=== PATIENT | female | born 1950 | race Caucasian/White ===

== ENCOUNTER → 2017-03-25 16:40 | Outpatient (CLI) | payer MEDICARE, SELFPAY ==
--- NOTE | 2017-03-25 16:47 | RAD_ITS ---
XR Spine Lumbar Min 4 Views INDICATION: degenerative lumbar disc COMPARISON: None TECHNIQUE: 5 views of the lumbar spine FINDINGS: There are 5 lumbar type nonrib-bearing vertebral bodies. There is normal lumbar lordosis and no evidence of scoliosis. Facet arthritic changes are noted at the mid and lower lumbar levels. There is degenerative disc disease suggested at L5-S1 with decrease in disc space and endplate sclerotic changes. RAD/L/S Spine Min 4 Views IMPRESSION: Multilevel facet arthritic changes and L5-S1 degenerative disc disease. at 1704 Reported and signed by: Leny Schafer MD Electronically Signed: Leny Schafer MD at 16:03 EST Tel , Service support ,
== END ==
PROVIDERS: Family Provider Family Medicine; PCP Family Medicine; Visit Provider Family Medicine
DX: M51.36 Other intervertebral disc degeneration, lumbar region (principal)
CPT/HCPCS: 72110

== ENCOUNTER → 2017-04-23 14:14 | Outpatient (CLI) | payer MEDICARE, SELFPAY | PROVIDERS: Visit Provider Dermatology | DX: L60.9 Nail disorder, unspecified (principal) | CPT/HCPCS: 87077; 87101; 87106 ==

== ENCOUNTER → 2017-05-17 09:56 | Outpatient (CLI) | payer MEDICARE, SELFPAY ==
[2017-05-17 10:35] LABS: AST(SGOT) 24 U/L (15-37); Alanine Aminotransfer ALT/SGPT 32 U/L (13-56); Albumin, Serum 3.7 g/dL (3.2-5.0); Alkaline Phosphatase 60 U/L (45-117); Bilirubin, Direct 0.11 mg/dL (0.00-0.30); Creatinine, Serum 0.68 mg/dL (0.55-1.02); EST Glomerular Filtration Rate 92 mL/min (>60); Est Glom Filt Rate - Afr Amer 111 mL/min (>60); Globulin 2.8 g/dL (2.2-4.2); Protein, Total 6.5 g/dL (6.4-8.2)
== END ==
PROVIDERS: Family Provider Family Medicine; PCP Family Medicine; Visit Provider Dermatology
DX: Z51.81 Encounter for therapeutic drug level monitoring (principal); Z79.899 Other long term (current) drug therapy
CPT/HCPCS: 36415; 80076; 82565

== ENCOUNTER → 2017-07-12 10:29 | Outpatient (CLI) | payer MEDICARE, SELFPAY ==
[2017-07-12 11:20] LABS: Hematocrit 38.9 % (37-47); Hemoglobin 13.2 g/dl (12.0-15.0); Mean Corp Hgb Conc 33.9 g/gl (32-36); Mean Corpuscular Hgb 31.1 pg (27.0-32.0); Mean Corpuscular Volume 91.7 fL (81-99); Mean Platelet Vol. 10.2 fl (6.2-12.0); Platelet Count 189 K/mm3 (150-450); RBC Distribution Width CV 12.3 % (11.6-14.6); RBC Distribution Width SD 40.5 fl (35.1-43.9); Red Blood Count 4.24 M/mm3 (4.2-5.4); White Blood Count 4.1 K/mm3 (4.4-11.0)
[2017-07-12 11:21] LABS: Scan Indicated on CBC? Y/N NO
[2017-07-12 11:59] LABS: Anion Gap 6 (5-15); BUN 17 mg/dL (7-18); BUN/Creat Ratio 24.2 RATIO (10-20); Chloride 108 mmol/L (98-107); Cholesterol 211 mg/dL (200); EST Glomerular Filtration Rate 88 mL/min (>60); Est Glom Filt Rate - Afr Amer 107 mL/min (>60); Glucose 73 mg/dL (74-106); High Density Lipoprotein 76 mg/dL; Potassium 4.4 mmol/L (3.5-5.1); Sodium Level 141 mmol/L (136-145); Thyroid Stim Hormone (TSH) 1.55 uIU/mL (0.358-3.74); Triglycerides 64 mg/dL; Very Low Density Lipoprotein 13 mg/dL (5-40)
== END ==
PROVIDERS: Family Provider Family Medicine; PCP Family Medicine; Visit Provider Family Medicine
DX: M81.0 Age-related osteoporosis without current pathological fracture (principal); E78.5 Hyperlipidemia, unspecified; K22.70 Barrett's esophagus without dysplasia
CPT/HCPCS: 80048; 80061; 82306; 84443; 85027

== ENCOUNTER → 2018-07-15 10:15 | Outpatient (CLI) | payer MEDICARE, SELFPAY ==
[2018-07-15 12:52] LABS: Hematocrit 41.6 % (37-47); Hemoglobin 13.9 g/dl (12.0-15.0); Mean Corp Hgb Conc 33.4 g/gl (32-36); Mean Corpuscular Hgb 30.5 pg (27.0-32.0); Mean Corpuscular Volume 91.2 fL (81-99); Mean Platelet Vol. 10.1 fl (6.2-12.0); Platelet Count 200 K/mm3 (150-450); RBC Distribution Width CV 12.7 % (11.6-14.6); RBC Distribution Width SD 42.3 fl (35.1-43.9); Red Blood Count 4.56 M/mm3 (4.2-5.4); White Blood Count 4.1 K/mm3 (4.4-11.0)
[2018-07-15 12:53] LABS: Scan Indicated on CBC? Y/N NO
[2018-07-15 13:22] LABS: Vitamin D,25 Hydroxy 61.1 ng/mL (29.95-100.01)
[2018-07-15 13:38] LABS: ALB/GLOB Ratio 1.2 RATIO (0.9-2.4); AST(SGOT) 24 U/L (15-37); Alanine Aminotransfer ALT/SGPT 34 U/L (13-56); Albumin, Serum 3.9 g/dL (3.2-5.0); Alkaline Phosphatase 62 U/L (45-117); Anion Gap 7 (5-15); BUN 14 mg/dL (7-18); BUN/Creat Ratio 21.4 RATIO (10-20); Calcium,Total 8.8 mg/dL (8.5-10.1); Chloride 105 mmol/L (98-107); Creatinine, Serum 0.65 mg/dL (0.55-1.02); EST Glomerular Filtration Rate 96 mL/min (>60); Est Glom Filt Rate - Afr Amer 116 mL/min (>60); Globulin 3.2 g/dL (2.2-4.2); Glucose 82 mg/dL (74-106); Potassium 4.1 mmol/L (3.5-5.1); Protein, Total 7.1 g/dL (6.4-8.2); Sodium Level 139 mmol/L (136-145); Thyroid Stim Hormone (TSH) 1.67 uIU/mL (0.358-3.74)
[2018-07-15 13:39] LABS: PTHIN 49.5 pg/mL (18.4-80.1)
[2018-07-16 16:51] LABS: Hep C Antibodies <0.1 s/co ratio (0.0-0.9)
== END ==
PROVIDERS: Family Provider Family Medicine; PCP Family Medicine; Referring Provider Family Medicine; Visit Provider Family Medicine
DX: K22.70 Barrett's esophagus without dysplasia (principal); M81.0 Age-related osteoporosis without current pathological fracture; Z11.59 Encounter for screening for other viral diseases
CPT/HCPCS: 36415; 80053; 82306; 83970; 84443; 85027; 86803

== ENCOUNTER → 2018-07-28 10:50 | Outpatient (CLI) | payer MEDICARE, SELFPAY ==
--- NOTE | 2018-07-28 10:56 | BD_ITS ---
STUDY: DUAL ENERGY X-RAY ABSORPTIOMETRY / DXA REASON FOR EXAM: Female, 67 years old. Patient is postmenopausal. Loss on right. TECHNIQUE: Bone Mineral Density (BMD) measurements of lumbar spine and bilateral hips were obtained. COMPARISON: Comparison is made with prior study dated July 23, 2016. FINDINGS: Lumbar Spine (L1-L4): g/cm2 (1.139) / T-score (-0.3) / Z-score (1.4) Findings are suggestive of normal bone density with a low fracture risk. Left Femur Total: g/cm2 (0.862) / T-score (-1.2) / Z-score (0.2) Left Femoral Neck: g/cm2 (0.788) / T-score (-1.8) / Z-score (-0.2) Right Femur Total: g/cm2 (0.898) / T-score (-0.9) / Z-score (0.5) Right Femoral Neck: g/cm2 (0.771) / T-score (-1.9) / Z-score (-0.3) The T-Scores on the most recent prior examination were: Lumbar Spine (L1-L4): There has been improvement of bone density since the previous examination. Left Femur Total: which represents an improvement of 2.5%. Right Femur Total: which represents an improvement of 2.7%. BD/Dexa Bone Density Study IMPRESSION: The patient is considered osteopenic as outlined below according to World [place] Organization (WHO) criteria with a moderate fracture risk. There has been improvement of bone density since the previous examination. Reference Information: The T-score is the number of standard deviations above or below the standard which is normal for young adults at their peak bone mineral density. The World Health Organization (WHO) interprets the T-scores as follows: Above -1 Normal bone density Between -1 and -2.5 Osteopenia Equal to / or below -2.5 Osteoporosis As a practical clinical guideline, osteopenia may be graded as follows: Mild -1 through -1.5 Moderate -1.6 through -2.0 Severe -2.1 through -2.4 The Z-score is the number of standard deviations above or below age-matched controls. A Z-score of less than -1.5 would be considered abnormal. References: 1. NIH Osteoporosis and Related Bone Diseases http://www.osteo.org 2. International Society for Clinical Densitometry http://www.iscd.org 3. National Osteoporosis Foundation http://www.nof.org Electronically Signed: Charles Edmond, at 8:47 EDT , Service support ,
== END ==
PROVIDERS: Family Provider Family Medicine; PCP Family Medicine; Referring Provider Family Medicine; Visit Provider Family Medicine
DX: Z78.0 Asymptomatic menopausal state (principal); M81.0 Age-related osteoporosis without current pathological fracture
CPT/HCPCS: 77080

== ENCOUNTER 2018-09-03 10:00 | Outpatient (RCR) | payer MEDICARE, SELFPAY ==
--- NOTE | 2018-07-24 10:29 | HP.PTEVAL ---
Patient's Visit Information JOSEFA CHE is a 67 year old F referred to Physical Therapy by Matt Hadley MD with a diagnosis of RIGHT BICEP TENDONITIS. Date of Evaluation: 07/24/18 Physical Therapist: Luke Koroma PT, Cert MDT, OCS - Visit Plan Frequency: 2x /Week Duration: 4 Weeks Plan: MODALTIES US/ESTIM CP TO LONG HEAD BICEP,RTC/SCAPULAR STRENGTHENING,ECCENTRICS - Subjective Findings: This 67 y/o female presents to physical therapy with right biceps tendonitis. Patient has had pain in right shoulder for 3 months possible walking dog . Location anterior biceps. Aggravating factors housework tasks uch as running vacumming ,walking dog,lifting. Symptoms worse with sleeping on rigt side . Alleviating factors heat/ice. No h/o shoulder pain or trauma. Denies paratehsia/tingling. SOCIAL: . VOCATION: retired - Pain Left Shoulder Pain Intensity (Out of 10): 4 Pain Intensity Range: 10 - Objective POSTURE: mild foward posture. PALAPTION: tender long head bicep ,groove. NEURO: intact. AROM: flexion 160,abduction 155 degrees ,ER 90 DEGREES,IR 80 degrees,. MMT: RTC 4/5,deltoid 4-/5 lateral/anterior ,biceps 4/5. CERVICAL ROM: WFL - Special Tests C/S Radiculapathy - Left Upper limb tension test: Negative C/S Radiculapathy - Right Upper limb tension test: Negative C/S Radiculapathy - Left Spurlings: Negative C/S Radiculapathy - Right Spurlings: Negative R Shoulder External Rotation Lag Test - RC Tear: Negative R Shoulder Supine Impingement Test - RC Tear: Negative R Shoulder Lift Off Test - Subscapular Tear: Negative R Shoulder Drop Sign - IS Test: Negative R Shoulder Empty Can - SS: Negative R Shoulder Neer - Impingement: Negative R Shoulder Cardoso Eder - Impingement: Positive R Shoulder Biceps Load Test - Labrum: Negative R Shoulder O'Briens - SLAP/A-C: Negative - Goals Goal 1:: Independant with HEP Goal Time Frame: 4-6 Weeks Goal 2:: Decrease pain in right shoulder by 50% or greater to improve function Goal Time Frame: 4-6 Weeks Goal 3:: Patient to improve ablity to perform ADL's and housework chores without limitations Goal Time Frame: 4-6 Weeks Goal 4:: Patient to improve quick dash shoulder by 5 ponts to improve QOL Goal Time Frame: 4-6 Weeks - Rehabilitation Potential Physical Therapy Diagnosis: This patient appears to have bicepital tendonesis with pain with palpation and certain movemnt affects housework such as vacumming Rehabilitation Potential: Good - Anticipated Interventions Patient/Client Instruction: Educate patient on: Condition, Plan of Care For the Purpose of:: To decrease pain, To increase ROM, To improve muscle performance and motor function, To increase tolerance to activity/condition/position, To improve ability of physical actions for home/community/work/leisure, To improve health of tissue, To decrease soft tissue restriction, To increase flexibility/ROM, To improve ability to perform tasks related to life management Therapeutic Exercise to Include: Strength training, Postural training, Flexibilty training, Active ROM Comment: RTC For the Purpose of:: To decrease pain, To decrease swelling/inflammation, To increase ROM, To improve health of tissue, To decrease soft tissue restriction TENS: Yes IF ES: Yes Cryotherapy (ice pack, ice massage): Yes Thermo therapy (hot pack): Yes Ultrasound (thermal/non thermal): Yes For the Purpose of:: To decrease pain, To improve nutrient delivery to tissue, To increase oxygenation perfusion, To improve health of tissue, To decrease soft tissue restriction Thank you for the opportunity to evaluate your patient. For Medicare and Medicare HMO plans, please review the plan of care and approve it. It will need to be FAXED BACK to us at [phone] for Medicare purposes. For Medicare only, by signing this I certify the plan of care. Please let me know if there are questions or concerns regarding this plan of care. Physician Signature: Date:
--- NOTE | 2018-09-03 10:26 | HP.PTDCSUM ---
HP - PT D/C Summary It has been my pleasure to treat JOSEFA CHE under orders from Matt Hadley MD, for the diagnosis of RIGHT BICEP TENDONITIS for a total of 9 visit(s). Discharge Date: 09/03/18 Please see the following information for a summary of their discharge status. - Subjective Subjective: Doing good .. Able to do all ADL'S/housework tasks - Pain Left Shoulder Pain Intensity (Out of 10): 0 - Overall Improvement % Improvement: 99 - Objective Objective/Function: POSTURE: mild foward posture. PALAPTION: unremarkable. AROM SHOULDER: flexions 160,abd 160,ER 90. MMT: RTC 4/5,DELTOID 4/5 - Goals Goal 1:: Independant with HEP Goal Progress: Goal Met Goal 2:: Decrease pain in right shoulder by 50% or greater to improve function Goal Progress: Goal Met Goal 3:: Patient to improve ablity to perform ADL's and housework chores without limitations Goal Progress: Goal Met Goal 4:: Patient to improve quick dash shoulder by 5 ponts to improve QOL Goal Progress: Goal Met Goal Progress: Goal Met - Plan Plan: D/C TO HEP - D/C Information Discharge Comments: HEP If there are questions or concerns regarding this patient's physical therapy, please feel free to call me at [phone]. Thank you for the referral of this patient. Sincerely, Luke Koroma, PT, Cert MDT, OCS
== END 2018-09-03 19:00 | disposition home or self-care (01) ==
LOC: PT 10:00
PROVIDERS: Family Provider Family Medicine; PCP Family Medicine; Referring Provider Family Medicine; Visit Provider Family Medicine
DX: M75.21 Bicipital tendinitis, right shoulder (principal)
CPT/HCPCS: 97014; 97035; 97110; 97162; G0283

== ENCOUNTER → 2019-01-07 09:17 | Outpatient (CLI) | payer MEDICARE, SELFPAY ==
[2018-10-14 09:20] VITALS: BMI 22.0
== END ==
PROVIDERS: Family Provider Family Medicine; PCP Family Medicine; Referring Provider Nurse Practitioner Family; Visit Provider Nurse Practitioner Family
DX: I49.9 Cardiac arrhythmia, unspecified (principal); R53.83 Other fatigue
CPT/HCPCS: 93225; 93226

== ENCOUNTER → 2019-08-05 11:22 | Outpatient (CLI) | payer MEDICARE, SELFPAY ==
[2018-10-14 09:20] VITALS: BMI 22.0
[2019-08-05 16:12] LABS: Anion Gap 7 (5-15); BUN 12 mg/dL (7-18); BUN/Creat Ratio 17.5 RATIO (10-20); Calcium,Total 8.9 mg/dL (8.5-10.1); Chloride 105 mmol/L (98-107); Cholesterol 237 mg/dL (200); Creatinine, Serum 0.68 mg/dL (0.55-1.02); EST Glomerular Filtration Rate 90 mL/min (>60); Est Glom Filt Rate - Afr Amer 109 mL/min (>60); Glucose 77 mg/dL (74-106); High Density Lipoprotein 79 mg/dL; Potassium 3.9 mmol/L (3.5-5.1); Sodium Level 139 mmol/L (136-145); Thyroid Stim Hormone (TSH) 2.05 uIU/mL (0.358-3.74); Triglycerides 79 mg/dL; Very Low Density Lipoprotein 16 mg/dL (5-40)
[2019-08-06 09:10] LABS: PTHIN 50.1 pg/mL (18.4-80.1)
== END ==
PROVIDERS: PCP Family Medicine; Referring Provider Family Medicine; Visit Provider Family Medicine
DX: M81.0 Age-related osteoporosis without current pathological fracture (principal); E78.5 Hyperlipidemia, unspecified
CPT/HCPCS: 36415; 80048; 80061; 82306; 83970; 84443

== ENCOUNTER → 2019-11-04 10:53 | Outpatient (CLI) | payer MEDICARE, SELFPAY ==
[2019-10-19 09:50] VITALS: BMI 22.2
--- NOTE | 2019-11-04 10:53 | ECHOD_ITS ---
Version 2 Reason For Study: MITRAL VALVE PROLAPSE Procedure This was a 2D Doppler, Color Flow transthoracic echocardiogram. Exam performed in department. Left Ventricle Normal LV size. Left ventricular systolic function is normal. The estimated ejection fraction is 60 %. Stage 2 diastolic dysfunction. No regional wall motion abnormalities noted. Right Ventricle Normal RV size. Normal systolic function. Atria Normal left atrium. Normal right atrium. Mitral Valve Bileaflet diffuse mitral valve thickening. Equivocal mitral valve prolapse. Mild (1+) eccentric mitral valve insufficiency. Tricuspid Valve Normal tricuspid valve. Mild (1+) tricuspid valve insufficiency. Pulmonary artery systolic pressure is 26 mmHg. Aortic Valve Trisinus/trileaflet aortic valve. Pulmonic Valve Normal pulmonic valve. Great Vessels Normal aortic root. The pulmonary artery is normal size. Normal inferior vena cava. Pericardium/Pleural No pericardial effusion. MMode/2D Measurements & Calculations LVIDd: 3.7 cm IVSd: 0.79 cm Ao root diam: 2.9 cm LVIDs: 2.6 cm LVPWd: 0.81 cm RVDd: 2.7 cm FS: 30.5 % LAV(MOD-bp): 42.1 ml LVAd ap4: 19.2 cm2 SV(MOD-sp4): 30.1 ml LAV(MOD-bp) Indexed: 29.1 ml/m2 EDV(MOD-sp4): 47.6 ml LAV(MOD-sp2): 38.4 ml EDV(sp4-el): 48.9 ml LAV(MOD-sp4): 38.6 ml LVAs ap4: 10.3 cm2 ESV(MOD-sp4): 17.5 ml ESV(sp4-el): 16.4 ml EF(MOD-sp4): 63.2 % EF(sp4-el): 66.5 % SV(sp4-el): 32.5 ml LA A4 area: 15.2 cm2 LA dimension(2D): 3.5 cm RA A4 area: 9.0 cm2 Time Measurements MV dec time: 0.25 sec Doppler Measurements & Calculations MV E max emilio: 80.1 cm/sec Lat Peak E' Emilio: 5.6 cm/sec Med Peak E' Emilio: 7.4 cm/sec MV A max emilio: 64.6 cm/sec E/E' lat: 14.4 E/E' med: 10.9 MV E/A: 1.2 Ao V2 max: 122.4 cm/sec LV V1 max: 98.6 cm/sec PA V2 max: 85.1 cm/sec Ao max P.0 mmHg LV V1 max P.9 mmHg PI end-d emilio: 70.9 cm/sec TR max emilio: 234.1 cm/sec TR max P.0 mmHg Interpretation Summary Normal LV size. Left ventricular systolic function is normal. The estimated ejection fraction is 60 %. Stage 2 diastolic dysfunction. Mild (1+) eccentric mitral valve insufficiency. Pulmonary artery systolic pressure is 26 mmHg. Bileaflet diffuse mitral valve thickening. Equivocal mitral valve prolapse. Ordering Physician: Brent Falk Referring Physician: MARIANNE BEE Performed By: Emma Roman RDCS
== END ==
PROVIDERS: PCP Family Medicine; Referring Provider Internal Medicine Cardiovascular Disease; Visit Provider Internal Medicine Cardiovascular Disease
DX: I47.1 Supraventricular tachycardia (principal); I34.1 Nonrheumatic mitral (valve) prolapse
CPT/HCPCS: 93306

== ENCOUNTER → 2020-01-07 13:48 | Outpatient (CLI) | payer MEDICARE, SELFPAY ==
[2019-10-19 09:50] VITALS: BMI 22.2
--- NOTE | 2020-01-07 13:51 | CT_ITS ---
STUDY: CT FACIAL BONES WITHOUT CONTRAST REASON FOR EXAM: Female, 69 years old. SINUSITIS RADIATION DOSAGE (If Supplied By Facility): CTDIvol = ( 33.06 ) mGy, DLP = ( 2029.46 ) mGycm TECHNIQUE: The patient was scanned in a multi detector CT scanner. Sagittal and coronal images were reconstructed. Individualized dose optimization techniques were used for this CT. COMPARISON: None. FINDINGS: Normal soft tissue structures. Normal orbital hua and orbital contents. Normal nasal bones and anterior nasal spine. Normal facial bones. There is no demonstrated fracture. Focal mucosal thickening along the inferior medial wall of the left maxillary sinus suggestive of either small retention cyst or polyp. There is hypertrophy of the inferior turbinates left nasal fossa. CT/Sinus/Facial Bone IMPRESSION: Focal mucosal thickening in the inferior medial aspect of the left maxillary sinus. Hypertrophy of the inferior turbinate in the left nasal fossa. Electronically Signed: Charles Edmond, at 14:40 EST , Service support ,
== END ==
PROVIDERS: PCP Family Medicine; Referring Provider Otolaryngology; Visit Provider Otolaryngology
DX: J32.9 Chronic sinusitis, unspecified (principal)
CPT/HCPCS: 70486

== ENCOUNTER → 2020-01-19 10:16 | Outpatient (CLI) | payer MEDICARE, SELFPAY ==
[2019-10-19 09:50] VITALS: BMI 22.2
== END ==
PROVIDERS: PCP Family Medicine; Referring Provider Otolaryngology; Visit Provider Otolaryngology
DX: Z20.828 Contact with and (suspected) exposure to other viral communicable diseases (principal)
CPT/HCPCS: 87635; C9803; U0003

== ENCOUNTER → 2020-07-13 11:21 | Outpatient (CLI) | payer MEDICARE, SELFPAY ==
[2019-10-19 09:50] VITALS: BMI 22.2
[2020-07-13 12:25] LABS: Absolute Lymphocyte Count 1.82 X10^3/uL (0.83-4.51); Absolute Neutrophil Count 2.3 X10^3/uL (2.0-7.7); Basophil# 0.03 X10^3/uL; Basophil% 0.7 % (0-1); Eosinophil# 0.07 X10^3/uL; Eosinophils% 1.5 % (0-5); Hematocrit 40.8 % (37-47); Hemoglobin 13.6 g/dL (12.0-15.0); Lymphocyte # 1.82 X10^3/ul (0.83-4.51); Mean Corp Hgb Conc 33.3 g/dL (32-36); Mean Corpuscular Hgb 30.2 pg (27.0-32.0); Mean Corpuscular Volume 90.5 fL (81-99); Monocyte# 0.34 X10^3/uL; Monocyte% 7.5 % (0-10); NRBC Flagged by Analyzer 0 % (0-5); Neutrophil # 2.27 X10^3/uL (2.7-7.7); Neutrophil % 49.9 % (47-70); Platelet Count 203 K/mm3 (150-450); RBC Distribution Width CV 12.2 % (11.6-14.6); RBC Distribution Width SD 40.6 fl (35.1-43.9); Red Blood Count 4.51 M/mm3 (4.2-5.4); White Blood Count 4.6 K/mm3 (4.4-11.0)
[2020-07-13 13:07] LABS: AST(SGOT) 19 U/L (15-37); Alanine Aminotransfer ALT/SGPT 29 U/L (13-56); Albumin, Serum 3.9 g/dL (3.2-5.0); Alkaline Phosphatase 59 U/L (45-117); Bilirubin, Direct 0.14 mg/dL (0.00-0.30); Globulin 2.6 g/dL (2.2-4.2); Protein, Total 6.5 g/dL (6.4-8.2)
== END ==
PROVIDERS: PCP Family Medicine
DX: B35.1 Tinea unguium (principal)
CPT/HCPCS: 36415; 80076; 85025

== ENCOUNTER → 2020-08-15 11:46 | Outpatient (CLI) | payer MEDICARE, SELFPAY ==
[2019-10-19 09:50] VITALS: BMI 22.2
[2020-08-15 15:47] LABS: Vitamin D,25 Hydroxy 52.9 ng/mL
[2020-08-15 15:54] LABS: PTHIN 42.5 pg/mL (18.4-80.1)
[2020-08-15 15:55] LABS: Anion Gap 5 (5-15); BUN 11 mg/dL (7-18); Chloride 105 mmol/L (98-107); Cholesterol 271 mg/dL (200); Creatinine, Serum 0.65 mg/dL (0.55-1.02); EST Glomerular Filtration Rate 96 mL/min (>60); Est Glom Filt Rate - Afr Amer 116 mL/min (>60); Glucose 84 mg/dL (74-106); High Density Lipoprotein 82 mg/dL; Magnesium 2.3 mg/dL (1.6-2.6); Phosphorus 3.1 mg/dL (2.5-4.9); Potassium 4.3 mmol/L (3.5-5.1); Sodium Level 139 mmol/L (136-145); Thyroid Stim Hormone (TSH) 2.85 uIU/mL (0.358-3.74); Triglycerides 104 mg/dL; Very Low Density Lipoprotein 21 mg/dL (5-40)
== END ==
PROVIDERS: PCP Family Medicine; Visit Provider Family Medicine
DX: M81.0 Age-related osteoporosis without current pathological fracture (principal); E78.5 Hyperlipidemia, unspecified
CPT/HCPCS: 36415; 80048; 80061; 82306; 82330; 83735; 83970; 84100; 84443

== ENCOUNTER → 2020-08-21 10:45 | Outpatient (CLI) | payer MEDICARE, SELFPAY ==
[2019-10-19 09:50] VITALS: BMI 22.2
== END ==
PROVIDERS: PCP Family Medicine; Referring Provider Family Medicine; Visit Provider Family Medicine
DX: M81.0 Age-related osteoporosis without current pathological fracture (principal)
CPT/HCPCS: 82330

== ENCOUNTER → 2020-09-11 08:38 | Outpatient (CLI) | payer MEDICARE, SELFPAY ==
[2019-10-19 09:50] VITALS: BMI 22.2
[2020-09-11 09:14] LABS: Absolute Lymphocyte Count 2.04 X10^3/uL (0.83-4.51); Absolute Neutrophil Count 3.3 X10^3/uL (2.0-7.7); Basophil# 0.03 X10^3/uL; Basophil% 0.5 % (0-1); Eosinophil# 0.11 X10^3/uL; Eosinophils% 1.8 % (0-5); Hematocrit 42.6 % (37-47); Lymphocyte # 2.04 X10^3/ul (0.83-4.51); Lymphocyte % 34.2 % (19-41); Mean Corp Hgb Conc 32.9 g/dL (32-36); Mean Corpuscular Hgb 30.2 pg (27.0-32.0); Mean Platelet Vol. 9.4 fl (6.2-12.0); Monocyte# 0.42 X10^3/uL; NRBC Flagged by Analyzer 0 % (0-5); Neutrophil # 3.32 X10^3/uL (2.7-7.7); Neutrophil % 55.8 % (47-70); Platelet Count 207 K/mm3 (150-450); RBC Distribution Width CV 12.7 % (11.6-14.6); RBC Distribution Width SD 43.1 fl (35.1-43.9); Red Blood Count 4.63 M/mm3 (4.2-5.4)
[2020-09-11 09:43] LABS: AST(SGOT) 17 U/L (15-37); Alanine Aminotransfer ALT/SGPT 29 U/L (13-56); Albumin, Serum 3.7 g/dL (3.2-5.0); Alkaline Phosphatase 52 U/L (45-117); Bilirubin, Direct 0.07 mg/dL (0.00-0.30); Globulin 2.9 g/dL (2.2-4.2); Protein, Total 6.6 g/dL (6.4-8.2)
== END ==
PROVIDERS: PCP Family Medicine
DX: B35.1 Tinea unguium (principal); L21.8 Other seborrheic dermatitis; D22.5 Melanocytic nevi of trunk; D48.5 Neoplasm of uncertain behavior of skin; L30.9 Dermatitis, unspecified; L82.1 Other seborrheic keratosis
CPT/HCPCS: 36415; 80076; 85025

== ENCOUNTER → 2020-09-13 09:26 | Outpatient (CLI) | payer MEDICARE, SELFPAY ==
[2019-10-19 09:50] VITALS: BMI 22.2
--- NOTE | 2020-09-13 09:30 | BD_ITS ---
STUDY: DUAL ENERGY X-RAY ABSORPTIOMETRY / DXA REASON FOR EXAM: Female, 69 years old. [id number]. The patient is postmenopausal. TECHNIQUE: Bone Mineral Density (BMD) measurements of lumbar spine and bilateral hips were obtained. COMPARISON: Comparison is made with prior study dated 07/28/2018. FINDINGS: Lumbar Spine (L1-L4): g/cm2 (1.065) / T-score (0.2) / Z-score (2.3) Findings are suggestive of normal bone density with a low fracture risk. Left Femur Total: g/cm2 (0.788) / T-score (-1.3) / Z-score (0.3) Left Femoral Neck: g/cm2 (0.608) / T-score (-2.2) / Z-score (-0.3) Right Femur Total: g/cm2 (0.822) / T-score (-1.0) / Z-score (0.6) Right Femoral Neck: g/cm2 (0.606) / T-score (-2.2) / Z-score (-0.3) The T-Scores on the most recent prior examination were: Lumbar Spine (L1-L4): There has been improvement of bone density since the previous examination. Left Femur Total: which represents a worsening of 1.5%. Right Femur Total: which represents a worsening of 1.6%. BD/Dexa Bone Density Study IMPRESSION: The patient is considered osteopenic as outlined below according to World [place] Organization (WHO) criteria with a high fracture risk. There has been worsening of bone density since the previous examination. Reference Information: The T-score is the number of standard deviations above or below the standard which is normal for young adults at their peak bone mineral density. The World Health Organization (WHO) interprets the T-scores as follows: Above -1 Normal bone density Between -1 and -2.5 Osteopenia Equal to / or below -2.5 Osteoporosis As a practical clinical guideline, osteopenia may be graded as follows: Mild -1 through -1.5 Moderate -1.6 through -2.0 Severe -2.1 through -2.4 The Z-score is the number of standard deviations above or below age-matched controls. A Z-score of less than -1.5 would be considered abnormal. References: 1. NIH Osteoporosis and Related Bone Diseases www osteo.org 2. International Society for Clinical Densitometry www iscd.org 3. National Osteoporosis Foundation www nof.org Electronically Signed: Charles Edmond MD at 20:32 EDT , Service support ,
== END ==
PROVIDERS: PCP Family Medicine; Referring Provider Family Medicine; Visit Provider Family Medicine
DX: Z78.0 Asymptomatic menopausal state (principal)
CPT/HCPCS: 77080

== ENCOUNTER → 2020-10-30 08:28 | Outpatient (CLI) | payer MEDICARE, SELFPAY ==
[2020-10-30 10:51] LABS: Cholesterol 213 mg/dL (200); High Density Lipoprotein 88 mg/dL; Triglycerides 95 mg/dL; Very Low Density Lipoprotein 19 mg/dL (5-40)
== END ==
PROVIDERS: PCP Family Medicine; Referring Provider Family Medicine; Visit Provider Family Medicine
DX: E78.5 Hyperlipidemia, unspecified (principal)
CPT/HCPCS: 36415; 80061

== ENCOUNTER → 2020-12-05 09:51 | Outpatient (CLI) | payer MEDICARE, SELFPAY ==
--- NOTE | 2020-12-05 09:55 | RAD_ITS ---
STUDY: X-RAY - LUMBOSACRAL SPINE REASON FOR EXAM: Female, 70 years old. Lumbago with sciatica, left side TECHNIQUE: 7 view(s) of the lumbosacral spine were obtained. COMPARISON: None FINDINGS: Normal lumbar lordosis. There is no substantial scoliosis. There is grade 1 anterolisthesis of L4 on L5. No change in flexion or extension. There is multilevel endplate spondylosis of the lumbar vertebrae. Disc space loss at L5-S1. Facet arthrosis increases from superior to inferior. Normal bilateral sacral ala, sacroiliac joints, and visualized sacrum. There is atherosclerotic calcification of the abdominal aorta without a demonstrated aneurysm. RAD/L/S Spine w Bend Min 6 Vw IMPRESSION: Multilevel degenerative change, most prominent at L5-S1. Lower lumbar facet arthrosis. Electronically Signed: Claude Jarrell MD at 5:29 EDT Tel , Service support ,
== END ==
PROVIDERS: PCP Family Medicine; Referring Provider Family Medicine; Visit Provider Family Medicine
DX: M54.42 Lumbago with sciatica, left side (principal); M47.816 Spondylosis without myelopathy or radiculopathy, lumbar region
CPT/HCPCS: 72114

== ENCOUNTER → 2021-09-25 | Outpatient (CLI) | payer MEDICARE, SELFPAY ==
[2021-09-25 09:48] LABS: Absolute Lymphocyte Count 1.57 X10^3/uL (0.83-4.51); Absolute Neutrophil Count 2.2 X10^3/uL (2.0-7.7); Basophil# 0.02 X10^3/uL; Basophil% 0.5 % (0-1); Eosinophil# 0.24 X10^3/uL; Eosinophils% 5.6 % (0-5); Hemoglobin 13.5 g/dL (12.0-15.0); Lymphocyte # 1.57 X10^3/ul (0.83-4.51); Lymphocyte % 36.9 % (19-41); Mean Corp Hgb Conc 33.8 g/dL (32-36); Mean Corpuscular Hgb 30.9 pg (27.0-32.0); Mean Corpuscular Volume 91.5 fL (81-99); Mean Platelet Vol. 9.8 fl (6.2-12.0); Monocyte# 0.26 X10^3/uL; Monocyte% 6.1 % (0-10); NRBC Flagged by Analyzer 0 % (0-5); Neutrophil # 2.15 X10^3/uL (2.7-7.7); Neutrophil % 50.7 % (47-70); Platelet Count 204 K/mm3 (150-450); RBC Distribution Width CV 12.5 % (11.6-14.6); RBC Distribution Width SD 41.7 fl (35.1-43.9); Red Blood Count 4.37 M/mm3 (4.2-5.4); White Blood Count 4.3 K/mm3 (4.4-11.0)
[2021-09-25 10:15] LABS: PTHIN 50.2 pg/mL (18.4-80.1)
[2021-09-25 10:32] LABS: ALB/GLOB Ratio 1.2 RATIO (0.9-2.4); AST(SGOT) 17 U/L (15-37); Alanine Aminotransfer ALT/SGPT 23 U/L (13-56); Albumin, Serum 3.6 g/dL (3.2-5.0); Alkaline Phosphatase 57 U/L (45-117); Anion Gap 5 (5-15); BUN 9 mg/dL (7-18); BUN/Creat Ratio 13.4 RATIO (10-20); Calcium,Total 8.4 mg/dL (8.5-10.1); Chloride 104 mmol/L (98-107); Cholesterol 232 mg/dL (200); Creatinine, Serum 0.67 mg/dL (0.55-1.02); EST Glomerular Filtration Rate 92 mL/min (>60); Est Glom Filt Rate - Afr Amer 111 mL/min (>60); Globulin 2.9 g/dL (2.2-4.2); Glucose 85 mg/dL (74-106); High Density Lipoprotein 71 mg/dL; Potassium 3.9 mmol/L (3.5-5.1); Protein, Total 6.5 g/dL (6.4-8.2); Sodium Level 138 mmol/L (136-145); Thyroid Stim Hormone (TSH) 2.81 uIU/mL (0.358-3.74); Triglycerides 159 mg/dL; Very Low Density Lipoprotein 32 mg/dL (5-40)
== END | disposition home or self-care (01) ==
LOC: LAB 08:58
PROVIDERS: PCP Family Medicine; Referring Provider Family Medicine; Visit Provider Family Medicine
DX: I47.1 Supraventricular tachycardia (principal)
CPT/HCPCS: 36415; 80053; 80061; 82330; 83735; 83970; 84443; 85025

== ENCOUNTER → 2021-11-07 | Outpatient (CLI) | payer MEDICARE, SELFPAY ==
--- NOTE | 2021-11-07 10:23 | NM_ITS ---
CLINICAL: 71-year-old female with history of clinical gastroparesis. SEMI-SOLID PHASE 99m Tc SULFUR COLLOID GASTRIC EMPTYING STUDY COMPARISON: None available FINDINGS: The patient was administered 1.1 mCi of 99m Tc sulfur colloid mixed with oatmeal and consumed per os. Image acquisitions in the anterior-posterior projections were obtained for 60 minutes. There is prompt visualization of the stomach. There is no gastroesophageal reflux identified. The T ? emptying was calculated to be 15.01 minutes, (Normal: 12-56 minutes). NM/Gastric Emptying Study IMPRESSION: 1. NORMAL 99m Tc sulfur colloid semi-solid phase (oatmeal) gastric emptying imaging examination. A. There is normal and preserved semi-solid phase gastric emptying compared to normal controls. (Brittanie et al, J Nucl Med Tech 38: 186, 2010). Electronically Signed: Bc Lewis, at 15:07 EDT ,
== END | disposition home or self-care (01) ==
PROVIDERS: PCP Family Medicine; Referring Provider Internal Medicine Gastroenterology; Visit Provider Internal Medicine Gastroenterology
DX: K31.84 Gastroparesis (principal)
CPT/HCPCS: 78264; A9541

== ENCOUNTER → 2021-11-14 | Outpatient (CLI) | payer MEDICARE, SELFPAY ==
[2021-11-22 00:07] LABS: Chicken <0.10 kU/L (Class 0); Chocolate <0.10 kU/L (Class 0); Clam <0.10 kU/L (Class 0); Codfish <0.10 kU/L (Class 0); Corn <0.10 kU/L (Class 0); Egg, White <0.10 kU/L (Class 0); Gluten <0.10 kU/L (Class 0); Milk (Cow) <0.10 kU/L (Class 0); Peanut <0.10 kU/L (Class 0); SCALLOP <0.10 kU/L (Class 0); SESAME SEED <0.10 kU/L (Class 0); Shrimp <0.10 kU/L (Class 0); Soybean <0.10 kU/L (Class 0); Walnut, (Food) <0.10 kU/L (Class 0); Wheat <0.10 kU/L (Class 0)
[2021-11-22 10:36] LABS: Egg, Whole <0.10 kU/L (Class 0)
== END | disposition home or self-care (01) ==
LOC: LAB 14:54
PROVIDERS: PCP Family Medicine; Visit Provider Otolaryngology
DX: T78.40XA Allergy, unspecified, initial encounter (principal); X58.XXXA Exposure to other specified factors, initial encounter
CPT/HCPCS: 36415; 86003

== ENCOUNTER → 2022-01-02 | Outpatient (CLI) | payer MEDICARE, SELFPAY ==
--- NOTE | 2022-01-02 17:30 | RAD_ITS ---
STUDY: X-RAY - LUMBAR SPINE REASON FOR EXAM: Female, 71 years old. Pain radiating down both legs. History of spinal surgery. TECHNIQUE: 2 view(s) of the lumbar spine were obtained. COMPARISON: December 05, 2020. FINDINGS: Normal lumbar lordosis. Minimal dextroscoliosis. There is a stable mild anterolisthesis of L4 and L5. The alignment is otherwise preserved. Mild multilevel endplate spondylosis. Disc space loss at L5-S1. Facet joint arthrosis. There is no evidence of acute fracture or loss of vertebral axial height. There is atherosclerotic calcification of the abdominal aorta without a demonstrated aneurysm. RAD/Lumbar Spine 2 or 3 Views IMPRESSION: No acute abnormality or major interval change when compared to the previous examination Electronically Signed: Savage Saenz DO at 19:42 EST ,
== END | disposition home or self-care (01) ==
LOC: RAD 17:23
PROVIDERS: PCP Family Medicine; Visit Provider Anesthesiology Pain Medicine
DX: M51.36 Other intervertebral disc degeneration, lumbar region (principal); M51.26 Other intervertebral disc displacement, lumbar region
CPT/HCPCS: 72100

== ENCOUNTER → 2022-01-21 | Outpatient (CLI) | payer MEDICARE, SELFPAY ==
--- NOTE | 2022-01-21 14:05 | ECHOD_ITS ---
Reason For Study: MVP Procedure This was a 2D Doppler, Color Flow transthoracic echocardiogram. Exam performed in department. Left Ventricle Normal LV size. Left ventricular systolic function is normal. The estimated ejection fraction is 60 %. No regional wall motion abnormalities noted. Right Ventricle Normal RV size. Normal systolic function. Atria Normal left atrium. Normal right atrium. Mitral Valve Mild mitral valve prolapse. Mild mitral valve prolapse, posterior leaflet. Mild-Moderate (1-2+) anteriorly directed mitral valve insufficiency. Tricuspid Valve Normal tricuspid valve. Mild (1+) tricuspid valve insufficiency. Pulmonary artery systolic pressure is 28 mmHg. Aortic Valve Normal aortic valve. Trisinus/trileaflet aortic valve. Pulmonic Valve Normal pulmonic valve. Mild (1+) pulmonic valve insufficiency. Great Vessels Normal aortic root. The pulmonary artery is normal size. Normal inferior vena cava. Pericardium/Pleural No pericardial effusion. MMode/2D Measurements & Calculations LVIDd: 4.1 cm IVSd: 1.3 cm Ao root diam: 2.7 cm LVIDs: 2.5 cm LVPWd: 1.1 cm RVDd: 2.9 cm FS: 39.0 % LAV(MOD-bp): 66.2 ml LVAd ap4: 22.0 cm2 SV(MOD-sp4): 43.2 ml LAV(MOD-bp) Indexed: 45.6 ml/m2 LVLd ap4: 6.2 cm LAV(MOD-sp2): 67.4 ml EDV(MOD-sp4): 63.5 ml LAV(MOD-sp4): 55.5 ml EDV(sp4-el): 66.0 ml LVAs ap4: 11.3 cm2 LVLs ap4: 5.1 cm ESV(MOD-sp4): 20.2 ml ESV(sp4-el): 21.2 ml EF(MOD-sp4): 68.1 % EF(sp4-el): 68.0 % SV(sp4-el): 44.9 ml LA A4 area: 19.3 cm2 LA dimension(2D): 3.7 cm RA A4 area: 11.1 cm2 Doppler Measurements & Calculations MV E max emilio: 76.5 cm/sec Lat Peak E' Emilio: 7.0 cm/sec Med Peak E' Emilio: 7.7 cm/sec MV A max emilio: 84.8 cm/sec E/E' lat: 10.9 E/E' med: 9.9 MV E/A: 0.90 Ao V2 max: 109.4 cm/sec LV V1 max: 85.3 cm/sec PA V2 max: 87.7 cm/sec Ao max P.8 mmHg LV V1 max P.9 mmHg Ao V2 mean: 70.4 cm/sec Ao mean P.2 mmHg Ao V2 VTI: 17.6 cm PI end-d emilio: 116.3 cm/sec TR max emilio: 252.2 cm/sec TR max P.4 mmHg ECHO/Echo Complete Interpretation Summary Normal LV size. Left ventricular systolic function is normal. The estimated ejection fraction is 60 %. Mild mitral valve prolapse. Mild mitral valve prolapse, posterior leaflet Mild-Moderate (1-2+) anteriorly directed mitral valve insufficiency. Pulmonary artery systolic pressure is 28 mmHg. Compared to the previous echo of the extent of the mitral regurgitation is mild ly worse. Ordering Physician: Mai Eller Referring Physician: Santy Hadley Performed By: Monica Hammond, PETER, RVT
== END | disposition home or self-care (01) ==
PROVIDERS: PCP Family Medicine; Visit Provider Nurse Practitioner Gerontology
DX: I34.1 Nonrheumatic mitral (valve) prolapse (principal)
CPT/HCPCS: 93306

== ENCOUNTER → 2022-01-31 | Outpatient (CLI) | payer MEDICARE, SELFPAY | END | disposition home or self-care (01) | PROVIDERS: PCP Family Medicine; Visit Provider Otolaryngology | DX: J32.9 Chronic sinusitis, unspecified (principal) | CPT/HCPCS: 87070; 87186; 87205 ==

== ENCOUNTER → 2022-02-04 | Outpatient (CLI) | payer MEDICARE, SELFPAY ==
--- NOTE | 2022-02-04 14:40 | MRI_ITS ---
STUDY: MRI LUMBAR SPINE WITHOUT CONTRAST REASON FOR EXAM: Female, 71 years old. STENOSIS TECHNIQUE: Standardized fat and water weighted pulse sequences were obtained in the sagittal and axial planes. COMPARISON: 01/02/2022 FINDINGS: T12-L1: Normal endplates. Normal disc height, hydration and morphology. Normal bilateral facet joints. Normal central canal and bilateral lateral recesses. Normal bilateral intervertebral neural foramina. Normal lumbar lordosis. There is no substantial scoliosis. Normal conus medullaris that terminates at the L1-2: Normal endplates. Normal disc height, hydration and morphology. Normal bilateral facet joints. Normal central canal and bilateral lateral recesses. Normal bilateral intervertebral neural foramina. L2-3: Normal endplates. Normal disc height, hydration and morphology. Normal bilateral facet joints. Normal central canal and bilateral lateral recesses. Normal bilateral intervertebral neural foramina. L3-4: Endplate spondylosis. Decreased disc height and small circumferential disc bulge. Degenerative changes of the bilateral facet joints. Mild narrowing of the bilateral intervertebral neural foramina. L4-5: Endplate spondylosis. Decreased disc height and small circumferential disc bulge. Advanced changes of the bilateral facet joints more prominent on the left side. There are bilateral synovial cysts originating from the facet joints measuring approximately 8mm and an 18 mm respectively. Severe narrowing of the central canal and bilateral intervertebral neural foramina. L5-S1: Endplate spondylosis. Decreased disc height and small circumferential disc bulge. Degenerative changes of the bilateral facet joints. Mild narrowing of the bilateral intervertebral neural foramina. Normal visualized sacral ala. Normal visualized paraspinous soft tissue structures. MRI/Spine Lumbar (Routine) IMPRESSION: Multilevel degenerative changes, as described above. Severe spinal canal stenosis at L4-5. Electronically Signed: Talisha Mahajan MD at 4:41 EST ,
== END | disposition home or self-care (01) ==
LOC: MRI 14:06
PROVIDERS: PCP Family Medicine; Referring Provider Anesthesiology Pain Medicine; Visit Provider Anesthesiology Pain Medicine
DX: M51.16 Intervertebral disc disorders with radiculopathy, lumbar region (principal); M48.061 Spinal stenosis, lumbar region without neurogenic claudication
CPT/HCPCS: 72148

== ENCOUNTER 2022-02-12 12:03 | Day surgery (SDC) | payer MEDICARE, SELFPAY ==
[2022-02-12] VITALS (10 sets, daily range): BP systolic 102–149; BP diastolic 53–78; PULSE 67–81; RESP 16–18; TEMP 36.3–36.5; O2SAT 97–100; BMI 21.7
[2022-02-12] MEDS: Lactated Ringers 1,000 ML 15 ML IV (13:04)
--- NOTE | 2022-02-12 13:15 | EGD_PTH ---
PATIENT: JOSEFA CHE LOC: EN U#:[id number] AGE/SX: 71/F ROOM: RE02/12/[address]: Dr. Ko Tilley DO : 1950 BED: DIS: 02/12/2022 SPEC #: [id number] RECD: 02/12/22 16:18 STATUS: JACI GOLDEN #: [id number] RENEE: 02/12/22 13:[address]: Ko Tilley DEPT: SURGICAL PATHOLOGY RECD BY: Elver Woo ENTERED: 02/13/22 08:10 SP TYPE: EGD BIOPSY JANETH DR: Dr. Santy Hadley MD Tissues: Esophagus, NOS Procedures: Special Stain Group II Surgery Specimen Level IV Alcian Blue/PAS (control) HEADER OPERATION: EGD ? PH probe ([facility]) PRE-OP DIAGNOSIS: Matute?s esophagus, GERD TISSUE SUBMITTED: Distal esophagus biopsy MICROSCOPIC DIAGNOSIS Distal esophagus, biopsy: Fragments of gastroesophageal mucosa with focal ulceration, moderate to marked chronic inflammation and mild acute inflammation. Focal changes consistent with gastroesophageal reflux disease. Intestinal metaplasia (goblet cell metaplasia) not identified. See comment. ALEYDA:moy 02/14/2022 COMMENT Alcian blue/PAS stain with matched control is used in the evaluation of the specimen. MICROSCOPIC DESCRIPTION Slides are reviewed. GROSS DESCRIPTION Received in fixative is one container labeled with the patient's name and designated distal esophagus biopsy. The specimen consists of multiple irregular fragments of light lee soft tissue that in aggregate measure 1.2 x 0.3 x 0.1 cm. The specimen is totally submitted in one cassette. / ALEYDA:moy 02/13/2022 TC:2 CPT: 04895, 97964
--- NOTE | 2022-02-12 13:44 | PCM.HP.BLA ---
History and Physical Date of Admission: 02/12/22 YULISA CHE, is a 71 F who presents to the office today for Follow up. Yulisa established with this clinic 10.11.21 with referral from PCP for evaluation of Matute?s esophagus and GERD. Wing Fundoplication performed in 2006 Recently began having a return of reflux symptoms to include esophageal burning, chest discomfort and bloating. PeptoBismol mildly effective. Previously attempted reflux medications, protonix, aciphex all of which caused increased GERD or other SE. Particularly during the night she will have chest pain; not currently taking medications d/t worsening with medications historically. Reports increased sinus drainage with ENT determining it is GI related. Feels she also has spasms of her esophagus that cause dense foods (salmon/chicken) to swallow abnormally. Feels Frisian food particularly triggers this. 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 Blood in stool historically without change in bowel habits. FH mother colon cancer late ?s. EGD and colonoscopy 10.15.19 at [facility] with pathology changes of gastric reactive changes; gastritis; inflamed gastric cardia-type mucosa. Hepatic flexure colonic polyp. Gastric emptying study 11.07.21 time at the lower side of normal at 15.01 minutes (normal 12-56). Call [phone] to report that since start of alkaline water and bicarbonate she has been having increased symptoms and diarrhea. Recommended colestipol 1g QD for two weeks to start after her vacation. Continues to have food sticking in her esophagus; increased epigastric discomfort; continued nausea. Feels everything has gotten somewhat worse as she is taking increased pepto-bismol than previously, particularly with trigger foods. ROS Const Constitutional: No anorexia, fatigue, fever(s), weight change or sleep problems Eyes Eyes: No change in vision ENT ENT: No abnormal hearing, difficulty swallowing, mouth lesions, tongue swelling or throat swelling Resp Respiratory: No cough or shortness of breath Cardio Cardiology: No chest pain at rest, chest pain with exertion, shortness of breath or dyspnea on exertion Gastro GI: No difficulty swallowing Genitourinary-Female: No difficulty urinating or burning urination Musc Musculoskeletal: No joint pain, joint swelling, muscle weakness or decreased muscle mass Skin Skin: No hair loss in leg, yellowing of the eye, itchy eyes, rash, skin ulcer or skin swelling Neuro Neurology: No abnormal hearing, abnormal movements, confusion, unsteady gait/balance or memory loss Psych Psychiatric: No anxiety, No confusion and No memory loss Endo Endocrine: No fatigue or weight change Aller/Imm Allergy/Immunologic: No itchy eyes, throat swelling or tongue swelling Shaji/Lymp Hematologic/Lymphatic: No easy bleeding, easy bruising or enlarged lymph nodes Exam Const General: cooperative and comfortable Nutritional Appearance: average body habitus and well nourished HENMS Head: normal to inspection Ears: hearing grossly normal bilaterally Nose: external nose normal Face and sinus: normal facial exam Mouth: oral mucosae normal Throat: posterior oropharynx normal Eyes General: appearance normal, both eyes and all related structures Neck Neck: normal visual inspection Chest Chest palpation & inspection: normal inspection of the chest and normal palpation of entire chest wall Resp Effort & Inspection: normal respiratory effort Auscultation: Bilateral: Clear to Auscultation Cardio Palpation: normal PMI Rate: regular rate Rhythm: regular rhythm GI Inspection: normal to inspection Auscultation: normal bowel sounds Percussion: normal to percussion Palpation: no hepatosplenomegaly Skin General: no rashes or lesions noted Neuro General: patient alert Extrem General: normal to inspection Psych Affect: normal affect Quality Reporting Tobacco Screening ([facility] 138) Smoking Status: Never smoker Assessment and Plan Assessment and Plan (1) Barretts esophagus: ?Status:?Chronic ?Plan: She was identified as having short segment Matute's esophagus on previous endoscopy.? She will undergo an upper endoscopy so we can evaluate her previous hiatal hernia surgery and to see if she still has short segment Matute's esophagus. (2) GERD (gastroesophageal reflux disease): ?Status:?Chronic ?Plan: She is still having symptoms of gastroesophageal reflux disease which she is not responsive to typical therapy.? Therefore she may have nonerosive reflux disease.? We will do a Benitez pH monitoring to see what type of disease in her esophagus she may be experiencing.? Differential diagnosis does include eosinophilic esophagitis, esophageal dysmotility disorder, atypical reflux disease such as bile acid reflux. (3) Personal history of colonic polyps: ?Status:?Acute ?Plan: She also has a history of adenomatous polyps and need to schedule a surveillance ? Colonoscopy she was explained alternatives, risks, benefits including not withstanding bleeding, infection, sepsis, perforation, need for emergent turn to .? She will have an ASA of 1.. I have examined the patient and the H&P has been reviewed. There are no clinical changes since date of exam.
--- NOTE | 2022-02-12 14:14 | OP.EGD_ITS ---
Patient Name: Yulisa Shepard Procedure Date: 02/12/2022 1:37 PM Date of : 1950 Age: 71 Procedure: Upper GI endoscopy Indications: Heartburn, Failure to respond to medical treatment, Matute's esophagus Providers: Ko Tilley DO Referring MD: Matt Hadley Medicines: Propofol per Anesthesia Patient Profile: This is a 71 year old female. Refer to note in patient chart for documentation of history and physical. Patient has symptoms of chronic heartburn. Complications: No immediate complications. Procedure: Pre-Anesthesia Assessment: - Prior to the procedure, a History and Physical was performed, and patient medications and allergies were reviewed. The patient is competent. The risks and benefits of the procedure and the sedation options and risks were discussed with the patient. All questions were answered and informed consent was obtained. Patient identification and proposed procedure were verified by the physician. Mental Status Examination: alert and oriented. Airway Examination: normal oropharyngeal airway and neck mobility. Respiratory Examination: clear to auscultation. CV Examination: normal. Prophylactic Antibiotics: The patient does not require prophylactic antibiotics. Prior Anticoagulants: The patient has taken no previous anticoagulant or antiplatelet agents. ASA Grade Assessment: II - A patient with mild systemic disease. After reviewing the risks and benefits, the patient was deemed in satisfactory condition to undergo the procedure. The anesthesia plan was to use monitored anesthesia care (MAC). Immediately prior to administration of medications, the patient was re-assessed for adequacy to receive sedatives. The heart rate, respiratory rate, oxygen saturations, blood pressure, adequacy of pulmonary ventilation, and response to care were monitored throughout the procedure. The physical status of the patient was re-assessed after the procedure. After obtaining informed consent, the endoscope was passed under direct vision. Throughout the procedure, the patient's blood pressure, pulse, and oxygen saturations were monitored continuously. The gastroscope was introduced through the mouth, and advanced to the second part of duodenum. The upper GI endoscopy was accomplished without difficulty. The patient tolerated the procedure well. Scope In: 1:49:19 PM Scope Out: 2:04:07 PM Total Procedure Duration Time 0 hours 14 minutes 48 seconds Findings: There were esophageal mucosal changes secondary to established short-segment Matute's disease present in the lower third of the esophagus. The maximum longitudinal extent of these mucosal changes was 1 cm in length. Mucosa was biopsied with a cold forceps for histology in 4 quadrants at intervals of 1 cm in the lower third of the esophagus. One specimen bottle was sent to pathology. Verification of patient identification for the specimen was done. Estimated blood loss was minimal. LA Grade B (one or more mucosal breaks greater than 5 mm, not extending between the tops of two mucosal folds) esophagitis with no bleeding was found 35 to 37 cm from the incisors. The BURLESON capsule with delivery system was introduced through the mouth and advanced into the esophagus, such that the BURLESON pH capsule was positioned 35 cm from the incisors, which was 6 cm proximal to the GE junction. Suction was applied to the well of the BURLESON pH capsule to suck in the adjacent mucosa of the esophagus using the external vacuum pump set at a minimum vacuum pressure of 550 mmHg for 30 seconds. The BURLESON pH capsule was then deployed by depressing the plunger on top of the handle to advance the locking pin into the mucosa, thereby attaching the capsule to the esophagus. The plunger was then rotated a quarter turn clockwise to release the capsule from the delivery system. The delivery system was then withdrawn. Endoscopy was utilized for probe placement and diagnostic evaluation. Evidence of a Toupet fundoplication was found in the cardia. The wrap appeared loose. This was traversed. The first portion of the duodenum was normal. Impression: - Esophageal mucosal changes secondary to established short-segment Matute's disease. Biopsied. - LA Grade B reflux esophagitis. - A Toupet fundoplication was found. The wrap appears loose. - Normal first portion of the duodenum. - The BURLESON pH capsule was positioned 35 cm from the incisors, which was 6 cm proximal to the GE junction. Recommendation: - Discharge patient to home. - Resume previous diet. - Continue present medications. - Await pathology results. - Repeat upper endoscopy in 1 year for surveillance. Procedure Code(s): --- Professional --- 67989, Esophagogastroduodenoscopy, flexible, transoral; with biopsy, single or multiple CPT copyright 2017 [place] [employer] [employer]. All rights reserved. The codes documented in this report are preliminary and upon oceanology teacher review may be revised to meet current compliance requirements. Ko Tilley DO 02/12/2022 2:14:34 PM This report has been signed electronically. Number of Addenda: 0 Note Initiated On: 02/12/2022 1:37 PM
--- NOTE | 2022-02-12 14:15 | OP.CCLET_ITS ---
02/12/2022 Matt Hadley [address] [place] [address] Re : Upper GI endoscopy procedure for Yulisa Shepard Dear Dr. Hadley This procedure was performed on Saturday, February 12, 2022. My impressions and recommendations are as follows: Impressions : - Esophageal mucosal changes secondary to established short-segment Matute's disease. Biopsied. - LA Grade B reflux esophagitis. - A Toupet fundoplication was found. The wrap appears loose. - Normal first portion of the duodenum. - The BURLESON pH capsule was positioned 35 cm from the incisors, which was 6 cm proximal to the GE junction. Recommendations : - Discharge patient to home. - Resume previous diet. - Continue present medications. - Await pathology results. - Repeat upper endoscopy in 1 year for surveillance. My findings are described in the full procedure note, which is enclosed. If I can be of further assistance, please feel free to contact me at . Sincerely, Ko Tilley, 02/12/2022 2:14:34 PM This report has been signed electronically.
[2022-02-12] MEDS: Ipratropium/Albuterol Sulfate 3 ML AMPUL.NEB INHALATION (14:38)
== END 2022-02-12 15:53 | disposition home or self-care (01) ==
LOC: EN 12:09 → AC 12:10
PROVIDERS: PCP Family Medicine; Referring Provider Family Medicine; Visit Provider Internal Medicine Gastroenterology
PROC: (CPT 43239; principal; 2022-02-12 13:10)
DX: K22.70 Barrett's esophagus without dysplasia (principal); K21.00 Gastro-esophageal reflux disease with esophagitis, without bleeding; F41.9 Anxiety disorder, unspecified; Z86.010 Personal history of colon polyps; Z79.899 Other long term (current) drug therapy
CPT/HCPCS: 43239; 88305; 88313; 93005; 94640; J7120; J2405

== ENCOUNTER → 2022-09-17 | Outpatient (CLI) | payer MEDICARE, SELFPAY ==
--- NOTE | 2022-09-17 10:32 | BD_ITS ---
STUDY: DUAL ENERGY X-RAY ABSORPTIOMETRY / DXA REASON FOR EXAM: Female, 71 years old. 733.00OsteoporosisBONE DENSITY REASON FOR EXAM TECHNIQUE: Bone Mineral Density (BMD) measurements of lumbar spine and bilateral hips were obtained. COMPARISON: Comparison is made with prior study dated September 13, 2020. FINDINGS: Lumbar Spine (L1-L4): g/cm2 (1.074) / T-score (0.2) / Z-score (2.5) Findings are suggestive of normal bone density with a low fracture risk. Left Femur Total: g/cm2 (0.785) / T-score (-1.3) / Z-score (0.4) Left Femoral Neck: g/cm2 (0.581) / T-score (-2.4) / Z-score (-0.4) Right Femur Total: g/cm2 (0.843) / T-score (-0.8) / Z-score (0.9) Right Femoral Neck: g/cm2 (0.625) / T-score (-2.0) / Z-score (-0.1) The T-Scores on the most recent prior examination were: Lumbar Spine (L1-L4): There has been improvement of bone density since the previous examination. Left Femur Total: which represents a worsening of 0.4%. Right Femur Total: which represents an improvement of 2.6%. BD/Dexa Bone Density Study IMPRESSION: The patient is considered osteopenic as outlined below according to [employer] [place] Organization (WHO) criteria with a high fracture risk. There has been improvement of bone density since the previous examination. Reference Information: The T-score is the number of standard deviations above or below the standard which is normal for young adults at their peak bone mineral density. The World Health Organization (WHO) interprets the T-scores as follows: Above -1 Normal bone density Between -1 and -2.5 Osteopenia Equal to / or below -2.5 Osteoporosis As a practical clinical guideline, osteopenia may be graded as follows: Mild -1 through -1.5 Moderate -1.6 through -2.0 Severe -2.1 through -2.4 The Z-score is the number of standard deviations above or below age-matched controls. A Z-score of less than -1.5 would be considered abnormal. References: 1. NIH Osteoporosis and Related Bone Diseases www osteo.org 2. International Society for Clinical Densitometry www iscd.org 3. National Osteoporosis Foundation www nof.org Electronically Signed: Charles Edmond MD at 7:39 EDT ,
== END | disposition home or self-care (01) ==
PROVIDERS: PCP Family Medicine; Referring Provider Family Medicine; Visit Provider Family Medicine
DX: M81.0 Age-related osteoporosis without current pathological fracture (principal); Z78.0 Asymptomatic menopausal state
CPT/HCPCS: 77080

== ENCOUNTER → 2022-09-30 | Outpatient (CLI) | payer MEDICARE, SELFPAY ==
[2022-09-30 10:14] LABS: Hematocrit 39.9 % (37-47); Hemoglobin 12.8 g/dL (12.0-15.0); Mean Corp Hgb Conc 32.1 g/dL (32-36); Mean Corpuscular Hgb 30.9 pg (27.0-32.0); Mean Corpuscular Volume 96.4 fL (81-99); Mean Platelet Vol. 9.8 fl (6.2-12.0); Platelet Count 206 K/mm3 (150-450); RBC Distribution Width CV 12.8 % (11.6-14.6); RBC Distribution Width SD 45.5 fl (35.1-43.9); Red Blood Count 4.14 M/mm3 (4.2-5.4); White Blood Count 4.8 K/mm3 (4.4-11.0)
[2022-09-30 10:37] LABS: Vitamin D,25 Hydroxy 52.9 ng/mL
[2022-09-30 10:46] LABS: ALB/GLOB Ratio 1.3 RATIO (0.9-2.4); AST(SGOT) 19 U/L (15-37); Alanine Aminotransfer ALT/SGPT 26 U/L (13-56); Albumin, Serum 3.4 g/dL (3.2-5.0); Alkaline Phosphatase 52 U/L (45-117); Anion Gap 3 (5-15); BUN 13 mg/dL (7-18); BUN/Creat Ratio 18.7 RATIO (10-20); Calcium,Total 8.4 mg/dL (8.5-10.1); Chloride 108 mmol/L (98-107); Cholesterol 226 mg/dL (200); Creatinine, Serum 0.69 mg/dL (0.55-1.02); EST Glomerular Filtration Rate 88 mL/min (>60); Est Glom Filt Rate - Afr Amer 107 mL/min (>60); Globulin 2.7 g/dL (2.2-4.2); Glucose 85 mg/dL (74-106); High Density Lipoprotein 78 mg/dL; Protein, Total 6.1 g/dL (6.4-8.2); Sodium Level 140 mmol/L (136-145); Thyroid Stim Hormone (TSH) 2.74 uIU/mL (0.358-3.74); Triglycerides 92 mg/dL; Very Low Density Lipoprotein 18 mg/dL (5-40)
== END | disposition home or self-care (01) ==
LOC: LAB 09:24
PROVIDERS: PCP Family Medicine; Referring Provider Family Medicine; Visit Provider Family Medicine
DX: K22.70 Barrett's esophagus without dysplasia (principal); E78.5 Hyperlipidemia, unspecified; E55.9 Vitamin D deficiency, unspecified; M81.0 Age-related osteoporosis without current pathological fracture
CPT/HCPCS: 36415; 80053; 80061; 82306; 83970; 84443; 85027

== ENCOUNTER → 2023-01-07 | Outpatient (CLI) | payer MEDICARE, SELFPAY ==
--- NOTE | 2023-01-07 15:01 | CT_ITS ---
HISTORY: CHRONIC SINUSITIS TECHNIQUE: Helically acquired images were obtained of the paranasal sinuses without contrast. A radiation dose optimization technique was used for this scan. 616 images. COMPARISON: 01/07/2020. FINDINGS: FRONTAL SINUSES AND ETHMOID AIR CELLS: Clear. Underpneumatized frontal sinus. MAXILLARY SINUSES: Small left maxillary sinus mucous retention cyst. Clear right maxillary sinus. OSTIOMEATAL COMPLEXES: Patent bilaterally. SPHENOID SINUSES: Clear. NASAL CAVITY: Clear. No significant nasal septal deviation or obstructing spur. ORBITS: Symmetric contents. Bilateral lens resections. MASTOID AIR CELLS: Well aerated bilaterally. CT/Sinus/Facial Bone IMPRESSION: Chronic left maxillary sinus mucous retention cyst. Otherwise clear paranasal sinuses. Electronically Signed: Jana Chaudhry MD at 15:34 EST ,
== END | disposition home or self-care (01) ==
PROVIDERS: PCP Family Medicine; Referring Provider Otolaryngology; Visit Provider Otolaryngology
DX: J32.9 Chronic sinusitis, unspecified (principal)
CPT/HCPCS: 70486

== ENCOUNTER 2023-04-18 06:54 | Day surgery (SDC) | payer MEDICARE, SELFPAY ==
[2023-04-17 11:20] VITALS: BMI 22.8
--- OUTSIDE RECORDS SUMMARY | 2023-04-18 07:04 | XMS RPT_ITS | CCD ---
Author Name Unknown Address [address] [place] [address] Organization [facility] Care Team Providers Care Pantograph Machine Set Up Operator Name Role Phone Henok Ana Noriega Unavailable Randal Perry Unavailable Unavailable Ana Whiting Unavailable Marianne Hadley MD Primary Care Provider Marianne Hadley MD Primary Care Provider Marianne Hadley MD Primary Care Provider Marianne Hadley MD Primary Care Provider Marianne Hadley MD Primary Care Provider Marianne Hadley MD Primary Care Provider Cathy DELUNA, Kala Dobson Unavailable ADONIS EDWARDS Consulting Unavailable LAZ VALENTIN Attending Unavailable LAZ VALENTIN Admitting Unavailable MARIANNE HADLEY Primary Care Unavailabl juan jose Herrmann MD, Nay Unavailable Mar Farfan MD, Marika Unavailable ANGELA LINK Attending Unavailable MYRON HUANG Referring Unavailable MARIANNE HADLEY Primary Care Unavailabl MYRON William Attending Unavailable MARIANNE HADLEY Primary Care Unavailabl e ANGELA LINK Attending Unavailable MARIANNE HADLEY Primary Care Unavailabl MYRON William Attending Unavailable MYRON HUANG Referring Unavailable MARIANNE HADLEY Primary Care Unavailabl e MARIANNE HADLEY Primary Care Unavailabl e ANGELA LINK Attending Unavailable ANGELA LINK Referring Unavailable MARIANNE HADLEY Primary Care Unavailabl e BRYAN AWAD Attending Unavailable BRYAN AWAD Referring Unavailable MARIANNE HADLEY Primary Care Unavailabl e SLIM, PUMA JOSEPH Referring Unavailable SELF Referring Unavailable MARIANNE HADLEY Primary Care Unavailabl e ANGELA LINK Attending Unavailable MARIANNE HADLEY Primary Care Unavailabl e ANGELA LINK Attending Unavailable MYRON HUANG Attending Unavailable MYRON HUANG Referring Unavailable MARIANNE HADLEY Primary Care Unavailabl e Allergies Allergy Classification Reported Allergen(s) Allergy Type Date of Onset Reaction(s) Facility (3 sources) Contrast media drug allergy 6 VOMITING [facility] Work Phone: (3 sources) fish, unspecified; Translations: [SEAFOOD] food allergy 6 VOMITING [facility] Work Phone: (20 sources) sorbitol; Translations: [SORBITOL] drug allergy 6 Unknown [facility] Work Phone: (3 sources) ALL PPI'S drug allergy 6 Paradoxical increase in stomach acid [facility] Work Phone: (20 sources) HYDROmorphone; Translations: [HYDROMORPHONE] Drug Allergy 2 Intolerance [facility] (20 sources) Iodine; Translations: [IODINE] Drug Allergy 2 Unknown [facility] (20 sources) lansoprazole; Translations: [LANSOPRAZOLE] Drug Allergy 6 GI Upset [facility] Work Phone: (20 sources) levoFLOXacin; Translations: [LEVOFLOXACIN] Drug Allergy 1 Other: See Comments [facility] (20 sources) Omeprazole; Translations: [OMEPRAZOLE] Drug Allergy 6 GI Upset [facility] Work Phone: (20 sources) pantoprazole; Translations: [PANTOPRAZOLE SODIUM] Drug Allergy 6 GI Upset [facility] Work Phone: (20 sources) RABEprazole; Translations: [RABEPRAZOLE SODIUM] Drug Allergy 6 [facility] Work Phone: (20 sources) raNITIdine; Translations: [RANITIDINE] Drug Allergy 6 [facility] Work Phone: (20 sources) Seasonal allergy; Translations: [SEASONAL ALLERGIES] Allergy to substance 1 Other: See Comments [facility] (20 sources) Shellfish; Translations: [SHELLFISH DERIVED] Drug Allergy 6 Unknown [facility] (20 sources) Iodinated Contrast Media; Translations: [IODINATED CONTRAST MEDIA] Drug Allergy 1 GI Upset [facility] (20 sources) No Latex Allergy [Other] Propensity to adverse reactions 3 [facility] Work Phone: (20 sources) Amoxicillin; Translations: [AMOXICILLIN] Drug Allergy 2 Hives [facility] (20 sources) Clavulanate; Translations: [CLAVULANIC ACID] Drug Allergy 2 Other: See Comments [facility] (20 sources) cyclobenzaprine ; Translations: [CYCLOBENZAPRIN E] Drug Allergy 2 Intolerance [facility] (20 sources) gabapentin; Translations: [GABAPENTIN] Drug Allergy 2 Mental Status Change [facility] (20 sources) tiZANidine; Translations: [TIZANIDINE] Drug Allergy 2 GI Upset [facility] (1 source) OTHER; Translations: [OTHER] Propensity to adverse reactions (disorder) 3 [facility] Repository Medications Current Medications Medication Drug Class(es) Dates Sig (Normalized) Sig (Original) benoxinate hydrochloride 4 mg/ml / fluorescein sodium 3 mg/ml ophthalmic solution (14 sources) Diagnostic Dye Start: 04-09-2023 End: 04-10-2023 fluorescein-benoxi austin 0.3-0.4 % 1 Drop (FLURESS) Completed/Discontinued Medications Medication Drug Class(es) Dates Sig (Normalized) Sig (Original) acetaminophen 325 mg oral tablet (20 sources) Start: 05-10-2021 End: 05-09-2022 take 2 tablets by mouth every four hours as needed acetaminophen (TYLENOL) 325 mg tablet Take 2 tablets by mouth every 4 hours as needed (Mild Pain (1-3)). 24 tablet 0 05/10/2021 05/09/2022 Discontinued Problems Active Problems Problem Classification Problem Date Documented Da te Episodic/Chronic Blindness and vision defects (1 source) Unspecified visual disturbance; Translations: [Visual changes] Onset: 4 Episodic Cardiac dysrhythmias (20 sources) Supraventricular tachycardia; Translations: [Paroxysmal supraventricular tachycardia] Onset: 6 06-27-2015 Chronic Cataract (20 sources) Nuclear sclerotic cataract; Translations: [Age-related nuclear cataract, bilateral] Onset: 9 10-20-2018 Chronic Coronary atherosclerosis and other heart disease (20 sources) Coronary arteriosclerosis; Translations: [Atherosclerotic heart disease of [place] coronary artery without angina pectoris] 03-20-2020 Chronic Disorders of lipid metabolism (20 sources) Hyperlipidemia; Translations: [Mixed hyperlipidemia] Onset: 6 06-27-2015 Chronic Esophageal disorders (20 sources) Gastroesophageal reflux disease; Translations: [Gastro-esophageal reflux disease without esophagitis] Onset: 5 02-22-2019 Chronic Genitourinary symptoms and ill-defined conditions (20 sources) Female stress incontinence; Translations: [Stress incontinence (female) (male)] 03-20-2020 Chronic Headache; including migraine (20 sources) Ophthalmic migraine; Translations: [Migraine with aura, not intractable, without status migrainosus] Onset: 9 10-20-2018 Chronic Heart valve disorders (20 sources) Nonrheumatic mitral (valve) prolapse; Translations: [Rheumatic mitral valve disease, unspecified] Onset: 2 06-27-2015 Chronic Heart valve disorders (1 source) Cardiac murmur, unspecified; Translations: [Murmur] Onset: 4 Episodic Inflammation; infection of eye (except that caused by tuberculosis or sexually transmitteddisease) (1 source) Blepharitis of left upper eyelid; Translations: [Unspecified blepharitis left upper eyelid] Episodic Osteoporosis (20 sources) Osteoporosis; Translations: [Age-related osteoporosis without current pathological fracture] 03-20-2020 Chronic Other aftercare (1 source) Surgical follow-up; Translations: [Encounter for follow-up examination after completed treatment for conditions other than malignant neoplasm] Episodic Other circulatory disease (1 source) Elevated blood-pressure reading, without diagnosis of hypertension; Translations: [Elevated blood pressure reading without diagnosis of hypertension] Onset: 4 Episodic Other connective tissue disease (7 sources) Neurological symptom; Translations: [Unspecified symptoms and signs involving the nervous system] Onset: 4 03-16-2023 Episodic Other endocrine disorders (20 sources) Hypoglycemia; Translations: [Hypoglycemia, unspecified] 03-20-2020 Chronic Other eye disorders (1 source) Inflammatory disorder of the eye; Translations: [Other specified disorders of eye and adnexa] Episodic Other eye disorders (6 sources) Disorder of lacrimal gland; Translations: [Dry eye syndrome of bilateral lacrimal glands] Episodic Other gastrointestinal disorders (20 sources) Irritable bowel syndrome; Translations: [Irritable bowel syndrome without diarrhea] 03-20-2020 Chronic Other upper respiratory disease (20 sources) Allergic rhinitis; Translations: [Other allergic rhinitis] Onset: 5 06-03-2006 Chronic Prolapse of female genital organs (20 sources) Cystocele; Translations: [Cystocele, unspecified] 03-20-2020 Chronic Residual codes; unclassified (3 sources) Postoperative state; Translations: [Other specified postprocedural states] Episodic Retinal detachments; defects; vascular occlusion; and retinopathy (20 sources) Epiretinal membrane of right eye; Translations: [Puckering of macula, right eye] Onset: 9 10-20-2018 Chronic Unclassified (2 sources) Radiofrequency ablation operation for arrhythmia ; Translations: [Other specified postprocedural states] Onset: 6 06-27-2015 Unclassified (1 source) Long-term drug therapy; Translations: [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] Onset: 6 06-27-2015 Past or Other Problems Problem Classification Problem Date Documented Da te Episodic/Chronic Abdominal hernia (20 sources) Diaphragmatic hernia; Translations: [Diaphragmatic hernia without obstruction or gangrene] Onset: 6 06-03-2006 Episodic Abdominal pain (20 sources) Epigastric pain; Translations: [Epigastric pain] Onset: 2 09-30-2011 Episodic Esophageal disorders (20 sources) Esophagitis; Translations: [Esophagitis] Onset: 6 03-20-2020 Episodic Hemorrhoids (20 sources) Internal hemorrhoids; Translations: [Other hemorrhoids] Onset: 2 09-30-2011 Episodic Other aftercare (2 sources) 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; Translations: [Other snf (current) drug therapy] Onset: 6 06-27-2015 Episodic Other and unspecified benign neoplasm (20 sources) Nevus of choroid of left eye; Translations: [Benign neoplasm of left choroid] Onset: 9 10-20-2018 Episodic Other and unspecified benign neoplasm (1 source) Benign neoplasm of left choroid; Translations: [Choroidal nevus, left] Onset: 9 Episodic Other bone disease and musculoskeletal deformities (20 sources) Osteopenia; Translations: [Other specified disorders of bone density and structure, multiple sites] Onset: 0 02-22-2019 Episodic Other eye disorders (20 sources) Ptosis of eyelid; Translations: [Unspecified ptosis of bilateral eyelids] Onset: 0 02-22-2019 Episodic Other eye disorders (14 sources) Excess skin of eyelid; Translations: [Dermatochalasis of right upper eyelid] Onset: 2 04-18-2021 Episodic Other eye disorders (20 sources) Dermatochalasis of right upper eyelid; Translations: [Dermatochalasis] Onset: 2 04-18-2021 Episodic Other eye disorders (1 source) Dermatochalasis of left upper eyelid; Translations: [Dermatochalasis of both upper eyelids] Onset: 2 Episodic Other gastrointestinal disorders (20 sources) Constipation; Translations: [Constipation, unspecified] Onset: 2 09-30-2011 Episodic Residual codes; unclassified (20 sources) Family history of malignant neoplasm of gastrointestinal tract; Translations: [Family history of malignant neoplasm of digestive organs] Onset: 2 09-30-2011 Episodic Spondylosis; intervertebral disc disorders; other back problems (20 sources) Low back pain; Translations: [Lumbago] Onset: 06-03-2006 Episodic Results Test Name Value Interpretation Reference Range Facil ity Vital Signs Date Time Vital Sign Value Performing Clinician Eduard dale 03-15-2022 09:08-0500 Diastolic blood pressure 70 mm[Hg] Bryan Awad MD Work Phone: [facility] 03-15-2022 09:08-0500 Heart rate 70 /min Bryan Awad MD Work Phone: [facility] 03-15-2022 09:08-0500 Respiratory rate 16 /min Bryan Awad MD Work Phone: [facility] 03-15-2022 09:08-0500 SaO2% (BldA) [Mass fraction] 95 % Bryan Awad MD Work Phone: [facility] 03-15-2022 09:08-0500 Systolic blood pressure 148 mm[Hg] Bryan Awad MD Work Phone: [facility] 03-15-2022 08:58-0500 Body temperature 98.2 [degF] Bryan Awad MD Work Phone: [facility] 03-01-2022 11:07-0500 Body height 152.4 cm Pacc 1 Work Phone: [facility] 03-01-2022 11:07-0500 Body temperature 97.7 [degF] Pacc 1 Work Phone: [facility] 03-01-2022 11:07-0500 Body weight 50.35 kg Pacc 1 Work Phone: [facility] 03-01-2022 11:07-0500 Diastolic blood pressure 72 mm[Hg] Pacc 1 Work Phone: [facility] 03-01-2022 11:07-0500 Heart rate 95 /min Pacc 1 Work Phone: [facility] 03-01-2022 11:07-0500 Respiratory rate 14 /min Pacc 1 Work Phone: [facility] 03-01-2022 11:07-0500 SaO2% (BldA) [Mass fraction] 99 % Pacc 1 Work Phone: [facility] 03-01-2022 11:07-0500 Systolic blood pressure 134 mm[Hg] Pacc 1 Work Phone: [facility] 07-23-2016 11:01-0400 BMI (Body Mass Index) 22.5 kg/m2 [facility] Work Phone: 07-23-2016 11:01-0400 Body weight 52.25 kg [facility] Work Phone: 07-23-2016 11:01-0400 BP Diastolic 64 mm[Hg] [facility] Work Phone: 07-23-2016 11:01-0400 BP Systolic 140 mm[Hg] Ana [facility] Work Phone: 07-23-2016 11:010400 Height 152.4 cm Ana [facility] Work Phone: 07-23-2016 11:01-0400 Pulse (Heart Rate) 60 /min Ana [facility] Work Phone: 07-23-2016 11:010400 Weight 52.25 kg Ana [facility] Work Phone: 07-28-2015 10:55-0400 BP Diastolic 70 mm[Hg] Harumi DeFinlaurita [facility] Work Phone: 07-28-2015 10:55-0400 BP Systolic 128 mm[Hg] Harumi DeFinlaurita [facility] Work Phone: 07-28-2015 10:55-0400 Height 152.4 cm Harumi DeFinlaurita [facility] Work Phone: 07-28-2015 10:55-0400 Pulse (Heart Rate) 62 /min Harumi DeFinis [facility] Work Phone: 07-28-2015 10:55-0400 Respiratory Rate 18 /min Harumi DeFinis [facility] Work Phone: 06-28-2015 16:13-0400 Heart rate 68 /min Ana Whiting [facility] Work Phone: 06-28-2015 15:51-0400 BMI (Body Mass Index) 22.07 kg/m2 Randal [facility] Work Phone: 06-28-2015 15:51-0400 BSA (Body Surface Area) 1.47 m2 Randal [facility] Work Phone: 06-28-2015 15:51-0400 Weight 51.26 kg Randal [facility] Work Phone: Encounters Encounter Date Encounter Type Care Provider Facility Start: 04-10-2023 Documentation procedure Mammog minerva Coordinator [facility] Start: 04-10-2023 Letter encounter Mammography Coordinator [facility] Department Start: 04-10-2023 Refill Jaciel wills MD Work Phone: [facility] Procedures Date Procedure Procedure Detail Performing Clinician Start: 04-10-2023 Screening digital breast tomosynthesis bi [facility] Provider Start: 04-09-2023 End: 04-09-2023 Computerized ophthalmic imaging retina Angela Link PA-C Work Phone: Start: 03-14-2023 Lipid 1996 panel - Serum or Plasma NA Cathy DELUNA Work Phone: Start: 10-22-2022 Computerized ophthalmic imaging retina Angela Link PA-C Work Phone: Start: 08-06-2022 End: 08-06-2022 Computerized ophthalmic imaging retina Myron Huang MD Work Phone: Start: 06-25-2022 Computerized ophthalmic imaging retina Angela Link PA-C Work Phone: Start: 05-13-2022 End: 05-13-2022 Computerized ophthalmic imaging retina Myron Huang MD Work Phone: Start: 04-08-2022 Mammography Mammography Coordinator Start: 04-05-2022 Computerized ophthalmic imaging retina Bryan Awad MD Work Phone: Start: 03-12-2022 Computerized ophthalmic imaging retina Angela Link PA-C Work Phone: Start: 03-12-2022 IOL BIOMETRY W/ IOL CALC OU (BOTH EYES) Bryan Awad MD Work Phone: Start: 11-05-2021 End: 11-05-2021 Computerized ophthalmic imaging retina Angela Link PA-C Work Phone: Start: 06-21-2021 Post-cataract laser surgery Bryan Awad MD Work Phone: Start: 03-05-2021 Mammography Ran Peacock SITE SURVEYOR.ARCH[employer]IST [employer] Work Phone: Start: 10-15-2019 Colonoscopy Ran Peacock SITE SURVEYOR.[employer] Work Phone: Start: 07-23-2016 End: 07-23-2016 Documentation of current medications Anaелена Whiting Start: 07-28-2015 End: 07-28-2015 GARRETT Falk MD Start: 07-28-2015 End: 07-28-2015 Follow Up Appt 1 year Brent Falk MD Start: 06-28-2015 End: 06-29-2015 GARRETT Falk MD Start: 06-28-2015 End: 07-26-2015 Echocardiography Brent Falk MD Start: 06-28-2015 End: 06-29-2015 Electrocardiogram, complete Brent Olson i, MD Start: 06-28-2015 End: 06-29-2015 Follow up Appt 3 weeks Brent Falk MD Start: 06-27-2015 Radiofrequency ablation operation for arrhythmia Hx of radiofreq ablation arrhythmia focus Ana Whiting Plan of Treatment Date Care Activity Detail Author Start: 03-14-2028 Lipid panel Lipid Screening [facility] Start: 03-17-2026 Diabetes Screening Diabetes Screening [facility] Start: 10-14-2024 Colonoscopy COLONOSCOPY [facility] Start: 10-14-2024 COLORECTAL CANCER SCREENING COLORECTAL CANCER SCREENING [facility] Start: 10-14-2024 Screening for malignant neoplasm of colon [facility] Start: 04-10-2024 Screening for malignant neoplasm of breast Mammogram Screening [facility] Start: 03-14-2024 Hepatitis B surface antibody level LDL Cholesterol [facility] Start: 08-21-2023 End: 01-28-2024 OCT MACULA CIRRUS OU (BOTH EYES) OCT MACULA CIRRUS OU (BOTH EYES) OPHT Imaging Routine Epiretinal membrane (ERM) of both eyes Retinal edema Pseudophakia of both eyes Dermatochalasis of both upper eyelids Choroidal nevus, left Nuclear sclerotic cataract of left eye Dry eye syndrome of bilateral lacrimal glands Nuclear sclerotic cataract, left Epiretinal membrane (ERM), bilateral Expected: 08/21/2023, Expires: 01/28/2024 [facility] Work Phone: Payers Date Payer Category Payer Medicare AETNA MEDICARE A ETNA MEDICARE PPO [id number] 2021-Present [phone] [address] [place] [address] [facility] [id number] 2021 Medicare AETNA MEDICARE A ETNA MEDICARE PPO [id number] 2021-Present [phone] [address] [place] [address] [facility] [id number] 2021 Medicare [id number] Social History Date Type Detail Facility Start: 12-08-2018 End: 03-01-2022 Tobacco smoking status NHIS Never smoked tobacco [facility] Work Phone: Start: 04-18-2021 End: 04-09-2023 Alcohol intake Current non-drinker of alcohol (finding) [facility] Start: 1950 Sex Assigned At Female [facility] Start: 04-30-2021 End: 01-04-2022 Exposure to SARS-CoV-2 (event) Not sure [facility] Start: 12-08-2018 End: 03-01-2022 Tobacco use and exposure Smokeless tobacco non-user [facility] Start: 06-25-2022 End: 10-22-2022 History of Social function [facility] Work Phone: Start: 06-25-2022 End: 10-22-2022 Tobacco use panel [facility] Work Phone: National Score (1-100), lower number is lower risk 41 [facility] Work Phone: Start: 09-28-2018 Gender identity Identifies as female gender (finding) [facility] (I/We) worried wheth er (my/our) food would run out before (I/we) got money to buy more. Never true [facility] Work Phone: Medical Equipment Procedure Code Equipment Code Equipment Origin al Text Equipment Identifier Dates Lens Iol 0d +20. 5 Hyacinth Uv Abs - [id number] Start: 03-22-2020 Lens Iol Acrysof Trc3 20.0 - [id number] Start: 03-15-2022 Goals Date Patient Goal Desired Activity /State Personal health goal Clinical Notes 05-11-2021 to 04-10-2023 Letter - Coordinator, Mammography - 04/10/2023 8:30 PM Serenity Langley RT(Chani) - 04/10/2023 11:30 AM Angela Negron PA-C - 04/09/2023 3:30 PM ESTPatient InstructionsPatient Instructions Note Date & Type Note Facility 04-10-2023 Miscellaneous Notes April 11, 2023 PID: [id number] Yulisa Shepard [address] [place] [id number] Dear Ms. Shepard, We are pleased to inform you that the results of your recent breast imaging exam on 04/10/2023 are normal. Your mammogram demonstrates that you have dense breast tissue, which could hide abnormalities. Dense breast tissue, in and of itself, is a relatively common condition. Therefore, this information is not provided to cause undue concern; rather, it is to raise your awareness and promote discussion with your health care provider regarding the presence of dense breast tissue in addition to other risk factors. Early detection of cancer is very important. We also understand recommendations regarding breast cancer screening are controversial. Please discuss with your primary care provider which strategy is best for you and whether a mammogram is right for you. Your imaging studies and report will be kept on file at [facility] as part of your permanent medical record and are available for your continuing care. Thank you for allowing us to help in meeting your health care needs. Sincerely, Dr. Ordaz Interpreting Radiologist [facility] (Normal over 40) documented in this encounter [facility] 04-10-2023 Note HNO ID: [id number] Author: SERENITY CUELLAR RT(R) Service: ? Author Type: Technologist Type: Progress Notes Filed: 04/10/2023 11:20 Note Text: Radiology Service Progress Note PATIENT NAME: Yulisa Shepard DATE OF SERVICE: April 10, 2023 TIME: 11:19 AM PATIENT IDENTITY VERIFICATION COMPLETED USING TWO (2) IDENTIFIERS: Name and Date of confirmed by patient verbally. FALL SCREENING: Has the patient had 2 falls in the last year or 1 fall with injury or currently using an Ambulatory Assistive Device (Walker, Cane, Wheelchair, Crutches, etc.)? No PATIENT GENDER DATA: Female. status: : No status: NO. PATIENT RELEVANT IMPLANT DATA REVIEWED: Not Applicable PATIENT PRESENTS WITH AN IMPLANTABLE OR ATTACHED EVS ATTENDANT: No RADIOLOGY DEPARTMENT: Mammography PERIPHERAL IV DATA: Not applicable SIGNED BY: RT Fabiola(R) April 10, 2023 11:19 AM [facility] 04-10-2023 History of Present illness Narrative Radiology Service Progress Note PATIENT NAME: Yulisa Shepard DATE OF SERVICE: April 10, 2023 TIME: 11:19 AM PATIENT IDENTITY VERIFICATION COMPLETED USING TWO (2) IDENTIFIERS: Name and Date of confirmed by patient verbally. FALL SCREENING: Has the patient had 2 falls in the last year or 1 fall with injury or currently using an Ambulatory Assistive Device (Walker, Cane, Wheelchair, Crutches, etc.)? No PATIENT GENDER DATA: Female. status: : No status: NO. PATIENT RELEVANT IMPLANT DATA REVIEWED: Not Applicable PATIENT PRESENTS WITH AN IMPLANTABLE OR ATTACHED EVS ATTENDANT: No RADIOLOGY DEPARTMENT: Mammography PERIPHERAL IV DATA: Not applicable SIGNED BY: RT Fabiola(R) April 10, 2023 11:19 AM documented in this encounter [facility] 04-09-2023 Note HNO ID: [id number] Author: ANGELA LINK PA-C Service: ? Author Type: Physician Photogeologist Type: Progress Notes Filed: 04/09/2023 16:24 Note Text: All problems with bold in text below addressed at this visit with patient 1. Acute BRAO OD - Noticed sudden onset purple vision OD 03/13/23 - Evaluated by Kim at that time, noted to have retinal whitening superior to macula on exam and OCT with increased hyperreflectivity - Diagnosed with acute BRAO and sent to ED - PMHx: hyperlipidemia and migraines - Started on ASA 81 mg, atorvastatin and plavix (for 21 days) after hospital admission - CT brain without acute intracranial abnormality - MRI brain without acute findings, no acute infarct - ECHO showed abnormal mitral regurgitation which was known to patient - Now planning for MV repair in May - CRP was normal, does not appear ESR was performed - VA stable 20/20 today, still notes purple spot in vision - OCT shows atrophy - DFE with improving retinal whitening, small spot of heme new on exam today - No signs of NVE or NVI - Will continue to monitor closely - Call office with changes - Follow up with me in 4-5 weeks 2. S/p PPV/MP/FAx for Epiretinal membrane, OD (08/11/19) - Stable on imaging and exam - Observe 3. Macular edema OD - Suspect post-surgical given CE/IOL 03/22/20 - Responded to drops previously - OCT remains stable with resolved edema - Observe 4. Macular edema OS - s/p CE/IOL and Dextenza OS 03/15/22 - Severe macular edema in 03/2022 - Underwent course of durezol QID and ketorolac QID - Completed last drop of durezol 10/22/22 - No IOP spike, but avoid intraocular steroids with presumed toxo scar OS ?unclear of prior ocular treatment - OCT remains stable with resolved edema - Continue to monitor 5. ERM left eye - Component to #3 - Patient does have slight metamorphopsia and blurriness - Considering PPV/MP vs observation - Doing well off all drops now - Remains stable on imaging and exam - Monitor 5. Chronic PVD OS - Onset 03/15/22 - RWS reviewed - No changes on DFE, observe 6. 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 Choroidal Nevus, left eye - Approximately 2 DD in size - Positive for: Drusen on nevus, Negative for: orange pigment, fluid - Stable exam and fundus photos - Monitor 8. Ocular Migraines, both eyes - No headaches during these episodes but has migraines separately - Flashing lights not proceed or follow her headaches, last 2-10 min 9. PCIOL OU - s/p CE/PCIOL OD (Dr. Awad, 03/22/2020) - s/p YAG OD with Dr. Awad - PCIOL 03/15/[address] Awad - Seeing Dr. Awad for yag cap OS 10. Previous conjunctivoplasty OS - 2004 11. Ptosis left eye s/p repair - s/p ZAIRA ptosis repair and exc lesion RUL margin 03/09/19 (with Dr Raymond) 12. Diplopia - Intermittent diplopia on upgaze only; sometimes horizontal, sometimes vertical - Unclear bionocular or monocular - No other neurologic deficits - Ocular alignment appears orthophoric, full EOMs 13. 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 Gutierrez and oculoplastics team - Notes she uses PF for maybe 5 days a month for rosacea of left eye I have seen and examined this patient. I have confirmed and edited as necessary the relevant ophthalmic history, medications, ROS, and the neuro and ophthalmic exam findings as obtained by others and myself. I have discussed the case and the management of this patient's care with the attending Physician, if applicable. I also have reviewed and agree with the assessment and plan as stated above and agree with all of its relevant components. I have discussed the treatment alternatives with the patient and the patient's family, if applicable. Follow-up as noted below, or sooner if new symptoms develop. [facility] 04-09-2023 History of Present illness Narrative All problems with bold in text below addressed at this visit with patient 1. Acute BRAO OD - Noticed sudden onset purple vision OD 03/13/23 - Evaluated by Kim at that time, noted to have retinal whitening superior to macula on exam and OCT with increased hyperreflectivity - Diagnosed with acute BRAO and sent to ED - PMHx: hyperlipidemia and migraines - Started on ASA 81 mg, atorvastatin and plavix (for 21 days) after hospital admission - CT brain without acute intracranial abnormality - MRI brain without acute findings, no acute infarct - ECHO showed abnormal mitral regurgitation which was known to patient - Now planning for MV repair in May - CRP was normal, does not appear ESR was performed - VA stable 20/20 today, still notes purple spot in vision - OCT shows atrophy - DFE with improving retinal whitening, small spot of heme new on exam today - No signs of NVE or NVI - Will continue to monitor closely - Call office with changes - Follow up with me in 4-5 weeks 2. S/p PPV/MP/FAx for Epiretinal membrane, OD (08/11/19) - Stable on imaging and exam - Observe 3. Macular edema OD - Suspect post-surgical given CE/IOL 03/22/20 - Responded to drops previously - OCT remains stable with resolved edema - Observe 4. Macular edema OS - s/p CE/IOL and Dextenza OS 03/15/22 - Severe macular edema in 03/2022 - Underwent course of durezol QID and ketorolac QID - Completed last drop of durezol 10/22/22 - No IOP spike, but avoid intraocular steroids with presumed toxo scar OS ?unclear of prior ocular treatment - OCT remains stable with resolved edema - Continue to monitor 5. ERM left eye - Component to #3 - Patient does have slight metamorphopsia and blurriness - Considering PPV/MP vs observation - Doing well off all drops now - Remains stable on imaging and exam - Monitor 5. Chronic PVD OS - Onset 03/15/22 - RWS reviewed - No changes on DFE, observe 6. 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 Choroidal Nevus, left eye - Approximately 2 DD in size - Positive for: Drusen on nevus, Negative for: orange pigment, fluid - Stable exam and fundus photos - Monitor 8. Ocular Migraines, both eyes - No headaches during these episodes but has migraines separately - Flashing lights not proceed or follow her headaches, last 2-10 min 9. PCIOL OU - s/p CE/PCIOL OD (Dr. Awad, 03/22/2020) - s/p YAG OD with Dr. Awad - PCIOL 03/15/[address] Awad - Seeing Dr. Awad for yag cap OS 10. Previous conjunctivoplasty OS - 2004 11. Ptosis left eye s/p repair - s/p ZAIRA ptosis repair and exc lesion RUL margin 03/09/19 (with Dr Raymond) 12. Diplopia - Intermittent diplopia on upgaze only; sometimes horizontal, sometimes vertical - Unclear bionocular or monocular - No other neurologic deficits - Ocular alignment appears orthophoric, full EOMs 13. 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 Gutierrez and oculoplastics team - Notes she uses PF for maybe 5 days a month for rosacea of left eye I have seen and examined this patient. I have confirmed and edited as necessary the relevant ophthalmic history, medications, ROS, and the neuro and ophthalmic exam findings as obtained by others and myself. I have discussed the case and the management of this patient's care with the attending Physician, if applicable. I also have reviewed and agree with the assessment and plan as stated above and agree with all of its relevant components. I have discussed the treatment alternatives with the patient and the patient's family, if applicable. Follow-up as noted below, or sooner if new symptoms develop. documented in this encounter [facility] 03-31-2023 Miscellaneous Notes OPD 3.28, Cath 3.29, Cathy held 4.1 @ 1200, OHS 4.2. Dental Form Please. MVr Sternotomy (1) Discussed with Yulisa the details regarding surgery scheduled with Dr. Morgan on 05.19. We reviewed the requirement for completion of Dental Clearance Form and provided instructions for the last dose date of any anti-coagulants, vitamins, supplements, minerals, herbal products or NSAID's should be on 05.13 and Prolia injection should not be administered within two weeks prior to her surgery date. Also informed Yulisa that she would need to be pre-medicated prior to her [facility]- iodine/shellfish/contrast media allergy and reviewed administration instructions. Prescription from Dr. Morgan's Office called into [facility]- [phone]. Tracie Rodriguez RN March 31, 2023 10:05 AM Cardiac Surgery PreOp Checklist Patient Name: Yulisa Shepard OR Surgery Date: 05.20.23 [facility] Appt. Date: 05.19.23 Primary Care Provider: Marianne Hadley MD Definition Comments Diabetes/Insulin Pump A1-c and Endo consult (need for pump pt) n/a Hypothyroid/thyroid nodules TSH/US of thyroid if new nodule n/a Stroke (CVA) Neurology consult n/a Dysphagia, stricture w/no recent dilation, Matute's Esophagus GI consult n/a Von Willebrand/thrombocytopenia/ Blood... Hematology consult n/a Abnormal labs from outside Place any necessary consults n/a Cardiac Cath Correct birthday/include all images/moving if outside cath ordered Redo OHS/Robotic surgery/radiation to chest CT or CTA/if outside CT will need in-house CXR, Cardiac MRI n/a Mechanical valve Admit for Heparin/Lovenox bridge n/a Female <50 y/o HCG n/a Heparin allergy hx of HIT Vascular Medicine consult n/a Nickel/Metal allergy Dermatology consult n/a Breast implants/Robotic candidates Plastic Surgery consult n/a Urinary strictures Urology consult/Urology consult to OR n/a All stimulators/spinal stimulator Type of stimulator n/a PPM/AICD Device check n/a Valve/TAVR/TEVAR/Myectomy/ascending aorta Dental clearance/Dental Consult at [facility] discussed CABG surgery with previous CABG/varicose vein/vein stripping Leg vein mapping n/a LMT disease > 30% or Carotid Bruits Carotid ultrasound n/a Descending Aneurysm/TEVAR/TAA Pre-admit/hydration/spinal drain to be placed: IR/OR/Not Needed n/a Dialysis patient IHD day prior to OHS n/a CABG with no ECHO results Discussion w/surgeon results for dental clearance: preop/postop n/a Advanced Directives Instructions given to patient n/a FMLA Forward to AA n/a Test/Consult not needed Communicate in Epic or Access n/a Record of decreased PFTs, known lung disease Any pulmonary consult n/a Pulmonary embolectomy Needs US/Duplex BLE, VQ scan RHC, possible LHC, Pulmonary and/or Vascular consult n/a Abnormal CT All>1cm if further workup/consult needed n/a [employer] Notification of packet and general knowledge given to pt n/a Surgeon Review Complete. NPM to contact to offer MVr Sternotomy with Cathy. To [facility] for review: severe MR/MVP, flail LOCAL PATIENT Patient self referred to Dr Morgan after undergoing a ANA MARÍA at [place] which indicated severe MVR. Records in [facility], Images on syngo. To NPM documented in this encounter [facility] 03-20-2023 Miscellaneous Notes Spoke with pt, will cancel 2-2- appt, will call to reschedule at a later date Left vm for pt with message to call back and reschedule her appointment for 03-21-23 Images from the original note were not included. Patient Question (Newest Message First) View All Conversations on this Encounter Bryan Awad MD You 2 days ago She can reschedule if there's too much going on. My visit is not urgent You routed conversation to Bryan Awad MD Update, pt is have ANA MARÍA for Cardiology, is now on Plavix. Right now she is admitted to [place], hoping to go home tonight Saw Dr. Link on 03-13-23 Retina occlusion. Should she still come on Friday - wanted to make sure you are up to date Fv 03-21-23 Assessment & Plan Bryan Awad MD filed at 04/25/2022 2:01 PM Status: Signed Pseudophakia, OS Pseudophakic CME, OS - S/p ce/iol + Dextenza OS 03/15/22 - VA 20/80 today from 20/50 on 03/24/22 - currently on durezol four times a day for 1 month (was on Predforte four times a day for 1 month prior 1 month), ketorolac QID left eye for 2 months - OCT macula today with improved but persistent cystoid macular edema under Epiretinal membrane - continue durezol and ketorolac four times a day - schedule back with Dr. Huang in 1 month Not specifically addressed today, copied from prior note: # Pseudophakia both eyes - s/p CEIOL right eye 03/22/20, s/p YAG - s/p CEIOL + Dextenza left eye 03/15/22, toric 106 degrees - Epiretinal membrane limiting vision, Dr. Huang to assess after phaco # Epiretinal membrane left eye - planned staged membrane peel after phaco # myopia both eyes # ocular migraines # Ptosis left eye s/p repair - s/p ZAIRA ptosis repair and exc lesion RUL margin 03/09/19 (with Dr Raymond) - s/p bleb both eyes (Dr. Gutierrez) 05/10/[address] 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 Please verify insurance. Thank you Scanned Documents documented in this encounter [facility] 03-18-2023 Note HNO ID: [id number] Author: LAZ VALENTIN MD Service: Hospital Medicine Author Type: Physician Type: Progress Notes Filed: 03/18/2023 17:46 Note Text: D/w Dr Drummond cleared for dc follow with CTS as outpt [facility] 03-17-2023 Note HNO ID: [id number] Author: LAZ VALENTIN MD Service: Hospital Medicine Author Type: Physician Type: Progress Notes Filed: 03/17/2023 18:53 Note Text: PROGRESS NOTE - INTERNAL MEDICINE PATIENT NAME: Yulisa Shepard SERVICE DATE: 03/17/2023 SERVICE TIME: 6:52 PM SUBJECTIVE INTERVAL HISTORY OF PRESENT ILLNESS: Cardiology following Severe mitral regurgitation demonstrated on surface echo Patient agreeable for transesophageal echo. Awake alert comfortable. Neurology workup complete. ROS: OBJECTIVE PHYSICAL EXAM: Patient Vitals for the past 24 hrs: BP Temp Temp src Pulse Resp SpO2 Weight 03/17/23 1542 130/53 36.6 ?C (97.9 ?F) Oral 65 20 100 % -- 03/17/23 1223 127/60 36.5 ?C (97.7 ?F) Oral 71 18 99 % -- 03/17/23 0844 127/59 36.5 ?C (97.7 ?F) Oral 64 16 100 % -- 03/17/23 0451 -- -- -- -- -- -- 52.5 kg (115 lb 11.9 oz) 03/17/23 0405 118/56 36.4 ?C (97.5 ?F) Oral (!) 59 16 100 % -- 03/16/23 2352 129/58 36.6 ?C (97.9 ?F) Oral 70 16 99 % -- Body mass index is 22.6 kg/m?. No intake or output data in the 24 hours ending 03/17/23 0659 GENERAL: healthy, alert, no distress, cooperative SKIN: NECK: no jugulovenous distention, no carotid bruits, carotid pulse normal contour, supple LUNGS: Lungs clear to auscultation. Good diaphragmatic excursion. CARDIAC: normal S1 and S2; no rubs, murmurs, or gallops ABDOMEN: Abdomen soft, non-tender. BS normal. No masses or organomegaly. EXTREMETIES: Extremities normal. No deformities, edema, clubbing or skin discoloration. NEURO: Alert, oriented X 3, Gait normal. Reflexes normal and symmetric. Sensation grossly intact., Cranial nerves II-XII intact PULSES: 2+ radial, 2+ carotid DATA: Diagnostic tests reviewed for today's visit: CBC: Recent Labs 03/17/23 0320 WBC 4.15 RBC 4.04 HB 12.2 HCT 36.4 PLT 177 MCV 90.1 MCH 30.2 MPV 10.2 Coags: No results for input(s): PT , INR , APTT in the last 24 hours. BMP: Recent Labs 03/17/23 0320 NA 138 K 4.1 CHLOR 104 CO2 21* BUN 13 CREAT 0.60 GLUC 88 Cardiac Enzymes: No results for input(s): CK , MB , CKMB , TROPT in the last 24 hours. Liver Function, Amylase, Lipase: Recent Labs 03/17/23 032 TPROT 5.7* ALB 3.9 ALT 18 AST 19 ALKPHOS 53 TBILI 0.2 MG/PHOS: No results for input(s): MG , P in the last 24 hours. ABG's: No results for input(s): PH , PCO2 , PO2 , BE , HCO3 , CO2CT , O2HB , COHB , MHGB , TEMP , PHTC , PCO2T , PO2T , O2AD in the last 24 hours. Recent diagnostic tests reviewed. ASSESSMENT AND PLAN Active Hospital Problems Stroke-like symptom [R29.90] Nonrheumatic mitral valve regurgitation [I34.0] Coronary artery disease [I25.10] Mixed hyperlipidemia [E78.2] Paroxysmal SVT (supraventricular tachycardia) [I47.10] Matute's esophagus [K22.70] SIGNATURE: Laz Valentin MD DATE: March 17, 2023 TIME: 6:52 PM [facility] 03-17-2023 Note HNO ID: [id number] Author: MICHELLE CH RN Service: Care Management Author Type: Registered Nurse Type: Care Mgt Progress Note Filed: 03/17/2023 15:21 Note Text: CARE MANAGEMENT PROGRESS NOTE SERVICE DATE: 03/17/2023 SERVICE TIME: 3:21 PM LOS: 0 days Post-Acute Discharge Planning Patient Goal(s): Be able to go home, General wellness Discharge Planning Participant(s): Patient Patient/Family Comments: Anticipated # of Days Until Discharge: 1 Transport at Discharge: Transportation Arrangements: Car Needs Prior to Discharge: Needs Prior to Discharge: Procedure Procedure Needed: possible ANA MARÍA Post-Acute Discharge Plan: Medical/Social barriers to discharge: cardiology following, pt to discuss with spouse re: ANA MARÍA Discharge plan: home, needs zio patch. Declined skilled needs, spouse to transport SIGNATURE: Michelle Ch RN PATIENT NAME: Yulisa Shepard DATE: March 17, 2023 TIME: 3:21 PM PAGER/CONTACT #: [phone] [facility] 03-16-2023 Note HNO ID: [id number] Author: LAZ VALENTIN MD Service: Hospital Medicine Author Type: Physician Type: Progress Notes Filed: 03/16/2023 18:58 Note Text: PROGRESS NOTE - INTERNAL MEDICINE PATIENT NAME: Yulisa Shepard SERVICE DATE: 03/16/2023 SERVICE TIME: 3:18 PM SUBJECTIVE INTERVAL HISTORY OF PRESENT ILLNESS: Echocardiogram completed. MRA ordered not done yet. Patient anxious. Aware that this is have to be completed. 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 Intake/Output Summary (Last 24 hours) at 03/16/2023 0659 Last data filed at 03/15/2023 1645 Gross per 24 hour Intake 1100 ml Output -- Net 1100 ml GENERAL: healthy, alert, no distress, cooperative SKIN: NECK: no jugulovenous distention, no carotid bruits, carotid pulse normal contour, supple LUNGS: Lungs clear to auscultation. Good diaphragmatic excursion. CARDIAC: normal S1 and S2; no rubs, murmurs, or gallops ABDOMEN: Abdomen soft, non-tender. BS normal. No masses or organomegaly. EXTREMETIES: Extremities normal. No deformities, edema, clubbing or skin discoloration. NEURO: Alert, oriented X 3, Gait normal. Reflexes normal and symmetric. Sensation grossly intact., Cranial nerves II-XII intact PULSES: 2+ radial, 2+ carotid DATA: Diagnostic tests reviewed for today's visit: CBC: No results for input(s): WBC , RBC , HB , HCT , PLT , MCV , MCH , MPV , RDW in the last 24 hours. Coags: No results for input(s): PT , INR , APTT in the last 24 hours. BMP: No results for input(s): NA , K , CHLOR , CO2 , BUN , CREAT , GLUC in the last 24 hours. Cardiac Enzymes: No results for input(s): CK , MB , CKMB , TROPT in the last 24 hours. Liver Function, Amylase, Lipase: No results for input(s): TPROT , ALB , ALT , AST , ALKPHOS , TBILI , AMYLASE , LIPASE , LACTATE in the last 24 hours. MG/PHOS: No results for input(s): MG , P in the last 24 hours. ABG's: No results for input(s): PH , PCO2 , PO2 , BE , HCO3 , CO2CT , O2HB , COHB , MHGB , TEMP , PHTC , PCO2T , PO2T , O2AD in the last 24 hours. Recent diagnostic tests reviewed. ASSESSMENT AND PLAN Active Hospital Problems Stroke-like symptom [R29.90] Coronary artery disease [I25.10] Mixed hyperlipidemia [E78.2] Paroxysmal SVT (supraventricular tachycardia) [I47.10] Matute's esophagus [K22.70] Addendum ECHO severe MR getting cardio SIGNATURE: Laz Valentin MD DATE: March 16, 2023 TIME: 3:18 PM [facility] 03-16-2023 Note HNO ID: [id number] Author: ANKIT VASQUEZ RN Service: ? Author Type: Registered Nurse Type: Nursing Progress Note Filed: 03/16/2023 09:34 Note Text: 0934 Echo completed [facility] 03-15-2023 Note HNO ID: [id number] Author: LAZ VALENTIN MD Service: Hospital Medicine Author Type: Physician Type: Progress Notes Filed: 03/15/2023 14:36 Note Text: PROGRESS NOTE - INTERNAL MEDICINE PATIENT NAME: Yulisa Shepard SERVICE DATE: 03/15/2023 SERVICE TIME: 2:36 PM SUBJECTIVE INTERVAL HISTORY OF PRESENT ILLNESS: Neurology following. MRA ordered to see if this can be expedited. Remains on dual antiplatelet agent, statins. Zio patch as outpatient. Likely discharge if this can be accomplished ROS: OBJECTIVE PHYSICAL EXAM: Patient Vitals for the past 24 hrs: BP Temp Temp src Pulse Resp SpO2 03/15/23 1200 151/64 36.5 ?C (97.7 ?F) Oral 69 19 98 % 03/15/23 0712 129/70 36.7 ?C (98.1 ?F) Oral 66 17 100 % 03/15/23 0335 131/66 36.5 ?C (97.7 ?F) Oral 65 18 100 % 03/15/23 0000 140/70 36.7 ?C (98 ?F) Oral 80 20 100 % 03/14/232012 135/61 36.5 ?C (97.7 ?F) Oral 71 18 96 % 03/14/23 1605 124/68 36.9 ?C (98.4 ?F) Oral 68 20 98 % Body mass index is 21.68 kg/m?. No intake or output data in the 24 hours ending 03/15/23 0659 GENERAL: healthy, alert, no distress, cooperative SKIN: NECK: no jugulovenous distention, no carotid bruits, carotid pulse normal contour, supple LUNGS: Lungs clear to auscultation. Good diaphragmatic excursion. CARDIAC: normal S1 and S2; no rubs, murmurs, or gallops ABDOMEN: Abdomen soft, non-tender. BS normal. No masses or organomegaly. EXTREMETIES: Extremities normal. No deformities, edema, clubbing or skin discoloration. NEURO: Alert, oriented X 3, Gait normal. Reflexes normal and symmetric. Sensation grossly intact., Cranial nerves II-XII intact PULSES: 2+ radial, 2+ carotid DATA: Diagnostic tests reviewed for today's visit: CBC: Recent Labs 03/15/23 0401 WBC 4.62 RBC 4.11 HB 12.5 HCT 37.1 PLT 174 MCV 90.3 MCH 30.4 MPV 9.9 Coags: No results for input(s): PT , INR , APTT in the last 24 hours. BMP: Recent Labs 03/15/23 0401 NA 140 K 3.8 CHLOR 105 CO2 21* BUN 12 CREAT 0.61 GLUC 93 Cardiac Enzymes: No results for input(s): CK , MB , CKMB , TROPT in the last 24 hours. Liver Function, Amylase, Lipase: Recent Labs 03/15/23 0401 TPROT 5.8* ALB 3.9 ALT 15 AST 16 ALKPHOS 50 TBILI 0.2 MG/PHOS: No results for input(s): MG , P in the last 24 hours. ABG's: No results for input(s): PH , PCO2 , PO2 , BE , HCO3 , CO2CT , O2HB , COHB , MHGB , TEMP , PHTC , PCO2T , PO2T , O2AD in the last 24 hours. Recent diagnostic tests reviewed. ASSESSMENT AND PLAN Active Hospital Problems Stroke-like symptom [R29.90] Coronary artery disease [I25.10] Mixed hyperlipidemia [E78.2] Paroxysmal SVT (supraventricular tachycardia) [I47.10] Matute's esophagus [K22.70] SIGNATURE: Laz Valentin MD DATE: March 15, 2023 TIME: 2:36 PM [facility] 03-14-2023 Note HNO ID: [id number] Author: MICHELLE CH RN Service: Care Management Author Type: Registered Nurse Type: Care Mgt Progress Note Filed: 03/14/2023 13:43 Note Text: CARE MANAGEMENT PROGRESS NOTE SERVICE DATE: 03/14/2023 SERVICE TIME: 1:42 PM LOS: 0 days Needs Prior to Discharge: None;Other: See Comment (medical clearance, US carotid) Medical/Social barriers to discharge: Optho, neuro following. US carotid ordered. PT/OT eval (pt is up ad binta) Discharge plan: home, needs zio patch. Declined skilled needs, spouse to transport SIGNATURE: Michelle Ch RN PATIENT NAME: Yulisa Shepard DATE: March 14, 2023 TIME: 1:42 PM PAGER/CONTACT #: [phone] [facility] 03-13-2023 Note HNO ID: [id number] Author: ANGELA LINK PA-C Service: ? Author Type: Physician Photogeologist Type: Progress Notes Filed: 03/13/2023 12:10 Note Text: Patient presents for acute visit for purple vision OD since this morning. All problems with bold in text below addressed at this visit with patient 1. Acute BRAO OD - Noticed sudden onset purple vision OD this morning upon wakening - VA today stable 20/20 - Retinal whitening superior to macula on exam - OCT with increased hyperreflectivity on OCT - Discussed case with Dr. Huang - Exam most consistent with acute BRAO - Patient with relatively limited health history: on sumatriptan for migraines but has not taken in about a month; currently on daily estradiol - Patient will need to go to ER for stroke workup - Consider GCA workup (less likely considering asymptomatic but could draw ESR, CRP) - Called ED at alerted them that patient was coming down to see them for stroke workup - Plan to follow up with me or Dr. Huang in 4-5 weeks for repeat exam for neovascularization 2. S/p PPV/MP/FAx for Epiretinal membrane, OD (08/11/19) - No changes on OCT or DFE - Call with vision changes - Monitor 3. Macular edema OD - Suspect post-surgical given CE/IOL 03/22/20 - Responded to drops previously - Resolved, monitor 4. Macular edema OS - s/p CE/IOL and Dextenza OS 03/15/22 - Severe macular edema in 03/2022 - Underwent course of durezol QID and ketorolac QID - Completed last drop of durezol 10/22/22 - OCT resolved - No IOP spike, but avoid intraocular steroids with presumed toxo scar OS ?unclear of prior ocular treatment 5. ERM left eye - Component to #3 - Patient does have slight metamorphopsia and blurriness - Considering PPV/MP vs observation - Doing well off all drops now 5. Chronic PVD OS - Onset 03/15/22 - Emphasized return to office precautions and patient will call with any changes in vision - Remains stable on exam, continue to monitor 6. 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 Choroidal Nevus, left eye - Approximately 2 DD in size - Positive for: Drusen on nevus, Negative for: orange pigment, fluid - No changes on exam, observe 8. Ocular Migraines, both eyes - No headaches during these episodes but has migraines separately - Flashing lights not proceed or follow her headaches, last 2-10 min 9. PCIOL OU - s/p CE/PCIOL OD (Dr. Awad, 03/22/2020) - s/p YAG OD with Dr. Awad - PCIOL 03/15/[address] Awad - Seeing Dr. Awad for yag cap OS 10. Previous conjunctivoplasty OS - 2004 11. Ptosis left eye s/p repair - s/p ZAIRA ptosis repair and exc lesion RUL margin 03/09/19 (with Dr Raymond) 12. Diplopia - Intermittent diplopia on upgaze only; sometimes horizontal, sometimes vertical - Unclear bionocular or monocular - No other neurologic deficits - Ocular alignment appears orthophoric, full EOMs 13. 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 Gutierrez and oculoplastics team - Notes she uses PF for maybe 5 days a month for rosacea of left eye I have seen and examined this patient. I have confirmed and edited as necessary the relevant ophthalmic history, medications, ROS, and the neuro and ophthalmic exam findings as obtained by others and myself. I have discussed the case and the management of this patient's care with the attending Physician, if applicable. I also have reviewed and agree with the assessment and plan as stated above and agree with all of its relevant components. I have discussed the treatment alternatives with the patient and the patient's family, if applicable. Follow-up as noted below, or sooner if new symptoms develop. [facility] 02-18-2023 Note HNO ID: [id number] Author: Myron Huang MD Service: ? Author Type: Physician Type: Progress Notes Filed: 02/18/2023 9:51 AM Note Text: The documentation for the note below was completed in part by Suzette Schwartz acting as a scribe for Myron Huang MD. 02/18/2023 9:12 AM. Scribe Attestation: By signing my name below, I, Suzette Radha Parsons, attest that the documentation in part for the note below and the encounter was completed in part by Suzette Schwartz acting as a scribe for Myron Huang MD. Electronically Signed: Roma Hudson. February 18, 2023 9:12 AM. All problems with bold in text below addressed at this visit with patient 1. S/p PPV/MP/FAx for Epiretinal membrane, OD (08/11/19) - Stable on imaging and exam - Patient promised to call with changes in vision - Continue to observe for major changes -Kim in 4 months, in 8 months 2. Macular edema OD - Suspect post-surgical given CE/IOL 03/22/20 - Responded to drops previously - Remains resolved on imaging and exam - Continue to observe for major changes 3. Macular edema OS - s/p CE/IOL and Dextenza OS 03/15/22 - Severe macular edema in 03/2022 - Underwent course of durezol QID and ketorolac QID - Completed last drop of durezol 10/22/22 - OCT remains resolved - VA stable at 20/30 with pinholes - Patient still notes distortion and blurriness, could be variety of factors including ERM and PCO - No IOP spike, but avoid intraocular steroids with presumed toxo scar OS ?unclear of prior ocular treatment 4. ERM left eye - 20/30 prior to phaco, now back to 20/30 with PH today - Component to #3 - Patient does have slight metamorphopsia and blurriness - Considering PPV/MP vs observation - Doing well off all drops now - Would recommend Yag OS first and then reconsider PPV/MP. - F/U STEPHEN Arnett 4 months; me in 8 months (sooner if leaning towards surgery) 5. Chronic PVD OS - Onset 03/15/22 - RWS reviewed with pt, as well as instructions on what to do should those symptoms appear - Stable on exam - Continue to monitor for any major changes 6. 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 Choroidal Nevus, left eye - Approximately 2 DD in size - Positive for: Drusen on nevus, Negative for: orange pigment, fluid - Remains stable - Continue to monitor for any major changes 8. Ocular Migraines, both eyes - No headaches during these episodes but has migraines separately - Flashing lights not proceed or follow her headaches, last 2-10 min - Cotninue to monitor for any major changes 9. PCIOL OU - s/p CE/PCIOL OD (Dr. Awad, 03/22/2020) - s/p YAG OD with Dr. Awad - PCIOL 03/15/[address] Awad - Consult Dr. Awad for yag OS 10. Previous conjunctivoplasty OS - 2004 11. Ptosis left eye s/p repair - s/p ZAIRA ptosis repair and exc lesion RUL margin 03/09/19 (with Dr Raymond) 12. Diplopia - Intermittent diplopia on upgaze only; sometimes horizontal, sometimes vertical - Unclear bionocular or monocular - No other neurologic deficits - Ocular alignment appears orthophoric, full EOMs 13. 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 Gutierrez and oculoplastics team - Notes she uses PF for maybe 5 days a month for rosacea of left eye I, Myron Huang MD, personally performed the services described in this documentation. All medical record entries made by the scribe were at my direction and in my presence. I have reviewed the chart and discharge instructions (if applicable) and agree that the record reflects my personal performance and is accurate and complete. I have confirmed and edited as necessary the relevant ophthalmic history, ROS, and the neuro exam findings as obtained by others. I have seen and examined Yulisa Shepard. I have discussed the case and the management of this patient's care with the Resident/Fellow, if applicable. I also have reviewed and agree with the assessment and plan as stated above and agree with all of its relevant components. Electronically Signed: Myron Huang MD, February 18, 2023 9:44 AM [facility] 10-22-2022 Note HNO ID: [id number] Author: Angela Link PA-C Service: ? Author Type: Physician Photogeologist Type: Progress Notes Filed: 10/22/2022 12:32 PM Note Text: All problems with bold in text below addressed at this visit with patient Dr. Gigi Gaines warehouse shipper [phone] [id number] 1. S/p PPV/MP/FAx for Epiretinal membrane, OD (08/11/19) - Remains unchanged on imaging and exam - Patient to call with changes in vision - Observe 2. Macular edema OD - Suspect post-surgical given CE/IOL 03/22/20 - Responded to drops previously - Now resolved on imaging and exam, stable - Observe 3. Macular edema OS - s/p CE/IOL and Dextenza OS 03/15/22 - Severe macular edema in 03/2022 - Underwent course of durezol QID and ketorolac QID - Completed last drop of durezol this morning - OCT without fluid today - VA improved to 20/30 with pinholes - Patient still notes distortion and blurriness, could be variety of factors including ERM and PCO - No IOP spike, but avoid intraocular steroids with presumed toxo scar OS ?unclear of prior ocular treatment - Follow up with Dr. Huang in 6 weeks 4. ERM left eye - 20/30 prior to phaco, now back to 20/30 with PH today - Component to #3 - Patient does have slight metamorphopsia and blurriness - Consider PPV/MP vs observation - Reevaluate with Dr. Huang in 6 weeks to see what he thinks about MP vs observation - Doing well off all drops now, no fluid returning on exam 5. Chronic PVD OS - Onset 03/15/22 - RWS reviewed - Remains stable on exam, continue to monitor 6. 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 Choroidal Nevus, left eye - Approximately 2 DD in size - Positive for: Drusen on nevus, Negative for: orange pigment, fluid - No changes, monitor 8. Ocular Migraines, both eyes - No headaches during these episodes but has migraines separately - Flashing lights not proceed or follow her headaches, last 2-10 min - Observe 9. PCIOL OU - s/p CE/PCIOL OD (Dr. Awad, 03/22/2020) - s/p YAG OD with Dr. Awad - PCIOL 03/15/[address] Awad - Consider referral to Dr. Awad for yag OS - Reevaluate with Dr. Huang 10. Previous conjunctivoplasty OS - 2004 11. Ptosis left eye s/p repair - s/p ZAIRA ptosis repair and exc lesion RUL margin 03/09/19 (with Dr Raymond) 12. Diplopia - Intermittent diplopia on upgaze only; sometimes horizontal, sometimes vertical - Unclear bionocular or monocular - No other neurologic deficits - Ocular alignment appears orthophoric, full EOMs 13. 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 Gutierrez and oculoplastics team - Notes she uses PF for maybe 5 days a month for rosacea of left eye I have seen and examined this patient. I have confirmed and edited as necessary the relevant ophthalmic history, medications, ROS, and the neuro and ophthalmic exam findings as obtained by others and myself. I have discussed the case and the management of this patient's care with the attending Physician, if applicable. I also have reviewed and agree with the assessment and plan as stated above and agree with all of its relevant components. I have discussed the treatment alternatives with the patient and the patient's family, if applicable. Follow-up as noted below, or sooner if new symptoms develop. [facility] 10-22-2022 History of Present illness Narrative All problems with bold in text below addressed at this visit with patient Dr. Gigi Gaines warehouse shipper [phone] [id number] 1. S/p PPV/MP/FAx for Epiretinal membrane, OD (08/11/19) - Remains unchanged on imaging and exam - Patient to call with changes in vision - Observe 2. Macular edema OD - Suspect post-surgical given CE/IOL 03/22/20 - Responded to drops previously - Now resolved on imaging and exam, stable - Observe 3. Macular edema OS - s/p CE/IOL and Dextenza OS 03/15/22 - Severe macular edema in 03/2022 - Underwent course of durezol QID and ketorolac QID - Completed last drop of durezol this morning - OCT without fluid today - VA improved to 20/30 with pinholes - Patient still notes distortion and blurriness, could be variety of factors including ERM and PCO - No IOP spike, but avoid intraocular steroids with presumed toxo scar OS ?unclear of prior ocular treatment - Follow up with Dr. Huang in 6 weeks 4. ERM left eye - 20/30 prior to phaco, now back to 20/30 with PH today - Component to #3 - Patient does have slight metamorphopsia and blurriness - Consider PPV/MP vs observation - Reevaluate with Dr. Huang in 6 weeks to see what he thinks about MP vs observation - Doing well off all drops now, no fluid returning on exam 5. Chronic PVD OS - Onset 03/15/22 - RWS reviewed - Remains stable on exam, continue to monitor 6. 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 Choroidal Nevus, left eye - Approximately 2 DD in size - Positive for: Drusen on nevus, Negative for: orange pigment, fluid - No changes, monitor 8. Ocular Migraines, both eyes - No headaches during these episodes but has migraines separately - Flashing lights not proceed or follow her headaches, last 2-10 min - Observe 9. PCIOL OU - s/p CE/PCIOL OD (Dr. Awad, 03/22/2020) - s/p YAG OD with Dr. Awad - PCIOL 03/15/[address] Awad - Consider referral to Dr. Awad for yag OS - Reevaluate with Dr. Huang 10. Previous conjunctivoplasty OS - 2004 11. Ptosis left eye s/p repair - s/p ZAIRA ptosis repair and exc lesion RUL margin 03/09/19 (with Dr Raymond) 12. Diplopia - Intermittent diplopia on upgaze only; sometimes horizontal, sometimes vertical - Unclear bionocular or monocular - No other neurologic deficits - Ocular alignment appears orthophoric, full EOMs 13. 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 Gutierrez and oculoplastics team - Notes she uses PF for maybe 5 days a month for rosacea of left eye I have seen and examined this patient. I have confirmed and edited as necessary the relevant ophthalmic history, medications, ROS, and the neuro and ophthalmic exam findings as obtained by others and myself. I have discussed the case and the management of this patient's care with the attending Physician, if applicable. I also have reviewed and agree with the assessment and plan as stated above and agree with all of its relevant components. I have discussed the treatment alternatives with the patient and the patient's family, if applicable. Follow-up as noted below, or sooner if new symptoms develop. documented in this encounter [facility] 09-10-2022 Note HNO ID: [id number] Author: Myron Huang MD Service: ? Author Type: Physician Type: Progress Notes Filed: 09/10/2022 1:03 PM Note Text: The documentation for the note below was completed in part by Suzette Schwartz acting as a scribe for Myron Huang MD. 09/10/2022 11:09 AM. Scribe Attestation: By signing my name below, I, Suzette Hernandezmilagro Parsons, attest that the documentation in part for the note below and the encounter was completed in part by Suzette Schwartz acting as a scribe for Myron Huang MD. Electronically Signed: Roam Hudson. September 10, 2022 11:09 AM. All problems with bold in text below addressed at this visit with patient 1. S/p PPV/MP/FAx for Epiretinal membrane, right eye (08/11/19) - OCT and DFE stable - Call office with vision changes - Continue to monitor 2. Macular edema OD - Suspect post-surgical given CE/IOL 03/22/20 - Off drops - OCT and DFE stable - Continue to monitor 3. Macular edema OS - s/p CE/IOL and Dextenza OS 03/15/22 - Severe macular edema in 03/2022 - Currently on durezol QID OS, stopped ketorolac QID on 08/06/22 (5w) - OCT stable and VA better today 20/30 - No IOP spike, but avoid intraocular steroids with presumed toxo scar OS ?unclear of prior ocular treatment - IOP 17 today - Taper Durezol TID for 2 weeks, then BID for 2 weeks, then qd for 2 weeks - F/u with Angela Link PA-C in 6 weeks to ensure stability on this taper schedule; if stable, taper to daily for 2 weeks and then stop - F/U with me in 12 weeks 4. ERM left eye - 20/30 prior to phaco, now back to 20/30 with PH today - Component to #3 - Patient does have slight metamorphopsia that she thinks may be subtly changing OS - Could consider PPV/MP based on clinical course. At this point, VA seems to be continuing to improve - Reassess at the next visit. 5. Chronic PVD OS - Onset 03/15/22 - Emphasized return to office precautions and patient will call with any changes in vision - Exam stable -Continue to monitor 6. 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 Choroidal Nevus, left eye - Approximately 2 DD in size - Positive for: Drusen on nevus, Negative for: orange pigment, fluid - Stable on exam, continue to observe 8. Ocular Migraines, both eyes - No headaches during these episodes but has migraines separately - Flashing lights not proceed or follow her headaches, last 2-10 min - Appears stable - Continue to monitor 9. PCIOL OU - s/p CE/PCIOL OD (Dr. Awad, 03/22/2020) - s/p YAG OD with Dr. Awad - PCIOL 03/15/[address] Awad - Worsening PCO OS, monitor for now 10. Previous conjunctivoplasty OS - 2004 11. Ptosis left eye s/p repair - s/p ZAIRA ptosis repair and exc lesion RUL margin 03/09/19 (with Dr Raymond) 12. Diplopia - Intermittent diplopia on upgaze only; sometimes horizontal, sometimes vertical - Unclear bionocular or monocular - No other neurologic deficits - Ocular alignment appears orthophoric, full EOMs 13. 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 Gutierrez and oculoplastics team - Notes she uses PF for maybe 5 days a month for rosacea of left eye I, Myron Huang MD, personally performed the services described in this documentation. All medical record entries made by the scribe were at my direction and in my presence. I have reviewed the chart and discharge instructions (if applicable) and agree that the record reflects my personal performance and is accurate and complete. I have confirmed and edited as necessary the relevant ophthalmic history, ROS, and the neuro exam findings as obtained by others. I have seen and examined Yulisa Shepard. I have discussed the case and the management of this patient's care with the Resident/Fellow, if applicable. I also have reviewed and agree with the assessment and plan as stated above and agree with all of its relevant components. Electronically Signed: Myron Huang MD, September 10, 2022 12:54 PM [facility] 08-06-2022 Note HNO ID: [id number] Author: Angela Link PA-C Service: ? Author Type: Physician Photogeologist Type: Progress Notes Filed: 08/06/2022 11:46 AM Note Text: All problems with bold in text below addressed at this visit with patient 1. S/p PPV/MP/FAx for Epiretinal membrane, right eye (08/11/19) - Remains unchanged on OCT and DFE - Call office with vision changes - Monitor 2. Macular edema OD - Suspect post-surgical given CE/IOL 03/22/20 - Off drops - No changes on DFE or OCT, no fluid - Monitor 3. Macular edema OS - s/p CE/IOL and Dextenza OS 03/15/22 - Severe macular edema in 03/2022 - Currently on ketorolac QID and durezol QID OS - IRF nearly gone today, ERM remains unchanged - VA better today 20/40 - No IOP spike, but avoid intraocular steroids with presumed toxo scar OS ?unclear of prior ocular treatment - IOP still stable today at 16 - Stop ketorolac today - Continue durezol QID OS - Consider taper at next visit with Dr. Huang if stable - Follow up with Dr. Huang in 6-8 weeks 4. ERM left eye - 20/30 prior to phaco - Component to #3 - Patient does not slight metamorphopsia that has remained stable OS - Could consider PPV/MP based on clinical course. - Will reassess for possible surgical intervention at next visit. 5. Chronic PVD OS - Onset 03/15/22 - Emphasized return to office precautions and patient will call with any changes in vision - Remains stable on exam, continue to monitor 6. 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 Choroidal Nevus, left eye - Approximately 2 DD in size - Positive for: Drusen on nevus, Negative for: orange pigment, fluid - Remains unchanged on exam, monitor 8. Ocular Migraines, both eyes - No headaches during these episodes but has migraines separately - Flashing lights not proceed or follow her headaches, last 2-10 min - Stable, monitor 9. PCIOL OU - s/p CE/PCIOL OD (Dr. Awad, 03/22/2020) - s/p YAG OD with Dr. Awad - PCIOL 03/15/[address] Awad - Worsening PCO OS, observe for now 10. Previous conjunctivoplasty OS - 2004 11. Ptosis left eye s/p repair - s/p ZAIRA ptosis repair and exc lesion RUL margin 03/09/19 (with Dr Raymond) 12. Diplopia - Intermittent diplopia on upgaze only; sometimes horizontal, sometimes vertical - Unclear bionocular or monocular - No other neurologic deficits - Ocular alignment appears orthophoric, full EOMs 13. 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 Gutierrez and oculoplastics team - Notes she uses PF for maybe 5 days a month for rosacea of left eye I have seen and examined this patient. I have confirmed and edited as necessary the relevant ophthalmic history, medications, ROS, and the neuro and ophthalmic exam findings as obtained by others and myself. I have discussed the case and the management of this patient's care with the attending Physician, if applicable. I also have reviewed and agree with the assessment and plan as stated above and agree with all of its relevant components. I have discussed the treatment alternatives with the patient and the patient's family, if applicable. Follow-up as noted below, or sooner if new symptoms develop. [facility] 08-06-2022 History of Present illness Narrative All problems with bold in text below addressed at this visit with patient 1. S/p PPV/MP/FAx for Epiretinal membrane, right eye (08/11/19) - Remains unchanged on OCT and DFE - Call office with vision changes - Monitor 2. Macular edema OD - Suspect post-surgical given CE/IOL 03/22/20 - Off drops - No changes on DFE or OCT, no fluid - Monitor 3. Macular edema OS - s/p CE/IOL and Dextenza OS 03/15/22 - Severe macular edema in 03/2022 - Currently on ketorolac QID and durezol QID OS - IRF nearly gone today, ERM remains unchanged - VA better today 20/40 - No IOP spike, but avoid intraocular steroids with presumed toxo scar OS ?unclear of prior ocular treatment - IOP still stable today at 16 - Stop ketorolac today - Continue durezol QID OS - Consider taper at next visit with Dr. Huang if stable - Follow up with Dr. Huang in 6-8 weeks 4. ERM left eye - 20/30 prior to phaco - Component to #3 - Patient does not slight metamorphopsia that has remained stable OS - Could consider PPV/MP based on clinical course. - Will reassess for possible surgical intervention at next visit. 5. Chronic PVD OS - Onset 03/15/22 - Emphasized return to office precautions and patient will call with any changes in vision - Remains stable on exam, continue to monitor 6. 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 Choroidal Nevus, left eye - Approximately 2 DD in size - Positive for: Drusen on nevus, Negative for: orange pigment, fluid - Remains unchanged on exam, monitor 8. Ocular Migraines, both eyes - No headaches during these episodes but has migraines separately - Flashing lights not proceed or follow her headaches, last 2-10 min - Stable, monitor 9. PCIOL OU - s/p CE/PCIOL OD (Dr. Awad, 03/22/2020) - s/p YAG OD with Dr. Awad - PCIOL 03/15/[address] Awad - Worsening PCO OS, observe for now 10. Previous conjunctivoplasty OS - 2004 11. Ptosis left eye s/p repair - s/p ZAIRA ptosis repair and exc lesion RUL margin 03/09/19 (with Dr Raymond) 12. Diplopia - Intermittent diplopia on upgaze only; sometimes horizontal, sometimes vertical - Unclear bionocular or monocular - No other neurologic deficits - Ocular alignment appears orthophoric, full EOMs 13. 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 Gutierrez and oculoplastics team - Notes she uses PF for maybe 5 days a month for rosacea of left eye I have seen and examined this patient. I have confirmed and edited as necessary the relevant ophthalmic history, medications, ROS, and the neuro and ophthalmic exam findings as obtained by others and myself. I have discussed the case and the management of this patient's care with the attending Physician, if applicable. I also have reviewed and agree with the assessment and plan as stated above and agree with all of its relevant components. I have discussed the treatment alternatives with the patient and the patient's family, if applicable. Follow-up as noted below, or sooner if new symptoms develop. documented in this encounter [facility] 08-02-2022 Miscellaneous Notes Yulisa Drea CC [id number] Patient's request for medication is as follows: Requested Prescriptions Pending Prescriptions Disp Refills keTORolac (ACULAR) 0.5 % ophthalmic solution Sig: Use 1 Drop in the left eye four times daily. Prescription(s) as above. Please process accordingly. [facility] 08/06/22 Myron Huang MD filed at 06/25/2022 12:37 PM Status: Signed The documentation for the note below was completed in part by Albert Nath acting as a scribe for Myron Huang MD. 06/25/2022 11:35 AM. Scribe Attestation: By signing my name below, I, Albert Nath, attest that the documentation in part for the note below and the encounter was completed in part by Albert Nath acting as a scribe for Myron Huang MD. Electronically Signed: Roma Head. June 25, 2022 11:35 AM. All problems with bold in text below addressed at this visit with patient Since last visit: acute PVD OS and CME s/p phaco OS. 1. S/p PPV/MP/FAx for Epiretinal membrane, right eye (08/11/19) - Stable on OCT and dilated fundus exam - Continue to observe 2. Macular edema OD - Suspect post-surgical given CE/IOL 03/22/20 - Off drops - Stable on OCT and dilated fundus exam 3. Macular edema OS - s/p CE/IOL and Dextenza OS 03/15/22 - Severe macular edema in 03/2022 - Currently on ketorolac QID and durezol QID OS - OCT looks to have improving IRF, stable ERM - VA fluctuates, near baseline 20/50 today - she thinks slightly improved from prior - No IOP spike, but avoid intraocular steroids with presumed toxo scar OS ?unclear of prior ocular treatment - Continue drops - If stable at that point, suspect some underlying IRF is ERM related and would stop ketorolac at that point. - F/U STEPHEN Arnett in 6 weeks; me in 3 months. 4. ERM left eye - 20/30 prior to phaco. - ERM appear fairly stable on exam - Component to #3. - Could consider PPV/MP based on clinical course. - Will reassess for possible surgical intervention at next visit. 5. Chronic PVD OS - Onset 03/15/22 - Dilated fundus exam show no tears and no detachments - Stressed return to office precautions and reminded patient to call with any visual changes 6. 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 Choroidal Nevus, left eye - Approximately 2 DD in size - Positive for: Drusen on nevus, Negative for: orange pigment, fluid - Stable on exam, follow 8. Ocular Migraines, both eyes - No headaches during these episodes but has migraines separately - Flashing lights not proceed or follow her headaches, last 2-10 min - Observe 9. PCIOL OU - s/p CE/PCIOL OD (Dr. Awad, 03/22/2020) - s/p YAG OD with Dr. Awad - PCIOL 03/15/[address] Awad - Worsening PCO OS, observe for now 10. Previous conjunctivoplasty OS - 2004 11. Ptosis left eye s/p repair - s/p ZAIRA ptosis repair and exc lesion RUL margin 03/09/19 (with Dr Raymond) 12. Diplopia - Intermittent diplopia on upgaze only; sometimes horizontal, sometimes vertical - Unclear bionocular or monocular - No other neurologic deficits - Ocular alignment appears orthophoric, full EOMs 13. 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 Gutierrez and oculoplastics team - Notes she uses PF for maybe 5 days a month for rosacea of left eye Electronically signed by Esmer Faria [facility] [place]02[place]2022 3:23 PM EDT documented in this encounter [facility] 06-25-2022 Note HNO ID: [id number] Author: Myron Huang MD Service: ? Author Type: Physician Type: Progress Notes Filed: 06/25/2022 12:37 PM Note Text: The documentation for the note below was completed in part by Albert Nath acting as a scribe for Myron Huang MD. 06/25/2022 11:35 AM. Scribe Attestation: By signing my name below, I, Albert Nath, attest that the documentation in part for the note below and the encounter was completed in part by Albert Nath acting as a scribe for Myron Huang MD. Electronically Signed: Roma Head. June 25, 2022 11:35 AM. All problems with bold in text below addressed at this visit with patient Since last visit: acute PVD OS and CME s/p phaco OS. 1. S/p PPV/MP/FAx for Epiretinal membrane, right eye (08/11/19) - Stable on OCT and dilated fundus exam - Continue to observe 2. Macular edema OD - Suspect post-surgical given CE/IOL 03/22/20 - Off drops - Stable on OCT and dilated fundus exam 3. Macular edema OS - s/p CE/IOL and Dextenza OS 03/15/22 - Severe macular edema in 03/2022 - Currently on ketorolac QID and durezol QID OS - OCT looks to have improving IRF, stable ERM - VA fluctuates, near baseline 20/50 today - she thinks slightly improved from prior - No IOP spike, but avoid intraocular steroids with presumed toxo scar OS ?unclear of prior ocular treatment - Continue drops - If stable at that point, suspect some underlying IRF is ERM related and would stop ketorolac at that point. - F/U STEPHEN Arnett in 6 weeks; me in 3 months. 4. ERM left eye - 20/30 prior to phaco. - ERM appear fairly stable on exam - Component to #3. - Could consider PPV/MP based on clinical course. - Will reassess for possible surgical intervention at next visit. 5. Chronic PVD OS - Onset 03/15/22 - Dilated fundus exam show no tears and no detachments - Stressed return to office precautions and reminded patient to call with any visual changes 6. 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 Choroidal Nevus, left eye - Approximately 2 DD in size - Positive for: Drusen on nevus, Negative for: orange pigment, fluid - Stable on exam, follow 8. Ocular Migraines, both eyes - No headaches during these episodes but has migraines separately - Flashing lights not proceed or follow her headaches, last 2-10 min - Observe 9. PCIOL OU - s/p CE/PCIOL OD (Dr. Awad, 03/22/2020) - s/p YAG OD with Dr. Awad - PCIOL 03/15/[address] Awad - Worsening PCO OS, observe for now 10. Previous conjunctivoplasty OS - 2004 11. Ptosis left eye s/p repair - s/p ZAIRA ptosis repair and exc lesion RUL margin 03/09/19 (with Dr Raymond) 12. Diplopia - Intermittent diplopia on upgaze only; sometimes horizontal, sometimes vertical - Unclear bionocular or monocular - No other neurologic deficits - Ocular alignment appears orthophoric, full EOMs 13. 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 Gutierrez and oculoplastics team - Notes she uses PF for maybe 5 days a month for rosacea of left eye I, Myron Huang MD, personally performed the services described in this documentation. All medical record entries made by the scribe were at my direction and in my presence. I have reviewed the chart and discharge instructions (if applicable) and agree that the record reflects my personal performance and is accurate and complete. I have confirmed and edited as necessary the relevant ophthalmic history, ROS, and the neuro exam findings as obtained by others. I have seen and examined Yulisa Shepard. I have discussed the case and the management of this patient's care with the Resident/Fellow, if applicable. I also have reviewed and agree with the assessment and plan as stated above and agree with all of its relevant components. Electronically Signed: Myron Huang MD, June 25, 2022 12:35 PM [facility] 06-25-2022 History of Present illness Narrative The documentation for the note below was completed in part by Albert Nath acting as a scribe for Myron Huang MD. 06/25/2022 11:35 AM. Scribe Attestation: By signing my name below, I, Albert Nath, attest that the documentation in part for the note below and the encounter was completed in part by Albert aNth acting as a scribe for Myron Huang MD. Electronically Signed: Roma Head. June 25, 2022 11:35 AM. All problems with bold in text below addressed at this visit with patient Since last visit: acute PVD OS and CME s/p phaco OS. 1. S/p PPV/MP/FAx for Epiretinal membrane, right eye (08/11/19) - Stable on OCT and dilated fundus exam - Continue to observe 2. Macular edema OD - Suspect post-surgical given CE/IOL 03/22/20 - Off drops - Stable on OCT and dilated fundus exam 3. Macular edema OS - s/p CE/IOL and Dextenza OS 03/15/22 - Severe macular edema in 03/2022 - Currently on ketorolac QID and durezol QID OS - OCT looks to have improving IRF, stable ERM - VA fluctuates, near baseline 20/50 today - she thinks slightly improved from prior - No IOP spike, but avoid intraocular steroids with presumed toxo scar OS ?unclear of prior ocular treatment - Continue drops - If stable at that point, suspect some underlying IRF is ERM related and would stop ketorolac at that point. - F/U STEPHEN Arnett in 6 weeks; me in 3 months. 4. ERM left eye - 20/30 prior to phaco. - ERM appear fairly stable on exam - Component to #3. - Could consider PPV/MP based on clinical course. - Will reassess for possible surgical intervention at next visit. 5. Chronic PVD OS - Onset 03/15/22 - Dilated fundus exam show no tears and no detachments - Stressed return to office precautions and reminded patient to call with any visual changes 6. 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 Choroidal Nevus, left eye - Approximately 2 DD in size - Positive for: Drusen on nevus, Negative for: orange pigment, fluid - Stable on exam, follow 8. Ocular Migraines, both eyes - No headaches during these episodes but has migraines separately - Flashing lights not proceed or follow her headaches, last 2-10 min - Observe 9. PCIOL OU - s/p CE/PCIOL OD (Dr. Awad, 03/22/2020) - s/p YAG OD with Dr. Awad - PCIOL 03/15/[address] Awad - Worsening PCO OS, observe for now 10. Previous conjunctivoplasty OS - 2004 11. Ptosis left eye s/p repair - s/p ZAIRA ptosis repair and exc lesion RUL margin 03/09/19 (with Dr Raymond) 12. Diplopia - Intermittent diplopia on upgaze only; sometimes horizontal, sometimes vertical - Unclear bionocular or monocular - No other neurologic deficits - Ocular alignment appears orthophoric, full EOMs 13. 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 Gutierrez and oculoplastics team - Notes she uses PF for maybe 5 days a month for rosacea of left eye I, Myron Huang MD, personally performed the services described in this documentation. All medical record entries made by the scribe were at my direction and in my presence. I have reviewed the chart and discharge instructions (if applicable) and agree that the record reflects my personal performance and is accurate and complete. I have confirmed and edited as necessary the relevant ophthalmic history, ROS, and the neuro exam findings as obtained by others. I have seen and examined Yulisa Shepard. I have discussed the case and the management of this patient's care with the Resident/Fellow, if applicable. I also have reviewed and agree with the assessment and plan as stated above and agree with all of its relevant components. Electronically Signed: Myron Huang MD, June 25, 2022 12:35 PM documented in this encounter [facility] 05-28-2022 Miscellaneous Notes Patient requesting refills as follows: Requested Prescriptions Pending Prescriptions Disp Refills keTORolac (ACULAR) 0.5 % ophthalmic solution 10 mL 0 Sig: Use 1 Drop in the left eye four times daily. Patient calling requesting refills. Told patient that Dr. Awad is the prescriber, but patient asked if Dr. Huang would refill. Please advise. Pharmacy verified in [employer] as accurate. Yulisa Shepard [phone] F[facility]-06/25/22 Assessment & Plan Angela Link PA-C filed at 05/13/2022 1:31 PM Status: Signed Since last visit: acute PVD OS and CME s/p phaco OS. All problems with bold in text below addressed at this visit with patient 1. S/p PPV/MP/FAx for Epiretinal membrane, right eye (08/11/19) - No changes on OCT and DFE - Continue to monitor 2. Macular edema OD - Suspect post-surgical given CE/IOL 03/22/20 - No changes on OCT or DFE - Off drops without recurrent edema 3. Macular edema OS - s/p CE/IOL and Dextenza OS 03/15/22 - Currently on ketorolac QID and durzeol QID - Likely [place] gas - Has been improving with drops - VA improved today - Continue drops and follow up with Dr. Huang in 1 month 4. ERM left eye - Notes metamorphopsia likely related to #3 - ERM fairly stable 5. Acute PVD OS - - No tears/detachments noted on exam - Emphasized return to office precautions and patient will call with any changes in vision 6. 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 Choroidal Nevus, left eye - Approximately 2 DD in size - Positive for: Drusen on nevus, Negative for: orange pigment, fluid - Remains unchanged on exam, monitor 8. Ocular Migraines, both eyes - No headaches during these episodes but has migraines separately - Flashing lights not proceed or follow her headaches, last 2-10 min 9. PCIOL OU - s/p CE/PCIOL OD (Dr. Awad, 03/22/2020) - s/p YAG OD with Dr. Awad - PCIOL 03/15/[address] Awad 10. Previous conjunctivoplasty OS - 2004 11. Ptosis left eye s/p repair - s/p ZAIRA ptosis repair and exc lesion RUL margin 03/09/19 (with Dr Raymond) 12. Diplopia - Intermittent diplopia on upgaze only; sometimes horizontal, sometimes vertical - Unclear bionocular or monocular - No other neurologic deficits - Ocular alignment appears orthophoric, full EOMs 13. 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 Gutierrez and oculoplastics team - Notes she uses PF for maybe 5 days a month for rosacea of left eye documented in this encounter [facility] 05-13-2022 Note HNO ID: [id number] Author: Angela Link PA-C Service: ? Author Type: Physician Photogeologist Type: Progress Notes Filed: 05/13/2022 1:31 PM Note Text: Since last visit: acute PVD OS and CME s/p phaco OS. All problems with bold in text below addressed at this visit with patient 1. S/p PPV/MP/FAx for Epiretinal membrane, right eye (08/11/19) - No changes on OCT and DFE - Continue to monitor 2. Macular edema OD - Suspect post-surgical given CE/IOL 03/22/20 - No changes on OCT or DFE - Off drops without recurrent edema 3. Macular edema OS - s/p CE/IOL and Dextenza OS 03/15/22 - Currently on ketorolac QID and durzeol QID - Likely [place] gas - Has been improving with drops - VA improved today - Continue drops and follow up with Dr. Huang in 1 month 4. ERM left eye - Notes metamorphopsia likely related to #3 - ERM fairly stable 5. Acute PVD OS - Onset - No tears/detachments noted on exam - Emphasized return to office precautions and patient will call with any changes in vision 6. 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 Choroidal Nevus, left eye - Approximately 2 DD in size - Positive for: Drusen on nevus, Negative for: orange pigment, fluid - Remains unchanged on exam, monitor 8. Ocular Migraines, both eyes - No headaches during these episodes but has migraines separately - Flashing lights not proceed or follow her headaches, last 2-10 min 9. PCIOL OU - s/p CE/PCIOL OD (Dr. Awad, 03/22/2020) - s/p YAG OD with Dr. Awad - PCIOL 03/15/[address] Awad 10. Previous conjunctivoplasty OS - 2004 11. Ptosis left eye s/p repair - s/p ZAIRA ptosis repair and exc lesion RUL margin 03/09/19 (with Dr Raymond) 12. Diplopia - Intermittent diplopia on upgaze only; sometimes horizontal, sometimes vertical - Unclear bionocular or monocular - No other neurologic deficits - Ocular alignment appears orthophoric, full EOMs 13. 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 Gutierrez and oculoplastics team - Notes she uses PF for maybe 5 days a month for rosacea of left eye I have seen and examined this patient. I have confirmed and edited as necessary the relevant ophthalmic history, medications, ROS, and the neuro and ophthalmic exam findings as obtained by others and myself. I have discussed the case and the management of this patient's care with the attending Physician, if applicable. I also have reviewed and agree with the assessment and plan as stated above and agree with all of its relevant components. I have discussed the treatment alternatives with the patient and the patient's family, if applicable. Follow-up as noted below, or sooner if new symptoms develop. [facility] 05-13-2022 History of Present illness Narrative Since last visit: acute PVD OS and CME s/p phaco OS. All problems with bold in text below addressed at this visit with patient 1. S/p PPV/MP/FAx for Epiretinal membrane, right eye (08/11/19) - No changes on OCT and DFE - Continue to monitor 2. Macular edema OD - Suspect post-surgical given CE/IOL 03/22/20 - No changes on OCT or DFE - Off drops without recurrent edema 3. Macular edema OS - s/p CE/IOL and Dextenza OS 03/15/22 - Currently on ketorolac QID and durzeol QID - Likely [place] gas - Has been improving with drops - VA improved today - Continue drops and follow up with Dr. Huang in 1 month 4. ERM left eye - Notes metamorphopsia likely related to #3 - ERM fairly stable 5. Acute PVD OS - - No tears/detachments noted on exam - Emphasized return to office precautions and patient will call with any changes in vision 6. 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 Choroidal Nevus, left eye - Approximately 2 DD in size - Positive for: Drusen on nevus, Negative for: orange pigment, fluid - Remains unchanged on exam, monitor 8. Ocular Migraines, both eyes - No headaches during these episodes but has migraines separately - Flashing lights not proceed or follow her headaches, last 2-10 min 9. PCIOL OU - s/p CE/PCIOL OD (Dr. Awad, 03/22/2020) - s/p YAG OD with Dr. Awad - PCIOL 03/15/[address] Awad 10. Previous conjunctivoplasty OS - 2004 11. Ptosis left eye s/p repair - s/p ZAIRA ptosis repair and exc lesion RUL margin 03/09/19 (with Dr Raymond) 12. Diplopia - Intermittent diplopia on upgaze only; sometimes horizontal, sometimes vertical - Unclear bionocular or monocular - No other neurologic deficits - Ocular alignment appears orthophoric, full EOMs 13. 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 Gutierrez and oculoplastics team - Notes she uses PF for maybe 5 days a month for rosacea of left eye I have seen and examined this patient. I have confirmed and edited as necessary the relevant ophthalmic history, medications, ROS, and the neuro and ophthalmic exam findings as obtained by others and myself. I have discussed the case and the management of this patient's care with the attending Physician, if applicable. I also have reviewed and agree with the assessment and plan as stated above and agree with all of its relevant components. I have discussed the treatment alternatives with the patient and the patient's family, if applicable. Follow-up as noted below, or sooner if new symptoms develop. documented in this encounter [facility] 04-25-2022 Note HNO ID: [id number] Author: Bryan Awad MD Service: ? Author Type: Physician Type: Progress Notes Filed: 04/25/2022 2:01 PM Note Text: Pseudophakia, OS Pseudophakic CME, OS - S/p ce/iol + Dextenza OS 03/15/22 - VA 20/80 today from 20/50 on 03/24/22 - currently on durezol four times a day for 1 month (was on Predforte four times a day for 1 month prior 1 month), ketorolac QID left eye for 2 months - OCT macula today with improved but persistent cystoid macular edema under Epiretinal membrane - continue durezol and ketorolac four times a day - schedule back with Dr. Huang in 1 month Not specifically addressed today, copied from prior note: # Pseudophakia both eyes - s/p CEIOL right eye 03/22/20, s/p YAG - s/p CEIOL + Dextenza left eye 03/15/22, toric 106 degrees - Epiretinal membrane limiting vision, Dr. Huang to assess after phaco # Epiretinal membrane left eye - planned staged membrane peel after phaco # myopia both eyes # ocular migraines # Ptosis left eye s/p repair - s/p ZAIRA ptosis repair and exc lesion RUL margin 03/09/19 (with Dr Raymond) - s/p bleb both eyes (Dr. Gutierrez) 05/10/[address] 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 I have seen and examined Yulisa Shepard. I have discussed the case and the management of this patient's care with the Resident/Fellow, if applicable. I also have reviewed and agree with the assessment and plan as stated above and agree with all of its relevant components. Bryan Awad MD [facility] 04-09-2022 Miscellaneous Notes April 10, 2022 PID: [id number] Yulisa SPhilippe Shepard [address] [place] [address] Dear Philippe Drea, We are pleased to inform you that the results of your recent breast imaging exam on 04/08/2022 are normal. Your mammogram demonstrates that you have dense breast tissue, which could hide abnormalities. Dense breast tissue, in and of itself, is a relatively common condition. Therefore, this information is not provided to cause undue concern; rather, it is to raise your awareness and promote discussion with your health care provider regarding the presence of dense breast tissue in addition to other risk factors. Early detection of cancer is very important. We also understand recommendations regarding breast cancer screening are controversial. Please discuss with your primary care provider which strategy is best for you and whether a mammogram is right for you. Your imaging studies and report will be kept on file at [facility] as part of your permanent medical record and are available for your continuing care. Thank you for allowing us to help in meeting your health care needs. Sincerely, Dr. Johnson Interpreting Radiologist [facility] (Normal over 40) documented in this encounter [facility] 04-05-2022 Instructions Bryan Awad MD - 04/05/2022 12:21 PM EST RECCOMMENDED ARTIFICIAL TEARS Preservative-Free Artificial Tears (in single-dose droperettes): Systane (preservative-free vials) Systane Ultra Preservative-Free Refresh Optive Sensitive Refresh Optive Advanced Preservative-Free Refresh Plus TheraTears Preservative-Free Soothe Preservative-Free Tears Naturale Free TheraTears Liquid Gel (thicker) Refresh Celluvisc (thicker) Preserved Artificial Tears (in bottles): Refresh Optive Advanced Refresh Optive Refresh Tears Systane Ultra Systane Balance Tears Naturale II Tears Naturale Forte Soothe Hydration Genteal Refresh Liquigel (thicker) Ointments and gels (in tubes): Genteal Gel Severe Dry Eye Relief Genteal PM Ointment Refresh PM Ointment Systane Nightime Refresh Lacrilube Thinner drops blur vision less but do not last as long. Thicker drops, ointments and gels last longer, but will blur vision more. documented in this encounter [facility] 04-05-2022 History of Present illness Narrative Pseudophakia, OS Pseudophakic CME, OS - S/p ce/iol + Dextenza OS 03/15/22 - VA 20/80 today from 20/50 on 03/24/22 - currently on PF QID, ketorolac QID OS - OCT macula today with ERM, large IRF, SRF - recommend continue ketorolac QID OS, switch to durezole four times a day, if unable to obtain then Predforte q1-2 hr left eye - RTC in 3 weeks Not specifically addressed today, copied from prior note: # Pseudophakia both eyes - s/p CEIOL right eye 03/22/20, s/p YAG - s/p CEIOL + Dextenza left eye 03/15/22, toric 106 degrees - POD0 doing well, 2/2 is optional, schedule 1 month - Epiretinal membrane may be limiting vision, Dr. Huang to assess after phaco # Epiretinal membrane left eye - planned staged membrane peel after phaco # myopia both eyes # ocular migraines # Ptosis left eye s/p repair - s/p ZAIRA ptosis repair and exc lesion RUL margin 03/09/19 (with Dr Raymond) - s/p bleb both eyes (Dr. Gutierrez) 05/10/[address] 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 I have seen and examined Yulisa Shepard. I have discussed the case and the management of this patient's care with the Resident/Fellow, if applicable. I also have reviewed and agree with the assessment and plan as stated above and agree with all of its relevant components. Bryan Awad MD documented in this encounter [facility] 03-29-2022 Instructions Tiera Cavazos MD - 03/29/2022 2:21 PM EST WATCH OUT FOR FLASHES OF LIGHT AND INCREASED FLOATERS OR DECREASE IN PERIPHERAL VISION START DIAL CAP 4X A DAY IN THE LEFT EYE documented in this encounter [facility] 03-29-2022 History of Present illness Narrative Urgent visit due worsening blurred vision and sudden onset red floater in center vision of left eye starting yesterday after waking up - new since 03/24/[address] Mcclendon --> diagnosed with iritis and started on PF - denies recent trauma, no use of blood thinners, no prior similar episode Pseudophakia, OS Posterior vitreous detachment, acute, OS - S/p ce/iol + Dextenza OS 03/15/22 - VA 20/100 today from 20/50 on 03/24/22 - currently on PF QID OS - today, PVD noted with pigmented cells in ant vitreous although not jamila Jose sign - macular edema noted today with ERM - no signs of endophthalmitis - no tears, break, RD on WATER TREATMENT SPECIALIST today - recommend start ketorolac QID OS, continue PF QID OS - RD precautions - RTC in [address] Awad - recommend get OCT macula OS at next visit with Dr. Awad Not specifically addressed today, copied from prior note: # Pseudophakia both eyes - s/p CEIOL right eye 03/22/20, s/p YAG - s/p CEIOL + Dextenza left eye 03/15/22, toric 106 degrees - POD0 doing well, 2/2 is optional, schedule 1 month - Epiretinal membrane may be limiting vision, Dr. Huang to assess after phaco # Epiretinal membrane left eye - planned staged membrane peel after phaco # myopia both eyes # ocular migraines # Ptosis left eye s/p repair - s/p ZAIRA ptosis repair and exc lesion RUL margin 03/09/19 (with Dr Raymond) - s/p bleb both eyes (Dr. Gutierrez) 05/10/[address] 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 Mehran DELUNA documented in this encounter [facility] 03-24-2022 Instructions lAlison Mcclendon MD - 03/24/2022 5:39 PM EST Start pred forte eye drop: 1 drop, 4 times per day, in the left eye documented in this encounter [facility] 03-24-2022 History of Present illness Narrative Urgent visit due to 2 days of vision like looking through translucent cloud/fog #Pseudophakic iritis OS - S/p ce/iol + Dextenza 03/15/22 - Dextenza appears to have fallen out- not visit in puncta today - Vision stable - IOP good - No pain - 1+ fine AC cell on exam - No synechiae - No vit cell, no retinitis Plan: Start PF QID OD F/u Dr. Awad 1 week Not specifically addressed today, copied from prior note: # Pseudophakia both eyes - s/p CEIOL right eye 03/22/20, s/p YAG - s/p CEIOL + Dextenza left eye 03/15/22, toric 106 degrees - POD0 doing well, 2/2 is optional, schedule 1 month - Epiretinal membrane may be limiting vision, Dr. Huang to assess after phaco # Epiretinal membrane left eye - planned staged membrane peel after phaco # myopia both eyes # ocular migraines # Ptosis left eye s/p repair - s/p ZAIRA ptosis repair and exc lesion RUL margin 03/09/19 (with Dr Raymond) - s/p bleb both eyes (Dr. Gutierrez) 05/10/[address] 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 Awad) Yesterday, started noticing vision like looking through raindrops OS No pain, a little photophobia but not worse than usual She was told by a friend to consider starting steroid drops I will see patient today around 4pm at [facility] Allison Mcclendon MD Ophthalmology Resident documented in this encounter [facility] 03-15-2022 History of Present illness Narrative # Pseudophakia both eyes - s/p CEIOL right eye 03/22/20, s/p YAG - s/p CEIOL + Dextenza left eye 03/15/22, toric 106 degrees - POD0 doing well, 2/2 is optional, schedule 1 month - Epiretinal membrane may be limiting vision, Dr. Huang to assess after phaco # Epiretinal membrane left eye - planned staged membrane peel after phaco # myopia both eyes # ocular migraines # Ptosis left eye s/p repair - s/p AZIRA ptosis repair and exc lesion RUL margin 03/09/19 (with Dr Raymond) - s/p bleb both eyes (Dr. Gutierrez) 05/10/[address] 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 I have seen and examined Yulisa Shepard. I have discussed the case and the management of this patient's care with the Resident/Fellow, if applicable. I also have reviewed and agree with the assessment and plan as stated above and agree with all of its relevant components. Bryan Awad MD documented in this encounter [facility] 03-15-2022 Hospital Discharge instructions Bryan Awad MD - 03/15/2022 8:55 AM EST INSTRUCTIONS AFTER EYE SURGERY FOLLOW UP IS 11AM TODAY A responsible adult must drive you home after the surgery. You might feel well, but the medicines given during the surgery might affect you for several hours. Do not drive or operate machinery for the rest of the day. For the first week: Please be careful when bending down or lifting more than 20 lbs. Avoid strenuous activity. Please do not push on or rub your eye. Don't let water run directly into your eye for the first 3 days. Simply close the eye if the water is running directly over your face. Please do not swim for 2 weeks Wear your eye shield at night (tape to face) for the first week. Do not place make-up near the edges of your eyelids (ie eyeliner, mascara) for the first week. Daily hygiene - You may shower and wash your hair and face as usual, but DO NOT rub your operated eye. Try to avoid getting soap or water in your eyes. Pain management - Mild pain after eye surgery is common. Most people do not need oral pain medicine. If you do have some eye pain or a headache, you may take acetaminophen, ibuprofen, naproxyn Alleve) or similar medications you have at home (unless there is some reason you cannot these this medication such liver disease, allergies, etc.). Follow the instructions on the bottle. You may resume aspirin products the day after surgery. Diet - If you feel sick to your stomach, drink only clear liquids. Clear liquids include clear broth, tea, strained fruit juices, strained vegetable soup, black coffee, plain gelatin, and karlee hunter. Eat a regular meal when you do not feel sick. Do not drink alcoholic beverages for 24 hours after the surgery. Eye medications -You will be given a home-going kit with eye patch. Please bring that kit, this handout and any previous eye drops you have to your follow up appointment. Your eye medications will be explained during your follow up appointment. Call your surgeon immediately if you experience: Increased or severe eye pain Sudden decrease in vision Severe nausea or vomiting Go to the nearest emergency room if you experience: Chest pain A temperature above 101 F or 38.3 C Trouble breathing If you have questions, Dr. Bryan Awad's phone number is [phone] After hours, and on weekends or holidays, please call the [facility] coach operator at [phone] or [phone] and ask for the eye doctor aws consultant. documented in this encounter [facility] 03-15-2022 Surgical operation note OPERATIVE REPORT NAME: Yulisa Shepard LOG ID: [id number] SURGERY DATE: 03/15/2022 INCISION/PROCEDURE START TIME: 8:43 AM INCISION CLOSE/PROCEDURE END TIME: 8:53 AM Surgeon(s) and Role: * Bryan Awad MD - Primary * Jonatan Acosta MD - Fellow OPERATION: 1) Phacoemulsification and intraocular lens implantation, left eye. 2) Dextenza, left eye ANESTHESIA: Monitored anesthesia care, topical, and intracameral filtered lidocaine PREOPERATIVE DIAGNOSIS: 1) Age related nuclear sclerotic cataract, left eye 1) corneal astigmatism, left eye POSTOPERATIVE DIAGNOSIS: Same. OPERATIVE INDICATIONS: The patient has a visually significant cataract. OPERATIVE FINDINGS: visually significant cataract in the left eye. OPERATIVE PROCEDURE: The eye was marked at 106 degrees with the robomarker in the PACU. The patient was taken to the operating room where intravenous sedation was administered. The operative eye was then prepped with povidone-iodine and sterilely draped. The inferior punctum was dilated and dextenza inserted. Under the operating microscope, an inferior paracentesis was created and the anterior chamber was injected with intracameral filtered lidocaine, then deepened with Viscoat. A temporal biplanar clear corneal incision was created with a 2.4mm keratome. Additional viscoelastic was placed into the anterior chamber. A cystitome and Utrata forceps were used to fashion a continuous curvilinear capsulorrhexis. Balanced salt solution was used to hydrodissect and hydrodelineate the nucleus. Phacoemulsification was performed in a modified stop and chop fashion with the Mic wand as the second instrument. Irrigation and aspiration was used to remove residual cortex. The capsular bag was noted to be intact. The anterior chamber was deepened with Provisc, and the lens was injected into the capsular bag. Care was taken to rotate the intraocular lens so the axis markings are aligned to the premarked axis on the cornea. IA was used to carefully evacuate OVD without rotating the intraocular lens. Cefuroxime 1mg in 0.1ml was instilled into the anterior chamber, and the incision was re-examined to ensure it was water-tight. The drapes were removed, and the patient was taken to the recovery area in stable condition. IMPLANTABLE DEVICES: Implant Name Type Inv. Item Serial No. Client Services Manager Lot No. LRB No. Used Action Model No. LENS IOL ACRYSOF TRC3 20.0 - [id number] Intraocular Lens LENS IOL ACRYSOF TRC3 20.0 [id number] [employer] Left 1 Implanted [id number] 20.0 ESTIMATED BLOOD LOSS: Minimal COMPLICATIONS: None DRAINS: None SPECIMENS: None I/primary surgeon/proceduralist performed the procedure with assistance. Bryan Awad M.D. documented in this encounter [facility] 03-12-2022 History of Present illness Narrative The documentation for the note below was completed in part by Albert Nath acting as a scribe for Myron Huang MD. 03/12/2022 1:33 PM. Scribe Attestation: By signing my name below, I, Albert Nath, attest that the documentation in part for the note below and the encounter was completed in part by Albert Nath acting as a scribe for Myron Huang MD. Electronically Signed: Roma Head. March 12, 2022 1:33 PM. All problems with bold in text below addressed at this visit with patient 1. S/p PPV/MP/FAx for Epiretinal membrane, right eye (08/11/19) - Stable on exam 2. Macular edema OD - Suspect post-surgical given CE/IOL 03/22/20 - OCT and VA stable - Off drops without recurrent edema 3. ERM left eye - Mild, with some foveal blunting - Stable on exam, some metamorphopsia, vision also likely impacted by cataract - Observe for now - Will reassess in 2 months after CE/IOL with STEPHEN Arnett; 4 months with me. 4. 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 Choroidal Nevus, left eye - Approximately 2 DD in size - Positive for: Drusen on nevus, Negative for: orange pigment, fluid - stable 6. 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 Cataracts OS (left) -Follows with Dr. Awad, discussed potential combined ERM peel and phaco, patient would like to proceed with phaco at this time. Scheduled for this Friday03/15/21 8. PCIOL OD - s/p CE/PCIOL Right Eye (Dr. Awad, 03/22/2020) - s/p YAG OD with Dr. Awad 9. Previous conjunctivoplasty OS - 2004 10. Ptosis left eye s/p repair - s/p ZAIRA ptosis repair and exc lesion RUL margin 03/09/19 (with Dr Raymond) - Previously reported monocular diplopia OS since surgery - resolved now 11. Dry eye OU - AT prn - Ointment QHS OU 12. Diplopia - Intermittent diplopia on upgaze only; sometimes horizontal, sometimes vertical - Unclear bionocular or monocular - No other neurologic deficits - Ocular alignment appears orthophoric, full EOMs 13. 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 Gutierrez and oculoplastics team - Notes she uses PF for maybe 5 days a month for rosacea of left eye I, Myron Huang MD, personally performed the services described in this documentation. All medical record entries made by the scribe were at my direction and in my presence. I have reviewed the chart and discharge instructions (if applicable) and agree that the record reflects my personal performance and is accurate and complete. I have confirmed and edited as necessary the relevant ophthalmic history, ROS, and the neuro exam findings as obtained by others. I have seen and examined Yulisa Shepard. I have discussed the case and the management of this patient's care with the Resident/Fellow, if applicable. I also have reviewed and agree with the assessment and plan as stated above and agree with all of its relevant components. Electronically Signed: Myron Huang MD, March 12, 2022 1:38 PM documented in this encounter [facility] 03-01-2022 Miscellaneous Notes Received Echo and EKG from [facility] medical records. Copy made for Essence Pace CNP and original sent to coach operator to scan. Mary Varela LPN Fax request sent requesting most recent Echo and EKG to be faxed. Mary Varela LPN documented in this encounter [facility] 03-01-2022 History and physical note Images from the original note were not included. HISTORY AND PHYSICAL EXAMINATION SERVICE DATE: 03/01/2022 SERVICE TIME: 11:27 AM PRIMARY CARE PHYSICIAN: Marianne Hadley MD REASON FOR VISIT: Yulisa Shepard is a 71 year old female who is scheduled for Procedure(s): PHACOEMULSIFICATION CATARACT IMPLANT INTRAOCULAR LENS W/O ENDOSCOPIC CYCLOPHOTOCOAGULATION (Left) OPHTHALMIC BIOMETRY BY PARTIAL COHERENCE INTERFEROMETRY W/INTRAOCULAR LENS POWER CALCULATION (Left) INSJ RX ELUTING IMPLT PUNCTAL DILAT LAC CANAL EA (Left) at the request of Dr. Bryan Awad MD for consultation. My final recommendation will be communicated back to the requesting physician by way of shared medical record or letter. Subjective The patient has the following: ACTIVE PROBLEM LIST Mitral Valve Disorders(424.0) Esophageal Reflux Allergic Rhinitis Due to Other Allergen Matute's Esophagus Lumbago Esophagitis Diaphragmatic Hernia Without Mention of Obstruction Or Gangrene Unspecified Constipation Abdominal Pain, Epigastric Family History of Malignant Neoplasm of Gastrointestinal Tract Internal Hemorrhoids Without Mention of Complication Epiretinal Membrane (Erm) of Both Eyes Choroidal Nevus, Left Nuclear Sclerotic Cataract of Left Eye Ocular Migraine Paroxysmal Svt (Supraventricular Tachycardia) (Hcc) Mixed Hyperlipidemia Osteopenia of Multiple Sites Pre-Operative Examination Ptosis of Both Eyelids Pure Hypercholesterolemia Hypoglycemia, Unspecified Osteoporosis, Unspecified Irritable Bowel Syndrome Coronary Artery Disease Migraine, Unspecified, Without Mention of Intractable Migraine Without Mention of Status Migrainosus Female Stress Incontinence Prolapse of Female Bladder, Acquired Retinal Edema Dermatochalasis of Both Upper Eyelids COVID-19 Immunization Status COVID-19 VACCINE (Series Information) Completed 12/10/2021 Imm Admin: COVID-19 booster vaccine, age 12+ yr, bivalent (MODERNA) 08/28/2021 Imm Admin: COVID-19 vaccine, full dose (MODERNA) 01/12/2021 Imm Admin: COVID-19 vaccine, full dose (MODERNA) Only the first 3 history entries have been loaded, but more history exists. CHIEF COMPLAINT: Pre-op exam HPI: Yulisa Shepard is a 71 year old seen for PAC due to scheduled above surgery because of cataracts. 01/04/2022, Dr. Awad Cataract: Left eye (OS) Current Visual Acuity Right Eye Distance CC 20/25 Left Eye Distance CC 20/50 Best Corrected Vision Right Eye 20/25 Best Corrected Vision Left Eye 20/30 -1 Glare Testing: Left Eye Medium 20/40 +2 Left Eye High 20/50 Visual Function: Yulisa Shepard states that the decline in vision from the cataract impedes her abilities as listed in the HPI, as well as other activities of daily living. Yulisa Shepard has confirmed that she is no longer able to function adequately on a day-to-day basis because of her current visual condition. Further, it is my medical opinion that the cataract is the primary cause, or at least a significantly contributory cause of her visual dysfunction. With uncomplicated cataract surgery and lens implantation, it is my expectation that her visual function and quality of life will improve, significantly. REVIEW OF SYSTEMS: General: No weight loss, malaise or fevers. Neurological: Positive for: headaches (+migraines, rx as needed). Negative for: cerebral palsy, PASSEMENTERIE WORKER tumor, dementia, impaired sensorium, multiple sclerosis, Parkinson's disease, peripheral neuropathy, seizures, TIA and strokes. Respiratory: No history of current cough or dyspnea, or pneumonia in the past 6 weeks. No history of respiratory/pulmonary symptoms or problems. Cardiovascular: Positive for: CAD, hyperlipidemia (diet controlled) and murmur/valvular heart disease (MVP) Patient's last office visit The following tests and/or procedures were not performed: cardiac stents. Negative for: anticoagulation therapy, arrhythmia, atrial fibrillation, chest pain, CHF, congenital heart defect, DVT/PE, hypertension, recent SD, open heart surgery and valve surgery. GI: Positive for: GERD (otc rx as needed) Negative for: abdominal pain, dysphagia, hepatitis, irritable bowel syndrome, inflammatory bowel disease, liver disease, nausea, pancreatitis, vomiting and ETOH >2 drinks/day. : No history of dysuria, frequency or incontinence, stones or chronic kidney disease. No difficulty urinating, nocturia > 1 time per night or hematuria. 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 Endocrine: No history of diabetes. Has not taken steroids within the past 30 days. No history of endocrinological symptoms or problems. Hematology: No history of bleeding or clotting disorder. Patient is not taking anti-coagulation or platelet medications. No history of hematological symptoms or problems. Oncology: No history of CA metastasis, chemo within 30 days, or radiotherapy within 90 days. No history of oncological symptoms or problems. Psych: No history of psychiatric symptoms or problems. Musculoskeletal: Negative for joint pain or swelling, back pain or muscle pain. Skin: Negative for lesions, rash and itching. PAST MEDICAL HISTORY Diagnosis Date Arthritis Benign neoplasm of skin of eyelid including canthus, right Blepharitis of left lower eyelid Choroidal nevus, left Diaphragmatic hernia without mention of obstruction or gangrene Dry eye syndrome of bilateral lacrimal glands Epiretinal membrane, right Esophageal reflux Esophagitis, unspecified Family history of malignant neoplasm of gastrointestinal tract Female stress incontinence Hyperlipidemia Hypoglycemia, unspecified Internal hemorrhoids without mention of complication Irritable bowel syndrome Migraine, unspecified, without mention of intractable migraine without mention of status migrainosus Mitral valve disorders(424.0) Neoplasm of uncertain behavior of skin Nuclear sclerotic cataract of left eye Nuclear sclerotic cataract, bilateral Osteoporosis, unspecified Paroxysmal supraventricular tachycardia (HCC) PMH - PAST MEDICAL HISTORY OF coronary artery disease PONV (postoperative nausea and vomiting) Prolapse of female bladder, acquired Ptosis of both eyelids Pure hypercholesterolemia Retinal edema Thoracic or lumbosacral neuritis or radiculitis, unspecified PAST SURGICAL HISTORY Procedure Laterality Date BACK SURGERY HX BREAST SURGERY HX Left 1999 lumpectomy COLONOSCOPY FLX DX W/COLLJ SPEC WHEN PFRMD 09/30/11 repeat 5 years COLONOSCOPY FLX DX W/COLLJ SPEC WHEN PFRMD 10/15/2019 Colonoscopy EGD 12/2015 EGD TRANSORAL BIOPSY SINGLE/MULTIPLE 2006 ESOPHAGOGAST FUNDOPLAST, JUANITO, BELSEY 2007 ESOPHAGOGASTRODUODENOSCOPY TRANSORAL DIAGNOSTIC 10/15/2019 EGD EYE SURGERY HX Bilateral 03/16/2019 Zaira cml ptosis repair and exc lesion rul margin LAPAROSCOPIC BLADDER REPAIR PAST SURGICAL HISTORY OF 07/2003 MICRODISKECTOMY PAST SURGICAL HISTORY OF 11/18 cardiac cath PAST SURGICAL HISTORY OF 2008 heart ablation PAST SURGICAL HISTORY OF Left 2004 Conjunctivoplasty, OS. CHAVEZ REMV CATARACT EXTRACAP,INSERT LENS Right 03/22/2020 TOOTH ROOT REMOVAL wisdom TOTAL ABDOMINAL HYSTERECT W/WO RMVL TUBE OVARY VAGINAL HYSTERECTOMY VITRECTOMY MECHANICAL PARS PLANA Right 08/11/2019 PPV/MP/FAx for Epiretinal membrane, right eye FAMILY HISTORY Problem Relation Age of Onset Heart disease Mother Cataract Mother other (osteoporosis) Mother colon cancer/ischemic heart disease in her 70's/skin caner of the face Ischemic Heart Disease Father age 39/ lipids Cataract Father other (GI problems) Father Hypertension Sister Diabetes Sister Obesity Sister No Known Problems Brother Hypertension Brother Heart disease Maternal Grandmother No Known Problems Maternal Grandfather No Known Problems Paternal Grandmother No Known Problems Paternal Grandfather Macular Degen Paternal Uncle Glaucoma No Family History Detached Retina No Family History Blindness No Family History Amblyopia No Family History Strabismus No Family History Social History Tobacco Use Smoking status: Never Smokeless tobacco: Never Vaping Use Vaping Use: Never used Substance Use Topics Alcohol use: No Drug use: No Prior to Admission medications as of 03/01/22 1111 Medication Sig Last Dose Taking prednisoLONE acetate (PRED FORTE, ECONOPRED PLUS) 1 % ophthalmic suspension Instill one drop twice a day for 1 week, then stop. Taking Yes Magnesium Oxide 250 mg magnesium tab Take by mouth. Taking Yes hydrOXYzine HCl (ATARAX) 25 mg tablet as needed. Taking Yes albuterol HFA (PROVENTIL HFA, VENTOLIN HFA) 90 mcg/actuation inhaler as needed. Taking Yes clobetasol (TEMOVATE) 0.05 % cream APPLY TO AFFECTED AREA TWICE A WEEK Taking Yes hydrocortisone 2.5 % cream Taking Yes polyvinyl alcohol/povidone (ARTIFICIAL TEARS OPHTHALMIC) Use in eyes as needed. Taking Yes ASTAXANTHIN ORAL Take 1 Scoop by mouth twice daily. Taking Yes loratadine/pseudoephedrine (CLARITIN-D 24 HOUR ORAL) Take by mouth. Taking Yes budesonide (RHINOCORT AQ) 32 mcg/actuation nasal spray USE 2 SPRAYS IN EACH NOSTRIL ONCE A DAY Taking Yes ketoconazole (NIZORAL) 2 % shampoo LATHER ON SCALP, LET SIT FOR 5-10 MIN THEN RINSE Taking Yes ammonium lactate (LAC-HYDRIN) 12 % lotion Taking Yes Potassium Gluconate 595 mg (99 mg) tab potassium gluconate POTASSIUM GLUCONATE 595 (99 K) MG TABS One tablet by mouth daily POTASSIUM GLUCONATE [id number] Brent Falk MD 06-28-2015 [facility] ([id number]) Taking Yes omega 7-epe-owd-fish oil 300-1,000 mg cpDR fish oil FISH OIL CAPS One tablet by mouth daily OMEGA-3 FATTY ACIDS CAPS [id number] Brent Falk MD 06-28-2015 [facility] ([id number]) Taking Yes SUMAtriptan (IMITREX) 50 mg tablet SUMAtriptan IMITREX 50 MG TABS as needed SUMATRIPTAN SUCCINATE [id number] Brent Falk MD 06-28-2015 [facility] ([id number]) Taking Yes glucosamine-chondroitin 500-400 mg capsule chondroitin sulfates / glucosamine GLUCOSAMINE-CHONDROITIN CAPS One tablet by mouth daily GLUCOSAMINE-CHONDROITIN CAPS [id number] Brent Falk MD 06-28-2015 [facility] ([id number]) Taking Yes denosumab (PROLIA) 60 mg/mL syrg 60 mg once every 6 months. Taking Yes Estradiol (ESTRACE) 0.5 mg tablet Take 1 tablet by mouth once daily. Taking Yes calcium, elemental, Tab Take 1 tablet by mouth four times daily. Patient taking differently: Take 500 mg by mouth three times daily. Taking Yes cholecalciferol, Vitamin D3, 400 unit Tab Take 1 tablet by mouth once daily. Taking Yes WOMEN'S ONE DAILY 27 MG-0.4 MG ORAL TAB Take one(1) tablet daily. Taking Yes Cromolyn Sodium (CROLOM) 4 % ophthalmic solution Use 1 Drop in both eyes four times daily. neomycin/polymyxin b/dexametha(MAXITROL 3.5 MG/G-10,000 UNIT/G-0.1 % EYE OINTMENT) Use twice a day to affected eyelid x 2 wks erythromycin (ROMYCIN) 5 mg/gram (0.5 %) ophthalmic ointment Use 1 application in the right eye four times daily. Apply 1/2 inch ribbon per application acetaminophen (TYLENOL) 325 mg tablet Take 2 tablets by mouth every 4 hours as needed (Mild Pain (1-3)). No medication comments found. ALLERGIES Allergen Reactions Iodine Unknown Shellfish Derived Unknown Aciphex [Rabeprazol* blurred vision Dilaudid [Hydromorp* Intolerance Iodinated Contrast * GI Upset Levofloxacin Other: See Comments No Latex Allergy [O* Prevacid [Lansopraz* GI Upset Prilosec [Omeprazol* GI Upset Protonix [Pantopraz* GI Upset Ranitidine headache Seasonal Allergies Other: See Comments Dust, mold, trees, grass Tearing eyes, sneezing, stuffy/runny nose Sorbitol Unknown Objective PHYSICAL EXAM: General: alert and oriented (x3) and healthy appearance. Pertinent negatives noted - not distressed. Skin: normal color, no rash or lesions. HEENT: EOM intact and pupils equal round. Pertinent negatives noted - no carotid bruit. Cardiovascular: regular rate and rhythm, normal S1 and S2, no rub, murmurs, or gallop. Respiratory: normal breath sounds, no wheezes or crackles. No chest wall deformity or tenderness. Abdomen: soft. Pertinent negatives noted - not tender. Extremities: no deformity, no edema or tenderness, no joint swelling or clubbing. Neurological: normal cognition and motor skills. Gait normal. No weakness or sensory deficit. PAIN ASSESSMENT: VITALS: BP 134/72 Pulse 95 Temp (Src) 97.7 (Temporal) Resp 14 Ht 5' 0 (1.52m) Wt 111 lb (50.3kg) SpO2 99% LMP 10/08/1981 BMI 21.68 kg/(m^2). Diagnostic tests reviewed for today's visit: Lab Value Units Date High Low HB 13.6 g/dL 09/05/2021 15.5 11.5 HCT 40.8 % 09/05/2021 46.0 36.0 WBC 4.52 k/uL 09/05/2021 11.00 3.70 PLT 219 k/uL 09/05/2021 400 150 NA No results within date range. K No results within date range. GLUC No results within date range. BUN No results within date range. CREAT No results within date range. PTSEC No results within date range. INR No results within date range. APTT No results within date range. ALT No results within date range. AST No results within date range. TBILI No results within date range. TSH 3.640 mIU/L 09/05/2021 4.200 0.270 Lab Value Units Date High Low HCGQT No results within date range. UHCG No results within date range. HCG, BODY* No results within date range. Lab Value Units Date High Low ABORHD No results within date range. ABSCREEN No results within date range. No results found for: HBA1C No results found for this or any previous visit (from the past 8760 hour(s)). No results found for this or any previous visit (from the past 92643 hour(s)). Assessment Paroxysmal SVT (supraventricular tachycardia) (HCC) Assessment: s/p ablatioin 2008, following [facility], recent echo and EKG requested from [facility] Ocular migraine Assessment: rx as needed Mixed hyperlipidemia Assessment: diet controlled MITRAL VALVE DISORDER Assessment: recent echo requested, asymptomatic Migraine, unspecified, without mention of intractable migraine without mention of status migrainosus Assessment: rx as needed ESOPHAGEAL REFLUX Assessment: otc rx as needed Coronary artery disease Assessment: medically managed, non-obstructing, following [facility] Activity Status Index: METS: Climb a flight of stairs or walk up a hill (5.50 METs) DASI Score: 5.5 Patient denies any chest pain or undue shortness of breath with the above physical activity. Clinical Frailty Scale: 2. Well STOP-Bang Score: Denies snoring loudly Denies feeling tired, fatigued, or sleepy during the daytime Has not been observed to stop breathing or choking/gasping during sleep Denies having high blood pressure BMI less than or equal to 35 kg/m^2 Patient 50 years old or younger Does not have a large neck Non-male patient STOP-Bang Score: 0 [id number] Score: Age: <65 Sex: female CHF history: No Hypertension history: No Stroke/TIA/thromboembolism history: No Vascular disease history: Yes Diabetes history: No [id number] Score: 2 ARISCAT Score: Age: 51-80 Preoperative SpO2: >=96% Respiratory infection in the last month: No Preoperative anemia: No Surgical incision: peripheral Duration of surgery: <2 hrs Emergency procedure: No ARISCAT Score: 3 ASA Class: 2 ANESTHESIA FINDINGS: Intubation History: No history of difficult intubation Significant Anesthesia Considerations: potential postop nausea/vomiting Airway History: No history of difficult airway I - PHYSICAL EVALUATION AIRWAY Patient intubated: No. Tracheostomy tube not present Mallampati: I. TM distance: >3 FB. Neck ROM: full ROM without neurological symptoms. Mouth opening: adequate. Short neck: no. Thick neck: no Montero present: no DENTAL Dental findings: teeth intact. II - ANESTHESIA PLAN ASA Score: 2 Anesthetic Plan: other Anesthetic plan additional comments: *PACC/TCI - anesthesia choice. Beta Ewa Monitoring Plan Post Procedure Analgesic Plan Informed Consent Anesthetic risks, benefits, alternatives, personnel and consent discussed: yes. Patient / Responsible Alliance Party agrees to proceed: yes Patient / Surrogate agrees to blood products: blood products not planned Prepared for Surgery: optimally prepared for surgery. CONSULTS: Patient does not require consults for optimization at this time Planned Anesthetic: other anesthesia choice The Following Tests/Procedures Have Been Initiated: No orders of the defined types were placed in this encounter. Instructions Given to Patient: Instructions located in the after visit summary. Patient given verbal and written preop instructions and voices comprehension and compliance. SIGNATURE: Essence Pace APRN.CNP PATIENT NAME: Yulisa Shpeard DATE: March 01, 2022 TIME: 9:23 AM PAGER/CONTACT #: documented in this encounter [facility] 03-01-2022 Instructions Essence Pace APRN.CNP - 03/01/2022 9:25 AM EST PATIENT PREOPERATIVE INSTRUCTIONS No ref. provider found has scheduled you for your procedure at this surgery center: [facility]: [phone] --[facility] [place], [address] [place] [address]. Please read below carefully for your personalized instructions. Arrival Time for Surgery: - The Surgery Center or hospital where you are having surgery will call the afternoon before surgery (or Friday for Friday surgery) with a scheduled arrival time. - If you have not heard by 4 pm, please contact the surgery center above. Please be aware that emergency situations arise, which may delay or change your surgical time. If this happens, we will notify you as soon as possible and regret any inconvenience Dietary Restrictions: - No solid food after midnight. - You may have 12 ounces of clear liquids (water, clear juices such as apple juice or gatorade, carbonated beverages, clear tea, black coffee, jello) until 2 hours before scheduled arrival at facility. - no milk / coffee creamer - no pulp juices Medications: Unless instructed differently below, stay on all of your medications until your surgery. Approved medications to take the morning of surgery with a sip of water: All rx meds If you start any new medications after today's visit, please contact the surgeon's office. Blood Thinning Medications: You do not need to hold blood thinners for cataract surgery Important Reminders: - If you are prescribed inhalers for breathing, continue using them. - Candy, mints, gum and tobacco products are NOT permitted the morning of surgery. - Hearing aids, dentures and glasses may be worn the morning of surgery. - NO jewelry, body piercings, makeup, hairpins or contacts are to be worn the day of surgery. If you develop symptoms such as a fever, cold, or flu, or have other changes to your health within TWO DAYS of scheduled surgery or the morning of surgery, please contact the surgery center above. Personal Belongings: -Please have photo ID and insurance cards. -If you do not have a copy of advance directives on file with us, please bring a copy with you on the day of surgery. - Leave ALL valuables and money at home or with family members. For Outpatient Procedures: - YOU MUST HAVE A RESPONSIBLE ROTOR CASTING MACHINE OPERATOR TAKE YOU HOME. A DIETARY AID OR CLAY DRY PRESS MIXER OPERATOR CANNOT BE MADE A RESPONSIBLE ROTOR CASTING MACHINE OPERATOR. - We recommend that a responsible person stays with you overnight to take care of you. - You cannot stay in a hotel alone after outpatient surgery. You will not be permitted to have your surgery, if you do not have someone to take care of you. If you already have an Advance Directive, please fax a copy to [phone] or email to for it to be added to your chart. If you do not have an Advance Directive, you can find the appropriate form and more information at [email or web address]. We recommend that you complete the Advance Directive form found on the website and bring it with you the day of your surgery. It can be witnessed and scanned into your chart that day. Essenec Pace APRN.CNP documented in this encounter [facility] 02-19-2022 Miscellaneous Notes Would like to discuss getting a lens (cataract surgery) that would work with her astigmatism Fv 03-15-22 surgery Assessment & Plan Bryan Awad MD filed at 01/04/2022 2:46 PM Status: Signed # s/p CEIOL right eye 03/22/20, s/p YAG - stable # Cataract OS - visually significant left eye - vision limited by Epiretinal membrane, and phacoemulsification can worsen left eye - follow when ready, also could potentially need CEIOL + membrane peel with Dr. Huang or phacoemulsification first, then followed by membrane peel # myopia both eyes # ocular migraines # Ptosis left eye s/p repair - s/p ZAIRA ptosis repair and exc lesion RUL margin 03/09/19 (with Dr Raymond) - s/p bleb both eyes (Dr. Gutierrez) 05/10/[address] 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 Yulisa Shepard has confirmed that she is no longer able to function adequately on a day-to-day basis because of her current visual condition. Further, it is my medical opinion that the cataract is the primary cause, or at least a significantly contributory cause of her visual dysfunction. With uncomplicated cataract surgery and lens implantation, it is my expectation that her visual function and quality of life will improve, significantly. The risks, benefits, alternatives, personnel and complications of cataract surgery with lens implantation were discussed with Yulisa Shepard in detail. she appeared to understand and asked that I proceed with plans for surgery. Dextenza is being used for the treatment of both ocular inflammation and pain following ophthalmic surgery. . documented in this encounter [facility] 01-04-2022 Instructions Bryan Awad MD - 01/04/2022 2:46 PM EST Images from the original note were not included. Cataract surgery with intraocular lens implant, dextenza left eye Call Cheryltony Hughes (production scheduler): [phone] Dr. Bryan Awad's office: [phone] if you have any questions. Dextenza is a preservative-free and dissolvable medicine insert that is placed in the tear duct of your eyelid at time of surgery. This medicine pillet will slowly dispense topical steroid onto your eye every time you blink over the span of 1 month after surgery. It will completely dissolve on itself own by the end of the month, and does not require any additional procedure to remove. This reduces the number of eye drops you will need to apply manually after surgery. documented in this encounter [facility] 01-04-2022 History of Present illness Narrative # s/p CEIOL right eye 03/22/20, s/p YAG - stable # Cataract OS - visually significant left eye - vision limited by Epiretinal membrane, and phacoemulsification can worsen left eye - follow when ready, also could potentially need CEIOL + membrane peel with Dr. Huang or phacoemulsification first, then followed by membrane peel # myopia both eyes # ocular migraines # Ptosis left eye s/p repair - s/p ZAIRA ptosis repair and exc lesion RUL margin 03/09/19 (with Dr Raymond) - s/p bleb both eyes (Dr. Gutierrez) 05/10/[address] 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 Yulisa Shepard has confirmed that she is no longer able to function adequately on a day-to-day basis because of her current visual condition. Further, it is my medical opinion that the cataract is the primary cause, or at least a significantly contributory cause of her visual dysfunction. With uncomplicated cataract surgery and lens implantation, it is my expectation that her visual function and quality of life will improve, significantly. The risks, benefits, alternatives, personnel and complications of cataract surgery with lens implantation were discussed with Yulisa Shepard in detail. she appeared to understand and asked that I proceed with plans for surgery. Dextenza is being used for the treatment of both ocular inflammation and pain following ophthalmic surgery. I have confirmed and edited as necessary the relevant ophthalmic history, ROS, and the neuro exam findings as obtained by others. I have seen and examined Yulisa Shepard. I have discussed the case and the management of this patient's care with the Resident/Fellow, if applicable. I also have reviewed and agree with the assessment and plan as stated above and agree with all of its relevant components. Bryan Awad MD documented in this encounter [facility] 11-05-2021 History of Present illness Narrative All problems with bold in text below addressed at this visit with patient 1. S/p PPV/MP/FAx for Epiretinal membrane, right eye (08/11/19) - No changes on imaging and exam - Continue to follow 2. Macular edema OD - Suspect post-surgical given CE/IOL 03/22/20 - Very trace fluid that remains stable - VA relatively stable - Continue to observe off drops - Follow up with Dr. Huang in 4 months 3. ERM left eye - Mild, with some foveal blunting - Unchanged on exam and imaging - Notes some metamorphopsia that has remained stable, not bothered too much by it - Continue to monitor 4. 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 Choroidal Nevus, left eye - Approximately 2 DD in size - Positive for: Drusen on nevus, Negative for: orange pigment, fluid - Continue to monitor 6. 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 Cataracts OS (left) - Becoming visually significant,notes glare/halos/hazy vision - Patient would like to see Dr. Awad about this, consider PCIOL placement - Continue to follow 8. PCIOL OD - s/p CE/PCIOL Right Eye (Dr. Awad, 03/22/2020) - s/p YAG OD with Dr. Awad 9. Previous conjunctivoplasty OS - 2004 10. Ptosis left eye s/p repair - s/p ZAIRA ptosis repair and exc lesion RUL margin 03/09/19 (with Dr Raymond) - Previously reported monocular diplopia OS since surgery - resolved now 11. Dry eye OU - Uses artificial tears 4-5 times daily, continue this - Ointment QHS OU 12. Diplopia - Intermittent diplopia on upgaze only; sometimes horizontal, sometimes vertical - Unclear bionocular or monocular - No other neurologic deficits - Ocular alignment appears orthophoric, full EOMs - Not noticing these symptoms as much anymore - Continue to follow 13. 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 Gutierrez and oculoplastics team - Notes she uses PF for maybe 5 days a month for rosacea of left eye I have seen and examined this patient. I have confirmed and edited as necessary the relevant ophthalmic history, medications, ROS, and the neuro and ophthalmic exam findings as obtained by others and myself. I have discussed the case and the management of this patient's care with the attending Physician, if applicable. I also have reviewed and agree with the assessment and plan as stated above and agree with all of its relevant components. I have discussed the treatment alternatives with the patient and the patient's family, if applicable. Follow-up as noted below, or sooner if new symptoms develop. documented in this encounter [facility] 09-04-2021 Instructions Jana Gutierrez MD - 09/04/2021 12:23 PM EDT recc Warm compresses to affected lid(s) 15 min twice daily. (Can try Zeynep mask, found on [employer] or at drug stores), followed by lid scrubs twice daily with dilute baby shampoo. Patient gets allergy shots; likely related to allergies Patient states patanol makes her eyes worse Could try cromolyn sodium four times a day Both eyes Can use cool compresses as well Can use pred forte three times a day x 3 days once a month for flares but try to avoid as can cause intraocular pressure elevation-->glaucoma-->vision loss Can check inflammatory labs to rule out any other inflammatory disorders Well healed from surgery F/u if inflammatory labs abnl documented in this encounter [facility] 09-04-2021 History of Present illness Narrative Patient is here for a lower left eye erythema and blepharitis follow-up. Patient states that there is still a lot of watering in that eye and puffiness of the lid, patient states this consistently happens about 1x per month. Patient states that the l eft eye is always watering and draining into her nose. Current Ocular Medications: - Maxitrol, 2x day, left eye; Last dose: ~ 2 weeks ago - Prednisone, 1x day, left eye; Last dose: Friday. - Artificial Tears, as needed, both eyes. A/P: 1. Blepharitis /eyelid swelling S/p Conjunctivoplasty 05/15/2004 - Dr. Demetrius Price S/p Zaira cml ptosis repair and exc lesion rul margin 03/10/2019 - [facility] S/p BUL BLEPH 05/10/21 - [facility] Improved after maxitrol/pred forte Unable to take doxy 2/2 stomach upset no more tearing per patient Patient thought maybe had swelling from makeup but more swelling left Exam: Well healed bilateral upper lid blepharoplasty incisions No sign of infection Plugged meibomian glands yoan left lower lid medial, no jamila chalazion Left upper lid tr edema , no chalazion felt No Superficial punctate keratopathy (SPK) Extraocular muscles full no diplopia Binh: 17, 17 88 Irrigation 07/20/21: left lower lid: 100% free flow to nose recc Warm compresses to affected lid(s) 15 min twice daily. (Can try Zeynep mask, found on [employer] or at drug stores), followed by lid scrubs twice daily with dilute baby shampoo. Patient gets allergy shots; likely related to allergies Patient states patanol makes her eyes worse Could try cromolyn sodium four times a day Both eyes Can use cool compresses as well Can use pred forte three times a day x 3 days once a month for flares but try to avoid as can cause intraocular pressure elevation-->glaucoma-->vision loss Can check inflammatory labs to rule out any other inflammatory disorders Well healed from surgery F/u if inflammatory labs abnl The documentation for this note was completed by Ran Peacock APRN, CNP acting as a scribe for Jana Gutierrez MD. 09/04/2021 12:19 PM. I have confirmed and edited as necessary the relevant ophthalmic history, ROS, and the neuro exam findings as obtained by others. I have seen and examined Yulisa Shepard. I have discussed the case and the management of this patient's care with the Resident/Fellow, if applicable. I also have reviewed and agree with the assessment and plan as stated above and agree with all of its relevant components. I, Jana Gutierrez MD, personally performed the services described in this documentation. All medical record entries made by the scribe were at my direction and in my presence. I have reviewed the chart and discharge instructions (if applicable) and agree that the record reflects my personal performance and is accurate and complete. Electronically Signed: Jana Gutierrez MD, September 04, 2021 12:19 PM. documented in this encounter [facility] 07-23-2021 Miscellaneous Notes Images from the original note were not included. Jana Gutierrez MD You; Ran Peacock APRN.ARCHIVIST MILITARY HISTORY; Radha Ulloa 1 hour ago (12:52 PM) Ok no problem Thanks for letting me know Electronically signed by Esmer Faria [facility] [place]/23/[place] 2:08 PM EDTdocumented in this encounter [facility] 07-12-2021 Miscellaneous Notes The patient will come in on 07/20 to be seen by Diana. The patient will come in to see Diana on 07/20 at 12:30 for irrigation testing. Images from the original note were not included. Ran Peacock APRN.FELIPE You; Thu Cee PA-C; Jana Gutierrez MD 53 minutes ago (1:39 PM) RH Called and left a message. Script sent. Diana Message text Jana Gutierrez MD You; Ran Peacock APRN.ARCHIVIST MILITARY HISTORY; Thu Cee PA-C 2 hours ago (12:16 PM) Have her come in and see someone (diana or thu) for irrigation tesitng Maybe she has a blockage? She can try the drops twice a day x 1 wk but we don't like her to be on it too long as it can cuase intraocular pressure elevation Message text It looks like she was on prednisolone drops through Dr. Bryan Awad rx'd on 06/21, then we rx'd maxitrol ointment on 07/03. Dr. Awad had her on prednisolone as 1-drop, OD, tid on a tapering dose over 15 days. Jana Gutierrez MD filed at 07/03/2021 9:58 AM Status: Signed s/p bleb both eyes (Dr. Gutierrez) 05/10/21 Patient happy with the Sx outcome - says all good. Vision good. Patient states she notices a bump on the corner of the upper eyelid - no pain. Ocular medication - right eye: Predforte once daily No results found for: HBA1C A/P: 1. BUL BLEPH 05/10/21 Doing well at this time. Excellent result Patient happy with results Exam: Healing well Plugged meibomian glands, no jamila chalazion Left lower lid erythema and blepharitis No Superficial punctate keratopathy (SPK) Outcome: S/P Eyelid Surgery Outcomes: Symmetry excellent Post-op Diagnoses: None recc Warm compresses to affected lid(s) 15 min twice daily. (Can try Zeynep mask, found on [employer] or at [employer]), followed by lid scrubs twice daily with dilute baby shampoo. Maxitrol ointment to affected lid(s) twice daily x 2 weeks. Discussed risk of developing cataracts or glaucoma with long-term use. Discussed risk of infection with concomitant use of CLs. - Take Doxycycline 50 mg by mouth 2 times a day for a month, then once a day until resolves. Doxycycline may cause some stomach upset in some people. If so, please call and stop medication. You may get sunburned more easily with this medication. Avoid sun, sunlamps, and tanning beds. Use sunscreen and wear clothing and eyewear that protects you from the sun. Follow up in 6-8 weeks for possible kenalog injection documented in this encounter [facility] 07-03-2021 Instructions aJna Gutierrez MD - 07/03/2021 9:55 AM EDT recc Warm compresses to affected lid(s) 15 min twice daily. (Can try Zeynep mask, found on [employer] or at [employer]), followed by lid scrubs twice daily with dilute baby shampoo. Maxitrol ointment to affected lid(s) twice daily x 2 weeks. Discussed risk of developing cataracts or glaucoma with long-term use. Discussed risk of infection with concomitant use of CLs. - Take Doxycycline 50 mg by mouth 2 times a day for a month, then once a day until resolves. Doxycycline may cause some stomach upset in some people. If so, please call and stop medication. You may get sunburned more easily with this medication. Avoid sun, sunlamps, and tanning beds. Use sunscreen and wear clothing and eyewear that protects you from the sun. Follow up in 6-8 weeks for possible kenalog injection documented in this encounter [facility] 07-03-2021 History of Present illness Narrative s/p bleb both eyes (Dr. Gutierrez) 05/10/21 Patient happy with the Sx outcome - says all good. Vision good. Patient states she notices a bump on the corner of the upper eyelid - no pain. Ocular medication - right eye: Predforte once daily No results found for: HBA1C A/P: 1. BUL BLEPH 05/10/21 Doing well at this time. Excellent result Patient happy with results Exam: Healing well Plugged meibomian glands, no jamila chalazion Left lower lid erythema and blepharitis No Superficial punctate keratopathy (SPK) Outcome: S/P Eyelid Surgery Outcomes: Symmetry excellent Post-op Diagnoses: None recc Warm compresses to affected lid(s) 15 min twice daily. (Can try Zeynep mask, found on [employer] or at drug [employer]), followed by lid scrubs twice daily with dilute baby shampoo. Maxitrol ointment to affected lid(s) twice daily x 2 weeks. Discussed risk of developing cataracts or glaucoma with long-term use. Discussed risk of infection with concomitant use of CLs. - Take Doxycycline 50 mg by mouth 2 times a day for a month, then once a day until resolves. Doxycycline may cause some stomach upset in some people. If so, please call and stop medication. You may get sunburned more easily with this medication. Avoid sun, sunlamps, and tanning beds. Use sunscreen and wear clothing and eyewear that protects you from the sun. Follow up in 6-8 weeks for possible kenalog injection The documentation for this note was completed by Ran Peacock APRN, CNP acting as a scribe for Jana Gutierrez MD. 07/03/2021 9:55 AM. I have confirmed and edited as necessary the relevant ophthalmic history, ROS, and the neuro exam findings as obtained by others. I have seen and examined Yulisa Shepard. I have discussed the case and the management of this patient's care with the Resident/Fellow, if applicable. I also have reviewed and agree with the assessment and plan as stated above and agree with all of its relevant components. I, Jana Gutierrez MD, personally performed the services described in this documentation. All medical record entries made by the scribe were at my direction and in my presence. I have reviewed the chart and discharge instructions (if applicable) and agree that the record reflects my personal performance and is accurate and complete. Electronically Signed: Jana Gutierrez MD, July 03, 2021 9:55 AM. documented in this encounter [facility] 06-21-2021 Miscellaneous Notes YAG OS today. Thought she had enough Pred, but did not. Medications Predforte right eye three times a day for 5 days, then twice a day for 5 days, then once a day for 5 days, then stop Electronically signed by Araceli Rodriguez [facility] [place]21[place] 4:00 PM EDTdocumented in this encounter [facility] 06-21-2021 Instructions Bryan Awad MD - 06/21/2021 2:03 PM EDT You had a YAG-Capsulotomy, a laser procedure to cut a hole in the cloudy membrane that developed behind your lens implant. Medications Predforte right eye three times a day for 5 days, then twice a day for 5 days, then once a day for 5 days, then stop What to Expect Today, your eye will likely be a little blurry, and typically that will be better by tomorrow. It is common to see a large floater, caused by the membrane fragment floating in the eye. The floater almost goes away in a couple of weeks. Please call if you have any of the following symptoms: Sudden onset of new floaters (especially if they are multiple or different from what you saw shortly after the laser,) flashing lights (often like a silver streak of light,) discomfort and/or light sensitivity that worsens or fails to improve, blurry vision that worsens or fails to improve or other symptoms that concern you. If you have questions, Dr. Bryan Awad's office phone number is [phone] After hours, and on weekends or holidays, please call the [facility] coach operator at [phone] or [phone] and ask for the eye doctor aws consultant. documented in this encounter [facility] 06-21-2021 History of Present illness Narrative # s/p CEIOL right eye 03/22/20 # posterior capsular opacity (PCO) right eye - visually significant - schedule YAG # Cataract OS - beginning to have symptoms - still not visually significant by visual acuity and glare - vision limited by ERM - follow when ready, also could potentially need CEIOL + membrane peel with Dr. Vazquez # myopia both eyes # ocular migraines # Ptosis left eye s/p repair - s/p ZAIRA ptosis repair and exc lesion RUL margin 03/09/19 (with Dr Raymond) - s/p bleb both eyes (Dr. Gutierrez) 05/10/[address] 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 I have seen and examined Yulisa Shepard. I have discussed the case and the management of this patient's care with the Resident/Fellow, if applicable. I also have reviewed and agree with the assessment and plan as stated above and agree with all of its relevant components. Bryan Awad MD documented in this encounter [facility] 05-25-2021 History of Present illness Narrative VIRTUAL VISIT VIA [facility] approved video conference, [employer], [place], [place] luma-id BINH CC: itching after using scar gel HPI: review of systems: neg FH/SH: noncontributory Exam: A/P: 1. s/p BUL BLEPH 05/10/21 Patient states upper eyelids started itching after using scar gel. Cleaned eyelids with makeup remover and applied erythromycin ointment, itching immediately stopped Exam: Well healing bilateral upper lid incisions No erythema, no drainage, no ecchymosis, no edema No itching Discontinue use of scar gel. I do not recommend using another brand due to sensitivities. Can use erythromycin ointment for comfort. All questions answered, return precautions given. Call office at with any questions or concerns. This is a virtual visit requiring patient-provider interaction for the medical decision making. Yulisa Shepard has consented to this virtual visit. Chief Complaint, HPI, ROS, Patient History, and Exam have been documented and reviewed. I spent total 10 minutes elwi-je-chab with the patient and over 50% of the time was devoted to counseling and/or coordination of care. I have confirmed and edited as necessary the relevant ophthalmic history, ROS, and the neuro exam findings as obtained by others. I have seen and examined this patient. I have discussed the case and the management of this patient's care with the Resident/Fellow, if applicable. I also have reviewed and agree with the assessment and plan as stated above and agree with all of its relevant components. Ran Peacock APRN.CNP May 25, 2021 2:56 PM documented in this encounter [facility] 05-25-2021 Miscellaneous Notes Ran Peacock APRN.CNP filed at 05/18/2021 11:27 AM Status: Signed A/P: 1. s/p BUL BLEPH 05/10/21 Doing well at this time. Exam: Anticipated postsurgical ecchymosis and edema Incisions healing well No erythema or warmth Good contour of eyelids No lagophthalmos No spk Removed sutures today without complication; pt tolerated well. No sign of infection. Decrease erythromycin ointment to twice daily x 1 more week, then stop. Warm compresses until swelling resolves. May resume normal activities - no swimming x 1 more week. Can use silicone scar gel on incisions twice a day after finished with ointment (2 wks after surgery) to help with redness/scarring Follow up in 6 weeks, sooner if issues. Electronically signed by Radha Ryan [facility] [place]/25/[place]21 2:32 PM EDTdocumented in this encounter [facility] 05-18-2021 Instructions Ran Peacock APRN.CNP - 05/18/2021 11:18 AM EDT Removed sutures today without complication; pt tolerated well. No sign of infection. Decrease erythromycin ointment to twice daily x 1 more week, then stop. Warm compresses until swelling resolves. May resume normal activities - no swimming x 1 more week. Can use silicone scar gel on incisions twice a day after finished with ointment (2 wks after surgery) to help with redness/scarring Follow up in 6 weeks, sooner if issues. documented in this encounter [facility] 05-18-2021 History of Present illness Narrative A/P: 1. s/p BUL BLEPH 05/10/21 Doing well at this time. Exam: Anticipated postsurgical ecchymosis and edema Incisions healing well No erythema or warmth Good contour of eyelids No lagophthalmos No spk Removed sutures today without complication; pt tolerated well. No sign of infection. Decrease erythromycin ointment to twice daily x 1 more week, then stop. Warm compresses until swelling resolves. May resume normal activities - no swimming x 1 more week. Can use silicone scar gel on incisions twice a day after finished with ointment (2 wks after surgery) to help with redness/scarring Follow up in 6 weeks, sooner if issues. I have confirmed and edited as necessary the relevant ophthalmic history, ROS, and the neuro exam findings as obtained by others. I have seen and examined this patient. I have discussed the case and the management of this patient's care with the Resident/Fellow, if applicable. I also have reviewed and agree with the assessment and plan as stated above and agree with all of its relevant components. Ran Peacock APRN.CNP May 18, 2021 11:18 AM documented in this encounter [facility] 05-11-2021 Miscellaneous Notes She's calling you back to let you know that she is having a lot of nausea and threw up 3 times yesterday. She woke up this morning with nausea still, but not quite as bad as yesterday. Both eyes are swollen and very red as well. Electronically signed by Radha Ryan [facility] [place]11/2021 9:28 AM EDT Called patient POD #1 and left a message. Call office at with any questions or concerns. Ran Peacock APRN.CNP documented in this encounter [facility] Post-operative state- Primary Other [facility]proced[facility] status [facility] Diagnosis PCO (posterior capsular opacification), right- Primary After-cataract, unspecified Epiretinal membrane, right [facility] Diagnosis Post-operative state- Primary Other postprocedural status [facility] Diagnosis Blepharitis of left upper eyelid, unspecified type- Primary Ocular inflammation Other ill-defined disorder of eye [facility] Diagnosis Epiretinal membrane (ERM) of both eyes- Primary Choroidal nevus, left Dermatochalasis of both upper eyelids Retinal edema Nuclear sclerotic cataract of left eye Senile nuclear sclerosis [facility] Diagnosis Nuclear sclerotic cataract of left eye- Primary Senile nuclear sclerosis Retinal edema Epiretinal membrane (ERM) of both eyes Dry eye syndrome of bilateral lacrimal glands Tear film insufficiency, unspecified [facility] Diagnosis Pre-operative examination- Primary Preoperative examination, unspecified Paroxysmal SVT (supraventricular tachycardia) (HCC) Paroxysmal supraventricular tachycardia Ocular migraine Other forms of migraine, without mention of intractable migraine without mention of status migrainosus Mixed hyperlipidemia Migraine, unspecified, without mention of intractable migraine without mention of status migrainosus Gastroesophageal reflux disease, unspecified whether esophagitis present 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, unspecified vessel or lesion type (HCC) Nuclear sclerotic cataract of left eye Senile nuclear sclerosis [facility] Diagnosis Nuclear sclerotic cataract of both eyes- Primary Senile nuclear sclerosis Nuclear sclerotic cataract of left eye Senile nuclear sclerosis [facility] Diagnosis Epiretinal membrane (ERM) of both eyes- Primary Choroidal nevus, left Dermatochalasis of both upper eyelids Retinal edema Nuclear sclerotic cataract of left eye 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 Tear film insufficiency, unspecified Nuclear sclerotic cataract, left Epiretinal membrane (ERM), bilateral Nuclear sclerotic cataract of left eye Senile nuclear sclerosis [facility] Diagnosis Postoperative follow-up- Primary Follow-up examination, following unspecified surgery [facility] Diagnosis Pseudophakia of both eyes- Primary Lens replaced by other means [facility] Diagnosis Pseudophakia of both eyes- Primary Lens replaced by other means [facility] Diagnosis Pseudophakia of both eyes- Primary Lens replaced by other means PCO (posterior capsular opacification), right After-cataract, unspecified Nuclear sclerotic cataract, left [facility] Diagnosis Epiretinal membrane (ERM) of both eyes- Primary Choroidal nevus, left Dermatochalasis of both upper eyelids Retinal edema Pseudophakia of both eyes Lens replaced by other means Nuclear sclerotic cataract of left eye Senile nuclear sclerosis Epiretinal membrane (ERM), bilateral Dry eye syndrome of bilateral lacrimal glands Tear film insufficiency, unspecified Nuclear sclerotic cataract, left [facility] Diagnosis Pseudophakia of both eyes Lens replaced by other means [facility] Diagnosis Epiretinal membrane (ERM), bilateral- Primary Retinal edema Nuclear sclerotic cataract of left eye Senile nuclear sclerosis Pseudophakia of both eyes Lens replaced by other means Dry eye syndrome of bilateral lacrimal glands Tear film insufficiency, unspecified Choroidal nevus, left Dermatochalasis of both upper eyelids Nuclear sclerotic cataract, left Epiretinal membrane (ERM) of both eyes [facility] Diagnosis Pseudophakia of both eyes Lens replaced by other means [facility] Diagnosis Epiretinal membrane (ERM) of both eyes- Primary Retinal edema Pseudophakia of both eyes Lens replaced by other means Dermatochalasis of both upper eyelids Choroidal nevus, left Nuclear sclerotic cataract of left eye 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 Tear film insufficiency, unspecified Nuclear sclerotic cataract, left Epiretinal membrane (ERM), bilateral [facility] Diagnosis Retinal edema- Primary Pseudophakia of both eyes Lens replaced by other means Dermatochalasis of both upper eyelids Epiretinal membrane (ERM) of both eyes Choroidal nevus, left Nuclear sclerotic cataract of left eye 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 Tear film insufficiency, unspecified Nuclear sclerotic cataract, left Epiretinal membrane (ERM), bilateral [facility] Diagnosis Pre-operative cardiovascular examination- Primary Mitral valve disorder Mitral valve disorders Pre-operative cardiovascular examination Mitral valve disorder Mitral valve disorders [facility] Diagnosis 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 Arterial branch occlusion of retina Retinal edema Pseudophakia of both eyes Lens replaced by other means Choroidal nevus, left Dermatochalasis of both upper eyelids Epiretinal membrane (ERM) of both eyes Mitral valve disorder Mitral valve disorders Pre-operative cardiovascular examination Mitral valve disorder Mitral valve disorders [facility] Outpatient Procedure (Routine) - Pending Review Specialty Diagnoses / Procedures Referred By Tay roche Referred To [facility] Diagnoses Pre-operative cardiovascular examination Mitral valve disorder Procedures ECHO ECHO TTHRC R-T 2D W/WOM-MODE COMPL SPEC&COLR D Kala Morgan MD [address] [place] [address] [place] [address] Referral ID Status Reason Start Date Expiration Date Visits Requested Visits Authorized [id number] Pending Review Auto-Generat ed Referral 03/31/2023 03/30/2024 1 1 * Outpatient Procedure (Routine) - Pending Review Specialty Diagnoses / Procedures Referred By Contac t Referred To Contact [facility] [place] Diagnoses Pre-operative cardiovascular examination Mitral valve disorder Procedures ECG COMPLETE ECG ROUTINE ECG W/LEAST 12 LDS W/I&R Kala Morgan MD [address] [place] [address] [place] [address] Referral ID Status Reason Start Date Expiration Date Visits Requested Visits Authorized [id number] Pending Review Auto-Generat ed Referral 03/31/2023 03/30/2024 1 1 * Consult, Test, Treat (Routine) - Authorized Specialty Diagnoses / Procedures Referred By Contac t Referred To Contact Cardiac Surg Diagnoses Pre-operative cardiovascular examination Mitral valve disorder Procedures CARDIOTHORACIC PREOP EVALUATION OFFICE/OUTPATIENT [facility] 60 MINUTES Kala Morgan MD [address] [place] [address] Referral ID Status Reason Start Date Expiration Date Visits Requested Visits Authorized [id number] Authorized PCP Requested Referral 03/31/2023 03/30/2024 1 1 * Consult, Test, Treat (Routine) - Authorized Specialty Diagnoses / Procedures Referred By Contac t Referred To Contact Cardiology Diagnoses Pre-operative cardiovascular examination Mitral valve disorder Procedures CONSULT TO CARDIOLOGY OFFICE/OUTPATIENT [facility] 60 MINUTES Kala Morgan MD [address] [place] [address] Referral ID Status Reason Start Date Expiration Date Visits Requested Visits Authorized [id number] Authorized PCP Requested Referral 03/31/2023 03/30/2024 1 1 [facility] Summary Purpose Family History No Family History Records FoundNo Family History Records FoundNo Family History Records Found Advance Directives No Advanced Directives Records FoundDocuments on File Type Date 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 Advance Directive(s) 04/11/2021 3:15 PM Advance Directive(s) 03/03/2020 10:08 AM Advance Directive(s) 10/15/2019 6:47 AM Advance Directive(s) 09/28/2019 4:04 PM Advance Directive(s) 07/19/2019 2:55 PM Advance Directive(s) 03/09/2019 7:50 AM Advance Directive(s) 03/09/2019 7:48 AM Advance Directive(s) 10/03/2011 2:42 PM Documents on File Type Date Recorded 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 In the event of a Fluress shortage, administer 1 drop of Trail-Fluor into both eyes as directed for applanation tonometry. Given 01/04/2022 1:30 PM EST 1 Drop PHENYLephrine 2.5 % 1 Drop (AK-DILATE, PORTIA-SYNEPHRINE) 1 Drop, BOTH EYES, DIRECTED, Starting on Fri01/04/22 at 1330, Until 01/05/22 at 0129, Administer for dilation PROTECT FROM LIGHT Given 01/04/2022 1:30 PM EST 1 Drop tropicamide 1 % 1 Drop (MYDRIACYL) 1 Drop, BOTH EYES, DIRECTED, Starting on Fri01/04/22 at 1330, Until Fri01/05/22 at 0129, Administer for dilation Given 01/04/2022 1:30 PM EST 1 Drop Active Administered Medications - up to 3 most recent administrations Medication Order MAR Action Action Date Dose Rate Site fluorescein-benoxinate 0.25-0.4 % 1 Drop (FLURESS) 1 Drop, BOTH EYES, DIRECTED, Starting on Fri03/12/22 at 1300, Until Fri03/13/22 at 0059, Administer for applanation tonometry. In the event of a Fluress shortage, administer 1 drop of Molly-Fluor into both eyes as directed for applanation tonometry., [facility] ORD[facility] Given 03/12/2022 1:00 PM EST 1 Drop PHENYLephrine 2.5 % 1 Drop (AK-DILATE, PORTIA-SYNEPHRINE) 1 Drop, BOTH EYES, DIRECTED, Starting on Fri03/12/22 at 1300, Until Fri03/13/22 at 0059, Administer for dilation PROTECT FROM LIGHT, [facility] MED ORDERS Given 03/12/2022 1:00 PM EST 1 Drop tropicamide 1 % 1 Drop (MYDRIACYL) 1 Drop, BOTH EYES, DIRECTED, Starting on Fri03/12/22 at 1300, Until Fri03/13/22 at 0059, Administer for dilation, [facility] ORD[facility] Given 03/12/2022 1:00 PM EST 1 Drop Active Administered Medications - up to 3 most recent administrations Medication Order MAR Action Action Date Dose Rate Site fluorescein-benoxinate 0.25-0.4 % 1 Drop (FLURESS) 1 Drop, LEFT EYE, DIRECTED, Starting on Fri03/15/22 at 1200, Until Fri03/15/22 at 2359, Administer for applanation tonometry. In the event of a Fluress shortage, administer Molly-Fluor 1 drop into the left eye as directed for applanation tonometry Given 03/15/2022 12:00 PM EST 1 Drop Inactive Administered Medications - up to 3 most recent administrations Medication Order MAR Action Action Date Dose Rate Site acetaminophen 650 mg tab(s) (TYLENOL) 650 mg, ORAL, ONCE, 1 dose, On Fri03/15/22 at 0830, Preprocedure Given 03/15/2022 8:20 AM EST 650 mg lactated ringers iv infusion 30 mL/hr, INTRAVENOUS, CONTINUOUS, Starting on Fri03/15/22 at 0830, Until Fri03/15/22 at 0923, If blood glucose less than 100 mg/dL, contact anesthesia provider., Preprocedure New Bag/Syringe/Bottle 03/15/2022 8:30 AM EST 30 mL/hr 30 mL/hr lidocaine 4 % (40 mg/mL) 1 Drop (XYLOCAINE) 1 Drop, LEFT EYE, EVERY 5 MINUTES, 3 doses, First dose on Fri03/15/22 at 0830, Last dose on Fri03/15/22 at 0840, Preprocedure Given 03/15/2022 8:30 AM EST 1 Drop Active Administered Medications - up to 3 most recent administrations Medication Order MAR Action Action Date Dose Rate Site fluorescein-benoxinate 0.25-0.4 % 1 Drop (FLURESS) 1 Drop, BOTH EYES, DIRECTED, Starting on Fri04/05/22 at 1200, Until Fri04/05/22 at 2359, Administer for applanation tonometry. In the event of a Fluress shortage, administer Molly-Fluor 1 drop into both eyes as directed for applanation tonometry, [facility] ORD[facility] Given 04/05/2022 11:33 AM EST 1 Drop Active Administered Medications - up to 3 most recent administrations Medication Order MAR Action Action Date Dose Rate Site fluorescein-benoxinate 0.25-0.4 % 1 Drop (FLURESS) 1 Drop, BOTH EYES, DIRECTED, Starting on Fri06/25/22 at 1100, Until Fri06/25/22 at 2259, Administer for applanation tonometry. In the event of a Fluress shortage, administer 1 drop of Trail-Fluor into both eyes as directed for applanation tonometry., [facility] ORD[facility] Given 06/25/2022 11:00 AM EDT 1 Drop PHENYLephrine 2.5 % 1 Drop (AK-DILATE, PORTIA-SYNEPHRINE) 1 Drop, BOTH EYES, DIRECTED, Starting on Fri06/25/22 at 1100, Until Fri06/25/22 at 2259, Administer for dilation PROTECT FROM LIGHT, [facility] MED ORDERS Given 06/25/2022 11:00 AM EDT 1 Drop tropicamide 1 % 1 Drop (MYDRIACYL) 1 Drop, BOTH EYES, DIRECTED, Starting on Fri06/25/22 at 1100, Until Fri06/25/22 at 2259, Administer for dilation, [facility] ORD[facility] Given 06/25/2022 11:00 AM EDT 1 Drop Health Concerns Problem Noted Date Diagnosed Date Interactive [facility] Education 03/31/2023 Problem Noted Date Diagnosed Date [facility] Education 03/31/2023 Problem Noted Date Diagnosed Date [facility] Education 03/31/2023 Problem Noted Date Diagnosed Date [facility] Education 03/31/2023 Additional Source Comments INFORMATION SOURCE (unrecogn ized section and content) DATE CREATED AUTHOR AUTHOR'S ORGANIZ ATION 04/08/2023 [facility] DATE CREATED AUTHOR AUTHOR'S ORGANIZ ATION 04/17/2023 [facility] Source Comments (unrecognize d section and content) In the event this informatio n is protected by the Federal Confidentiality of Alcohol and Drug Abuse Patient Records regulations: The Federal rules restrict any use of the information to criminally investigate or prosecute any alcohol or drug abuse patient.[facility] the event this information is protected by the Federal Confidentiality of Alcohol and Drug Abuse Patient Records regulations: The Federal rules restrict any use of the information to criminally investigate or prosecute any alcohol or drug abuse patient.[facility]In the event this information is protected by the Federal Confidentiality of Alcohol and Drug Abuse Patient Records regulations: The Federal rules restrict any use of the information to criminally investigate or prosecute any alcohol or drug abuse patient.[facility] DaytonIn the event this information is protected by the Federal Confidentiality of Alcohol and Drug Abuse Patient Records regulations: The Federal rules restrict any use of the information to criminally investigate or prosecute any alcohol or drug abuse patient.[facility] DaytonIn the event this information is protected by the Federal Confidentiality of Alcohol and Drug Abuse Patient Records regulations: The Federal rules restrict any use of the information to criminally investigate or prosecute any alcohol or drug abuse patient.[facility] DaytonIn the event this information is protected by the Federal Confidentiality of Alcohol and Drug Abuse Patient Records regulations: The Federal rules restrict any use of the information to criminally investigate or prosecute any alcohol or drug abuse patient.[facility] DaytonIn the event this information is protected by the Federal Confidentiality of Alcohol and Drug Abuse Patient Records regulations: The Federal rules restrict any use of the information to criminally investigate or prosecute any alcohol or drug abuse patient.[facility] DaytonIn the event this information is protected by the Federal Confidentiality of Alcohol and Drug Abuse Patient Records regulations: The Federal rules restrict any use of the information to criminally investigate or prosecute any alcohol or drug abuse patient.[facility] DaytonIn the event this information is protected by the Federal Confidentiality of Alcohol and Drug Abuse Patient Records regulations: The Federal rules restrict any use of the information to criminally investigate or prosecute any alcohol or drug abuse patient.[facility] DaytonIn the event this information is protected by the Federal Confidentiality of Alcohol and Drug Abuse Patient Records regulations: The Federal rules restrict any use of the information to criminally investigate or prosecute any alcohol or drug abuse patient.[facility] DaytonIn the event this information is protected by the Federal Confidentiality of Alcohol and Drug Abuse Patient Records regulations: The Federal rules restrict any use of the information to criminally investigate or prosecute any alcohol or drug abuse patient.[facility] DaytonIn the event this information is protected by the Federal Confidentiality of Alcohol and Drug Abuse Patient Records regulations: The Federal rules restrict any use of the information to criminally investigate or prosecute any alcohol or drug abuse patient.[facility] DaytonIn the event this information is protected by the Federal Confidentiality of Alcohol and Drug Abuse Patient Records regulations: The Federal rules restrict any use of the information to criminally investigate or prosecute any alcohol or drug abuse patient.[facility] DaytonIn the event this information is protected by the Federal Confidentiality of Alcohol and Drug Abuse Patient Records regulations: The Federal rules restrict any use of the information to criminally investigate or prosecute any alcohol or drug abuse patient.[facility] DaytonIn the event this information is protected by the Federal Confidentiality of Alcohol and Drug Abuse Patient Records regulations: The Federal rules restrict any use of the information to criminally investigate or prosecute any alcohol or drug abuse patient.[facility] DaytonIn the event this information is protected by the Federal Confidentiality of Alcohol and Drug Abuse Patient Records regulations: The Federal rules restrict any use of the information to criminally investigate or prosecute any alcohol or drug abuse patient.[facility] DaytonIn the event this information is protected by the Federal Confidentiality of Alcohol and Drug Abuse Patient Records regulations: The Federal rules restrict any use of the information to criminally investigate or prosecute any alcohol or drug abuse patient.[facility] DaytonIn the event this information is protected by the Federal Confidentiality of Alcohol and Drug Abuse Patient Records regulations: The Federal rules restrict any use of the information to criminally investigate or prosecute any alcohol or drug abuse patient.[facility] DaytonIn the event this information is protected by the Federal Confidentiality of Alcohol and Drug Abuse Patient Records regulations: The Federal rules restrict any use of the information to criminally investigate or prosecute any alcohol or drug abuse patient.[facility] DaytonIn the event this information is protected by the Federal Confidentiality of Alcohol and Drug Abuse Patient Records regulations: The Federal rules restrict any use of the information to criminally investigate or prosecute any alcohol or drug abuse patient.[facility] DaytonIn the event this information is protected by the Federal Confidentiality of Alcohol and Drug Abuse Patient Records regulations: The Federal rules restrict any use of the information to criminally investigate or prosecute any alcohol or drug abuse patient.[facility] DaytonIn the event this information is protected by the Federal Confidentiality of Alcohol and Drug Abuse Patient Records regulations: The Federal rules restrict any use of the information to criminally investigate or prosecute any alcohol or drug abuse patient.[facility] DaytonIn the event this information is protected by the Federal Confidentiality of Alcohol and Drug Abuse Patient Records regulations: The Federal rules restrict any use of the information to criminally investigate or prosecute any alcohol or drug abuse patient.[facility] DaytonIn the event this information is protected by the Federal Confidentiality of Alcohol and Drug Abuse Patient Records regulations: The Federal rules restrict any use of the information to criminally investigate or prosecute any alcohol or drug abuse patient.[facility] DaytonIn the event this information is protected by the Federal Confidentiality of Alcohol and Drug Abuse Patient Records regulations: The Federal rules restrict any use of the information to criminally investigate or prosecute any alcohol or drug abuse patient.[facility] DaytonIn the event this information is protected by the Federal Confidentiality of Alcohol and Drug Abuse Patient Records regulations: The Federal rules restrict any use of the information to criminally investigate or prosecute any alcohol or drug abuse patient.[facility] the event this information is protected by the Federal Confidentiality of Alcohol and Drug Abuse Patient Records regulations: The Federal rules restrict any use of the information to criminally investigate or prosecute any alcohol or drug abuse patient.[facility] DaytonIn the event this information is protected by the Federal Confidentiality of Alcohol and Drug Abuse Patient Records regulations: The Federal rules restrict any use of the information to criminally investigate or prosecute any alcohol or drug abuse patient.[facility] DaytonIn the event this information is protected by the Federal Confidentiality of Alcohol and Drug Abuse Patient Records regulations: The Federal rules restrict any use of the information to criminally investigate or prosecute any alcohol or drug abuse patient.[facility] the event this information is protected by the Federal Confidentiality of Alcohol and Drug Abuse Patient Records regulations: The Federal rules restrict any use of the information to criminally investigate or prosecute any alcohol or drug abuse patient.[facility] DaytonIn the event this information is protected by the Federal Confidentiality of Alcohol and Drug Abuse Patient Records regulations: The Federal rules restrict any use of the information to criminally investigate or prosecute any alcohol or drug abuse patient.[facility] DaytonIn the event this information is protected by the Federal Confidentiality of Alcohol and Drug Abuse Patient Records regulations: The Federal rules restrict any use of the information to criminally investigate or prosecute any alcohol or drug abuse patient.[facility] DaytonIn the event this information is protected by the Federal Confidentiality of Alcohol and Drug Abuse Patient Records regulations: The Federal rules restrict any use of the information to criminally investigate or prosecute any alcohol or drug abuse patient.[facility] DaytonIn the event this information is protected by the Federal Confidentiality of Alcohol and Drug Abuse Patient Records regulations: The Federal rules restrict any use of the information to criminally investigate or prosecute any alcohol or drug abuse patient.[facility] DaytonIn the event this information is protected by the Federal Confidentiality of Alcohol and Drug Abuse Patient Records regulations: The Federal rules restrict any use of the information to criminally investigate or prosecute any alcohol or drug abuse patient.[facility] DaytonIn the event this information is protected by the Federal Confidentiality of Alcohol and Drug Abuse Patient Records regulations: The Federal rules restrict any use of the information to criminally investigate or prosecute any alcohol or drug abuse patient.[facility] DaytonIn the event this information is protected by the Federal Confidentiality of Alcohol and Drug Abuse Patient Records regulations: The Federal rules restrict any use of the information to criminally investigate or prosecute any alcohol or drug abuse patient.[facility] DaytonIn the event this information is protected by the Federal Confidentiality of Alcohol and Drug Abuse Patient Records regulations: The Federal rules restrict any use of the information to criminally investigate or prosecute any alcohol or drug abuse patient.[facility] DaytonIn the event this information is protected by the Federal Confidentiality of Alcohol and Drug Abuse Patient Records regulations: The Federal rules restrict any use of the information to criminally investigate or prosecute any alcohol or drug abuse patient.[facility] DaytonIn the event this information is protected by the Federal Confidentiality of Alcohol and Drug Abuse Patient Records regulations: The Federal rules restrict any use of the information to criminally investigate or prosecute any alcohol or drug abuse patient.[facility] Reason for Visit (unrecogniz ed section and content) Reason Comments Post Op Reason Comments Eye Itching Both Eyes Reason Comments Cataract Follow Up Reason Onset Date Comments Refill Request 06/21/2021 Prednisolone 1% s/p YAG OD Reason Comments Follow Up For s/p bleb both eyes ( Dr. 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 Reason Comments Consult Reason Comments Request for outside medical records Reason Comments Pre-Op Exam IOL Calculation Reason Comments Epiretinal Membrane Reason Comments Post-op (Ophthalmology) Left Eye Specialty Diagnoses / Procedures Referred By Tay t Referred To Contact [facility] Diagnoses Nuclear sclerotic cataract of left eye Nuclear sclerotic cataract of left eye [H25.12] Procedures XCAPSL CTRC RMVL INSJ IO LENS PROSTH W/O ECP OPH BMTRY PRTL COHER INTRFRMTRY IO LENS PWR TONY INSJ RX ELUTING IMPLT PUNCTAL DILAT LAC CANAL EA PHACOEMULSIFICATION CATARACT IMPLANT INTRAOCULAR LENS W/O ENDOSCOPIC CYCLOPHOTOCOAGULATION OPHTHALMIC BIOMETRY BY PARTIAL COHERENCE INTERFEROMETRY W/INTRAOCULAR LENS POWER CALCULATION INSJ RX ELUTING IMPLT PUNCTAL DILAT LAC CANAL EA [facility] [address] [address] Referral ID Status Reason Start Date Expiration Date Visits Re quested Visits Authorized [id number] 1 1 Specialty Diagnoses / Procedures Referred By [facility] t Referred To Contact [facility] Diagnoses Nuclear sclerotic cataract of left eye Nuclear sclerotic cataract of left eye [H25.12] Procedures XCAPSL CTRC RMVL INSJ IO LENS PROSTH W/O ECP OPH BMTRY PRTL COHER INTRFRMTRY IO LENS PWR TONY INSJ RX ELUTING IMPLT PUNCTAL DILAT LAC CANAL EA PHACOEMULSIFICATION CATARACT IMPLANT INTRAOCULAR LENS W/O ENDOSCOPIC CYCLOPHOTOCOAGULATION OPHTHALMIC BIOMETRY BY PARTIAL COHERENCE INTERFEROMETRY W/INTRAOCULAR LENS POWER CALCULATION INSJ RX ELUTING IMPLT PUNCTAL DILAT LAC CANAL EA [facility] [address] [place] [id number] Reason Comments Patient Question Reason Comments Returning Patient's Call Reason Comments Decreased Vision Left Eye Reason Comments Pseudophakia of both eyes Reason Comments Opened In Error Reason Onset Date Comments Refill Request 05/28/2022 Reason Comments Macular Edema OU Epiretinal Membrane Follow Up OS Posterior Vitreous Detachment Follow Up OS Reason Onset Date Comments Refill Request 08/02/2022 Reason Comments Retinal Edema Follow Up Reason Comments Insurance Inquiry Reason Comments Referral Information Pre-Op CTHO Consult Cardiac Preop Checklist Reason Comments Branch Retinal Artery Occlusion Follow U p Reason Comments Med Change Request Care Teams (unrecognized sec tion and content) Pantograph Machine Set Up Operator Relationship Specialty Start Date End Date Marianne Hadley MD [address] [place], [place] [address] [place] [address] PCP - General Family Practice 06/27/11 Pantograph Machine Set Up Operator Relationship Specialty Start Date End Date Marianne Hadley MD [address] [place] [address] PCP - General Family Practice 06/27/11 Pantograph Machine Set Up Operator Relationship Specialty Start Date End Date Marianne Hadley MD [address] [place] [address] PCP - General Family Practice 06/27/11 Pantograph Machine Set Up Operator Relationship Specialty Start Date End Date Marianne Hadley MD [address] [place] [address] PCP - General Family Practice 06/27/11 Pantograph Machine Set Up Operator Relationship Specialty Start Date End Date Marianne Hadley MD [address] [place] [address] PCP - General Family Practice 06/27/11 Pantograph Machine Set Up Operator Relationship Specialty Start Date End Date Marianne Hadley MD [address] [place] [address] PCP - General Family Practice 06/27/11 Pantograph Machine Set Up Operator Relationship Specialty Start Date End Date Marianne Hadley MD [address] [place] [address] PCP - General Family Practice 06/27/11 Pantograph Machine Set Up Operator Relationship Specialty Start Date End Date Marianne Hadley MD [address] [place] [address] PCP - General Family Practice 06/27/11 Pantograph Machine Set Up Operator Relationship Specialty Start Date End Date Marianne Hadley MD [address] [place] [address] PCP - General Family Medicine 06/27/11 Pantograph Machine Set Up Operator Relationship Specialty Start Date End Date Marianne Hadley MD [address] [place] [address] PCP - General Family Medicine 06/27/11 Pantograph Machine Set Up Operator Relationship Specialty Start Date End Date Marianne Hadley MD [address] [place] [address] PCP - General Family Medicine 06/27/11 Pantograph Machine Set Up Operator Relationship Specialty Start Date End Date Marianne Hadley MD [address] [place] [address] PCP - General Family Medicine 06/27/11 Pantograph Machine Set Up Operator Relationship Specialty Start Date End Date Marianne Hadley MD [address] [place] [address] PCP - General Family Medicine 06/27/11 Pantograph Machine Set Up Operator Relationship Specialty Start Date End Date Marianne Hadley MD [address] [place] [address] PCP - General Family Medicine 06/27/11 Pantograph Machine Set Up Operator Relationship Specialty Start Date End Date Marianne Hadley MD [address] [place] [address] PCP - General Family Medicine 06/27/11 Pantograph Machine Set Up Operator Relationship Specialty Start Date End Date Marianne Hadley MD [address] [place] [address] PCP - General Family Medicine 06/27/11 Pantograph Machine Set Up Operator Relationship Specialty Start Date End Date Marianne Hadley MD [address] [place] [address] PCP - General Family Medicine 06/27/11 Pantograph Machine Set Up Operator Relationship Specialty Start Date End Date Marianne Hadley MD [address] [place] [address] PCP - General Family Medicine 06/27/11 Pantograph Machine Set Up Operator Relationship Specialty Start Date End Date Marianne Hadley MD [address] [place] [address] PCP - General Family Medicine 06/27/11 Pantograph Machine Set Up Operator Relationship Specialty Start Date End Date Marianne Hadley MD [address] [place] [address] PCP - General Family Medicine 06/27/11 Pantograph Machine Set Up Operator Relationship Specialty Start Date End Date Marianne Hadley MD [address] [place] [address] PCP - General Family Medicine 06/27/11 Pantograph Machine Set Up Operator Relationship Specialty Start Date End Date Marianne Hadley MD [address] [place] [address] PCP - General Family Medicine 06/27/11 Pantograph Machine Set Up Operator Relationship Specialty Start Date End Date Marianne Hadley MD [address] [place] [address] PCP - General Family Medicine 06/27/11 Pantograph Machine Set Up Operator Relationship Specialty Start Date End Date Marianne Hadley MD [address] [place] [address] PCP - General Family Medicine 06/27/11 Pantograph Machine Set Up Operator Relationship Specialty Start Date End Date Marianne Hadley MD [address] [place] [address] PCP - General Family Medicine 06/27/11 Pantograph Machine Set Up Operator Relationship Specialty Start Date End Date Marianne Hadley MD [address] [place] [address] PCP - General Family Medicine 06/27/11 [place] [address] [place] [address] Surgeon Cardiac Surg 03/20/23 Pantograph Machine Set Up Operator Relationship Specialty Start Date End Date Marianne Hadley MD [address] [place], [place] [id number] PCP - General Family Medicine 06/27/11 Kala Morgan MD [address] [place] [address] Surgeon Cardiac Surg 03/20/23 Pantograph Machine Set Up Operator Relationship Specialty Start Date End Date Marianne Hadley MD [address] [place] [address] PCP - General Family Medicine 06/27/11 [place] [address] [place] [address] Surgeon Cardiac Surg 03/20/23 Pantograph Machine Set Up Operator Relationship Specialty Start Date End Date Marianne Hadley MD [address] [place], [place] [id number] PCP - General Family Medicine 06/27/11 Kala Morgan MD [address] [place] [address] Surgeon Cardiac Surg 03/20/23 Nay Herrmann MD [address] [place] [address] Furnace Mechanic Helper Cardiology 04/01/23 Marika Alvarez MD [address] [place] [address] Furnace Mechanic Helper Cardiology 04/01/23 Pantograph Machine Set Up Operator Relationship Specialty Start Date End Date Marianne Hadley MD [address] [place] [address] [id number] PCP - General Family Medicine 06/27/11 Kala Morgan MD [address] [place] [address] Surgeon Cardiac Surg 03/20/23 Nay Herrmann MD [address] [place] [address] Furnace Mechanic Helper Cardiology 04/01/23 Marika Alvarez MD [address] [place] [address] Furnace Mechanic Helper Cardiology 04/01/23 Pantograph Machine Set Up Operator Relationship Specialty Start Date End Date Marianne Hadley MD [address] [place] [address] [id number] PCP - General Family Medicine 06/27/11 Kala Morgan MD [address] [place] [address] Surgeon Cardiac Surg 03/20/23 Nay Herrmann MD [address] [place] [address] Furnace Mechanic Helper Cardiology 04/01/23 Marika Alvarez MD [address] [place] [address] Furnace Mechanic Helper Cardiology 04/01/23 Scheduled Active and Recently Administ ered Medications (unrecognized section and content) Continuous Medication Order 03/13/2022 03/14/2022 03/15/2022 lactated ringers iv infusion (CANCELED) 30 mL/hr, INTRAVENOUS, CONTINUOUS, Starting on Fri03/15/22 at 0830, Until Fri03/15/22 at 0923, If blood glucose less than 100 mg/dL, contact anesthesia provider., Preprocedure 0830 (New Bag/Syring e/Bottle - Provider: Hilary Brennan RN)0923 (Due: Infusion Complete) PRN Medication Order 03/13/2022 03/14/2022 03/15/2022 balanced salt ophthalmic solution (BSS) (CANCELED) X (OR/PROCEDURE) PRN, Starting on Fri03/15/22 at 0844, Until Fri03/15/22 at 0909, Intraprocedure 0844 (Given - Provid er: Bryan Awad MD) cefuroxime intraocular injection 1 mg in NaCl 0.9% 0.1 mL (ZINACEF) (CANCELED) X (OR/PROCEDURE) PRN, Starting on Fri03/15/22 at 0845, Until Fri03/15/22 at 0909, Intraprocedure 0845 (Given - Provid er: Bryan Awad MD - Comment: Per Dr. Awad's request) dexAMETHasone ophthalmic insert for intracanalicular use (DEXTENZA) (CANCELED) X (OR/PROCEDURE) PRN, Starting on Fri03/15/22 at 0845, Until Fri03/15/22 at 0909, Intraprocedure 0845 (Given - Provid er: Bryan Awad MD) EPINEPHrine 0.3 mg in balanced salts 500 mL (CANCELED) X (OR/PROCEDURE) PRN, Starting on Fri03/15/22 at 0846, Until Fri03/15/22 at 0909, Intraprocedure 0846 (Given - Provid er: Bryan Awad MD) lidocaine (PF) 10 mg/mL (1 %) injection (XYLOCAINE) (CANCELED) X (OR/PROCEDURE) PRN, Starting on Fri03/15/22 at 0845, Until Fri03/15/22 at 0909, Intraprocedure 0845 (Given - Provid er: Bryan Awad MD) lidocaine 4 % (40 mg/mL) (XYLOCAINE) (CANCELED) X (OR/PROCEDURE) PRN, Starting on Fri03/15/22 at 0841, Until Fri03/15/22 at 0909, Intraprocedure 0841 (Given - Provid er: Jonatan Acosta MD)0845 (Given - Provider: Bryan Awad MD) PHENYLephrine syringe 1.5% (15 mg/mL) (PORTIA-SYNEPHRINE) (CANCELED) X (OR/PROCEDURE) PRN, Starting on Fri03/15/22 at 0844, Until Fri03/15/22 at 0909, Intraprocedure 0844 (Given - Provid er: Bryan Awad MD) Povidone-Iodine 5 % ophth soln (BETADINE) (CANCELED) X (OR/PROCEDURE) PRN, Starting on Fri03/15/22 at 0841, Until Fri03/15/22 at 09, Intraprocedure 08 (Given - Provid er: Jonatan Acosta MD) sod hyaluronate-sod chondroitin-sod hyaluronate intraocular kit (DUOVISC) (CANCELED) X (OR/PROCEDURE) PRN, Starting on Fri03/15/22 at 0844, Until Fri03/15/22 at 0909, Intraprocedure 0844 (Given - Provid er: Bryan Awad MD) FOR RECORDS PERTAINING TO PATIENTS WHO ARE OR HAVE BEEN ENROLLED IN A CHEMICAL DEPENDENCY/SUBSTANCEABUSE PROGRAM, SOME INFORMATION MAY BE OMITTED. This clinical summary was aggregated from multiple sources. Caution should be exercised in using it in the provision of clinical care. This summary normalizes information from multiple sources, and as a consequence, information in this document may materially change the coding, format and clinical context of patient data. In addition, data may be omitted in some cases. CLINICAL DECISIONS SHOULD BE BASED ON THE PRIMARY CLINICAL RECORDS. [employer] [facility]. provides no warranty or guarantee of the accuracy or completeness of information in this document.
--- NOTE | 2023-04-18 08:41 | CL.D_ITS ---
Patient Name: JOSEFA CHE Study Date: 04/18/2023 Performing: Brent Falk MD Ht: 60 inches 152.4 cm : 1950 Wt: 117 lbs 53.07 kg Age: 72 Gender: female BSA: 1.49 PROCEDURE(S) PERFORMED [id number]-([id number])LHC/COR/LV CLINICAL PROFILE AND INDICATIONS Indications: Valvular Disease Heart Failure: None Stress/Imaging Stress/Image Study Performed: No CAD Presentations: Other: sob CONCLUSIONS Minimal CAD nonobstructive. Preserved left ventricular ejection fraction. Severe mitral regurgitation with mitral valve prolapse and normal left ventricular LVEDP RECOMMENDATIONS Referral for mitral valve surgery DESCRIPTION OF PROCEDURE The patient arrived to the procedure lab. The risks and benefits of the procedure as well as a full description of our services here and current unavailability of surgical backup were fully explained to the patient and/or their significant other prior to the catheterization. The Timeout was completed, verifying the correct patient and procedure. The patient's procedural site was prepped and draped in the usual fashion. Local anesthetic was given subcutaneously to right radial region with Lidocaine 2%. Using a modified Seldinger technique, arterial access was obtained via the right radial artery, a 6Fr sheath was inserted. Right Coronary Artery selective angiography was then performed in multiple views using a 5 Fr. 4.0 [place] catheter. Left Coronary Artery selective angiography was performed in multiple views using a 5 Fr. JL3.5 catheter. Left Ventriculography was performed in OVALLES projection using a 5 Fr. Pigtail catheter. LV to AO pullback pressures were then recorded.The arterial sheath was pulled and a TR Band was applied for hemostasis 10 ml of air CORONARY ANGIOGRAPHY DOMINANCE: Right Dominant LEFT HEART ASSESSMENT Left Ventricular Ejection Fraction: by LV Gram 60 % Normal LV wall motion Normal Left Ventricular systolic function LEFT MAIN: Ostial 10% LEFT ANTERIOR DESCENDING ARTERY: Mild proximal disease with mild luminal irregularities noted CIRCUMFLEX ARTERY: Mild luminal irregularities RIGHT CORONARY ARTERY: Mild luminal irregularities VALVE FINDINGS: Mitral Valve Calcification Moderate Mitral Valve Insufficiency - Grade 4 Mitral Valve Prolapse Moderate COMPLICATIONS No Complications PROCEDURE MEDICATIONS Fentanyl 25 mcg IV Versed 0.5 mg IV Oxygen: 2 L/min via nasal cannula Benadryl 50 mg IV @ 04/18/2023 07:50:35 Heparin 3000 unit(s) IA 04/18/2023 08:01:19 Solu-medrol 125 mg IV 04/18/2023 07:50:20 SUMMARY OF HEMODYNAMIC DATA Time AIR REST ECG 07:16:47 ECG 07:56:02 AO 142/83 (110) SA 08:11:39 LV 165/9, 20 08:25:50 LV 163/9, 19 08:26:28 LV 162/11, 27 08:27:05 Signed By Brent Falk MD On 04/18/2023 08:41:48 Signed By Brent Falk MD On 04/18/2023 08:41:19 Brent Falk MD
== END 2023-04-18 11:00 | disposition home or self-care (01) ==
LOC: CLSP 07:00
PROVIDERS: PCP Family Medicine; Referring Provider Internal Medicine Cardiovascular Disease; Visit Provider Internal Medicine Cardiovascular Disease
DX: I34.1 Nonrheumatic mitral (valve) prolapse (principal); I34.0 Nonrheumatic mitral (valve) insufficiency; I47.10 Supraventricular tachycardia, unspecified; I25.10 Atherosclerotic heart disease of native coronary artery without angina pectoris; E78.5 Hyperlipidemia, unspecified; Z79.02 Long term (current) use of antithrombotics/antiplatelets; Z79.899 Other long term (current) drug therapy; Z86.73 Personal history of transient ischemic attack (TIA), and cerebral infarction without residual deficits; Z82.49 Family history of ischemic heart disease and other diseases of the circulatory system
CPT/HCPCS: 93458; 99152; 99153; J7040; C1769; C1894; Q9967

== ENCOUNTER → 2023-06-11 | Outpatient (CLI) | payer MEDICARE, SELFPAY ==
--- NOTE | 2023-06-11 10:01 | CR.ITP_ITS ---
Diagnosis General Information Admitting Diagnosis: Heart Valve Repair - Mitral valve Secondary Diagnosis: Hyperlipidemia, Paroxysmal Supraventricular Tachycardia, Mobitz I second degree heart block. 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 ) Stage of change r/t lifestyle modifications:: Action Gave educational material for:: Treating Heart Disease, How The Heart Works, What it means to have Heart Disease, How Coronary Artery Disease is Diagnosed, Heart Procedures, What Heart Medications Do, Risk Factors & Modifications, Living an Active Life, Nutrition, Emotions & Heart Disease, Stress Management & Relaxation and Sleep Disorders & Heart Disease Education/Goals Individual Counseling: Initial Assessment: Abnormal Cholesterol Levels and High Blood Pressure (White coat syndrome elevated blood pressure without hypertension) Cardiac Rehabilitation Goals Scale for measuring improvement of personal goals Diagnosis & Disease Process Outcomes/Goals: Pt IDs own risk factors & lifestyle modifications by Session 10, Verbalizes symptoms of angina & response by session 3. and Pt independently manages Plan/Interventions: Assist Pt to ID & engage in lifestyle modification to reduce CVD risk, Instruct on individual risk factors and Review symptoms of angina & emergency actions Safety Referral to Physical Therapy: No Referral to [facility] Case Management: No Fall Risk Assessed:: Yes Assistive Devices:: None Exercise - Initial Assessment Visit Date of Eval: 06/11/23 Session #:: 0 Mets: Pre-: >7 METS for 30 minutes by discharge Physician Prescribed Exercise Modalities: Treadmill, Airdyne and NuStep Frequency: 3x/week for 12 weeks [36 sessions] Intensity: 60-80% of age predicted maximum heart rate reserve Duration: 30 - 45 minutes Current METSs:: 3.0 Target Heart Rate:: 88-110 Resting Blood Pressure: 144/78 EKG Type: NSR Current Physical Activity or Exercising minutes: walking, 6,000 steps daily Outcomes & Goals Goals:: Verbalizes understanding of THR, RPE & goal METS by session 6, Documents in home exercise log/reports 30 min aerobic 5 day/wk by DC and Demonstrates accurate pulse taking by DC Intervention & Plan Exercise Program Goals: Instruct on personal THR & RPE, Instruct on MET level & personal MET goal, Show patient to take own pulse /validate performance until accurate and Instruct on home exercise Physical Activity Home Exercise Physical Activity - Home Exercise: Safe Exercise, Warm-up, Self-monitoring, Cool-Down, Home Exercise > 30 min Daily and Sitting Time <3 hours/daily Outcomes & Goals Outcomes/Goals: Demonstrates correct Warm-up/exercise Cool-Down (S3) if = 2.5 METs, Verbalizes symptoms of exercise intolerance by Session 3 (S3) and Demonstrate safe equipment use (S3) & follows exercise prescrition (6) Intervention & Plan Plan/Intervention: Instruct warm-up & cool-down if exercising at > 2 METs, Instruct on symptoms of exercise intolerance & actions to take, Instruct & monitor on saf and Assess intial functional capacity & safety risk Nutrition - Initial Assessment Program Goals Nutrition Program Goals Patient has diagnosis of Hyperlipidemia (ICD E78)?: Yes Visit Date of Eval: 06/11/23 Session #:: 0 (pre-program evaluation) Cholesterol/Lipids (Other Core Measures) Triglycerides (mg/dL): 92 (Dr. Falk Notes) Total Cholesterol (mg/dL): 226 LDL Cholesterol (mg/dL): 130 HDL Cholesterol (mg/dL): 78 Determine presence & major risk factors that modify LDL goal: Hypertension or hypertensive medication and Age men > 45 years; women >/= 55 years Outcomes/Goals: Pt IDs own risk factors & lifestyle modifications by Session 10, Verbalizes symptoms of angina & response by session 3. and Pt independently isabella ges Intervention/Plan: Instruct on personal lipid levels & lipid goals/NCEP guidelines and Instruct on cholesterol Diabetes (Other Core Measures) Diabetes Type: Not Applicable Weight Mgt (Other Care) Height: 5 ft Weight:: 114 lb BMI: 22.2 Outcomes/Goals: Pt sets, maintains & shows weight loss goal & trend during rehab Intervention/Plan: Instruct on ideal BMI & set weight loss goal w/patient Healthy Eating Habits Outcomes/Goals:: Consume diet rich in vegs,fruits,whole grain/high fiber,fish,lean meat and Limit sat/trans fats,cholesterol & added salts & sugars Intervention/Plan:: Assess current eating habits Education Gave educational materials for:: Healthy eating Core - Initial Assessment Visit Date of Eval: 06/11/23 Session #:: 0 (pre-program evaluation) Medication Compliance Preventative Medication(s):: Aspirin, Clopidogrel/P2Y12 inhibit, Statin/lipid and Beta jessica H/O mental health issues: depression, anxiety, or addiction?: No Doesn?t believe in the benefits of treatment?: No Believes medications are unnecessary or harmful?: No Has a concern about medication side effects?: Yes (Patient's body very sensitive to medications, often times doesn't do well.) Expresses concern over the cost of medications?: No Outcomes/Goals: Verbalizes medications,desired effect & common side effects @ DC, Pt self-reports following medication regimen and Keeps card in wallet w/medications listed by DC Interventions/plans: Instruct on medication effects & side effects, Review medication list w/patient every two weeks and Instruct importance of taking meds as ordered & assist problem solving Tobacco Use Tobacco Use: Non-smoker Hypertension Hypertension Diagnosis:: Hypertension ICD-10 I10 (hypertensive response without hypertension) Resting Blood Pressure:: 114/66 [place] [employer] Hypertension Guidelines Outcomes/Goals: Able to verbalize/achieve optimal blood pressure <130/80 and Incorporates diet changes & exercise for blood pressure control by DC Interventions/plan: Instruct on optimal blood pressure, hypertension & medications and Instruct on effects of sodium, alcohol, stress, exercise &hypertension Tobacco Cessation Referral Smoking Cessation Referral:: No Individual Education/Counseling:: No Education Schedule Given:: Yes Psychosocial - Initial Assess VIsit Date of Eval: 06/11/23 Session #:: 0 (pre-program evaluation) Target Goals Target Goals Patient Health Questionnaire PHQ-9 Screening Initial Assessment: 1. Little interest or pleasure in doing things: Not at all 2. Feeling down, depressed, or hopeless: Not at all 3. Trouble falling or staying asleep, or sleeping too much: Several days 4. Feeling tired or having little energy: Several days 5. Poor appetite or overeating: Not at all 6. Feeling bad about yourself -- or that you are a failure or have let yourself or your family down: Not at all 7. Trouble concentrating on things, such as reading the newspaper or watching television: Not at all 8. Moving or speaking so slowly that other people could have noticed. Or the opposite - being so fidgety or restless that you have been moving around a lot more than usual: Not at all 9. Thoughts that you would be better off , or of hurting yourself in some way: Not at all Total Score: 2 ALEJANDRINA-Q SV Test Statements CAD is a disease of the arteries in the heart: False Examples of risk factors for heart disease: True Angina is chest pain or discomfort: True The benefits of resistance training include: True Eating more meat and dairy products: False Anti-platelet medications such as aspirin are important: True The only effective way to manage stress: True An exercise warm-up slowly increases heart rate: True Prepared, processed foods usually have high sodium: True Depression is common after a heart attack: True The statin medications lower cholesterol: True To control blood pressure, lower the amount of sodium: True If someone gets chest discomfort during walking: False Transfats are partially hydrogenated vegetable oils: True Sleep apnea that is not treated increases the risk: False To control cholesterol, one should become a vegetarian: False Someone knows if he/she is exercising at the right level: True Diabetes cannot be prevented with exercise & health eating: True Stress is a large risk for heart attack: True A diet that can help lower blood pressure is rich in: True Total Score Total Correct Responses: 18 Self-Efficacy 6-Item Scale Initial Assessment: We would like to know how confident you are in doing certain activities. Please select your confidence level for: Fatigue Select Number: 8 Physical Discomfort or Pain Select Number: 8 Emotional Distress Select Number: 8 Other Symptoms or Health Problems Select Number: 8 Different Tasks and Activities Select Number: 8 Medication Select Number: 8 Total Score:: 8 Nutrition Survey Nutrition Survey Instructions Scoring Instructions Nutrition Survey Initial: Have you lost >10 lbs over the past 2 months without trying?: Yes Are you following a special diet at home for diabetes, low fat, or low salt?: Yes Are you interested in meeting with a dietitian for help understanding your diet?: Yes Do you eat less than 3 meals a day?: No Do you eat fatty meats (rodriguez, sausage, ribs, etc), fried foods, desserts, large amounts of salad dressings, margarine, butter, or cheese most days?: No Do you have food allergies? [Enter types in comment field]: Yes (LACTOSE INTOLERANCE) Do you eat in restaurants more than 3 times a week?: No Do you season food with salt, seasoning salt, or garlic salt?: Yes Do you used canned, boxed, frozen meals, or soups, seasoning packets?: No Total Score:: 5 Exercise - Final/Discharge Physician Prescribed Exercise Modalities: Treadmill, Airdyne and NuStep Frequency: 3x/week for 12 weeks [36 sessions] Intensity: 60-80% of age predicted maximum heart rate reserve Current METSs:: 3.0 Target Heart Rate:: 88-110 Nutrition - 30-Day Assessment Weight Mgt (Other Care) Height: 5 ft Weight:: 114 lb BMI: 22.2 Nutrition - 60-Day Assessment Weight Mgt (Other Care) Height: 5 ft Weight:: 114 lb BMI: 22.2 Core - 30-Day Assessment Visit Session #:: 0 Core - Final Assessment Hypertension Resting Blood Pressure:: 114/66 [place] [employer] Hypertension Guidelines Core - 60-Day Assessment Hypertension Resting Blood Pressure:: 114/66 [place] [employer] Hypertension Guidelines Psychosocial - 30-Day Assess Target Goals Target Goals Psychosocial - 60-Day Assess Target Goals Target Goals Psychosocial - 90-Day Assess Target Goals Target Goals Psychosocial - Final Assessmen Target Goals Target Goals Nutrition - 90-Day Assessment Weight Mgt (Other Care) Height: 5 ft Weight:: 114 lb BMI: 22.2 Nutrition - Final Assessment Program Goals Patient has diagnosis of Hyperlipidemia (ICD E78)?: Yes Weight Mgt (Other Care) Height: 5 ft Weight:: 114 lb BMI: 22.2
--- NOTE | 2023-06-11 10:01 | PCM.CR.HP2 ---
CR - History & Physical General Arrival date:: 06/11/23 Arrival time:: 10:00 Date of Referral:: 06/02/23 Date of CR Evaluation:: 06/11/23 Referring Physician: Dr. Falk Primary Diagnosis: Mitral Valve History of Present Cardiac Event Onset Date Heart valve replacement or repair:: Yes Type of Symptoms:: Didn't really have many symptoms, until the eye situation scheduled an echocardiogram. Purple quadrant in the right eye that is still there. Interventions with present event:: Sent to [facility], did ANA MARÍA-echo and carotid scan. Were there any complications?: dry heves, didnt react well to medications, and + COVID-19 day discharge. Medications Ambulatory Orders Medication Instructions Recorded estradiol 0.01% (0.1 mg/gram) 1 g vaginal .2XWEEK #43 grams 10/07/18 vaginal cream clobetasol 0.05 % topical cream 0 applic topical PRN PRN Skin 10/14/18 Cleansing #45 grams magnesium oxide 250 mg PO DAILY 10/19/19 omega-3 fatty acids 1,000 mg 1,000 mg PO DAILY 10/19/19 capsule (Fish Oil Concentrate) prednisolone acetate 1 % eye 1 drp ophthalmic (eye) PRN PRN Eye 10/19/19 drops,suspension Irritation denosumab 60 mg/mL subcutaneous 60 mg subcut [id number] 12/12/20 syringe (Prolia) lorazepam 0.5 mg tablet 0.5 mg PO BID PRN Anxiety 08/07/21 diphenhydramine HCl 25 mg tablet 25 mg PO QHS PRN ALLERGIES 02/07/22 (Benadryl Allergy) calcium 650 mg-vitamin D3 12.5 3 tab PO DAILY 08/15/22 mcg-vitamin K 40 mcg chewable tablet (Viactiv) budesonide 32 mcg/actuation nasal 1 spray intranasal DAILY PRN 02/27/23 spray (Rhinocort Allergy) allergy symptoms ipratropium bromide 42 mcg (0.06 2 spray intranasal TID 02/27/23 %) nasal spray sumatriptan succinate 50 mg tablet 50 mg PO ONCE PRN migraine headache 02/27/23 (Imitrex) promethazine 12.5 mg tablet 12.5 mg PO BID PRN nausea and 03/10/23 vomiting #30 tabs clopidogrel 75 mg tablet (Plavix) 75 mg PO DAILY #30 tabs 04/07/23 aspirin 81 mg tablet,delayed 81 mg PO DAILY 04/08/23 release (Adult Aspirin Regimen) atorvastatin 40 mg tablet 40 mg PO QHS #90 tabs 04/10/23 losartan 50 mg tablet 50 mg PO DAILY #90 tabs 04/21/23 albuterol sulfate 90 mcg/actuation 2 inh inhalation Q6H PRN shortness 06/11/23 aerosol inhaler of breath or wheezing furosemide 20 mg tablet 20 mg PO DAILY 06/11/23 guaifenesin 100 mg/5 mL oral liquid 200 mg PO Q4H PRN cough 06/11/23 lidocaine 4 % topical patch 1 patch topical DAILY 06/11/23 (Lidocaine Pain Relief) Allergies Allergies amoxicillin [From Augmentin] Adverse Reaction (Intermediate, Verified 04/08/23 15:32) Diarrhea clavulanic acid [From Augmentin] Adverse Reaction (Intermediate, Verified 04/08/23 15:32) Diarrhea cyclobenzaprine [From Flexeril] Adverse Reaction (Intermediate, Verified 04/08/23 15:32) PT UNSURE OF REACTION gabapentin [From Neurontin] Adverse Reaction (Intermediate, Verified 04/08/23 15:32) fatigue tizanidine Adverse Reaction (Intermediate, Verified 04/08/23 15:32) Rash omeprazole [From Prilosec] Adverse Reaction (Unknown, Verified 06/11/23 10:20) GI upset pantoprazole [From Protonix] Adverse Reaction (Unknown, Verified 06/11/23 10:20) gi upset rabeprazole [From AcipHex] Adverse Reaction (Unknown, Verified 06/11/23 10:20) unknown ranitidine Adverse Reaction (Unknown, Verified 06/11/23 10:20) headache hydromorphone [From Dilaudid] Adverse Reaction (Verified 06/11/23 10:20) intolerance Iodinated Contrast Media Adverse Reaction (Verified 04/08/23 15:32) GI Upset levofloxacin Adverse Reaction (Verified 04/08/23 15:32) tendonitis Proton Pump Inhibitors Adverse Reaction (Verified 04/08/23 15:32) Other increase gastric acids shellfish derived Adverse Reaction (Verified 04/08/23 15:32) GI Upset sorbitol Adverse Reaction (Verified 04/08/23 15:32) GI Upset Sleep Disorder Evaluation Hx of Sleep Apnea: Yes Do you snore loudly (louder than talking or can be heard through closed doors)?: No Do you often feel tired/ fatigued/ sleepy during daytime?: Yes Has anyone observed you stop breathing during sleep?: No History of Hypertension (for STOP score): No STOP Results: Negative Advanced Directives Advanced Directives Power of Health It Specialist: Yes ( is POA Healthcare) Living Will: Yes Advance Directives Information Provided: No Advance Directives on File: Yes DNR Order?:: No MOLST See MOLST form: No Past Medical History Covid-19 Screening Physicial Symptoms Fever: Yes (05/26/2023 positive for COVID-19 negative by 06/02/2023) Unexplained muscle aches: Yes Current respiratory symptoms: Yes (cough; persitant) Upper respiratory infections symptoms: No Gastro-intestinal symptoms: Yes (dry heaves, nausea, GI Upset often from medication intolerance) [id number]-[id number]-[id number] symptoms: No Other Clinical Concerns Has tested positive for COVID-19 in last 30 days: Yes Date of testin05/26/23 Exposure Risk Had contact w/person w/symptoms or Covid-19 (+) last 14 days: No Has High Risk Exposures ID'd by Health dept/Inf Control team: No Pertinent Comorbidities 65 years or older:: Yes Lives in Assisted Living facility:: No Has a chronic lung disease or moderate to severe asthma:: No Has a serious heart condition:: No Immunocompromised:: No Severely obese (Body Mass Index of 40 or higher):: No Diabetic:: No Has chronic kidney disease undergoing dialysis:: No Has liver disease:: No Past Medical Illness Past Medical History Allergic rhinitis J30.9 Anxiety F41.9 ON MED Arthritis M19.90 Back pain M54.9 LOWER BACK PAIN /BILAT SCIATIC PAIN Cardiology follow-up encounter Z09 G LAST VISIT 12/2021 Dietary restriction Z71.3 NO LACTOSE Difficulty swallowing R13.10 DRY FOODS GET STUCK Epigastric pain R10.13 Gastric reflux K21.9 OCC OTC History of echocardiogram Z92.89 202 History of hiatal hernia Z87.19 History of Holter monitoring Z98.890 2019 History of pain when walking Z87.898 SCIATIC PAIN Hyperlipidemia E78.5 Leg cramps R25.2 Migraines G43.909 MVP (mitral valve prolapse) I34.1 Non-smoker Z78.9 Nonrheumatic mitral (valve) prolapse I34.1 Osteoporosis M81.0 Paroxysmal supraventricular tachycardia I47.1 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 Post-menopausal Z78.0 TIA (transient ischemic attack) G45.9 Wears glasses Z97.3 Past Surgical History Past Surgical History (Updated 06/02/23 @ 11:24 by Tori Bach) History of colonoscopy with polypectomy (10/15/19) Z98.890, Z86.010 History of esophagogastroduodenoscopy (EGD) (10/15/19) Z98.890 History of eye surgery (08/11/19) Z98.890 right History of left heart catheterization (11/10/01) Z98.890 History of Wing fundoplication Z98.890 History of radiofrequency ablation procedure for cardiac arrhythmia (09/21/08) Z98.890 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 Goncalves. Hx of mitral valve repair (05/20/23) Z98.890 35mm Ramirez band, MAC debridement, P2 quadrangular resection with sliding plasty extending to P1 and P3 Hx of rhinoplasty Z98.890 Family History Summary Family History Mother CAD (coronary artery disease) CABG Heart disease Father CAD (coronary artery disease) CABG Myocardial infarction, Onset Age: 9 Social History Smoking History Smoking Status: Never smoker Hx Tobacco Use: No Hx Smoking Exposure: No Alcohol Use Alcohol Usage: No Substance Abuse Hx Substance Use: No Occupation Occupation (List type of work in comments):: Retired Hobbies, Recreation, Social Activities Hobbies: Sewing (talat, sew, knit), Reading and Other (cooking, baking) Recreational Activities: I am able to engage in all my recreational activities Social Environment Status Marital Status: Current Living Arrangements Living Environment:: Spouse Children How many children do you have?: 4 Do any of your children live nearby?: Yes Safety Do you feel safe in your surroundings?: Yes Assistance Do you need any assistance at home?: none Review of Systems Review of Systems Hints Review of Present Symptoms: Reports Wound Healing, Dizziness/Lightheadedness (have had a couple episodes from hypotension (taking the lasix period)), Heart Arrhythmia/Irregularities (Paroxysmal supraventricular tachycardia, Mobitz-I 2nd degree heart block), Appetite - Normal and Appetite - Special Diet (try do low fat, low cholesterol, low salt, anemic so try to add red meat spinach to increase iron.); Denies Shortness of Breath at Rest, Shortness of Breath with Exertion, Angina, Sleep - Normal (not the same, disruptive sleep ) or Sexual Changes Pain Is Patient Pain Free?: No Pain Location: none Risk Factor Assessment Vital Signs Respiratory Rate: 14 Pulse Ox: 98 Blood Pressure: 114/66 Pulse Pulse Rate: 87 Hypertension How long have you been treated?: recent hospital discharge now off of it. On medication(s)?: yes Blood Pressure Sitting - Left Arm: 114/66 Blood Cholesterol/Lipids Total Cholesterol (mg/dL) Goal = less than 200 mg/dL: 226 HDL Cholesterol (mg/dL) Goal = less than 40 mg/dL: 78 LDL Cholesterol (mg/dL) Goal = less than 70 mg/dL: 130 Triglycerides (mg/dL) Goal = less than 150 mg/dL: 92 Obesity Height: 5 ft Weight:: 114 lb Weight in Pounds: 114.0 lbs Weight Source: Stated by Patient Body Mass Index (BMI): 22.2 Physical Inactivity Physical Inactivity: Reg Exercise 30 min/day (walking) Risk Stratification Risk Guidelines: Lowest Risk: Risk Factor for Smoking, Risk Factor for Dyslipidemia, Risk Factor for Diabetes, Risk Factor for Obesity, Risk Factor for Hypertension, Risk Factor for Sedentary Lifestyle and Risk Factor for Depression For Smoking Smoking Risk Guidelines For Dyslipidemia Dyslipidemia Risk Guidelines For Diabetes Mellitus Diabetes Risk Guidelines For Obesity/Overweight Obesity/Overweight Risk Guidelines For Hypertension Hypertension Risk Guidelines For Sedentary Lifestyle Sedentary Lifestyle Risk Guidelines For Depression Depression Risk Guidelines Family History Family History Mother CAD (coronary artery disease) Heart disease Father CAD (coronary artery disease) Myocardial infarction, Onset Age: 9 Motivation Motivation to Participate On a scale of 1 to 10, how prepared are you to commit to attending program?: 10 What do you see as barriers to successfully being able to complete the program?: vacation time end of June What do you see as the benefits of succesfully completing the program? In other words, what do you hope to get out of participating in the program?: more stamina, learning more about heart healthy life Are there issues you are dealing with that will interfere with completing the program?: no Do you have a spouse or signficant other, family or friends who will help support you to complete the program?: Yes
[2023-06-11 10:36] VITALS: BP 144/78; BMI 22.2
[2023-06-11 10:41] VITALS: BP 114/66
[2023-06-11 10:54] VITALS: BP 114/66; PULSE 87; RESP 14; O2SAT 98; BMI 22.2
== END | disposition home or self-care (01) ==
LOC: CR 09:57
PROVIDERS: PCP Family Medicine; Referring Provider Internal Medicine Cardiovascular Disease; Visit Provider Internal Medicine Cardiovascular Disease
DX: K22.70 Barrett's esophagus without dysplasia (principal); E78.5 Hyperlipidemia, unspecified; K21.9 Gastro-esophageal reflux disease without esophagitis

== ENCOUNTER 2023-06-16 11:30 | Outpatient (RCR) | payer MEDICARE, SELFPAY ==
[2023-06-11 10:36] VITALS: BMI 22.2
== END 2023-06-17 23:59 ==
LOC: CR 11:30
PROVIDERS: PCP Family Medicine; Referring Provider Internal Medicine Cardiovascular Disease; Visit Provider Internal Medicine Cardiovascular Disease
DX: Z98.890 Other specified postprocedural states (principal)
CPT/HCPCS: 93798

== ENCOUNTER 2023-06-18 07:08 | Outpatient (RCR) | payer MEDICARE, SELFPAY ==
[2023-06-11 10:36] VITALS: BMI 22.2
== END 2023-07-18 23:59 ==
LOC: CR 07:08
PROVIDERS: PCP Family Medicine; Referring Provider Internal Medicine Cardiovascular Disease; Visit Provider Internal Medicine Cardiovascular Disease
DX: Z98.890 Other specified postprocedural states (principal)
CPT/HCPCS: 93798

== ENCOUNTER → 2023-07-02 | Outpatient (CLI) | payer MEDICARE, SELFPAY ==
[2023-06-11 10:36] VITALS: BMI 22.2
[2023-07-02 11:22] LABS: Absolute Lymphocyte Count 1.45 X10^3/uL (0.83-4.51); Absolute Neutrophil Count 2.4 X10^3/uL (2.0-7.7); Basophil# 0.05 X10^3/uL; Basophil% 1.1 % (0-1); Eosinophil# 0.18 X10^3/uL; Eosinophils% 3.9 % (0-5); Hematocrit 33.4 % (37-47); Hemoglobin 10.2 g/dL (12.0-15.0); Lymphocyte # 1.45 X10^3/ul (0.83-4.51); Lymphocyte % 31.6 % (19-41); Mean Corp Hgb Conc 30.5 g/dL (32-36); Mean Corpuscular Hgb 26.9 pg (27.0-32.0); Mean Corpuscular Volume 88.1 fL (81-99); Monocyte% 10.9 % (0-10); NRBC Flagged by Analyzer 0 % (0-5); Neutrophil % 52.3 % (47-70); Platelet Count 316 K/mm3 (150-450); RBC Distribution Width CV 13.2 % (11.6-14.6); RBC Distribution Width SD 42.7 fl (35.1-43.9); Red Blood Count 3.79 M/mm3 (4.2-5.4); White Blood Count 4.6 K/mm3 (4.4-11.0)
[2023-07-02 12:01] LABS: ALB/GLOB Ratio 1.1 RATIO (0.9-2.4); AST(SGOT) 20 U/L (15-37); Alanine Aminotransfer ALT/SGPT 29 U/L (13-56); Albumin, Serum 3.4 g/dL (3.2-5.0); Alkaline Phosphatase 112 U/L (45-117); Anion Gap 5 (5-15); BUN 13 mg/dL (7-18); BUN/Creat Ratio 21.8 RATIO (10-20); Calcium,Total 8.9 mg/dL (8.5-10.1); Chloride 105 mmol/L (98-107); EST Glomerular Filtration Rate 105 mL/min (>60); Est Glom Filt Rate - Afr Amer 127 mL/min (>60); Globulin 3.1 g/dL (2.2-4.2); Glucose 66 mg/dL (74-106); Potassium 4.2 mmol/L (3.5-5.1); Protein, Total 6.5 g/dL (6.4-8.2); Sodium Level 139 mmol/L (136-145); T4 Free Direct 0.82 ng/dL (0.76-1.46)
== END | disposition home or self-care (01) ==
PROVIDERS: PCP Family Medicine; Visit Provider Nurse Practitioner Family
DX: I47.10 Supraventricular tachycardia, unspecified (principal); I34.1 Nonrheumatic mitral (valve) prolapse; E78.5 Hyperlipidemia, unspecified
CPT/HCPCS: 36415; 80053; 83735; 84439; 84443; 85025

== ENCOUNTER 2023-07-25 10:45 | Outpatient (CLI) | payer MEDICARE, SELFPAY ==
[2023-06-11 10:36] VITALS: BMI 22.2
[2023-07-25 11:01] VITALS: BP 122/58; PULSE 70; RESP 16; TEMP 36; O2SAT 95; BMI 22.6
[2023-07-25] MEDS: 0.9% NaCl IVPB Med Flush (250 mL) 15 ML IV (11:16)
[2023-07-25] MEDS: Iron Sucrose Complex 200 MG in 0.9% Normal Saline (100mL Bag) 100 ML 220 MG IV (11:16)
[2023-07-25] MEDS: 0.9% NaCl Peripheral Flush Adult/Peds IV (11:24)
[2023-07-25 12:00] VITALS: BP 116/56; PULSE 68; RESP 16; TEMP 36.2; O2SAT 99
== END 2023-07-25 23:59 | disposition home or self-care (01) ==
LOC: MEDOUTP 10:46
PROVIDERS: PCP Family Medicine; Referring Provider Family Medicine; Visit Provider Family Medicine
DX: D64.9 Anemia, unspecified (principal)
CPT/HCPCS: 96365; J1756; J7050; A4216

== ENCOUNTER 2023-07-28 10:51 | Outpatient (CLI) | payer MEDICARE, SELFPAY ==
[2023-06-11 10:36] VITALS: BMI 22.2
[2023-07-28 10:55] VITALS: BP 127/70; PULSE 73; RESP 16; TEMP 35.9; O2SAT 100
[2023-07-28] MEDS: 0.9% NaCl IVPB Med Flush (250 mL) 15 ML IV (11:06)
[2023-07-28] MEDS: 0.9% NaCl Peripheral Flush Adult/Peds IV (11:06)
[2023-07-28] MEDS: Iron Sucrose Complex 200 MG in 0.9% Normal Saline (100mL Bag) 100 ML 220 MG IV (11:21)
[2023-07-28 12:07] VITALS: BP 115/56; PULSE 69; RESP 16; TEMP 36.6
== END 2023-07-28 23:59 | disposition home or self-care (01) ==
LOC: MEDOUTP 10:51
PROVIDERS: PCP Family Medicine; Referring Provider Family Medicine; Visit Provider Family Medicine
DX: D64.9 Anemia, unspecified (principal)
CPT/HCPCS: 96365; J1756; J7050; A4216

== ENCOUNTER 2023-07-30 10:50 | Outpatient (CLI) | payer MEDICARE, SELFPAY ==
[2023-06-11 10:36] VITALS: BMI 22.2
[2023-07-30 11:02] VITALS: BP 111/64; PULSE 75; RESP 16; TEMP 35.9; O2SAT 98; BMI 22.4
[2023-07-30] MEDS: 0.9% NaCl IVPB Med Flush (250 mL) 15 ML IV (11:06)
[2023-07-30] MEDS: 0.9% NaCl Peripheral Flush Adult/Peds IV (11:06)
[2023-07-30] MEDS: Iron Sucrose Complex 200 MG in 0.9% Normal Saline (100mL Bag) 100 ML 220 MG IV (11:06)
[2023-07-30 11:59] VITALS: BP 126/73; PULSE 65; RESP 16; TEMP 36; O2SAT 97
== END 2023-07-30 23:59 | disposition home or self-care (01) ==
LOC: MEDOUTP 10:50
PROVIDERS: PCP Family Medicine; Referring Provider Family Medicine; Visit Provider Family Medicine
DX: D64.9 Anemia, unspecified (principal)
CPT/HCPCS: 96365; J1756; J7050; A4216

== ENCOUNTER 2023-08-01 10:48 | Outpatient (CLI) | payer MEDICARE, SELFPAY ==
[2023-06-11 10:36] VITALS: BMI 22.2
[2023-08-01 11:09] VITALS: BP 120/58; PULSE 66; RESP 14; TEMP 35.8; O2SAT 98; BMI 22.4
[2023-08-01] MEDS: Iron Sucrose Complex 200 MG in 0.9% Normal Saline (100mL Bag) 100 ML 220 MG IV (11:29)
[2023-08-01] MEDS: 0.9% NaCl IVPB Med Flush (250 mL) 15 ML IV (11:29)
[2023-08-01] MEDS: 0.9% NaCl Peripheral Flush Adult/Peds IV (11:30)
[2023-08-01 12:23] VITALS: BP 123/56; PULSE 64; RESP 16; TEMP 35.9; O2SAT 100
== END 2023-08-01 23:59 | disposition home or self-care (01) ==
LOC: MEDOUTP 10:49
PROVIDERS: PCP Family Medicine; Referring Provider Family Medicine; Visit Provider Family Medicine
DX: D64.9 Anemia, unspecified (principal)
CPT/HCPCS: 96365; J1756; J7050; A4216

== ENCOUNTER 2023-08-04 14:14 | Outpatient (CLI) | payer MEDICARE, SELFPAY ==
[2023-06-11 10:36] VITALS: BMI 22.2
[2023-08-04] MEDS: Iron Sucrose Complex 200 MG in 0.9% Normal Saline (100mL Bag) 100 ML 220 MG IV (14:23)
[2023-08-04 14:25] VITALS: BP 115/65; PULSE 73; RESP 16; TEMP 36.4; O2SAT 98; BMI 22.8
[2023-08-04] MEDS: 0.9% NaCl IVPB Med Flush (250 mL) 15 ML IV (14:27)
[2023-08-04] MEDS: 0.9% NaCl Peripheral Flush Adult/Peds IV (14:27)
[2023-08-04 15:05] VITALS: BP 131/73; PULSE 70; RESP 16; TEMP 36.3; O2SAT 97
== END 2023-08-04 23:59 | disposition home or self-care (01) ==
LOC: MEDOUTP 14:14
PROVIDERS: PCP Family Medicine; Referring Provider Family Medicine; Visit Provider Family Medicine
DX: D64.9 Anemia, unspecified (principal)
CPT/HCPCS: 96365; J1756; J7050; A4216

== ENCOUNTER → 2023-08-19 | Outpatient (CLI) | payer MEDICARE, SELFPAY ==
[2023-06-11 10:36] VITALS: BMI 22.2
--- NOTE | 2023-08-19 08:40 | RAD_ITS ---
STUDY: X-RAY CHEST REASON FOR EXAM: Female, 72 years old. Mitral valve replacement. TECHNIQUE: Frontal and lateral views of the chest. COMPARISON: June 28, 2014 FINDINGS: Stable mild hyperinflation. There is no demonstrated pleural abnormality. Borderline cardiomegaly with sternotomy wires, changes of aortic valve replacement and aortic tortuosity. Normal mediastinum and chuy. Normal visualized pulmonary arteries. Normal visualized thoracic spine. Normal visualized ribs, clavicles, and shoulders. No abnormality of the visualized soft tissue structures of the upper abdomen. RAD/Chest PA and Lateral IMPRESSION: Stable chest with no acute or active cardiopulmonary disease. Electronically Signed: Jaxson Rod MD at 9:56 EDT ,
[2023-08-19 09:00] LABS: Absolute Lymphocyte Count 1.34 X10^3/uL (0.83-4.51); Absolute Neutrophil Count 1.2 X10^3/uL (2.0-7.7); Basophil# 0.04 X10^3/uL; Basophil% 1.4 % (0-1); Eosinophils% 3.4 % (0-5); Hemoglobin 12.5 g/dL (12.0-15.0); Lymphocyte # 1.34 X10^3/ul (0.83-4.51); Lymphocyte % 45.6 % (19-41); Mean Corp Hgb Conc 31.3 g/dL (32-36); Mean Corpuscular Hgb 27.3 pg (27.0-32.0); Mean Corpuscular Volume 87.3 fL (81-99); Mean Platelet Vol. 9.3 fl (6.2-12.0); Monocyte# 0.26 X10^3/uL; Monocyte% 8.8 % (0-10); NRBC Flagged by Analyzer 0 % (0-5); Neutrophil % 40.8 % (47-70); Platelet Count 210 K/mm3 (150-450); RBC Distribution Width CV 18.3 % (11.6-14.6); RBC Distribution Width SD 58.4 fl (35.1-43.9); Red Blood Count 4.58 M/mm3 (4.2-5.4); White Blood Count 2.9 K/mm3 (4.4-11.0)
[2023-08-19 09:22] LABS: ALB/GLOB Ratio 1.3 RATIO (0.9-2.4); AST(SGOT) 20 U/L (15-37); Alanine Aminotransfer ALT/SGPT 34 U/L (13-56); Albumin, Serum 3.6 g/dL (3.2-5.0); Alkaline Phosphatase 63 U/L (45-117); Anion Gap 5 (5-15); BUN 9 mg/dL (7-18); BUN/Creat Ratio 14.5 RATIO (10-20); Calcium,Total 8.8 mg/dL (8.5-10.1); Chloride 108 mmol/L (98-107); Cholesterol 202 mg/dL (200); Creatinine, Serum 0.62 mg/dL (0.55-1.02); EST Glomerular Filtration Rate 100 mL/min (>60); Est Glom Filt Rate - Afr Amer 121 mL/min (>60); Globulin 2.8 g/dL (2.2-4.2); Glucose 84 mg/dL (74-106); High Density Lipoprotein 68 mg/dL; Protein, Total 6.4 g/dL (6.4-8.2); Sodium Level 140 mmol/L (136-145); Triglycerides 145 mg/dL; Very Low Density Lipoprotein 29 mg/dL (5-40)
== END | disposition home or self-care (01) ==
LOC: LAB 08:24
PROVIDERS: PCP Family Medicine; Referring Provider Internal Medicine Cardiovascular Disease; Visit Provider Internal Medicine Cardiovascular Disease
DX: Z98.890 Other specified postprocedural states (principal); D64.9 Anemia, unspecified; K22.70 Barrett's esophagus without dysplasia; I34.0 Nonrheumatic mitral (valve) insufficiency
CPT/HCPCS: 36415; 71046; 80053; 80061; 85025

== ENCOUNTER → 2023-08-26 | Outpatient (CLI) | payer MEDICARE, SELFPAY ==
[2023-06-11 10:36] VITALS: BMI 22.2
--- NOTE | 2023-08-26 12:56 | ECHOD_ITS ---
Reason For Study: MV Repair Procedure This was a 2D Doppler, Color Flow transthoracic echocardiogram. Exam performed in department. Left Ventricle Normal LV size. Left ventricular systolic function is normal. The left ventricular ejection fraction is 65 %. Stage 1 diastolic dysfunction. No regional wall motion abnormalities noted. Right Ventricle Normal RV size. Normal systolic function. Atria Normal left atrium. Normal right atrium. Mitral Valve Mean transmitral valve gradient 3 mmHg. Mild (1+) mitral valve insufficiency. Status post mitral valve repair with annuloplasty ring. Tricuspid Valve Normal tricuspid valve. Mild (1+) tricuspid valve insufficiency. Pulmonary artery systolic pressure is 28 mmHg. Aortic Valve Trisinus/trileaflet aortic valve. Pulmonic Valve Normal pulmonic valve. Mild (1+) pulmonic valve insufficiency. Great Vessels Normal aortic root. The pulmonary artery is normal size. Normal inferior vena cava. Pericardium/Pleural No pericardial effusion. MMode/2D Measurements & Calculations LVIDd: 3.8 cm IVSd: 1.2 cm Ao root diam: 3.0 cm LVIDs: 2.1 cm LVPWd: 1.1 cm RVDd: 3.0 cm FS: 45.7 % LAV(MOD-bp): 43.3 ml LVAd ap4: 21.5 cm2 LVAd ap2: 21.7 cm2 LAV(MOD-bp) Indexed: 29.2 ml/m2 LVLd ap4: 6.8 cm LVLd ap2: 7.1 cm LAV(MOD-sp2): 41.1 ml EDV(MOD-sp4): 57.3 ml EDV(MOD-sp2): 58.4 ml LAV(MOD-sp4): 42.2 ml EDV(sp4-el): 58.1 ml EDV(sp2-el): 56.7 ml LVAs ap4: 11.4 cm2 LVAs ap2: 11.8 cm2 LVLs ap4: 5.5 cm LVLs ap2: 5.9 cm ESV(MOD-sp4): 20.1 ml ESV(MOD-sp2): 20.9 ml ESV(sp4-el): 20.0 ml ESV(sp2-el): 20.1 ml EF(MOD-sp4): 64.9 % EF(MOD-sp2): 64.3 % EF(sp4-el): 65.6 % SV(MOD-sp4): 37.2 ml SV(MOD-sp2): 37.6 ml SV(sp4-el): 38.1 ml LA dimension(2D): 3.5 cm LA A4 area: 15.9 cm2 RA A4 area: 11.3 cm2 TAPSE: 1.7 cm Time Measurements MV dec time: 0.21 sec Doppler Measurements & Calculations MV E max emilio: 118.5 cm/sec Lat Peak E' Emilio: 8.9 cm/sec Med Peak E' Emilio: 5.5 cm/sec MV A max emilio: 122.2 cm/sec E/E' lat: 13.4 E/E' med: 21.4 MV E/A: 0.97 MV V2 max: 131.6 cm/sec MV P1/2t max emilio: 116.5 cm/sec Ao V2 max: 114.1 cm/sec MV max P.0 mmHg MV P1/2t: 71.6 msec Ao max P.2 mmHg MV V2 mean: 85.2 cm/sec MV dec slope: 476.9 cm/sec2 Ao V2 mean: 76.5 cm/sec MV mean P.2 mmHg Ao mean P.7 mmHg MV V2 VTI: 37.0 cm MVA(P1/2t): 3.1 cm2 Ao V2 VTI: 23.4 cm AV (velocity ratio): 0.91 LV V1 max: 102.8 cm/sec PA V2 max: 91.5 cm/sec TR max emilio: 244.7 cm/sec LV V1 max P.2 mmHg TR max P.9 mmHg LV V1 mean P.3 mmHg LV V1 mean: 72.6 cm/sec LV V1 VTI: 21.1 cm ECHO/Echo Complete Interpretation Summary Status post mitral valve repair with annuloplasty ring. Normal LV size. Left ventricular systolic function is normal. The left ventricular ejection fraction is 65 %. Stage 1 diastolic dysfunction. Mild (1+) mitral valve insufficiency. Mean transmitral valve gradient 3 mmHg. Ordering Physician: Brent Falk Referring Physician: Santy Hadley MD Performed By: Belem Ochoa CHARISMA
== END | disposition home or self-care (01) ==
LOC: CVS 12:54
PROVIDERS: PCP Family Medicine; Referring Provider Internal Medicine Cardiovascular Disease; Visit Provider Internal Medicine Cardiovascular Disease
DX: I47.10 Supraventricular tachycardia, unspecified (principal); I50.30 Unspecified diastolic (congestive) heart failure; I05.9 Rheumatic mitral valve disease, unspecified; Z95.2 Presence of prosthetic heart valve
CPT/HCPCS: 93306

== ENCOUNTER 2023-10-13 06:41 | Day surgery (SDC) | payer MEDICARE, SELFPAY ==
[2023-06-11 10:36] VITALS: BMI 22.2
[2023-09-26 10:28] VITALS: BMI 22.8
[2023-10-13] VITALS (9 sets, daily range): BP systolic 96–145; BP diastolic 58–80; PULSE 66–79; RESP 16–18; TEMP 36.1–36.3; O2SAT 93–100; BMI 22.4
--- NOTE | 2023-10-13 06:44 | PCM.HP.BLA ---
History and Physical Date of Admission: 10/13/23 FH mother colon cancer late 70?s. Prior workup: ? US RUQ 7.20.20 at [facility] with mild increase of hepatic echogenicity. EGD and colonoscopy 10.14. at [facility]. EGD found ertythematous mucosa of antrum; gastritis; irregular ZLine. Pathology changes of gastric reactive changes; gastritis; inflamed gastric cardia-type mucosa. Hepatic flexure colonic polyp. *BGI established 10.11.21 Wing Fundoplication 2006; recently began having a return of reflux symptoms to include esophageal burning, chest discomfort and bloating. PeptoBismol mildly effective. Previously attempted reflux medications, protonix, aciphex all of which caused increased GERD or other SE. Particularly during the night she will have chest pain; not currently taking medications d/t worsening with medications historically. Reports increased sinus drainage with ENT determining it is GI related. Feels she also has spasms of her esophagus that cause dense foods (salmon/chicken) to swallow abnormally. Feels Sinhala food particularly triggers this. 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 Blood in stool historically without change in bowel habits. ? Gastric emptying study 11.07.21 time at the lower side of normal at 15.01 minutes (normal 12-56). Contact 10.24.21 to report that since start of alkaline water and bicarbonate she has been having increased symptoms and diarrhea. Recommended colestipol 1g QD for two weeks to start after her vacation. OV 11..22 Continues to have food sticking in her esophagus; increased epigastric discomfort; continued nausea. Feels everything has gotten somewhat worse as she is taking increased pepto-bismol than previously, particularly with trigger foods. EGD and Benitez 02.12. short-segment Matute?s mucosal changes without metaplasia noted; LA Grade B reflux esophagitis; Toupet fundoplication with loose wrap. Benitez deployed. ? Benitez total [place]ter 11.0 with all exposure supine. Day 1 [place]ter 0.3. Day 2 [place]ter 17.5 with all exposure supine. OV 2.3.23 In the last seven days she has had no issues with food sticking; just prior to this she did have a reduction in stress with selling her MIL house and cleaning it out. She has also changed her routine during the day she moved her coffee time from 3-4PM to lunch and took Benadryl just prior to bed which she has moved to an earlier time. With these changes she is sleeping better and has had no further nocturnal CP or drainage; she has also had a change of her allergy injection serum. OV 8.7.23 continues to have difficulty with dysphagia requiring regurgitation to clear. Aloe juice, aloe powder ineffective; aloe water taken for two weeks but feels it caused abdominal discomfort; ground flax seed attempted and cause constipation; PPI worsens reflux. Pepto-bismol is helpful with stomach aches. Previously attempted colestipol, ineffective/constipation. OSH Hospitalization 03.13.23-03.18.23 for stroke like symptoms. 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 Is scheduled to have mitral valve repair 05/19/23. Continues to have occasional heartburn. Takes pepto and digestive enzymes before meals which is somewhat helpful. No Dysphagia. Still having phglem. Was started on Plavix, Lipitor, Aspirin and Losartan and believes one of these is making her constipation worse. Has started drinking Smooth Move tea which has been helpful. ROS Const Constitutional: No fatigue ENT ENT: No difficulty swallowing Gastro GI: No abdominal pain, belching, bloating, change in bowel habits, change in stool character, coffee ground emesis, constipation, cramping, diarrhea, heartburn, difficulty swallowing, feeling full early, excessive flatus, incontinent of stools, Vomiting blood/hematemesis, Blood in stool, loose stools, Black,tarry stools, nausea/dyspepsia, pain with swallowing, vomiting or other Musc Musculoskeletal: No joint pain Skin Skin: No yellowing of the eye or itchy eyes Psych Psychiatric: No anxiety and No depression Endo Endocrine: No fatigue Aller/Imm Allergy/Immunologic: No itchy eyes Shaji/Lymp Hematologic/Lymphatic: No easy bleeding or easy bruising Exam Const General: cooperative and comfortable Nutritional Appearance: average body habitus and well nourished [facility] Head: normal to inspection Ears: hearing grossly normal bilaterally Nose: external nose normal Face and sinus: normal facial exam Mouth: oral mucosae normal Throat: posterior oropharynx normal Eyes General: appearance normal, both eyes and all related structures Neck Neck: normal visual inspection Chest Chest palpation & inspection: normal inspection of the chest and normal palpation of entire chest wall Resp Effort & Inspection: normal respiratory effort Auscultation: Bilateral: Clear to Auscultation Cardio Palpation: normal PMI Rate: regular rate Rhythm: regular rhythm GI Inspection: normal to inspection Auscultation: normal bowel sounds Percussion: normal to percussion Palpation: no hepatosplenomegaly Skin General: no rashes or lesions noted Neuro General: patient alert Extrem General: normal to inspection Psych Affect: normal affect Quality Reporting Tobacco Screening ([facility] 138) Smoking Status: Never smoker Assessment and Plan Assessment and Plan (1) Barretts esophagus: Status: Chronic Qualifiers: Matute's esophagus type: without dysplasia Qualified Code(s): K22.70 - Matute's esophagus without dysplasia Plan: She was discovered to have an irregular distal esophagus during her upper endoscopy. However, the biopsies did not show intestinal metaplasia, dysplasia or cancer. We did see that she has a hiatal hernia that was previously fixed but she had been having episodes of nausea and vomiting along with dry heaving that could have caused it to slightly dehisced. I told her that I would not recommend that she have repeat surgery at this time due to only mild esophagitis and no Matute's esophagus at this time. (2) GERD (gastroesophageal reflux disease): Status: Chronic Qualifiers: Esophagitis presence: without esophagitis Qualified Code(s): K21.9 - Gastro-esophageal reflux disease without esophagitis Plan: She is not on PPI therapy due to the fact she has osteoporosis and is on Prolia therapy. I recommended that she take aloe vera juice as a natural buffer with an H2 receptor jessica for her gastroesophageal reflux disease. We also talked about smaller frequent meals. Lifestyle modifications such as increasing head of bed and not eating past a certain time of the day. She will take Papaya during the day with digestive enzymes. I have examined the patient and the H&P has been reviewed. There are no clinical changes since date of exam.
[2023-10-13] MEDS: Lactated Ringers 1,000 ML 15 ML IV (07:09)
--- NOTE | 2023-10-13 07:17 | PRE.ANES_ITS ---
ASA Classification* ASA Classification ASA Classification: 2 Assessment & Plan Anesthesia* Anesthesia Assessment Anesthesia Assessment: Discussed sedation and/or anesthesia options, risks, benefits, and alternatives with patient/parents/legal guardian/POA. Questions invited. The patient/parents/legal guardian/POA seems to understand and agrees to proceed with anesthesia plan. Reviewed the physical assessment, medical history, allergy history and patient home medications list prior to surgery/procedure/anesthetic and documented any changes. Performed airway and anesthesia risk assessments. Anesthesia Type Anesthesia Type: MAC Anesthesia Focused Assessment* Temperature: 97.4 F Pulse Rate: 79 Blood Pressure: 135/80 Respiratory Rate: 16 Pulse Ox: 100 Airway Assessment Mouth opens: >3 cm Mallampati Score: II Focused Labs Anesthesia Preop lab: CBC WBC 2.9 K/mm3 (4.4-11.0) L 08/19/23 08:29 RBC 4.58 M/mm3 (4.2-5.4) 08/19/23 08:29 Hgb 12.5 g/dL (12.0-15.0) 08/19/23 08:29 Hct 40.0 % (37-47) 08/19/23 08:29 Plt Count 210 K/mm3 (150-450) 08/19/23 08:29 CHEMISTRY Potassium 4.0 mmol/L (3.5-5.1) 08/19/23 08:29 Sodium 140 mmol/L (136-145) 08/19/23 08:29 Magnesium 2.0 mg/dL (1.6-2.6) 07/02/23 10:50 Phosphorus 3.1 mg/dL (2.5-4.9) 08/15/20 11:47 BUN 9 mg/dL (7-18) 08/19/23 08:29 Creatinine 0.62 mg/dL (0.55-1.02) 08/19/23 08:29 Glucose 84 mg/dL (74-106) 08/19/23 08:29 TSH 2.40 uIU/mL (0.358-3.74) 07/02/23 10:50 COAG Pre-Assessment Diagnosis/Proposed Procedure Planned Operative Procedure(s): EGD Anesthesia History 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 When Was Last Pacemaker Check QUESTION #4 FULL TEXT: You/Your Family Experience fever (hyperthermia) with Anesthesia Last Oral Intake Last Oral intake: Last Oral Intake NPO since 23:00 10/13/23 07:02 Meds taken in AM with sips of No 10/13/23 07:02 water? Meds patient instructed to take am of surgery PONV PONV - afterschool babysitter: PONV - afterschool babysitter Female Yes 10/08/23 12:43 HX of Motion Sickness No 10/08/23 12:43 HX of N/V After Surgery Yes 10/08/23 12:43 Non-Smoker Yes 10/08/23 12:43 Duration of Surgery greater No 10/08/23 12:43 than 60 minutes Number of Risk Factors 3 10/08/23 12:43 PONV Score Moderate Risk 10/08/23 12:43 Height & Weight Height & Weight: Anesthesia: Height & Weight Height 5 ft 10/13/23 07:02 Weight: 52 kg 10/13/23 07:02 Body Mass Index (BMI) 22.4 10/13/23 07:02 Respiratory Assessment Respiratory Assessment - afterschool babysitter: Respiratory Tract Infection Hx - afterschool babysitter Hx Respiratory Tract Infection No 10/08/23 12:43 STOP Sleep Apnea STOP Sleep Apnea - afterschool babysitter: STOP Sleep Apnea - afterschool babysitter Hx Hypertension No 10/08/23 12:43 Hx Sleep Apnea No 10/08/23 12:43 CPAP BIPAP Do you snore loudly (louder No 10/08/23 12:43 than talking or can be heard Do you often feel tired/ No 10/08/23 12:43 fatigued/ sleepy during daytime? Has anyone observed you stop No 10/08/23 12:43 breathing during sleep? STOP Results Negative 10/08/23 12:43 QUESTION #5 FULL TEXT : Do you snore loudly (louder than talking or can be heard through closed doors)? 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 Specify any problems Hx of Preganancy in last 3 No 10/08/23 12:43 Months Nurse Filling Out Transfusion VCHRISTIN 10/08/23 12:43 & Questions: Date: 10/08/23 10/08/23 12:43 Time: 12:45 10/08/23 12:43 Patient unable to answer at this time (ie. confused, unrespo /Reproduction History /Reproductive History - afterschool babysitter: /Reproductive Hx- afterschool babysitter Hx Now No 10/08/23 12:43 Gestational Age (in weeks): EDC: Hx Hx Para Hx Section SAB No 10/08/23 12:43 Active Medications Active Medications: Current Medications Generic Name Dose Route Start Last Admin Trade Name Freq PRN Reason Stop Dose Admin Lactated Ringer's 1,000 mls @ 15 mls/hr 10/13/23 07:00 10/13/23 07:09 IV 15 mls/hr .Q48H POLINA Administration PFSH Medical History TIA (transient ischemic attack) Wears glasses Post-menopausal Arthritis Back pain Difficulty swallowing Dietary restriction History of hiatal hernia Gastric reflux Non-smoker Leg cramps MVP (mitral valve prolapse) History of pain when walking History of Holter monitoring History of echocardiogram Cardiology follow-up encounter Epigastric pain Osteoporosis Anxiety Allergic rhinitis Migraines Hyperlipidemia Nonrheumatic mitral (valve) prolapse Paroxysmal supraventricular tachycardia Home Medications ?Medication ?Instructions ?Recorded ?Last Taken ?Type estradiol 0.01% (0.1 mg/gram) 1 g vaginal .2XWEEK #43 grams 10/07/18 04/18/23 History vaginal cream clobetasol 0.05 % topical cream 0 applic topical PRN PRN Skin 10/14/18 Unknown History Cleansing #45 grams magnesium oxide 250 mg PO DAILY 10/19/19 Unknown History prednisolone acetate 1 % eye 1 drp ophthalmic (eye) PRN PRN Eye 10/19/19 Unknown History drops,suspension Irritation denosumab 60 mg/mL subcutaneous 60 mg subcut [id number] 12/12/20 Unknown History syringe (Prolia) lorazepam 0.5 mg tablet 0.5 mg PO BID PRN Anxiety 08/07/21 Unknown History diphenhydramine HCl 25 mg tablet 25 mg PO QHS PRN ALLERGIES 02/07/22 Unknown History (Benadryl Allergy) calcium 650 mg-vitamin D3 12.5 2 tab PO DAILY 08/15/22 Unknown History mcg-vitamin K 40 mcg chewable tablet (Viactiv) ipratropium bromide 42 mcg (0.06 2 spray intranasal BID 02/27/23 Unknown History %) nasal spray sumatriptan succinate 50 mg tablet 50 mg PO ONCE PRN migraine headache 02/27/23 Unknown History (Imitrex) aspirin 81 mg tablet,delayed 81 mg PO DAILY 04/08/23 10/12/23 History release (Adult Aspirin Regimen) albuterol sulfate 90 mcg/actuation 2 inh inhalation Q6H PRN shortness 06/11/23 Unknown History aerosol inhaler of breath or wheezing Lactobacillus acidophilus 10 100 mmu cells PO DAILY 10/08/23 Unknown History billion cell capsule (NewFlora) biotin 1,000 mcg chewable tablet 1,000 mcg PO DAILY 10/08/23 Unknown History estradiol 0.5 mg tablet 0.5 mg PO .3X WEEKLY 10/08/23 Unknown History prednisone 20 mg tablet 40 mg PO QDAY 10/10/23 Unknown History clarithromycin 500 mg 1,000 mg PO DAILY 10/13/23 Unknown History tablet,extended release 24 hr Allergy/AdvReac Type Severity Reaction Status Date / Time amoxicillin (From Augmentin) AdvReac Intermediate Diarrhea Verified 10/13/23 06:57 clavulanic acid (From AdvReac Intermediate Diarrhea Verified 10/13/23 06:57 Augmentin) cyclobenzaprine (From AdvReac Intermediate PT UNSURE Verified 10/13/23 06:57 Flexeril) OF REACTION gabapentin (From Neurontin) AdvReac Intermediate fatigue Verified 10/13/23 06:57 tizanidine AdvReac Intermediate Rash Verified 10/13/23 06:57 omeprazole (From Prilosec) AdvReac Unknown GI upset Verified 10/13/23 06:57 pantoprazole (From Protonix) AdvReac Unknown gi upset Verified 10/13/23 06:57 rabeprazole (From AcipHex) AdvReac Unknown unknown Verified 10/13/23 06:57 ranitidine AdvReac Unknown headache Verified 10/13/23 06:57 hydromorphone (From Dilaudid) AdvReac intolerance Verified 10/13/23 06:57 Iodinated Contrast Media AdvReac GI Upset Verified 10/13/23 06:57 levofloxacin AdvReac tendonitis Verified 10/13/23 06:57 Proton Pump Inhibitors AdvReac Other Verified 10/13/23 06:57 shellfish derived AdvReac GI Upset Verified 10/13/23 06:57 sorbitol AdvReac GI Upset Verified 10/13/23 06:57 Family History Mother CAD (coronary artery disease) CABG Heart disease Father CAD (coronary artery disease) CABG Myocardial infarction, Onset Age: 9 Surgical History History of cardiac catheterization Hx of mitral valve repair (05/20/23) Hx of rhinoplasty Hx of lumbar discectomy History of Wing fundoplication History of eye surgery (08/11/19) History of colonoscopy with polypectomy (10/15/19) History of esophagogastroduodenoscopy (EGD) (10/15/19) History of total abdominal hysterectomy History of left heart catheterization (11/10/01) History of radiofrequency ablation procedure for cardiac arrhythmia (09/21/08) Social History Smoking Status: Never smoker alcohol intake: never Review of Systems (Anesthesia) ROS Narrative System reviewed and no additional complaints, except as documented.
--- NOTE | 2023-10-13 07:25 | EGD_PTH ---
PATIENT: JOSEFA CHE LOC: EN U#:[id number] AGE/SX: 73/F ROOM: RE10/13/[address]: Dr. Ko Tilley DO : 1950 BED: DIS: 10/13/2023 SPEC #: [id number] RECD: 10/13/23 13:12 STATUS: JACI CHANTEL #: [id number] RENEE: 10/13/23 07:[address]: Ko Tilley DEPT: SURGICAL PATHOLOGY RECD BY: Linda Burton ENTERED: 10/13/23 13:53 SP TYPE: EGD BIOPSY JANETH DR: Dr. Santy Hadley MD Tissues: Esophagus, NOS Procedures: Special Stain Group I Surgery Specimen Level IV Alcian Blue/PAS (control) HEADER OPERATION: EGD with biopsy and hemostasis PRE-OP DIAGNOSIS: Matute's esophagus, GERD TISSUE SUBMITTED: Distal esophagus biopsy MICROSCOPIC DIAGNOSIS Distal esophagus, biopsy: Gastroesophageal mucosa with ulceration, acute and chronic inflammation and granulation. No evidence of goblet cell metaplasia. See comment. AM. 10/14/2023 COMMENT Alcian blue/PAS stain with matched control supports the above diagnosis. MICROSCOPIC DESCRIPTION Slides are reviewed. GROSS DESCRIPTION Received in fixative is one container labeled with the patient's name and designated Distal esophagus biopsy. The specimen consists of multiple irregular fragments of light lee soft tissue that in aggregate measure 1.0 x 0.5 x 0.1 cm. The specimen is totally submitted in one cassette. AM. 10/13/2023 TC:2 CPT:28116,50810
--- NOTE | 2023-10-13 08:21 | OP.CCLET_ITS ---
10/13/2023 Matt Hadley [address] [place] [address] Re : Upper GI endoscopy procedure for Yulisa Shepard Dear Dr. Hadley This procedure was performed on Friday, October 13, 2023. My impressions and recommendations are as follows: Impressions : - LA Grade C erosive esophagitis with bleeding. Biopsied. Treated with a heater probe. - A fundoplication was found. The wrap appears intact. - Chronic gastritis. - Normal first portion of the duodenum. Recommendations : - Discharge patient to home. - Resume previous diet. - Continue present medications. - Await pathology results. My findings are described in the full procedure note, which is enclosed. If I can be of further assistance, please feel free to contact me at . Sincerely, Ko Tilley, 10/13/2023 8:21:07 AM This report has been signed electronically.
--- NOTE | 2023-10-13 08:21 | OP.EGD_ITS ---
Patient Name: Yulisa Shepard Procedure Date: 10/13/2023 7:56 AM Date of : 1950 Age: 73 Procedure: Upper GI endoscopy Indications: Epigastric abdominal pain, Heartburn, Follow-up of Matute's esophagus Providers: Ko Tilley DO Medicines: Monitored Anesthesia Care Patient Profile: This is a 73 year old female. Refer to note in patient chart for documentation of history and physical. Patient has symptoms of chronic heartburn. Complications: No immediate complications. Procedure: Pre-Anesthesia Assessment: - Prior to the procedure, a History and Physical was performed, and patient medications and allergies were reviewed. The patient is competent. The risks and benefits of the procedure and the sedation options and risks were discussed with the patient. All questions were answered and informed consent was obtained. Patient identification and proposed procedure were verified by the physician in the pre-procedure area. Mental Status Examination: alert and oriented. Airway Examination: normal oropharyngeal airway and neck mobility. Respiratory Examination: clear to auscultation. CV Examination: normal. Prophylactic Antibiotics: The patient does not require prophylactic antibiotics. Prior Anticoagulants: The patient has taken no anticoagulant or antiplatelet agents except for NSAID medication. ASA Grade Assessment: II - A patient with mild systemic disease. After reviewing the risks and benefits, the patient was deemed in satisfactory condition to undergo the procedure. The anesthesia plan was to use monitored anesthesia care (MAC). Immediately prior to administration of medications, the patient was re-assessed for adequacy to receive sedatives. The heart rate, respiratory rate, oxygen saturations, blood pressure, adequacy of pulmonary ventilation, and response to care were monitored throughout the procedure. The physical status of the patient was re-assessed after the procedure. After obtaining informed consent, the endoscope was passed under direct vision. Throughout the procedure, the patient's blood pressure, pulse, and oxygen saturations were monitored continuously. The gastroscope was introduced through the mouth, and advanced to the second part of duodenum. The upper GI endoscopy was accomplished without difficulty. The patient tolerated the procedure well. Scope In: 8:08:41 AM Scope Withdrawal Time 0 hours 0 minutes 1 second Scope Out: 8:15:36 AM Total Procedure Duration Time 0 hours 6 minutes 55 seconds Findings: LA Grade C (one or more mucosal breaks continuous between tops of 2 or more mucosal folds, less than 75% circumference) esophagitis with bleeding was found 34 to 40 cm from the incisors. Biopsies were taken with a cold forceps for histology. Verification of patient identification for the specimen was done. Coagulation for hemostasis using heater probe was successful. Estimated blood loss was minimal. Evidence of a fundoplication was found in the gastric fundus. The wrap appeared intact. This was traversed. Localized mild inflammation characterized by congestion (edema), erosions, erythema and friability was found in the gastric body and in the gastric antrum. The first portion of the duodenum was normal. Impression: - LA Grade C erosive esophagitis with bleeding. Biopsied. Treated with a heater probe. - A fundoplication was found. The wrap appears intact. - Chronic gastritis. - Normal first portion of the duodenum. Recommendation: - Discharge patient to home. - Resume previous diet. - Continue present medications. - Await pathology results. Procedure Code(s): --- Professional --- 04345, 59, Esophagogastroduodenoscopy, flexible, transoral; with control of bleeding, any method 64623, 51, Esophagogastroduodenoscopy, flexible, transoral; with biopsy, single or multiple CPT copyright 2021 [employer]. All rights reserved. The codes documented in this report are preliminary and upon outpatient coder review may be revised to meet current compliance requirements. Ko Tilley DO 10/13/2023 8:21:07 AM This report has been signed electronically. Number of Addenda: 0 Note Initiated On: 10/13/2023 7:56 AM
--- NOTE | 2023-10-13 08:23 | PCM.POST.ANE ---
Anesthesia: Postop Eval I Current Vital Signs Temperature: 97.2 F Pulse Rate: 78 Blood Pressure: 108/60 Respiratory Rate: 16 Pulse Ox: 97 Oxygen Delivery Method: Room Air Assessment Airway patent: Yes Spontaneous unlabored respirations: Yes Mental status: Asleep nausea: No Vomiting: No Anesthesia Complication: No Fluid Hydration Crystalloid volume administer (ml): 400 Total IV fluid infused: 400 Progress Note Anesthesia document: Postop Eval 1 completed: Yes
--- NOTE | 2023-10-13 08:44 | POSTOPAN2_ITS ---
Anesthesia Postop Eval I Sum Postop Eval Completion status Anesthesia document: Postop Eval 1 completed: Yes Anesthesia Postop Eval I Summary Anesthesia Postop Eval I Summary: Anesthesia Postop Eval I: Assessment Summary Airway patent Yes 10/13/23 08:24 HAND FRETTED INSTRUMENT MAKER.[email or web address] Spontaneous unlabored Yes 10/13/23 08:24 HAND FRETTED INSTRUMENT MAKER.MARTIN respirations Mental status Asleep 10/13/23 08:24 HAND FRETTED INSTRUMENT MAKER.MARTIN nausea No 10/13/23 08:24 HAND FRETTED INSTRUMENT MAKER.MARTIN Vomiting No 10/13/23 08:24 HAND FRETTED INSTRUMENT MAKERFRANKLYN Anesthesia Postop Eval I: Fluid Summary Crystalloid volume administer 400 10/13/23 08:24 HAND FRETTED INSTRUMENT MAKER.MARTIN (ml) Colloids volume administered ( ml) Blood Product volume administered (ml) Total IV fluid infused 400 10/13/23 08:24 LUCIA Anesthesia Postop Eval I: Summary Notes Anesthesia Complication No 10/13/23 08:24 LUCIA Anesthesia Complication Comment: Post-operative progress note Anesthesia: Postop Eval II Evaluation Mental status: Awake Pain Level: 0 nausea: No Vomiting: No
--- NOTE | 2023-10-13 08:44 | PCM.POSTANE2 ---
Anesthesia Postop Eval I Sum Postop Eval Completion status Anesthesia document: Postop Eval 1 completed: Yes Anesthesia Postop Eval I Summary Anesthesia Postop Eval I Summary: Anesthesia Postop Eval I: Assessment Summary Airway patent Yes 10/13/23 08:24 ASSEMBLER INSTALLER STRUCTURES.NORBERTOOBHari Spontaneous unlabored Yes 10/13/23 08:24 ASSEMBLER INSTALLER STRUCTURES.MARTIN respirations Mental status Asleep 10/13/23 08:24 ASSEMBLER INSTALLER STRUCTURES.MARTIN nausea No 10/13/23 08:24 ASSEMBLER INSTALLER STRUCTURES.MARTIN Vomiting No 10/13/23 08:24 ASSEMBLER INSTALLER STRUCTURESFRANKLYN Anesthesia Postop Eval I: Fluid Summary Crystalloid volume administer 400 10/13/23 08:24 ASSEMBLER INSTALLER STRUCTURES.MARTIN (ml) Colloids volume administered ( ml) Blood Product volume administered (ml) Total IV fluid infused 400 10/13/23 08:24 LUCIA Anesthesia Postop Eval I: Summary Notes Anesthesia Complication No 10/13/23 08:24 LUCIA Anesthesia Complication Comment: Post-operative progress note Anesthesia: Postop Eval II Evaluation Mental status: Awake Pain Level: 0 nausea: No Vomiting: No
== END 2023-10-13 09:26 | disposition home or self-care (01) ==
LOC: EN 06:42 → AC 06:43
PROVIDERS: PCP Family Medicine; Referring Provider Family Medicine; Visit Provider Internal Medicine Gastroenterology
PROC: 0DJ08ZZ Inspection of Upper Intestinal Tract, Via Natural or Artificial Opening Endoscopic (ICD-10-PCS; CPT 43235; principal; 2023-10-13 07:40)
DX: K22.11 Ulcer of esophagus with bleeding (principal); K21.01 Gastro-esophageal reflux disease with esophagitis, with bleeding; K29.50 Unspecified chronic gastritis without bleeding; F41.9 Anxiety disorder, unspecified; Z79.02 Long term (current) use of antithrombotics/antiplatelets; Z79.82 Long term (current) use of aspirin; Z79.899 Other long term (current) drug therapy
CPT/HCPCS: 43239; 43255; 88305; 88312; J7120

== ENCOUNTER 2023-10-17 11:15 | Outpatient (RCR) | payer MEDICARE, SELFPAY ==
[2023-06-11 10:36] VITALS: BMI 22.2
--- NOTE | 2023-09-26 10:19 | CR.ITP_ITS ---
Exercise - Initial Assessment Visit Session #:: 2 Comments:: pt was on hold due to family issues and wishes to resume her rehab 09/29/23. Physician Prescribed Exercise Modalities: Treadmill, Schwinn Airdyne AD-7 and SciFit Stepper Nutrition - Initial Assessment Weight Mgt (Other Care) Height: 5 ft Weight:: 117 lb BMI: 22.8 Psychosocial - Initial Assess Target Goals Target Goals Patient Health Questionnaire PHQ-9 Screening 30-Day Re-eval Assessment: 1. Little interest or pleasure in doing things: Not at all 2. Feeling down, depressed, or hopeless: Not at all 3. Trouble falling or staying asleep, or sleeping too much: Several days 4. Feeling tired or having little energy: Several days 5. Poor appetite or overeating: Not at all 6. Feeling bad about yourself -- or that you are a failure or have let yourself or your family down: Not at all 7. Trouble concentrating on things, such as reading the newspaper or jorge martínez television: Not at all 8. Moving or speaking so slowly that other people could have noticed. Or the opposite - being so fidgety or restless that you have been moving around a lot more than usual: Not at all 9. Thoughts that you would be better off , or of hurting yourself in some way: Not at all How difficult have these problems made it for you to do your work, take care of things at home, or get along with other people?: Not difficult at all Total Score: 2 Self-Efficacy 6-Item Scale 30-Day Re-eval Assessment: We would like to know how confident you are in doing certain activities. Please select your confidence level for: Fatigue Select Number: 8 Physical Discomfort or Pain Select Number: 8 Emotional Distress Select Number: 8 Other Symptoms or Health Problems Select Number: 8 Different Tasks and Activities Select Number: 8 Medication Select Number: 8 Total Score:: 8 Nutrition Survey Nutrition Survey Instructions Scoring Instructions Exercise - 30-day Assessment Visit Date of Eval: 09/26/23 Session #:: 2 Comments:: pt was on hold due to family issues and wishes to resume her rehab 09/29/23. Physician Prescribed Exercise Modalities: Treadmill, Schwinn Airdyne AD-7 and SciFit Stepper Frequency: 3x/week for 12 weeks [36 sessions] Intensity: 60-80% of age predicted maximum heart rate reserve Duration: 30 - 45 minutes Current METSs:: 3 Target Heart Rate:: 88-110 Current RPE:: 11-12 Maximum Excercise HR:: 100 Resting Blood Pressure: 118/66 Maximum Exercise Blood Pressure: 138/74 EKG Type: NSR to ST with a rare pvc Outcomes & Goals Goals:: Verbalizes understanding of THR, RPE & goal METS by session 6, Documents in home exercise log/reports 30 min aerobic 5 day/wk by DC, Demonstrates accurate pulse taking by DC and Other additional outcome/goals: see below Intervention & Plan Exercise Program Goals: Instruct on personal THR & RPE, Instruct on MET level & personal MET goal, Show patient to take own pulse /validate performance until accurate, Instruct on home exercise and Other additional plan/int 30-day Reassessments 30 day Reassessments:: Not Met Physical Activity Home Exercise Physical Activity - Home Exercise: Safe Exercise, Warm-up, Self-monitoring, Cool-Down, Home Exercise > 30 min Daily and Sitting Time <3 hours/daily Outcomes & Goals Outcomes/Goals: Demonstrates correct Warm-up/exercise Cool-Down (S3) if = 2.5 METs, Verbalizes symptoms of exercise intolerance by Session 3 (S3), Demonstrate safe equipment use (S3) & follows exercise prescrition (6) and Other: See below Intervention & Plan Plan/Intervention: Instruct warm-up & cool-down if exercising at > 2 METs, Instruct on symptoms of exercise intolerance & actions to take, Instruct & monitor on saf, Assess intial functional capacity & safety risk and Other See below 30-day Reassessments 30 day Reassessments:: Not Met Exercise - 60-day Assessment Physician Prescribed Exercise Modalities: Treadmill, Schwinn Airdyne AD-7 and SciFit Stepper Exercise - 90-day Assessment Physician Prescribed Exercise Modalities: Treadmill, Schwinn Airdyne AD-7 and SciFit Stepper Exercise - Final/Discharge Physician Prescribed Exercise Modalities: Treadmill, Schwinn Airdyne AD-7 and SciFit Stepper Nutrition - 30-Day Assessment Program Goals Nutrition Program Goals Patient has diagnosis of Hyperlipidemia (ICD E78)?: Yes Visit Date of Eval: 09/26/23 Session #:: 2 Cholesterol/Lipids (Other Core Measures) Determine presence & major risk factors that modify LDL goal: Hypertension or hypertensive medication, Low HDL cholesterol <40 mg/dL*, Family history of premature CHD in Male < 55 years: female <65 yearsFa and Age men > 45 years; women >/= 55 years Outcomes/Goals: Pt IDs own risk factors & lifestyle modifications by Session 10, Verbalizes symptoms of angina & response by session 3., Pt independently manages and Other Additional Outcomes/Goals: Intervention/Plan: Advocate for lipid panel cholesterol medication if applicable, Instruct on personal lipid levels & lipid goals/NCEP guidelines, Instruct on cholesterol and Other additional plan/int 30-day Reassessments:: Not Met Diabetes (Other Core Measures) Diabetes Type: Not Applicable Weight Mgt (Other Care) Height: 5 ft Weight:: 117 lb BMI: 22.8 Diagnosis Overweight/Obesity BMI> 30% ICD-10 E66: No Diagnosis High BMI/Morbid Obesity BMI> 35% ICD-10 Z68: No Outcomes/Goals: Pt sets, maintains & shows weight loss goal & trend during rehab and Other additional outcomes/goals Intervention/Plan: Instruct on ideal BMI & set weight loss goal w/patient, Assist pt to ID & incorporate diet changes for weight loss by S9, Refer to Structured Weight Loss program as appropriate, Encourage goal of using 250- 300dcal per session for weight loss and Other additional plan/interventions 30 day Reassessments:: Met Healthy Eating Habits Will attend diet classes:: Yes Outcomes/Goals:: Consume diet rich in vegs,fruits,whole grain/high fibe r,fish,lean meat, Limit sat/trans fats,cholesterol & added salts & sugars and Other additional outcome/goals: Intervention/Plan:: Assess current eating habits and Other Additional plan/interventions 30-day Reassessments:: Not Met Education Gave educational materials for:: Signs & symptoms of hypoglycemia, Signs & symptoms of hyperglycemia, Relate diabetes to coronary artery disease and Healthy eating Nutrition - 60-Day Assessment Weight Mgt (Other Care) Height: 5 ft Weight:: 117 lb BMI: 22.8 Core - 30-Day Assessment Visit Date of Eval: 09/26/23 Session #:: 2 Medication Compliance Preventative Medication(s):: Aspirin, Clopidogrel/P2Y12 inhibit, Ticagrelor/P2Y12 inhibitor, Statin/lipid and Beta jessica H/O mental health issues: depression, anxiety, or addiction?: No Doesn?t believe in the benefits of treatment?: No Believes medications are unnecessary or harmful?: No Has a concern about medication side effects?: No Expresses concern over the cost of medications?: No Outcomes/Goals: Verbalizes medications,desired effect & common side effects @ DC, Pt self-reports following medication regimen, Keeps card in wallet w/medications listed by DC and Other additional outcome/goals: Interventions/plans: Instruct on medication effects & side effects, Review medication list w/patient every two weeks, Instruct importance of taking meds as ordered & assist problem solving and Other additional 30-day Reassessments:: Not Met Tobacco Use Tobacco Use: Non-smoker 30-day Reassessments:: Met Hypertension Hypertension Diagnosis:: Hypertension ICD-10 I10 Resting Blood Pressure:: 118/66 Citizen Of [place] Heart Association Hypertension Guidelines Peak Exercise Blood Pressure:: 138/74 Outcomes/Goals: Able to verbalize/achieve optimal blood pressure <130/80, Incorporates diet changes & exercise for blood pressure control by DC and Other additional outcomes/goals Interventions/plan: Instruct on optimal blood pressure, hypertension & medications, Instruct on effects of sodium, alcohol, stress, exercise &hypertension and Other additional plan/interventions 30 day Reassessments:: Met Tobacco Cessation Referral Smoking Cessation Referral:: No Individual Education/Counseling:: No Education Schedule Given:: Yes Psychosocial - 30-Day Assess VIsit Date of Eval: 09/26/23 Session #:: 2 History of previous Mental disease:: No Target Goals Target Goals Outcomes/Goals: See list Psychosocial Outcomes/Goals:: ID's personal stressors & 2 strategies to manage stress by discharge and Other Additional outcome/goals: Intervention/Plan: See List Interventions/Plan:: Assess stressors,coping strategies & signs of derpression on admission, Instruct/assist pt to develop coping & personal stress Mgt strategies, Refer to Behavioral Health if appropriate, Refer to Physician if appropriate, Instruct patient to recognize signs & symptoms of depression, Instruct patient to recog and Other additional plan/intervention 30-day Reassessments: 30 day Reassessments:: Met Psychosocial - 60-Day Assess Target Goals Target Goals Outcomes/Goals: See list Psychosocial Outcomes/Goals:: ID's personal stressors & 2 strategies to manage stress by discharge and Other Additional outcome/goals: Psychosocial - 90-Day Assess Target Goals Target Goals Psychosocial - Final Assessmen Target Goals Target Goals Nutrition - 90-Day Assessment Weight Mgt (Other Care) Height: 5 ft Weight:: 117 lb BMI: 22.8 Nutrition - Final Assessment Weight Mgt (Other Care) Height: 5 ft Weight:: 117 lb BMI: 22.8
[2023-09-26 10:28] VITALS: BP 118/66; BMI 22.8
== END 2023-10-18 23:59 ==
LOC: CR 11:15
PROVIDERS: PCP Family Medicine; Referring Provider Internal Medicine Cardiovascular Disease; Visit Provider Internal Medicine Cardiovascular Disease
DX: Z98.890 Other specified postprocedural states (principal)
CPT/HCPCS: 93798

== ENCOUNTER → 2023-12-18 | Outpatient (CLI) | payer MEDICARE, SELFPAY ==
[2023-09-26 10:28] VITALS: BMI 22.8
--- NOTE | 2023-12-18 10:36 | RAD_ITS ---
HISTORY: constipation. TECHNIQUE: XR Abdomen 1 View. COMPARISON: None. FINDINGS: BOWEL GAS PATTERN: No dilated bowel loops identified. Scattered stool in the colon. FREE AIR: Not assessed on supine view. CALCIFICATIONS: Scattered soft tissue calcifications observed. BONES: Mild degenerative change. SOFT TISSUES: Midline sternotomy with valve prosthesis. RAD/Abdomen Single View IMPRESSION: Non-obstructive bowel gas pattern. Electronically Signed: Jana Chaudhry MD at 10:32 EDT ,
== END | disposition home or self-care (01) ==
LOC: RAD 10:35
PROVIDERS: PCP Family Medicine; Referring Provider Student in an Organized Health Care Education/Training Program; Visit Provider Student in an Organized Health Care Education/Training Program
DX: K59.00 Constipation, unspecified (principal)
CPT/HCPCS: 74018

== ENCOUNTER → 2023-12-23 | Outpatient (CLI) | payer MEDICARE, SELFPAY ==
[2023-09-26 10:28] VITALS: BMI 22.8
--- NOTE | 2023-12-23 18:50 | CT_ITS ---
STUDY: CT FACIAL BONES WITHOUT CONTRAST REASON FOR EXAM: Female, 73 years old. chronic sinusitis RADIATION DOSAGE (If Supplied By Facility): CTDIvol = ( 33.06 ) mGy, DLP = ( 809.06 ) mGycm TECHNIQUE: The patient was scanned in a multi detector CT scanner. Sagittal and coronal images were reconstructed. Individualized dose optimization techniques were used for this CT. COMPARISON: None. FINDINGS: Normal soft tissue structures. Normal orbital hua and orbital contents. Normal nasal bones and anterior nasal spine. Normal facial bones. There is no demonstrated fracture. Mucous retention cyst in the floor the left maxillary sinus consistent with chronic sinusitis. CT/Sinus/Facial Bone IMPRESSION: Normal unenhanced CT of the facial bones. Mucous retention cyst in the floor left maxillary sinus. Electronically Signed: Bc Yan MD at 17:21 EST ,
== END | disposition home or self-care (01) ==
LOC: CT 18:48
PROVIDERS: PCP Family Medicine; Referring Provider Otolaryngology; Visit Provider Otolaryngology
DX: J32.8 Other chronic sinusitis (principal)
CPT/HCPCS: 70486

== ENCOUNTER → 2023-12-25 | Outpatient (CLI) | payer MEDICARE, SELFPAY ==
[2023-09-26 10:28] VITALS: BMI 22.8
== END | disposition home or self-care (01) ==
LOC: US 07:48
PROVIDERS: PCP Family Medicine; Referring Provider Student in an Organized Health Care Education/Training Program; Visit Provider Student in an Organized Health Care Education/Training Program
DX: R10.11 Right upper quadrant pain (principal)
CPT/HCPCS: 76705

== ENCOUNTER 2024-01-05 05:57 | Day surgery (SDC) | payer MEDICARE, SELFPAY ==
[2023-09-26 10:28] VITALS: BMI 22.8
--- NOTE | 2024-01-05 | IMM_PTH ---
PATIENT: JOSEFA CHE LOC: EN U#:[id number] AGE/SX: 73/F ROOM: RE01/05/[address]: Dr. Ko Tilley DO : 1950 BED: DIS: 01/05/2024 SPEC #: [id number] RECD: 01/06/24 10:51 STATUS: JACI REQ #: [id number] RENEE: 01/05/24 00:[address]: Ko Tilley DEPT: IMMUNOHISTOCHEMISTRY RECD BY: Paramjit Dubois ENTERED: 01/06/24 10:51 SP TYPE: IMMUNO OT DR: Dr. Santy Hadley MD Tissues: Esophagus, NOS Procedures: P53 (initial) KI-67 (add) PHYSICIAN & [place] [id number] SPECIMEN INFORMATION: Tissue Source: Distal esophagus biopsy Clinical Info: Constipation, right upper quadrant pain, GERD Specimen Number: [id number] CPT code: 68244,85541 METHODOLOGY: Deparaffinized sections of prefer/formalin-fixed tissue or PAP/DQ stained slides are incubated with monoclonal/polyclonal antibodies/oligonucleotide probes. Localization is made via biotin free immunoperoxidase method. Appropriate controls are performed and reacted as expected. Results on target cell population are indicated in the following table: RESULTS: ANTIBODY / CLONE RESULT P53 (DO-7) negative (null pattern) Ki-67 (30-9) positive, low These tests were developed and their performance characteristics determined by [facility]. They may not have been cleared or approved by the U.S. Food and Drug Administration. The FDA has determined that such clearance or approval is not necessary. The above immunohistochemical/dualISH markers are ordered and reviewed by the Pathologist. INTERPRETATION: Distal esophagus, biopsy: Negative for dysplasia. 01/07/2024
[2024-01-05 06:32] VITALS: BP 133/79; PULSE 72; RESP 16; TEMP 36.2; O2SAT 100; BMI 22.4
[2024-01-05 06:36] VITALS: BP 133/79; PULSE 72; RESP 16; TEMP 36.2; O2SAT 100
--- NOTE | 2024-01-05 06:36 | PRE.ANES_ITS ---
ASA Classification* ASA Classification ASA Classification: 2 Assessment & Plan Anesthesia* Anesthesia Assessment Anesthesia Assessment: Discussed sedation and/or anesthesia options, risks, benefits, and alternatives with patient/parents/legal guardian/POA. Questions invited. The patient/parents/legal guardian/POA seems to understand and agrees to proceed with anesthesia plan. Reviewed the physical assessment, medical history, allergy history and patient home medications list prior to surgery/procedure/anesthetic and documented any changes. Performed airway and anesthesia risk assessments. Anesthesia Type Anesthesia Type: MAC History Source History Obtained from:: Patient and Chart Anesthesia Focused Assessment* Temperature: 97.2 F Pulse Rate: 72 Blood Pressure: 133/79 Respiratory Rate: 16 Pulse Ox: 100 Airway Assessment Mouth opens: >3 cm Mallampati Score: II Neck Range of motion (ROM): Full ROM Focused Labs Anesthesia Preop lab: CBC WBC 2.9 K/mm3 (4.4-11.0) L 08/19/23 08:29 RBC 4.58 M/mm3 (4.2-5.4) 08/19/23 08:29 Hgb 12.5 g/dL (12.0-15.0) 08/19/23 08:29 Hct 40.0 % (37-47) 08/19/23 08:29 Plt Count 210 K/mm3 (150-450) 08/19/23 08:29 CHEMISTRY Potassium 4.0 mmol/L (3.5-5.1) 08/19/23 08:29 Sodium 140 mmol/L (136-145) 08/19/23 08:29 Magnesium 2.0 mg/dL (1.6-2.6) 07/02/23 10:50 Phosphorus 3.1 mg/dL (2.5-4.9) 08/15/20 11:47 BUN 9 mg/dL (7-18) 08/19/23 08:29 Creatinine 0.62 mg/dL (0.55-1.02) 08/19/23 08:29 Glucose 84 mg/dL (74-106) 08/19/23 08:29 TSH 2.40 uIU/mL (0.358-3.74) 07/02/23 10:50 COAG Pre-Assessment Diagnosis/Proposed Procedure Planned Operative Procedure(s): EGD Anesthesia History 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 When Was Last Pacemaker Check QUESTION #4 FULL TEXT: You/Your Family Experience fever (hyperthermia) with Anesthesia Last Oral Intake Last Oral intake: Last Oral Intake NPO since 00:00 01/05/24 06:32 Meds taken in AM with sips of No 01/05/24 06:32 water? Meds patient instructed to take am of surgery PONV PONV - briquette operator: PONV - briquette operator Female Yes 01/01/24 13:58 HX of Motion Sickness No 01/01/24 13:58 HX of N/V After Surgery No 01/01/24 13:58 Non-Smoker Yes 01/01/24 13:58 Duration of Surgery greater No 01/01/24 13:58 than 60 minutes Number of Risk Factors 2 01/01/24 13:58 PONV Score Moderate Risk 01/01/24 13:58 Height & Weight Height & Weight: Anesthesia: Height & Weight Height 5 ft 01/05/24 06:32 Weight: 52 kg 01/05/24 06:32 Body Mass Index (BMI) 22.4 01/05/24 06:32 Respiratory Assessment Respiratory Assessment - briquette operator: Respiratory Tract Infection Hx - briquette operator Hx Respiratory Tract Infection No 01/01/24 13:58 STOP Sleep Apnea STOP Sleep Apnea - briquette operator: STOP Sleep Apnea - briquette operator Hx Hypertension No 01/01/24 13:58 Hx Sleep Apnea No 01/01/24 13:58 CPAP BIPAP Do you snore loudly (louder No 01/01/24 13:58 than talking or can be heard Do you often feel tired/ No 01/01/24 13:58 fatigued/ sleepy during daytime? Has anyone observed you stop No 01/01/24 13:58 breathing during sleep? STOP Results Negative 01/01/24 13:58 QUESTION #5 FULL TEXT : Do you snore loudly (louder than talking or can be heard through closed doors)? 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 Specify any problems Hx of Preganancy in last 3 No 01/01/24 13:58 Months Nurse Filling Out Transfusion VCHRISTIN 01/01/24 13:58 & Questions: Date: 01/01/24 01/01/24 13:58 Time: 13:59 01/01/24 13:58 Patient unable to answer at this time (ie. confused, unrespo /Reproduction History /Reproductive History - briquette operator: /Reproductive Hx- briquette operator Hx Now No 01/01/24 13:58 Gestational Age (in weeks): EDC: Hx Hx Para Hx Section SAB No 01/01/24 13:58 PFSH Medical History TIA (transient ischemic attack) Wears glasses Post-menopausal Arthritis Back pain Difficulty swallowing Dietary restriction History of hiatal hernia Gastric reflux Non-smoker Leg cramps MVP (mitral valve prolapse) History of pain when walking History of Holter monitoring History of echocardiogram Cardiology follow-up encounter Epigastric pain Osteoporosis Anxiety Allergic rhinitis Migraines Hyperlipidemia Nonrheumatic mitral (valve) prolapse Paroxysmal supraventricular tachycardia Home Medications ?Medication ?Instructions ?Recorded ?Last Taken ?Type estradiol 0.01% (0.1 mg/gram) 1 g vaginal .3 TIMES WEEKLY #43 10/07/18 04/18/23 History vaginal cream grams clobetasol 0.05 % topical cream 1 applic topical PRN PRN Skin 10/14/18 Unknown History Cleansing #45 grams magnesium oxide 250 mg PO DAILY 10/19/19 Unknown History prednisolone acetate 1 % eye 1 drp ophthalmic (eye) PRN PRN Eye 10/19/19 Unknown History drops,suspension Irritation denosumab 60 mg/mL subcutaneous 60 mg subcut [id number] 12/12/20 Unknown History syringe (Prolia) lorazepam 0.5 mg tablet 0.5 mg PO BID PRN Anxiety 08/07/21 Unknown History diphenhydramine HCl 25 mg tablet 25 mg PO QHS PRN ALLERGIES 02/07/22 Unknown History (Benadryl Allergy) calcium 650 mg-vitamin D3 12.5 2 tab PO DAILY 08/15/22 Unknown History mcg-vitamin K 40 mcg chewable tablet (Viactiv) ipratropium bromide 42 mcg (0.06 2 spray intranasal BID 02/27/23 Unknown History %) nasal spray sumatriptan succinate 50 mg tablet 50 mg PO ONCE PRN migraine headache 02/27/23 Unknown History (Imitrex) aspirin 81 mg tablet,delayed 81 mg PO DAILY 04/08/23 12/31/23 History release (Adult Aspirin Regimen) albuterol sulfate 90 mcg/actuation 2 inh inhalation Q6H PRN shortness 06/11/23 Unknown History aerosol inhaler of breath or wheezing Lactobacillus acidophilus 10 100 mmu cells PO DAILY 10/08/23 Unknown History billion cell capsule (NewFlora) estradiol 0.5 mg tablet 0.5 mg PO .3X WEEKLY 10/08/23 Unknown History ascorbic acid 125 mg-collagen, 1 cap PO DAILY 01/01/24 Unknown History hydrolyzed 740 mg capsule (Collagen Plus Vitamin C) Allergy/AdvReac Type Severity Reaction Status Date / Time famotidine (From Pepcid) AdvReac Severe Constipatio Verified 01/01/24 13:50 n sucralfate (From Carafate) AdvReac Severe Other Verified 01/01/24 13:50 amoxicillin (From Augmentin) AdvReac Intermediate Diarrhea Verified 01/01/24 13:50 clavulanic acid (From AdvReac Intermediate Diarrhea Verified 01/01/24 13:50 Augmentin) cyclobenzaprine (From AdvReac Intermediate PT UNSURE Verified 01/01/24 13:50 Flexeril) OF REACTION gabapentin (From Neurontin) AdvReac Intermediate fatigue Verified 01/01/24 13:50 tizanidine AdvReac Intermediate Rash Verified 01/01/24 13:50 omeprazole (From Prilosec) AdvReac Unknown GI upset Verified 01/01/24 13:50 pantoprazole (From Protonix) AdvReac Unknown gi upset Verified 01/01/24 13:50 rabeprazole (From AcipHex) AdvReac Unknown unknown Verified 01/01/24 13:50 ranitidine AdvReac Unknown headache Verified 01/01/24 13:50 hydromorphone (From Dilaudid) AdvReac intolerance Verified 01/01/24 13:50 Iodinated Contrast Media AdvReac GI Upset Verified 01/01/24 13:50 levofloxacin AdvReac tendonitis Verified 01/01/24 13:50 Proton Pump Inhibitors AdvReac Other Verified 01/01/24 13:50 shellfish derived AdvReac GI Upset Verified 01/01/24 13:50 sorbitol AdvReac GI Upset Verified 01/01/24 13:50 Family History Mother CAD (coronary artery disease) CABG Heart disease Father CAD (coronary artery disease) CABG Myocardial infarction, Onset Age: 9 Surgical History History of esophagogastroduodenoscopy (EGD) History of cardiac catheterization Hx of mitral valve repair (05/20/23) Hx of rhinoplasty Hx of lumbar discectomy History of Wing fundoplication History of eye surgery (08/11/19) History of colonoscopy with polypectomy (10/15/19) History of esophagogastroduodenoscopy (EGD) (10/15/19) History of total abdominal hysterectomy History of left heart catheterization (11/10/01) History of radiofrequency ablation procedure for cardiac arrhythmia (09/21/08) Social History Smoking Status: Never smoker alcohol intake: never Review of Systems (Anesthesia) ROS Narrative System reviewed and no additional complaints, except as documented.
--- NOTE | 2024-01-05 06:58 | PCM.HP.BLA ---
History and Physical Date of Admission: 01/05/24 OV 12.18.23 Pt here for f/u. Reports LL abdominal pain that lasted 2 hours, constipation, occasional dizziness and nausea. Denies blood in stools, and vomiting. Pt is interested in having an US of gallbladder. [facility] Medical History TIA (transient ischemic attack) Wears glasses Post-menopausal Arthritis Back pain Difficulty swallowing Dietary restriction History of hiatal hernia Gastric reflux Non-smoker Leg cramps MVP (mitral valve prolapse) History of pain when walking History of Holter monitoring History of echocardiogram Cardiology follow-up encounter Epigastric pain Osteoporosis Anxiety Allergic rhinitis Migraines Hyperlipidemia Nonrheumatic mitral (valve) prolapse Paroxysmal supraventricular tachycardia Surgical History History of cardiac catheterization Hx of mitral valve repair (05/20/23) Hx of rhinoplasty Hx of lumbar discectomy History of Wing fundoplication History of eye surgery (08/11/19) History of colonoscopy with polypectomy (10/15/19) History of esophagogastroduodenoscopy (EGD) (10/15/19) History of total abdominal hysterectomy History of left heart catheterization (11/10/01) History of radiofrequency ablation procedure for cardiac arrhythmia (09/21/08) Family History Mother CAD (coronary artery disease) CABG Heart diseaseFather CAD (coronary artery disease) CABG Myocardial infarction, Onset Age: 9 Social History Smoking Status: Never smoker alcohol intake: never HPI HPI Chief Complaint: abdominal pain, constipation and heartburn Details: JOSEFA CHE, is a 73 F who presents to the office today for f/u. FH mother colon cancer late 70?s. Prior workup: ? US RUQ 7..20 at [facility] with mild increase of hepatic echogenicity. EGD and colonoscopy 10.15.19 at [facility]. EGD found ertythematous mucosa of antrum; gastritis; irregular ZLine. Pathology changes of gastric reactive changes; gastritis; inflamed gastric cardia-type mucosa. Hepatic flexure colonic polyp. *BGI established 8. Wing Fundoplication 2006; recently began having a return of reflux symptoms to include esophageal burning, chest discomfort and bloating. PeptoBismol mildly effective. Previously attempted reflux medications, protonix, aciphex all of which caused increased GERD or other SE. Particularly during the night she will have chest pain; not currently taking medications d/t worsening with medications historically. Reports increased sinus drainage with ENT determining it is GI related. Feels she also has spasms of her esophagus that cause dense foods (salmon/chicken) to swallow abnormally. Feels Swedish food particularly triggers this. 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 Blood in stool historically without change in bowel habits. ? Gastric emptying study 11.07.21 time at the lower side of normal at 15.01 minutes (normal 12-56). Contact 10.24.21 to report that since start of alkaline water and bicarbonate she has been having increased symptoms and diarrhea. Recommended colestipol 1g QD for two weeks to start after her vacation. OV 11.. Continues to have food sticking in her esophagus; increased epigastric discomfort; continued nausea. Feels everything has gotten somewhat worse as she is taking increased pepto-bismol than previously, particularly with trigger foods. EGD and Benitez 02.12. short-segment Matute?s mucosal changes without metaplasia noted; LA Grade B reflux esophagitis; Toupet fundoplication with loose wrap. Benitez deployed. ? Benitez total [place] 11.0 with all exposure supine. Day 1 [place] 0.3. Day 2 [place] 17.5 with all exposure supine. OV 2.3.23 In the last seven days she has had no issues with food sticking; just prior to this she did have a reduction in stress with selling her MIL house and cleaning it out. She has also changed her routine during the day she moved her coffee time from 3-4PM to lunch and took Benadryl just prior to bed which she has moved to an earlier time. With these changes she is sleeping better and has had no further nocturnal CP or drainage; she has also had a change of her allergy injection serum. OV 8..23 continues to have difficulty with dysphagia requiring regurgitation to clear. Aloe juice, aloe powder ineffective; aloe water taken for two weeks but feels it caused abdominal discomfort; ground flax seed attempted and cause constipation; PPI worsens reflux. Pepto-bismol is helpful with stomach aches. Previously attempted colestipol, ineffective/constipation. OSH Hospitalization 03.13.23-03.18.23 for stroke like symptoms. 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 Is scheduled to have mitral valve repair 05/19/23. Continues to have occasional heartburn. Takes pepto and digestive enzymes before meals which is somewhat helpful. No Dysphagia. Still having phglem. Was started on Plavix, Lipitor, Aspirin and Losartan and believes one of these is making her constipation worse. Has started drinking Smooth Move tea which has been helpful. OV 1024; Pt is here today for discussion of constipation and abdominal pain. A few days ago she had severe RLQ pain and constipation. The pain last for 2 hours and then dissipated but she continues to have constipation. SHe has tried Benefiber and senna for constipation but nothing else. She is not currently taking an meds for esophagitis as she cannot take PPI and famotidine gave her headaches. SHe does baking soda and pepto as needed. She has no tried sucralfate yet. ROS Const Constitutional: Positive for weight change; No fatigue or fever(s) ENT ENT: No difficulty swallowing Gastro GI: Positive for abdominal pain, bloating, change in bowel habits, constipation, heartburn, excessive flatus and nausea/dyspepsia; No belching, change in stool character, coffee ground emesis, cramping, diarrhea, difficulty swallowing, feeling full early, incontinent of stools, Vomiting blood/hematemesis, Blood in stool, loose stools, Black,tarry stools, pain with swallowing, vomiting or other Musc Musculoskeletal: Positive for numbness and tingling; No joint pain Skin Skin: No yellowing of the eye or itchy eyes Neuro Neurology: Positive for numbness and tingling Psych Psychiatric: No anxiety and No depression Endo Endocrine: Positive for weight change; No fatigue Aller/Imm Allergy/Immunologic: No itchy eyes Shaji/Lymp Hematologic/Lymphatic: No easy bleeding or easy bruising Exam Const General: cooperative and comfortable Nutritional Appearance: average body habitus and well nourished [facility] Head: normal to inspection Ears: hearing grossly normal bilaterally Nose: external nose normal Face and sinus: normal facial exam Mouth: oral mucosae normal Throat: posterior oropharynx normal Eyes General: appearance normal, both eyes and all related structures Neck Neck: normal visual inspection Chest Chest palpation & inspection: normal inspection of the chest and normal palpation of entire chest wall Resp Effort & Inspection: normal respiratory effort Auscultation: Bilateral: Clear to Auscultation Cardio Palpation: normal PMI Rate: regular rate Rhythm: regular rhythm GI Inspection: normal to inspection Auscultation: normal bowel sounds Percussion: normal to percussion Palpation: no hepatosplenomegaly Skin General: no rashes or lesions noted Neuro General: patient alert Extrem General: normal to inspection Psych Affect: normal affect Assessment and Plan Assessment and Plan (1) Constipation: Status: Acute (2) RUQ pain: Status: Acute (3) GERD (gastroesophageal reflux disease): Status: Chronic Qualifiers: Esophagitis presence: without esophagitis Qualified Code(s): K21.9 - Gastro-esophageal reflux disease without esophagitis Plan: This is a 73 yo pt here today for f/u. She has a PMHx of GERD with most recent scope being in September 2023. SHe cannot take PPI or famotdine due to side effects. I recommended sucralfate and she has not yet tried it but says she will pick it up from the pharmacy today. She is schedule for a repeat scope in December 2023. She has been struggling with constipation and has tried Benefiber and senna. I recommended miralax daily and Benefiber. I will order KUB to rule out obstruction. She has had some right sided pain recently and feels it may be her gallbladder. SHe has had an US in the past showing sludge and a liver cyst. I will order another US at this time to monitor her gallbladder and liver cyst. She is agreeable to plan. -Start sucralfate -EGD in December -Benefiber and miralax -KUB ordered -Gallbladder US -f/u in 3 months Orders: Orders Abdomen Single View Today K59.00 - Constipation, unspecified Gallbladder Today R10.11 - Right upper quadrant pain I have examined the patient and the H&P has been reviewed. There are no clinical changes since date of exam.
--- NOTE | 2024-01-05 07:00 | EGD_PTH ---
PATIENT: JOSEFA CHE LOC: EN U#:[id number] AGE/SX: 73/F ROOM: RE01/05/[address]: Dr. Ko Tilley DO : 1950 BED: DIS: 01/05/2024 SPEC #: [id number] RECD: 01/05/24 09:44 STATUS: JACI CHANTEL #: [id number] RENEE: 01/05/24 07:[address]: Ko Tilley DEPT: SURGICAL PATHOLOGY RECD BY: Elver Woo ENTERED: 01/05/24 10:25 SP TYPE: EGD BIOPSY JANETH DR: Dr. Santy Hadley MD Tissues: Esophagus, NOS Procedures: Special Stain Group I Surgery Specimen Level IV Alcian Blue/PAS (control) HEADER OPERATION: EGD with biopsy PRE-OP DIAGNOSIS: Constipation, right upper quadrant pain, GERD TISSUE SUBMITTED: Distal esophagus biopsy MICROSCOPIC DIAGNOSIS Distal esophagus, biopsy: Fragments of gastroesophageal mucosa with focal minimal intestinal metaplasia (goblet cell metaplasia) suggestive of Matute's esophagus. Moderate chronic inflammation. Negative for dysplasia. See comment. 01/05/2024 COMMENT Alcian blue/PAS stain with matched control is used in the evaluation of the specimen. Immunohistochemistry ([id number]) for P53 and Ki-67 will be performed and results will be reported separately. Case has been reviewed in consultation with Dr. Lane who concurs with the above diagnosis. IDC:MICHEL MICROSCOPIC DESCRIPTION Slides are reviewed. GROSS DESCRIPTION Received in fixative is one container labeled with the patient's name and designated Distal esophagus biopsy. The specimen consists of multiple irregular fragments of lee soft tissue that in aggregate measure 0.6 x 0.7 x 0.2 cm. The specimen is totally submitted in one cassette. 01/05/2024 TC:5 CPT:66069,88131
--- NOTE | 2024-01-05 07:24 | OP.CCLET_ITS ---
01/05/2024 Matt Hadley [address] [place] [address] Re : Upper GI endoscopy procedure for Yulisa Shepard Dear Dr. Hadley This procedure was performed on Friday, January 05, 2024. My impressions and recommendations are as follows: Impressions : - Z-line irregular, 39 cm from the incisors. Biopsied. - A Toupet fundoplication was found. The wrap appears loose. - Normal first portion of the duodenum. Recommendations : - Discharge patient to home. - Resume previous diet. - Continue present medications. - Await pathology results. My findings are described in the full procedure note, which is enclosed. If I can be of further assistance, please feel free to contact me at . Sincerely, Ko Tilley, 01/05/2024 7:24:01 AM This report has been signed electronically.
--- NOTE | 2024-01-05 07:24 | OP.EGD_ITS ---
Patient Name: Yulisa Shepard Procedure Date: 01/05/2024 7:07 AM Date of : 1950 Age: 73 Procedure: Upper GI endoscopy Indications: Heartburn Providers: Ko Tilley DO Referring MD: Matt Hadley Medicines: Monitored Anesthesia Care Patient Profile: This is a 73 year old female. Refer to note in patient chart for documentation of history and physical. Patient has symptoms of chronic heartburn. Complications: No immediate complications. Procedure: Pre-Anesthesia Assessment: - Prior to the procedure, a History and Physical was performed, and patient medications and allergies were reviewed. The patient is competent. The risks and benefits of the procedure and the sedation options and risks were discussed with the patient. All questions were answered and informed consent was obtained. Patient identification and proposed procedure were verified by the physician in the pre-procedure area. Mental Status Examination: alert and oriented. Airway Examination: normal oropharyngeal airway and neck mobility. Respiratory Examination: clear to auscultation. CV Examination: normal. Prophylactic Antibiotics: The patient does not require prophylactic antibiotics. Prior Anticoagulants: The patient has taken no anticoagulant or antiplatelet agents except for NSAID medication. ASA Grade Assessment: II - A patient with mild systemic disease. After reviewing the risks and benefits, the patient was deemed in satisfactory condition to undergo the procedure. The anesthesia plan was to use monitored anesthesia care (MAC). Immediately prior to administration of medications, the patient was re-assessed for adequacy to receive sedatives. The heart rate, respiratory rate, oxygen saturations, blood pressure, adequacy of pulmonary ventilation, and response to care were monitored throughout the procedure. The physical status of the patient was re-assessed after the procedure. After obtaining informed consent, the endoscope was passed under direct vision. Throughout the procedure, the patient's blood pressure, pulse, and oxygen saturations were monitored continuously. The gastroscope was introduced through the mouth, and advanced to the second part of duodenum. The upper GI endoscopy was accomplished without difficulty. The patient tolerated the procedure well. Scope In: 7:12:49 AM Scope Out: 7:17:44 AM Total Procedure Duration Time 0 hours 4 minutes 55 seconds Findings: The Z-line was irregular and was found 39 cm from the incisors. Biopsies were taken with a cold forceps for histology. Verification of patient identification for the specimen was done. Estimated blood loss was minimal. Evidence of a Toupet fundoplication was found in the gastric fundus. The wrap appeared loose. This was traversed. The first portion of the duodenum was normal. Impression: - Z-line irregular, 39 cm from the incisors. Biopsied. - A Toupet fundoplication was found. The wrap appears loose. - Normal first portion of the duodenum. Recommendation: - Discharge patient to home. - Resume previous diet. - Continue present medications. - Await pathology results. Procedure Code(s): --- Professional --- 75587, Esophagogastroduodenoscopy, flexible, transoral; with biopsy, single or multiple CPT copyright 2021 [employer]. All rights reserved. The codes documented in this report are preliminary and upon editorial intern review may be revised to meet current compliance requirements. Ko Tilley DO 01/05/2024 7:24:01 AM This report has been signed electronically. Number of Addenda: 0 Note Initiated On: 01/05/2024 7:07 AM
[2024-01-05 07:25] VITALS: BP 104/58; BP 133/79; PULSE 73; RESP 16; TEMP 36.4; O2SAT 97
[2024-01-05 07:30] VITALS: BP 104/58; BP 110/60; BP 133/79; PULSE 62; PULSE 67; RESP 14; RESP 16; TEMP 36.4; O2SAT 95; O2SAT 98
--- NOTE | 2024-01-05 07:30 | PCM.POST.ANE ---
Anesthesia: Postop Eval I Current Vital Signs Temperature: 97.5 F Pulse Rate: 62 Blood Pressure: 104/58 Respiratory Rate: 14 Pulse Ox: 98 Oxygen Delivery Method: Room Air Assessment Airway patent: Yes Spontaneous unlabored respirations: Yes Mental status: Asleep nausea: No Vomiting: No Anesthesia Complication: No Fluid Hydration Crystalloid volume administer (ml): 25 Total IV fluid infused: 25 Progress Note Anesthesia document: Postop Eval 1 completed: Yes
[2024-01-05 07:35] VITALS: BP 106/63; BP 133/79; PULSE 64; RESP 16; TEMP 36.4; O2SAT 99
[2024-01-05 07:52] VITALS: BP 133/79
--- NOTE | 2024-01-05 10:18 | PCM.POSTANE2 ---
Anesthesia Postop Eval I Sum Postop Eval Completion status Anesthesia document: Postop Eval 1 completed: Yes Anesthesia Postop Eval I Summary Anesthesia Postop Eval I Summary: Anesthesia Postop Eval I: Assessment Summary Airway patent Yes 01/05/24 07:30 [email or web address] Spontaneous unlabored Yes 01/05/24 07:30 [email or web address] respirations Mental status Asleep 01/05/24 07:30 [email or web address] nausea No 01/05/24 07:30 [email or web address] Vomiting No 01/05/24 07:30 [email or web address] Anesthesia Postop Eval I: Fluid Summary Crystalloid volume administer 25 01/05/24 07:30 [email or web address] (ml) Colloids volume administered ( ml) Blood Product volume administered (ml) Total IV fluid infused 25 01/05/24 07:30 [email or web address] Anesthesia Postop Eval I: Summary Notes Anesthesia Complication No 01/05/24 07:30 [email or web address] Anesthesia Complication Comment: Post-operative progress note Anesthesia: Postop Eval II Evaluation Mental status: Awake Pain Level: 0 nausea: No Vomiting: No
== END 2024-01-05 08:02 | disposition home or self-care (01) ==
LOC: EN 05:57 → AC 05:58
PROVIDERS: PCP Family Medicine; Referring Provider Family Medicine; Visit Provider Internal Medicine Gastroenterology
PROC: 0DJ08ZZ Inspection of Upper Intestinal Tract, Via Natural or Artificial Opening Endoscopic (ICD-10-PCS; CPT 43235; principal; 2024-01-05 06:55)
DX: K21.9 Gastro-esophageal reflux disease without esophagitis (principal); K22.70 Barrett's esophagus without dysplasia; E78.5 Hyperlipidemia, unspecified; K59.00 Constipation, unspecified; R10.11 Right upper quadrant pain; F41.9 Anxiety disorder, unspecified; Z79.82 Long term (current) use of aspirin; Z79.899 Other long term (current) drug therapy; Z86.0100 Personal history of colon polyps, unspecified; Z86.73 Personal history of transient ischemic attack (TIA), and cerebral infarction without residual deficits
CPT/HCPCS: 43239; 88305; 88312; 88341; 88342; A4216; J2405

== ENCOUNTER → 2024-01-13 | Outpatient (CLI) | payer MEDICARE, SELFPAY ==
[2023-09-26 10:28] VITALS: BMI 22.8
[2024-01-13 08:58] LABS: Color, Urine Yellow (Yellow); Glucose, Dipstick Normal (Normal); Ketone-Dipstick Negative (Negative); Leukocyte Esterase-Dipstick 25 /ul (Negative); Nitrite-Dipstick Negative (Negative); Occult Blood-Urine Negative /ul (Negative); Protein-Dipstick Negative (Negative); Urine Bilirubin Dipstick Negative (Negative); Urine Clarity Clear (Clear); Urine Urobilinogen Normal (Normal)
[2024-01-13 09:19] LABS: PTHIN 81.1 pg/mL (18.4-80.1)
[2024-01-13 09:23] LABS: Vitamin D,25 Hydroxy 34.6 ng/mL
[2024-01-13 09:32] LABS: Anion Gap 3 (5-15); BUN 10 mg/dL (7-18); BUN/Creat Ratio 14.3 RATIO (10-20); Calcium,Total 8.9 mg/dL (8.5-10.1); Chloride 109 mmol/L (98-107); EST Glomerular Filtration Rate 87 mL/min (>60); Est Glom Filt Rate - Afr Amer 106 mL/min (>60); Glucose 86 mg/dL (74-106); Magnesium 2.1 mg/dL (1.6-2.6); Potassium 3.8 mmol/L (3.5-5.1); Sodium Level 140 mmol/L (136-145)
== END | disposition home or self-care (01) ==
LOC: LAB 08:34
PROVIDERS: PCP Family Medicine; Referring Provider Family Medicine; Visit Provider Family Medicine
DX: Z00.00 Encounter for general adult medical examination without abnormal findings (principal); M81.0 Age-related osteoporosis without current pathological fracture
CPT/HCPCS: 36415; 80048; 81002; 82306; 83735; 83970; 84443

== ENCOUNTER 2024-03-13 15:25 | Emergency (ER) | payer MEDICARE, SELFPAY ==
[2023-09-26 10:28] VITALS: BMI 22.8
[2024-03-13 15:26] VITALS: BP 146/7; PULSE 80; RESP 16; TEMP 36.4; O2SAT 100
--- NOTE | 2024-03-13 15:30 | EDS_ITS ---
HPI History of Present Illness Chief Complaint: Upper Extremity Injury [facility] Medical History TIA (transient ischemic attack) Wears glasses Post-menopausal Arthritis Back pain Difficulty swallowing Dietary restriction History of hiatal hernia Gastric reflux Non-smoker Leg cramps MVP (mitral valve prolapse) History of pain when walking History of Holter monitoring History of echocardiogram Cardiology follow-up encounter Epigastric pain Osteoporosis Anxiety Allergic rhinitis Migraines Hyperlipidemia Nonrheumatic mitral (valve) prolapse Paroxysmal supraventricular tachycardia Home Medications ?Medication ?Instructions ?Recorded ?Last Taken ?Type estradiol 0.01% (0.1 mg/gram) 1 g vaginal .3 TIMES WEEKLY #43 10/07/18 04/18/23 History vaginal cream grams clobetasol 0.05 % topical cream 1 applic topical PRN PRN Skin 10/14/18 Unknown History Cleansing #45 grams magnesium oxide 250 mg PO DAILY 10/19/19 Unknown History prednisolone acetate 1 % eye 1 drp ophthalmic (eye) PRN PRN Eye 10/19/19 Unknown History drops,suspension Irritation denosumab 60 mg/mL subcutaneous 60 mg subcut [id number] 12/12/20 Unknown History syringe (Prolia) lorazepam 0.5 mg tablet 0.5 mg PO BID PRN Anxiety 08/07/21 Unknown History diphenhydramine HCl 25 mg tablet 25 mg PO QHS PRN ALLERGIES 02/07/22 Unknown History (Benadryl Allergy) calcium 650 mg-vitamin D3 12.5 2 tab PO DAILY 08/15/22 Unknown History mcg-vitamin K 40 mcg chewable tablet (Viactiv) ipratropium bromide 42 mcg (0.06 2 spray intranasal BID 02/27/23 Unknown History %) nasal spray sumatriptan succinate 50 mg tablet 50 mg PO ONCE PRN migraine headache 02/27/23 Unknown History (Imitrex) aspirin 81 mg tablet,delayed 81 mg PO DAILY 04/08/23 12/31/23 History release (Adult Aspirin Regimen) albuterol sulfate 90 mcg/actuation 2 inh inhalation Q6H PRN shortness 06/11/23 Unknown History aerosol inhaler of breath or wheezing Lactobacillus acidophilus 10 100 mmu cells PO DAILY 10/08/23 Unknown History billion cell capsule (NewFlora) estradiol 0.5 mg tablet 0.5 mg PO .3X WEEKLY 10/08/23 Unknown History ascorbic acid 125 mg-collagen, 1 cap PO DAILY 01/01/24 Unknown History hydrolyzed 740 mg capsule (Collagen Plus Vitamin C) atorvastatin 10 mg tablet (Lipitor) 10 mg PO .QOD #60 tabs 02/26/24 Unknown Rx methocarbamol 500 mg tablet 500 mg PO TID PRN pain (scale 03/13/24 Unknown Rx score 7-10) 5 days #15 tabs prednisone 50 mg tablet 50 mg PO DAILY 5 days #5 tabs 03/13/24 Unknown Rx Allergy/AdvReac Type Severity Reaction Status Date / Time famotidine (From Pepcid) AdvReac Severe Constipatio Verified 03/13/24 15:29 n sucralfate (From Carafate) AdvReac Severe Other Verified 03/13/24 15:29 amoxicillin (From Augmentin) AdvReac Intermediate Diarrhea Verified 03/13/24 15:29 clavulanic acid (From AdvReac Intermediate Diarrhea Verified 03/13/24 15:29 Augmentin) cyclobenzaprine (From AdvReac Intermediate PT UNSURE Verified 03/13/24 15:29 Flexeril) OF REACTION gabapentin (From Neurontin) AdvReac Intermediate fatigue Verified 03/13/24 15:29 tizanidine AdvReac Intermediate Rash Verified 03/13/24 15:29 omeprazole (From Prilosec) AdvReac Unknown GI upset Verified 03/13/24 15:29 pantoprazole (From Protonix) AdvReac Unknown gi upset Verified 03/13/24 15:29 rabeprazole (From AcipHex) AdvReac Unknown unknown Verified 03/13/24 15:29 ranitidine AdvReac Unknown headache Verified 03/13/24 15:29 hydromorphone (From Dilaudid) AdvReac intolerance Verified 03/13/24 15:29 Iodinated Contrast Media AdvReac GI Upset Verified 03/13/24 15:29 levofloxacin AdvReac tendonitis Verified 03/13/24 15:29 Proton Pump Inhibitors AdvReac Other Verified 03/13/24 15:29 shellfish derived AdvReac GI Upset Verified 03/13/24 15:29 sorbitol AdvReac GI Upset Verified 03/13/24 15:29 Family History Mother CAD (coronary artery disease) CABG Heart disease Father CAD (coronary artery disease) CABG Myocardial infarction, Onset Age: 9 Surgical History History of esophagogastroduodenoscopy (EGD) History of cardiac catheterization Hx of mitral valve repair (05/20/23) Hx of rhinoplasty Hx of lumbar discectomy History of Wing fundoplication History of eye surgery (08/11/19) History of colonoscopy with polypectomy (10/15/19) History of esophagogastroduodenoscopy (EGD) (10/15/19) History of total abdominal hysterectomy History of left heart catheterization (11/10/01) History of radiofrequency ablation procedure for cardiac arrhythmia (09/21/08) Social History Smoking Status: Never smoker alcohol intake: never EXAM Physical Exam Const Vital Signs: 03/13/24 15:26 Temperature 97.6 F L Temperature Source Oral Pulse Rate 80 Respiratory Rate 16 Blood Pressure 146/7 H Blood Pressure Mean 53 Pulse Ox 100 Oxygen Delivery Method Room Air MDM MDM MDM Narrative Medical decision making narrative: HISTORY OF PRESENT ILLNESS: 73-year-old female presents with multiple musculoskeletal complaints. She notes pain in the neck. She notes pain in bilateral shoulders and left leg. She also notes thumb pain. She does she just had Lipitor. She states she has a pinched nerve in her neck REVIEW OF SYSTEMS: Pertinent positives: myalgias, neck pain, shoulder pain and left hip pain Pertinent negatives: Fever, sore throat, difficulty swallowing PHYSICAL EXAM: Nursing triage notes reviewed, Vital signs reviewed Constitutional: please see mdm HENT: MMM, no tonsillar exudates, erythema or edema. Eyes: Pupils equal round and reactive to light, Extraocular muscles intact Neck: No stridor, no JVD, full neck ROM Lungs: Clear to auscultation, No wheezing or rales. No increased work of breathing, no conversational dyspnea, no accessory muscle use, no nasal flaring. No respiratory distress noted Heart: Regular rate and rhythm, No murmurs, No rubs and No gallops, 2+ distal pulses (radial, femoral, posterior tibial) in all extremities Abdomen: Soft, there is no tenderness, rigidity, rebound or guarding, no obvious peritoneal signs, no palpable pulsatile abdominal masses, no auscultated abdominal bruit : No CVAT Extremities: No edema, TTP over left hip, painful range of motion in left hip flexion extension internal/external rotation. No obvious TTP over bilateral shoulders. No obvious step-offs or deformities Neuro: Intact 5/5 strength with ok sign (median), intact finger abduction (ulnar) intact wrist extension (radial n). Intact sensation in the radial, u lnar, and median nerve distributions. Intact sensation L1-S1 dermatomal distributions. Intact 5/5 strength in hip flexion (T12-L3). Knee extension (L2-L4). Ankle dorsiflexion (L4-L5). Ankle plantar flexion (S1). Great toe extension (L5). 2+ patellar and Achilles DTRs. Skin: No rash or lesions noted MEDICAL DECISION MAKING: Chief Complaint: Myalgias External records reviewed: Reviewed patient's multiple allergies Factors affecting care: Hypertension, GERD, hyperlipidemia, TIA, constipation Social determinants of health: none History obtained from others: none Consults: none [facility] Narrative: Patient was initially hemodynamically stable, afebrile and nontoxic-appearing. Exam with some diminished range of motion with neck rotation. There is no stridor, there is no submandibular edema, there is no posterior oropharyngeal edema or erythema or tonsillar enlargement, uvula midline. No suppositories or cervical spine. Bilateral TTP over paraspinal muscles along the cervical spine, hypertonicity of trapezius muscles. I considered the following differential diagnosis: Cervical spine fracture dislocation, bony fracture dislocation, myalgia, Lipitor side effect, While I considered various bony injuries including fracture dislocation of the neck, shoulders, and thumb there is no trauma reported to suggest a bony injury of this magnitude. There were no infectious symptoms endorsed to suggest myalgias related to systemic infection. Patient displayed no fever. Patient's upper extremity neurologic exam was intact. She had negative Spurling sign bilaterally. Given suspicion for cervical radiculopathy or cervical spine herniated disc I obtained a CT scan of the patient cervical spine. CT scan of the spine is negative. X-ray of the left hip was read reviewed as well as some showed no evidence of obvious bony abnormality. Did show some osteoarthritis. This may be another cause of her symptoms. No obvious life-limiting etiology could be ascertained to the emergency department. Patient noted mild improvement after steroids, muscle relaxers and oxycodone her symptoms may be a result of Lipitor toxicity. I recommended discontinuing Lipitor and lieu of a low cholesterol diet/plant-based diet until she follows with her primary care physician for reevaluation and initiation of another cholesterol-lowering medication. Will prescribe Robaxin and prednisone for additional relief at home. Recommended close PCP and pain management follow-up. The patient and/or family, caregivers express understanding. The patient and/or family, caregivers agrees with the plan. Shared decision making: I will have a discussion with the patient and or visitors regarding risk/benefits of further testing or admission. They will be made aware of of the risk/benefits inherent in this decision they will be given the opportunity to voice understanding. Total critical care time today provided was at least 0 minutes. This excludes separately billable procedures. Critical care time (if documented) is secondary to the patient having high probability of clinically significant/life threatening deterioration in the patient's condition which required my urgent i ntervention. Impression: 1. Myalgias 2. Medication side effect Dispo: Discharge home This note was generated with [employer] dictation software. It may contain incorrect words, spelling, and punctuation that were not noted in review of the chart prior to signing. Discharge Plan Triage Chief Complaint: Upper Extremity Injury Other Complaint: Lower Extremity Injury ED Provider: Barrett Barroso Dx/Rx/DC Orders Clinical Impression: Acute neck pain Instructions: ED Neck Pain Prescriptions: New methocarbamol 500 mg tablet 500 mg PO TID PRN (Reason: pain (scale score 7-10)) 5 Days Qty: 15 0RF prednisone 50 mg tablet 50 mg PO DAILY 5 Days Qty: 5 0RF No Action clobetasol 0.05 % cream 1 applic TOPICAL PRN PRN (Reason: Skin Cleansing) Qty: 45 calcium-vitamin D3-vitamin K [Viactiv] 650 mg-12.5 mcg-40 mcg tablet,chewable 2 tab PO DAILY estradiol 0.01 % (0.1 mg/gram) cream 1 g VAGINAL .3 TIMES WEEKLY Qty: 43 Patient Comments: APPLY 3 X/WEEK NEEDED. magnesium oxide 250 mg magnesium tablet 250 mg PO DAILY prednisolone acetate 1 % drops,suspension 1 drp OPHTHALMIC PRN PRN (Reason: Eye Irritation) Patient Comments: PLEASE SEE ATTACHED FOR DETAILED DIRECTIONS Prolia 60 mg/mL syringe 60 mg subcut [id number] lorazepam 0.5 mg tablet 0.5 mg PO BID PRN (Reason: Anxiety) sumatriptan succinate [Imitrex] 50 mg tablet 50 mg PO ONCE PRN (Reason: migraine headache) ipratropium bromide 42 mcg (0.06 %) spray,non-aerosol 2 spray intranasal BID Rx Instructions: administer into each nostril aspirin [Adult Aspirin Regimen] 81 mg tablet,delayed release (DR/EC) 81 mg PO DAILY atorvastatin [Lipitor] 10 mg tablet 10 mg PO .QOD Qty: 60 3RF diphenhydramine HCl [Benadryl Allergy] 25 mg Tablet 25 mg PO QHS PRN (Reason: ALLERGIES) Collagen Plus Vitamin C 125-740 mg capsule 1 cap PO DAILY albuterol sulfate 90 mcg/actuation HFA aerosol inhaler 2 inh inhalation Q6H PRN (Reason: shortness of breath or wheezing) NewFlora 10 billion cell capsule 100 mmu cells PO DAILY estradiol 0.5 mg tablet 0.5 mg PO .3X WEEKLY Primary Care Provider: Santy Hadley Referrals: Mitesh Costello MD [Med Staff - Active Staff] - Santy Hadley MD [Primary Care Provider] - Activity Restrictions/Additional Instructions: Thank you for trusting us with your care today! The image of your neck showed no evidence of acute bony abnormalities. Imaging of your hip was also negative. Please take Tylenol (2 pills, 650 mg), ibuprofen (2 pills, 400 mg) every 6 hours as needed for pain and fever control. . Please continue taking home medications including oxycodone, tramadol, Ativan Please return to the emergency department if your symptoms change or worsen. Please follow with your primary care physician/pain management for further outpatient evaluation and management. Print Language: Omani Disposition Disposition: Home, Self Care
--- NOTE | 2024-03-13 15:50 | CT_ITS ---
INDICATION: neck pain EXAMINATION: CT CERVICAL SPINE - CT Spine Cervical W/O Contrast Injection TECHNIQUE: Helically acquired images were obtained of the cervical spine. 2D reformatted images were reviewed. A radiation dose optimization technique was used for this scan. IV Contrast dosage and agent: None. COMPARISON: None. FINDINGS: VERTEBRAE: No fracture or traumatic subluxation. No discrete lytic or blastic abnormality. Normal alignment. Normal craniocervical junction and cervicothoracic junction. DISCS and SPINAL CANAL: Moderate multilevel degenerative disc disease and spondylosis. No critical stenosis. NECK SOFT TISSUES: No prevertebral soft tissue swelling. There is no cervical adenopathy. LUNG APICES: Clear. CT/Spine Cervical without Contras IMPRESSION: No evidence of acute cervical spinal fracture or spondylolisthesis. Moderate multilevel degenerative disc disease and spondylosis. Electronically Signed: Santy Deng MD at 16:12 EST ,
--- NOTE | 2024-03-13 16:00 | RAD_ITS ---
INDICATION: left hip pain EXAMINATION/TECHNIQUE: X-RAY - LEFT XR Hip Unilateral with Pelvis when performed; 2-3 Views COMPARISON: None. FINDINGS: No acute fracture or malalignment. No blastic or lytic lesions. Mild bilateral degenerative changes of the hips. The soft tissues are unremarkable. RAD/HIP, UNI W/ Pelvis 2-3 Views IMPRESSION: No acute radiographic abnormalities. Electronically Signed: Santy Deng MD at 16:39 EST ,
[2024-03-13] MEDS: predniSONE 20 MG Tablet 40 MG PO (16:11)
[2024-03-13] MEDS: Methocarbamol 500 MG Tablet PO (16:11)
[2024-03-13] MEDS: oxyCODONE 5 MG Tablet PO (16:11)
[2024-03-13 17:26] VITALS: BP 138/66; PULSE 78; RESP 18; O2SAT 99
[2024-03-13 18:00] VITALS: BP 134/78; PULSE 78; RESP 16; TEMP 37.1; O2SAT 99
== END 2024-03-13 18:17 | disposition home or self-care (01) ==
PROVIDERS: Emergency Provider Emergency Medicine; PCP Family Medicine; Visit Provider Emergency Medicine
DX: M54.2 Cervicalgia (principal); Z86.73 Personal history of transient ischemic attack (TIA), and cerebral infarction without residual deficits
CPT/HCPCS: 72125; 73502; 96361; 96374; 96375; 99283

== ENCOUNTER → 2024-03-15 | Outpatient (CLI) | payer MEDICARE, SELFPAY ==
[2023-09-26 10:28] VITALS: BMI 22.8
--- NOTE | 2024-03-15 11:46 | RAD_ITS ---
STUDY: X-RAY - LUMBOSACRAL SPINE REASON FOR EXAM: Female, 73 years old. Left leg pain. TECHNIQUE: 6 view(s) of the lumbosacral spine, including lateral flexion and extension views, were obtained. COMPARISON: January 02, 2022 FINDINGS: Osteopenia. Normal lordosis. Minimal rotatory dextroscoliosis. 11 mm of anterolisthesis of L4 on L5 unchanged from prior study. Diffuse moderate lower thoracic and lumbosacral facet sclerosis. Stable intervertebral disc space narrowing in the lower thoracic spine and at L3-4, L4-5 and to the greatest degree L5-S1. Limited flexion and extension with no abnormal motion. Phleboliths and vascular calcification. RAD/L/S Spine w Bend Min 6 Vw IMPRESSION: Stable osteopenia with moderate lower thoracic and lumbosacral spondylosis as described. Electronically Signed: Jaxson Rod MD at 14:40 EST ,
[2024-03-15 15:49] LABS: Erythrocyte Sedimentation Rate 18 mm/hr (0-30)
[2024-03-15 15:51] LABS: Absolute Neutrophil Count 7.7 X10^3/uL (2.0-7.7); Basophil# 0.01 X10^3/uL; Basophil% 0.1 % (0-1); Hematocrit 39.3 % (37-47); Hemoglobin 13.7 g/dL (12.0-15.0); Lymphocyte % 14.7 % (19-41); Mean Corp Hgb Conc 34.9 g/dL (32-36); Mean Corpuscular Hgb 31.3 pg (27.0-32.0); Mean Corpuscular Volume 89.7 fL (81-99); Mean Platelet Vol. 9.9 fl (6.2-12.0); Monocyte# 0.39 X10^3/uL; Monocyte% 4.1 % (0-10); NRBC Flagged by Analyzer 0 % (0-5); Neutrophil # 7.65 X10^3/uL (2.7-7.7); Neutrophil % 80.3 % (47-70); Platelet Count 209 K/mm3 (150-450); RBC Distribution Width CV 11.5 % (11.6-14.6); RBC Distribution Width SD 37.6 fl (35.1-43.9); Red Blood Count 4.38 M/mm3 (4.2-5.4); White Blood Count 9.5 K/mm3 (4.4-11.0)
[2024-03-15 15:52] LABS: Vitamin D,25 Hydroxy 32.8 ng/mL
[2024-03-15 16:11] LABS: ALB/GLOB Ratio 0.8 RATIO (0.9-2.4); AST(SGOT) 18 U/L (15-37); Alanine Aminotransfer ALT/SGPT 31 U/L (13-56); Albumin, Serum 3.4 g/dL (3.2-5.0); Alkaline Phosphatase 77 U/L (45-117); Anion Gap 10 (5-15); BUN 14 mg/dL (7-18); BUN/Creat Ratio 19.6 RATIO (10-20); Calcium,Total 9.7 mg/dL (8.5-10.1); Chloride 98 mmol/L (98-107); Creatinine, Serum 0.72 mg/dL (0.55-1.02); EST Glomerular Filtration Rate 85 mL/min (>60); Est Glom Filt Rate - Afr Amer 103 mL/min (>60); Glucose 102 mg/dL (74-106); Potassium 3.7 mmol/L (3.5-5.1); Protein, Total 7.4 g/dL (6.4-8.2); Rheumatoid Factor < 10.0 IU/mL (<15); Sodium Level 132 mmol/L (136-145)
[2024-03-17 14:08] LABS: ANTINUCLEAR ANTIBODIES DIRECT Negative (Negative)
== END | disposition home or self-care (01) ==
LOC: MTLAB 11:46
PROVIDERS: PCP Family Medicine; Referring Provider Family Medicine; Visit Provider Family Medicine
DX: M79.605 Pain in left leg (principal); M51.369 Other intervertebral disc degeneration, lumbar region without mention of lumbar back pain or lower extremity pain
CPT/HCPCS: 36415; 72114; 80053; 82306; 84443; 84550; 85025; 85652; 86038; 86140; 86431

== ENCOUNTER → 2024-04-05 | Outpatient (CLI) | payer MEDICARE, SELFPAY ==
[2023-09-26 10:28] VITALS: BMI 22.8
[2024-04-05 13:33] LABS: Ionized Calcium 1.26 mmol/L (1.09-1.30)
[2024-04-05 13:48] LABS: Osmolality, Serum 275 mOsm/KG (280-301)
[2024-04-05 17:46] LABS: Anion Gap 7 (5-15); BUN 13 mg/dL (7-18); CPK Total, Creatine Kinase 97 U/L (26-192); CRP 3.76 mg/L (0.0-3.0); Calcium,Total 8.9 mg/dL (8.5-10.1); Chloride 98 mmol/L (98-107); Creatinine, Serum 0.59 mg/dL (0.55-1.02); EST Glomerular Filtration Rate 105 mL/min (>60); Est Glom Filt Rate - Afr Amer 128 mL/min (>60); Glucose 89 mg/dL (74-106); Sodium Level 133 mmol/L (136-145)
== END | disposition home or self-care (01) ==
LOC: LAB 12:55
PROVIDERS: PCP Family Medicine; Referring Provider Family Medicine; Visit Provider Family Medicine
DX: M25.50 Pain in unspecified joint (principal)
CPT/HCPCS: 80048; 82330; 82550; 83930; 86140

== ENCOUNTER → 2024-04-08 | Outpatient (CLI) | payer MEDICARE, SELFPAY ==
[2023-09-26 10:28] VITALS: BMI 22.8
== END | disposition home or self-care (01) ==
LOC: PSN 09:56
PROVIDERS: PCP Family Medicine; Referring Provider Nurse Practitioner Family; Visit Provider Nurse Practitioner Family
DX: I48.0 Paroxysmal atrial fibrillation (principal)
CPT/HCPCS: 93225; 93226

== ENCOUNTER → 2024-04-20 | Outpatient (CLI) | payer MEDICARE, SELFPAY ==
[2023-09-26 10:28] VITALS: BMI 22.8
[2024-04-20 15:20] LABS: Absolute Lymphocyte Count 1.76 X10^3/uL (0.83-4.51); Absolute Neutrophil Count 4.9 X10^3/uL (2.0-7.7); Basophil# 0.02 X10^3/uL; Basophil% 0.3 % (0-1); Eosinophil# 0.02 X10^3/uL; Eosinophils% 0.3 % (0-5); Hematocrit 39.1 % (37-47); Hemoglobin 12.9 g/dL (12.0-15.0); Lymphocyte # 1.76 X10^3/ul (0.83-4.51); Lymphocyte % 24.3 % (19-41); Mean Corpuscular Hgb 30.7 pg (27.0-32.0); Mean Corpuscular Volume 93.1 fL (81-99); Mean Platelet Vol. 9.2 fl (6.2-12.0); Monocyte# 0.54 X10^3/uL; Monocyte% 7.4 % (0-10); NRBC Flagged by Analyzer 0 % (0-5); Neutrophil # 4.88 X10^3/uL (2.7-7.7); Neutrophil % 67.3 % (47-70); Platelet Count 261 K/mm3 (150-450); RBC Distribution Width CV 12.9 % (11.6-14.6); RBC Distribution Width SD 43.8 fl (35.1-43.9); White Blood Count 7.3 K/mm3 (4.4-11.0)
[2024-04-20 19:49] LABS: Anion Gap 11 (5-15); BUN 11 mg/dL (4-19); BUN/Creat Ratio 18.7 RATIO (10-20); Calcium,Total 9.3 mg/dL (7.6-11.0); Carbon Dioxide 25.4 mmol/L (21.0-32.0); Chloride 99 mmol/L (98-108); Creatinine, Serum 0.58 mg/dL (0.70-1.20); EST Glomerular Filtration Rate 95 (>60); Glucose 88 mg/dL (70-99); Potassium 4.3 mmol/L (3.3-5.1); Sodium Level 135 mmol/L (133-145)
== END | disposition home or self-care (01) ==
LOC: MFPLAB 12:12
PROVIDERS: PCP Family Medicine; Referring Provider Family Medicine; Visit Provider Family Medicine
DX: E22.2 Syndrome of inappropriate secretion of antidiuretic hormone (principal); R79.82 Elevated C-reactive protein (CRP)
CPT/HCPCS: 36415; 80048; 85025; 86140

== ENCOUNTER → 2024-05-27 | Outpatient (CLI) | payer MEDICARE, SELFPAY ==
[2023-09-26 10:28] VITALS: BMI 22.8
--- NOTE | 2024-05-27 15:42 | MRI_ITS ---
EXAM: MRI lumbar spine without contrast CLINICAL HISTORY: Back pain COMPARISON: None TECHNIQUE: Multiplanar multisequence MRI of the lumbar spine without contrast. FINDINGS: There is normal lumbar lordosis. The lumbar vertebral bodies are normal in height. Loss of disc signal at L5-S1. Otherwise, disc spaces are maintained. No evidence of compression fracture. Alignment is normal. No listhesis. The bone marrow signal is unremarkable. There is no abnormal bone STIR signal. The included distal thoracic cord is normal in caliber and signal. The conus medullaris terminates at L1 level. There is no clumping of the nerve roots. Multiple perineural sleeve cysts. L1/2: Small circumferential disc bulge and mild facet degenerative changes without canal stenosis or significant neural foraminal narrowing.. L2/3: Small circumferential disc bulge, ligamentum flavum hypertrophy and facet degenerative changes without significant canal stenosis. Neural foramina are patent.. L3/4: Circumferential disc bulge asymmetric to the left, facet degenerative changes with mild canal stenosis. Neural foramina are patent.. L4/5: Small disc protrusion, [id number] facet degenerative changes without significant canal stenosis. Neural foramina are patent.. L5/S1: Small disc protrusion and facet degenerative changes without canal stenosis. Mild bilateral neural foraminal narrowing.. The visualized prevertebral and paraspinal soft tissues are unremarkable. MRI/Spine Lumbar (Routine) IMPRESSION: No acute fracture or traumatic malalignment. Multilevel degenerative changes without high-grade canal stenosis or neural for aminal narrowing. Reading Location: [facility]
== END | disposition home or self-care (01) ==
LOC: MRI 15:31
PROVIDERS: PCP Family Medicine; Referring Provider Family Medicine; Visit Provider Family Medicine
DX: M51.369 Other intervertebral disc degeneration, lumbar region without mention of lumbar back pain or lower extremity pain (principal)
CPT/HCPCS: 72148

== ENCOUNTER 2024-07-12 16:57 | Emergency (ER) | payer MEDICARE, SELFPAY ==
[2023-09-26 10:28] VITALS: BMI 22.8
[2024-07-12] VITALS (12 sets, daily range): BP systolic 169–208; BP diastolic 72–90; PULSE 57–66; RESP 13–31; TEMP 36.1; O2SAT 98–100; BMI 21.6
--- NOTE | 2024-07-12 17:00 | RAD_ITS ---
PROCEDURE: CHEST 1 VIEW (PORTABLE) 07/12/2024 REASON FOR EXAM: CHEST PAIN TECHNIQUE: Frontal view of the chest. COMPARISON: None FINDINGS: Hardware: Heart: The heart size is normal. Lungs: The lungs are clear. Bones: The bones are unremarkable. Other: RAD/Chest 1 View (Portable) IMPRESSION: No Acute Findings. Reading Location: [facility]
--- NOTE | 2024-07-12 17:00 | EKG12_ITS ---
Test Reason : CP Blood Pressure : */* mmHG Vent. Rate : 69 BPM Atrial Rate : 69 BPM P-R Int : 154 ms QRS Dur : 70 ms QT Int : 410 ms P-R-T Axes : 31 30 34 degrees QTcB Int : 439 ms Normal sinus rhythm Normal ECG Confirmed by Dillan Wilson ([id number]), film editor supervisor HARJEET AGARWAL ([id number]) on 07/19/2024 12:58:28 PM Referred By: Confirmed By: Dillan Wilson
--- NOTE | 2024-07-12 17:19 | ED.VIS.CHEST ---
HPI History of Present Illness Chief Complaint: Chest Pain Informant: patient and spouse/S.O. Narrative Narrative: Presents with spouse left-sided chest pain left arm pain 32 minutes prior to arrival and lasted a few minutes currently resolved. Reports symptoms of intermittent twinge. No sharp tearing sensations of the back. She has been dealing with tremors for past few weeks. Followed by PCP seen 2 weeks ago had a [address] brain outpatient reported by spouse ethmoid sinus infection. No recurrent antibiotics. Denies current headaches. No fevers. 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 Denies any current palpitations. No recent cough. Started on blood pressure medicines 2 weeks ago by PCP. No current headache chest pains or back pain. No nausea or vomiting. No urinary symptoms. History of mitral valve repair on baby aspirin. No coronary disease history. CVD Risk Factors: Positive for Hypertension and Hypercholesterolemia; Negative for Diabetes, Family History 1' </=55 or Smoking PE Risk Factors: Negative for Recent Travel/Surgery, Recent Immobilization or Prior DVT or PE [facility] Medical History TIA (transient ischemic attack) Wears glasses Post-menopausal Arthritis Back pain Difficulty swallowing Dietary restriction History of hiatal hernia Gastric reflux Non-smoker Leg cramps MVP (mitral valve prolapse) History of pain when walking History of Holter monitoring History of echocardiogram Cardiology follow-up encounter Epigastric pain Osteoporosis Anxiety Allergic rhinitis Migraines Hyperlipidemia Nonrheumatic mitral (valve) prolapse Paroxysmal supraventricular tachycardia Home Medications ?Medication ?Instructions ?Recorded ?Last Taken ?Type estradiol 0.01% (0.1 mg/gram) 1 g vaginal .3 TIMES WEEKLY #43 10/07/18 04/18/23 History vaginal cream grams clobetasol 0.05 % topical cream 1 applic topical PRN PRN Skin 10/14/18 Unknown History Cleansing #45 grams magnesium oxide 250 mg PO DAILY 10/19/19 Unknown History prednisolone acetate 1 % eye 1 drp ophthalmic (eye) PRN PRN Eye 10/19/19 Unknown History drops,suspension Irritation denosumab 60 mg/mL subcutaneous 60 mg subcut [id number] 12/12/20 Unknown History syringe (Prolia) lorazepam 0.5 mg tablet 0.5 mg PO BID PRN Anxiety 08/07/21 Unknown History diphenhydramine HCl 25 mg tablet 25 mg PO QHS PRN ALLERGIES 02/07/22 Unknown History (Benadryl Allergy) calcium 650 mg-vitamin D3 12.5 2 tab PO DAILY 08/15/22 Unknown History mcg-vitamin K 40 mcg chewable tablet (Viactiv) ipratropium bromide 42 mcg (0.06 2 spray intranasal BID 02/27/23 Unknown History %) nasal spray sumatriptan succinate 50 mg tablet 50 mg PO ONCE PRN migraine headache 02/27/23 Unknown History (Imitrex) aspirin 81 mg tablet,delayed 81 mg PO DAILY 04/08/23 12/31/23 History release (Adult Aspirin Regimen) albuterol sulfate 90 mcg/actuation 2 inh inhalation Q6H PRN shortness 06/11/23 Unknown History aerosol inhaler of breath or wheezing Lactobacillus acidophilus 10 100 mmu cells PO DAILY 10/08/23 Unknown History billion cell capsule (NewFlora) estradiol 0.5 mg tablet 0.5 mg PO .3X WEEKLY 10/08/23 Unknown History ascorbic acid 125 mg-collagen, 1 cap PO DAILY 01/01/24 Unknown History hydrolyzed 740 mg capsule (Collagen Plus Vitamin C) atorvastatin 10 mg tablet (Lipitor) 10 mg PO .QOD #60 tabs 02/26/24 Unknown Rx Held on 03/15/24. Instructions: Myalgias methocarbamol 500 mg tablet 500 mg PO TID PRN pain (scale 03/13/24 Unknown Rx score 7-10) 5 days #15 tabs prednisone 50 mg tablet 50 mg PO DAILY 5 days #5 tabs 03/13/24 Unknown Rx Allergy/AdvReac Type Severity Reaction Status Date / Time famotidine (From Pepcid) AdvReac Severe Constipatio Verified 07/12/24 16:58 n sucralfate (From Carafate) AdvReac Severe Other Verified 07/12/24 16:58 amoxicillin (From Augmentin) AdvReac Intermediate Diarrhea Verified 07/12/24 16:58 clavulanic acid (From AdvReac Intermediate Diarrhea Verified 07/12/24 16:58 Augmentin) cyclobenzaprine (From AdvReac Intermediate PT UNSURE Verified 07/12/24 16:58 Flexeril) OF REACTION gabapentin (From Neurontin) AdvReac Intermediate fatigue Verified 07/12/24 16:58 tizanidine AdvReac Intermediate Rash Verified 07/12/24 16:58 omeprazole (From Prilosec) AdvReac Unknown GI upset Verified 07/12/24 16:58 pantoprazole (From Protonix) AdvReac Unknown gi upset Verified 07/12/24 16:58 rabeprazole (From AcipHex) AdvReac Unknown unknown Verified 07/12/24 16:58 ranitidine AdvReac Unknown headache Verified 07/12/24 16:58 hydromorphone (From Dilaudid) AdvReac intolerance Verified 07/12/24 16:58 Iodinated Contrast Media AdvReac GI Upset Verified 07/12/24 16:58 levofloxacin AdvReac tendonitis Verified 07/12/24 16:58 Proton Pump Inhibitors AdvReac Other Verified 07/12/24 16:58 shellfish derived AdvReac GI Upset Verified 07/12/24 16:58 sorbitol AdvReac GI Upset Verified 07/12/24 16:58 Family History Mother CAD (coronary artery disease) CABG Heart disease Father CAD (coronary artery disease) CABG Myocardial infarction, Onset Age: 9 Surgical History History of esophagogastroduodenoscopy (EGD) History of cardiac catheterization Hx of mitral valve repair (05/20/23) Hx of rhinoplasty Hx of lumbar discectomy History of Wing fundoplication History of eye surgery (08/11/19) History of colonoscopy with polypectomy (10/15/19) History of esophagogastroduodenoscopy (EGD) (10/15/19) History of total abdominal hysterectomy History of left heart catheterization (11/10/01) History of radiofrequency ablation procedure for cardiac arrhythmia (09/21/08) Social History Smoking Status: Never smoker alcohol intake: never ROS ROS ED Constitutional Constitutional ED: Denies chills, fever(s) or sweats ENT ENT ED: Denies sore throat Cardiovascular Cardiovascular: Reports chest pain; Denies leg edema, palpitations or racing heartbeat Respiratory/Chest Respiratory/Chest: Denies cough, dyspnea or dyspnea on exertion Gastrointestinal Gastrointestinal: Denies abdominal pain, diarrhea, nausea or vomiting Genitourinary Genitourinary ED: Denies dysuria, hematuria or urinary frequency Musculoskeletal Musculoskeletal: Denies back pain, extremity pain or neck pain Integumentary Denies rash or wounds Neurologic Neurologic: Denies headache(s), paresthesias or weakness EXAM Physical Exam Const Vital Signs: 07/12/24 16:58 07/12/24 17:15 07/12/24 17:18 Temperature 96.9 F L Temperature Source Temporal Pulse Rate 66 Respiratory Rate 25 H Respiratory Effort Normal Blood Pressure 208/84 H Blood Pressure Mean 125 Pulse Ox 100 Oxygen Delivery Method Room Air Room Air 07/12/24 17:29 07/12/24 17:30 07/12/24 17:48 Temperature Temperature Source Pulse Rate 64 63 66 Respiratory Rate 14 31 H Respiratory Effort Blood Pressure 185/85 H 173/88 H Blood Pressure Mean 114 113 Pulse Ox 100 100 Oxygen Delivery Method 07/12/24 18:00 07/12/24 18:15 07/12/24 18:30 Temperature Temperature Source Pulse Rate 57 L 60 61 Respiratory Rate 16 16 13 Respiratory Effort Blood Pressure 188/90 H 170/83 H 184/80 H Blood Pressure Mean 116 108 108 Pulse Ox 98 100 100 Oxygen Delivery Method 07/12/24 18:45 07/12/24 19:00 07/12/24 19:15 Temperature Temperature Source Pulse Rate 62 63 64 Respiratory Rate 14 15 17 Respiratory Effort Blood Pressure 169/74 H 173/75 H 173/83 H Blood Pressure Mean 101 103 107 Pulse Ox 100 100 100 Oxygen Delivery Method 07/12/24 20:16 Temperature Temperature Source Pulse Rate Respiratory Rate Respiratory Effort Blood Pressure 172/72 H Blood Pressure Mean 105 Pulse Ox Oxygen Delivery Method Positive well nourished and well developed General Appearance ED: well developed and NAD HEENT Reports moist mucous membranes normocephalic and atraumatic Eyes General Eye ED: Yes normal appearance of both eyes Neck full ROM Chest Wall Chest: Negative for tenderness Resp normal respiratory effort and normal air movement Effort and Inspection: symmetric chest movement; Negative for respiratory distress Cardio regular rate, regular rhythm and no murmurs Peripheral Pulses: pulses 2+ throughout GI normal to inspection, nondistended, normoactive bowel sounds and non-tender Palpation: Negative for guarding or rebound tenderness present Extremity normal to inspection General Extremety ED: Negative for edema or tenderness General Extremity: Negative for edema Neuro oriented x3 and no sensory deficits noted Sensorium / Orientation: awake and alert Skin no rashes or lesions noted and no wounds MDM MDM MDM Narrative Medical decision making narrative: Interventions / MDM: Differential diagnosis: Atypical chest pain. Diagnosis considered but do not suspect: ACS however cardiac enzymes negative. My EKG interpretation: Sinus rate of 69, no ST changes or T wave changes. QTc 439. Imaging independently reviewed and interpreted by myself: 1 view chest x-ray: No acute process also read by radiology. External documents reviewed: N/A Test considered but not ordered:N/A ED course: Patient transient chest pains twinge sensation lasted a few minutes. EKG sinus with no acute findings. Cardiac workup initiated. Patient without sharp tearing sensations for concern for aortic dissection. Blood pressure was elevated 200s likely situational she was started on blood pressure medicine 2 weeks ago. Will monitor. 1834: Initial troponin negative at 9. Creatinine 0.6. Hemoglobin 13.5 white count 6.5. Chest x-ray negative. Blood pressure 170/83 without any intervention. 1899: Remains symptom-free. Awaiting delta troponin. 2020: Delta troponin negative remains symptom-free. She reports she had a heart cath before her valve repair last year in April that was neck. 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 She asked about her shaking episodes been going on for months. She reports outpatient CT brain that was negative. No current active shaking. Discussed continued workup as an outpatient with her physicians. She may need referral to neurology. All questions were answered. Re-evaluation: stable Disposition discussed with patient/family/significant other: Patient significant other Case discussed with consulting clinician: N/A This note was generated with Other Machine dictation software. It may contain incorrect words, spelling, and punctuation that were not noted in checking the note before signing. Lab Data Attestation: I reviewed the patient's lab results. Labs: Laboratory Results - last 24 hr 07/12/24 07/12/24 17:13 19:13 WBC 6.5 RBC 4.27 Hgb 13.5 Hct 38.8 MCV 90.9 MCH 31.6 MCHC 34.8 RDW Std Deviation 39.8 RDW Coeff of Chaitanya 12.0 Plt Count 221 MPV 9.3 Immature Gran % (Auto) 0.600 Neut % (Auto) 60.8 Lymph % (Auto) 31.4 [place] % (Auto) 5.9 Eos % (Auto) 0.8 Baso % (Auto) 0.5 Absolute Neuts (auto) 4.0 Absolute Lymphs (auto) 2.04 Nucleated RBC % 0 Sodium 136 Potassium 3.4 Chloride 102 Carbon Dioxide 23.9 Anion Gap 11 BUN 8 Creatinine 0.60 L Estim Creat Clear Calc 44.32 L Est GFR (MDRD) Non-Af 94 BUN/Creatinine Ratio 13.2 Glucose 105 H Calcium 8.8 Troponin T High Sens 9 Troponin T Hi Sens 2 Hr 10 Radiography Diagnostic Testing: Clinical Impression(s) from Imaging Studies Chest X-Ray 07/12/24 17:00 IMPRESSION: No Acute Findings. Reading [facility] Discharge Plan Triage Chief Complaint: Chest Pain ED Provider: Prateek Burciaga Dx/Rx/DC Orders Clinical Impression: Chest pain, Hx of mitral valve repair Instructions: ED Chest Pain, Uncertain Cause Prescriptions: No Action clobetasol 0.05 % cream 1 applic TOPICAL PRN PRN (Reason: Skin Cleansing) Qty: 45 calcium-vitamin D3-vitamin K [Viactiv] 650 mg-12.5 mcg-40 mcg tablet,chewable 2 tab PO DAILY estradiol 0.01 % (0.1 mg/gram) cream 1 g VAGINAL .3 TIMES WEEKLY Qty: 43 Patient Comments: APPLY 3 X/WEEK NEEDED. magnesium oxide 250 mg magnesium tablet 250 mg PO DAILY prednisolone acetate 1 % drops,suspension 1 drp OPHTHALMIC PRN PRN (Reason: Eye Irritation) Patient Comments: PLEASE SEE ATTACHED FOR DETAILED DIRECTIONS Prolia 60 mg/mL syringe 60 mg subcut [id number] lorazepam 0.5 mg tablet 0.5 mg PO BID PRN (Reason: Anxiety) sumatriptan succinate [Imitrex] 50 mg tablet 50 mg PO ONCE PRN (Reason: migraine headache) ipratropium bromide 42 mcg (0.06 %) spray,non-aerosol 2 spray intranasal BID Rx Instructions: administer into each nostril aspirin [Adult Aspirin Regimen] 81 mg tablet,delayed release (DR/EC) 81 mg PO DAILY atorvastatin [Lipitor] 10 mg tablet 10 mg PO .QOD Qty: 60 3RF diphenhydramine HCl [Benadryl Allergy] 25 mg Tablet 25 mg PO QHS PRN (Reason: ALLERGIES) Collagen Plus Vitamin C 125-740 mg capsule 1 cap PO DAILY methocarbamol 500 mg tablet 500 mg PO TID PRN (Reason: pain (scale score 7-10)) 5 Days Qty: 15 0RF prednisone 50 mg tablet 50 mg PO DAILY 5 Days Qty: 5 0RF albuterol sulfate 90 mcg/actuation HFA aerosol inhaler 2 inh inhalation Q6H PRN (Reason: shortness of breath or wheezing) NewFlora 10 billion cell capsule 100 mmu cells PO DAILY estradiol 0.5 mg tablet 0.5 mg PO .3X WEEKLY Primary Care Provider: Shiloh Duvall Referrals: Shiloh Duvall [Other] - 3-5 Days [facility] Doctor,Out of [Non-Staff] - Activity Restrictions/Additional Instructions: EKG cardiac workup negative chest x-ray negative. You had elevated blood pressure that improved without any intervention.Follow-up with your PCP and your cardiology team. Your shaking episodes being evaluated by your doctors. Follow-up with them for further testing as needed. Print Language: Greenlandic Disposition Disposition: Home, Self Care
[2024-07-12 17:22] LABS: Absolute Lymphocyte Count 2.04 X10^3/uL (0.83-4.51); Basophil# 0.03 X10^3/uL; Basophil% 0.5 % (0-1); Eosinophil# 0.05 X10^3/uL; Eosinophils% 0.8 % (0-5); Hematocrit 38.8 % (37-47); Hemoglobin 13.5 g/dL (12.0-15.0); Lymphocyte # 2.04 X10^3/ul (0.83-4.51); Lymphocyte % 31.4 % (19-41); Mean Corp Hgb Conc 34.8 g/dL (32-36); Mean Corpuscular Hgb 31.6 pg (27.0-32.0); Mean Corpuscular Volume 90.9 fL (81-99); Mean Platelet Vol. 9.3 fl (6.2-12.0); Monocyte# 0.38 X10^3/uL; Monocyte% 5.9 % (0-10); NRBC Flagged by Analyzer 0 % (0-5); Neutrophil # 3.95 X10^3/uL (2.7-7.7); Neutrophil % 60.8 % (47-70); Platelet Count 221 K/mm3 (150-450); RBC Distribution Width SD 39.8 fl (35.1-43.9); Red Blood Count 4.27 M/mm3 (4.2-5.4); White Blood Count 6.5 K/mm3 (4.4-11.0)
[2024-07-12 17:49] LABS: Troponin T High Sensitivity 9 ng/L (<=14)
[2024-07-12 17:51] LABS: Anion Gap 11 (5-15); BUN 8 mg/dL (4-19); BUN/Creat Ratio 13.2 RATIO (10-20); Calcium,Total 8.8 mg/dL (7.6-11.0); Carbon Dioxide 23.9 mmol/L (21.0-32.0); Chloride 102 mmol/L (98-108); EST Glomerular Filtration Rate 94 (>60); Estimated Creatinine Clearance 44.32 ml/min (50-250); Glucose 105 mg/dL (70-99); Potassium 3.4 mmol/L (3.3-5.1); Sodium Level 136 mmol/L (133-145)
[2024-07-12 20:14] LABS: Troponin T High Sens 2 HR 10 ng/L (<=14)
== END 2024-07-12 20:45 | disposition home or self-care (01) ==
PROVIDERS: Emergency Provider Emergency Medicine; Visit Provider Emergency Medicine
DX: R07.9 Chest pain, unspecified (principal); I10 Essential (primary) hypertension; E78.00 Pure hypercholesterolemia, unspecified; Z79.82 Long term (current) use of aspirin; Z79.899 Other long term (current) drug therapy
CPT/HCPCS: 71045; 80048; 84484; 85025; 93005; 99284; A4216

== ENCOUNTER 2024-07-21 15:30 | Outpatient (RCR) | payer MEDICARE, SELFPAY ==
[2023-09-26 10:28] VITALS: BMI 22.8
--- NOTE | 2024-06-09 13:20 | HP.PTEVAL_ITS ---
Patient's Visit Information Visit Information Visit Information: JOSEFA CHE is a 73 year old F referred to Physical Therapy by Dr. Santy Hadley MD with a diagnosis of Lumbar DDD/L Quad weakness. Date of Evaluation: 06/09/24 Physical Therapist: TAY Yanes Visit Plan Frequency: 2x /Week Duration: 6 Weeks Plan: 2X/ week for 6 weeks for L LE strength, core stability, stretch of L HS, Piriformis, and Quad with HEP HEP: bridges and clam shells both with ab bracing for core Subjective Subjective: Pt had an attack from Lipitor where her jaw, shoulder, neck and L hip leg and thumb and was in ER and calmed it down cause she was in so much pain and stopped the Lipitor. Then in Mar she had a L hip attack and then 2 weeks later pain in back and hip. Has not had any attack since. She saw Dr Hadley and had back surgery and can not feel the back of L leg and lateral L foot. She had pain in groin, lateral hip. She has pain once in awhile but the weakness is an issue. If she goes up the steps she will feel the weakness. She saw Dr Costello for an injection and that lasted for awhile but the weakness has persisted. She had the injection in Mar. She feels that the injection worked and helped with the pain. She had back surgery a long time ago and just had an MRI a week ago. She was dragging her L leg before surgery. Her L leg was doing well and since that attack from the medicine she reports that it has gotten worse on the L leg. She currently has a little tingling in her L knee area. Had some pain in back when woke up this morning Objective Objective: Gait: walks with decrease stance time on the L LE and weight shift away from the L, decreased stride length, decrease trunk AROM: flexion 100%, ext 50%, SB B 75%, ROT B 75% Prone press up X 10 just felt a stretch across LB but no pain LE MMT: R hip flex 10 and L 9.2 R knee ext 16 and L 14,7 R knee flex 11.5 and L 10.5 R hip abd 9.3 and L 8.3 R hip ext 7.5 and 6.4 Stairs: Up and down recip with light touch on hand rail but has to drive L leg up to ascend the step. Trunk AROM: Flexion 100%, ext 25%, SB B 75%, Rot B 75% Heel and toes raises: Pt is able to walk on heel and toes Pt is able to do full bridge She has tight L piriformis and tighter HS on the L. Quad is slightly tighter on the L as well. Balance/Special Test Scores Oswestry Low Back Score: 3 Goals Goal 1:: I HEP Goal Time Frame: 6-8 Weeks Goal 2:: Increase L LE strength (at the time of the eval: LE MMT: R hip flex 10 and L 9.2 R knee ext 16 and L 14,7 R knee flex 11.5 and L 10.5 R hip abd 9.3 and L 8.3 R hip ext 7.5 and 6.4) Goal Time Frame: 6-8 Weeks Goal 3:: Be able to go up and down the steps recip with 1 hand rail without any signs of L LE weakness Goal Time Frame: 6-8 Weeks Goal 4:: Walk with more equal stance time on B LE's Goal Time Frame: 6-8 Weeks Rehabilitation Potential Rehabilitation Potential: Good Anticipated Interventions Patient/Client Instruction: Educate patient on: Condition and Plan of Care For the Purpose of:: To decrease pain, To increase ROM, To improve nutrient delivery to tissue, To improve muscle performance and motor function, To improve ability to perform ADL's, To increase tolerance to activity/condition/position, To improve performance and independence with ADL's, To decrease level of supervision to perform tasks, To improve ability of physical actions for home/community/work/leisure, To improve gait and locomotor functions, To improve health of tissue, To decrease soft tissue restriction, To increase flexibility/ROM and To improve endurance Therapeutic Exercise to Include: Strength training, Endurance training, Postural training, Flexibilty training, Gait and locomotor training, Neuromotor development, Active ROM, Dynamic Lumbar Stabilization and Scapular Strength/Stabilization For the Purpose of:: To decrease pain, To improve nutrient delivery to tissue, To improve muscle performance and motor function, To improve ability to perform ADL's, To increase tolerance to activity/condition/position, To improve performance and independence with ADL's, To decrease level of supervision to perform tasks, To improve ability of physical actions for home/community/work/leisure, To improve gait and locomotor functions, To improve health of tissue, To decrease soft tissue restriction, To increase flexibility/ROM and To improve endurance Manual Therapy Techniques to Include: Passive ROM For the Purpose of:: To decrease pain, To increase ROM, To improve nutrient delivery to tissue, To improve muscle performance and motor function, To improve ability to perform ADL's, To increase tolerance to activity/condition/position, To improve performance and independence with ADL's, To decrease level of supervision to perform tasks, To improve ability of physical actions for home /community/work/leisure, To improve gait and locomotor functions, To improve health of tissue, To decrease soft tissue restriction, To increase flexibility/ROM and To improve endurance Text: Thank you for the opportunity to evaluate your patient. For Medicare and Medicare HMO plans, please review the plan of care and approve it. It will need to be FAXED BACK to us at [phone] for Medicare purposes. For Medicare only, by signing this I certify the plan of care. Please let me know if there are questions or concerns regarding this plan of care. Physician Signature: Date:
--- NOTE | 2024-07-21 15:59 | HP.PTDCSUM ---
Discharge Summary D/C summary: It has been my pleasure to treat JOSEFA CHE referred by Dr. Santy Hadley MD, with the diagnosis of Lumbar DDD/L Quad weakness for a total of 8 visit(s). Discharge Date: 07/21/24 Please see the following information for a summary of their discharge status. Subjective Subjective: Pt has a little pain L hip flexor but she is much better. She is doing her exercises couple times a week. Pain L upper hip pain: Pain Intensity (Out of 10): 4 Overall Improvement % Improvement: 90 Objective Objective/Function: LE MMT: R hip flex 10 and L 10 R knee ext 16 and L 15.2 R knee flex 11.5 and L 10.5 R hip abd 9.3 and L 8.3 R hip ext 8.5 and 9.8 Gait: Walks with even stance time on B legs. Still shorter stride but overall improved Stairs: up and down recip with no hand rails Goals Goal 1:: I HEP Goal Progress: Goal Met Goal 2:: Increase L LE strength (at the time of the eval: LE MMT: R hip flex 10 and L 9.2 R knee ext 16 and L 14,7 R knee flex 11.5 and L 10.5 R hip abd 9.3 and L 8.3 R hip ext 7.5 and 6.4) Goal Progress: Goal Met Goal 3:: Be able to go up and down the steps recip with 1 hand rail without any signs of L LE weakness Goal Progress: Goal Met Goal 4:: Walk with more equal stance time on B LE's Goal Progress: Goal Met Plan Plan: DC PT to HEP D/C Information Discharge Comments: DC PT to HEP d/c sentence: If there are questions or concerns regarding this patient's physical therapy, please feel free to call me at [phone]. Thank you for the referral of this patient. Sincerely, Alicia Muñiz, MPT Balance/Gait/Functional tests Balance/Special Test Scores Oswestry Low Back Score: 4 Improvement % Improvement: 90
== END 2024-07-21 19:00 | disposition home or self-care (01) ==
LOC: PT 15:30
PROVIDERS: PCP Family Medicine; Referring Provider Family Medicine; Visit Provider Family Medicine
DX: M51.369 Other intervertebral disc degeneration, lumbar region without mention of lumbar back pain or lower extremity pain (principal); M62.81 Muscle weakness (generalized)
CPT/HCPCS: 97110; 97161; 97530